=== PATIENT | male | born 1960 | race Two or more races ===

== ENCOUNTER 2024-12-25 22:12 | Emergency (ER) | payer SELFPAY ==
[2024-12-25 22:14] VITALS: BMI 22.0
[2024-12-25 22:19] VITALS: BP 159/103; PULSE 93; RESP 21; TEMP 36.6; O2SAT 100
--- NOTE | 2024-12-25 22:38 | PD.EDABDPN ---
ED Abdominal Pain RME/HPI General Chief Complaint: Abdominal Pain Stated complaint: Abdominal pain with NV x years off/on Time seen by provider: 12/25/24 22:29 Arrival date/time: 12/25/24 22:12 RME / HPI RME / HPI narrative: This section includes all my notes and documentations, including HPI, PE, and ED course. Jian Cristobal MD HPI: 64-year-old male here to be evaluated with several days of upper abdominal pain, severely worsening. With nausea and vomiting. Minimal oral intake. No hematemesis or coffee-ground emesis. No rectal bleeding or tarry stools. He reports no history of abdominal surgery. No other complaints. ROS: All negative except as documented in HPI. Physical Exam: General: Alert and oriented. In severe pain. Eyes: Conjunctivae and lids clear. ENT: No nasal congestion. Neck: Supple. Heart: RRR. Lungs: No respiratory distress. Good air movement. No rhonchi, wheezing, rales. Abdomen: Soft with severe epigastric and RUQ tenderness. Decreased bowel sounds. No distension. No rebound or guarding. Back: No CVA tenderness. Skin: Warm and dry. Neuro: Alert and oriented X 3. I reviewed all diagnostic test results. My review of the gallbladder US is cholelithiasis. Blood tests remarkable for Hgb 8.2, PLT 696, CR 1.7, and amylase 151. UA remarkable for WBC and UTI. Abdominal CT is pending. Treatment here included IV fluid, Zofran, Dilaudid, Rocephin, famotidine, and Protonix. At 6 AM on 12/26/2024, the care of the patient was transferred to Dr. Naidu. Jian Cristobal MD Related Data Home Medications ?Medication ?Instructions ?Recorded ?Confirmed No Known Home Medications 12/26/24 12/26/24 Allergies Allergy/AdvReac Type Severity Reaction Status Date / Time No Known Allergies Allergy Verified 12/25/24 22:14 Course Quality Measures none Orders Category Date Time Status CT Screening NOW Care 12/25/24 23:00 Active Saline [Insert IV] NOW Care 12/25/24 22:59 Active Straight [In and Out Catheter] X1 Care 12/25/24 22:[address] abdomen pelvis w con Stat Exams 12/25/24 23:00 Taken US gall bladder Stat Exams 12/25/24 23:00 Completed Alcohol, Blood Medical Stat Lab 12/25/24 23:10 Completed Amylase Stat Lab 12/25/24 23:10 Completed Bilirubin,Direct Stat Lab 12/25/24 23:10 Completed CBC Stat Lab 12/25/24 23:10 Completed CMP [Comprehensive Metabolic Panel] Stat Lab 12/25/24 23:10 Completed Drug Screen,Urine Stat Lab 12/26/24 04:24 Received Lipase Stat Lab 12/25/24 23:10 Completed Magnesium Stat Lab 12/25/24 23:10 Completed UA, C/S IF [Urinalysis, C/S if Indicated] Stat Lab 12/26/24 04:24 Received Urine Culture Stat Lab 12/26/24 04:24 Received Famotidine Inj [Pepcid Inj] Med 12/26/24 01:31 Discontinued 20 mg IVP X1 ONE HYDROmorphone INJ [Dilaudid Inj] Med 12/25/24 22:59 Discontinued 1 mg IVP X1 ONE Ondansetron Inj [Zofran Inj] Med 12/25/24 22:59 Discontinued 4 mg IV X1 ONE Pantoprazole Inj [Protonix Inj] Med 12/26/24 01:31 Discontinued 40 mg IVP X1 ONE Sodium Chloride 0.9% 1000 ml [Ns] 1,000 ml Med 12/25/24 22:59 Discontinued IV 999 mls/hr Sodium Chloride 0.9% 1000 ml [Ns] 1,000 ml Med 12/26/24 01:35 Discontinued IV 999 mls/hr cefTRIAXone [Rocephin] 1,000 mg Med 12/26/24 05:07 Ordered SODIUM CHLORIDE 0.9% (Popper) [Ns 0.9% (P)] 50 ml IV X1 Vital Signs Vital signs: Vital Signs Temperature 97.8 F 12/25/24 22:19 Pulse Rate 93 12/25/24 22:19 Respiratory Rate 21 H 12/25/24 22:19 Blood Pressure 159/103 H 12/25/24 22:19 Pulse Oximetry (%) 100 12/25/24 22:19 Abdominal Pain MDM Patient data External records reviewed:: None Clinical information provided by:: patient Social determinants that could affect healthcare access:: none (Uncertain) Patient has the following chronic illnesses:: Patient denies chronic illnesses. How is presenting disease/condition affected by chronic disease/condition?: no chronic disease Evaluation data The following diagnostics were reviewed and interpreted by me:: lab results and radiology exam(s) Lab and/or radiology exams considered but not ordered:: None Interpretation Summary: Complete diagnostic results pending. Medications / Prescriptions Medications or Prescriptions considered but not ordered:: None Medication administrations:: Medication Administration History Ceftriaxone Sodium 1,000 mg/ (Sodium Chloride) 50 mls @ 100 mls/hr IV X1 ONE Stop: 12/26/24 05:36 Discontinued Medications Famotidine (Famotidine Inj 10 Mg/Ml Vial 2 Ml) 20 mg IVP X1 ONE Stop: 12/26/24 01:32 Last Admin: 12/26/24 01:59 Dose: 20 mg Documented By: AM Hydromorphone HCl (Hydromorphone Inj 2 Mg/Ml Vial) 1 mg IVP X1 ONE Stop: 12/25/24 23:00 Last Admin: 12/25/24 23:18 Dose: 1 mg Documented By: CVL Sodium Chloride (Ns) 1,000 mls @ 999 mls/hr IV .Q1H1M ONE Stop: 12/25/24 23:59 Last Infusion: 12/26/24 00:59 Dose: Infused Documented By: Admin: 12/25/24 23:15 Dose: 999 mls/hr Documented By: CVL Sodium Chloride (Ns) 1,000 mls @ 999 mls/hr IV .Q1H1M ONE Stop: 12/26/24 02:35 Last Infusion: 12/26/24 03:01 Dose: Infused Documented By: Admin: 12/26/24 01:59 Dose: 999 mls/hr Documented By: AM Ondansetron HCl (Ondansetron Inj 2 Mg/Ml Inj 2 Ml) 4 mg IV X1 ONE; Protocol Stop: 12/25/24 23:00 Last Admin: 12/25/24 23:17 Dose: 4 mg Documented By: CVL Pantoprazole Sodium (Pantoprazole Inj 40 Mg Vial) 40 mg IVP X1 ONE Stop: 12/26/24 01:32 Last Admin: 12/26/24 01:58 Dose: 40 mg Documented By: AM IV fluid and Zofran and Dilaudid and famotidine and Protonix. Consultations Consultation(s) initiated? (list below): No Diagnosis Differential diagnosis abdominal pain: acute appendicitis, calculus of kidney, constipation, diverticulitis, gastroenteritis, pancreatitis, small bowel obstruction and other (Biliary colic, PUD, gastritis, GERD, punctured organ) Most likely diagnosis given after review of the tests above:: Complete diagnostic results are pending. Admission Indicated Admission indicated?: not indicated Explain why admission is indicated or not indicated:: Complete diagnostic test results are pending. Admission Request Was there a request for admission?: No Disposition Plan Disposition Plan: other (specify) (Care of the patient was transferred to Dr. Naidu.) Discharge Plan Prescriptions/Referrals Prescriptions/Med Rec: No Action No Known Home Medications Referrals: No Primary/Family,Physician [Primary Care Provider] - In 1 week Problem List Clinical Impression: Abdominal pain, UTI (urinary tract infection) Patient/Caregiver Discharge Instructions Print Language: [place]
--- NOTE | 2024-12-25 23:00 | XR_ITS ---
Examination: CT abdomen with intravenous contrast CT pelvis with intravenous contrast 2-D coronal reconstructions 2-D sagittal reconstructions Date and time of exam:December 26, 2024 at 0320 hours INDICATIONS: Upper abdominal pain with nausea today. CTDI: vol (mGy) 4.25 DLP: (mGycm) 239 Technique: Multiple axial sections of the abdomen and pelvis have been obtained. 64 slice high-resolution scanner used. 3 mm axial sections have been obtained, post intravenous injection of 50 cc Isovue 300 and 2-D sagittal, coronal reconstructions obtained. Low dose protocols were performed. One or more of the following dose reduction techniques were used; automated exposure control, adjustment of the mA and/or KV according to patient size, use of iterative reconstruction technique. Findings: Pronounced thickening of the distal wall of the esophagus No focal liver or splenic lesion Gallbladder is not diagnostically visualized No hydronephrosis Aorta normal size No bowel obstruction Intact urinary bladder No significant prostatomegaly Diffuse advanced lumbar degenerative disc disease IMPRESSION: Abnormal wall thickening involving the distal esophagus and fundus of the stomach, recommend esophagram upper GI series follow-up, esophageal gastric tumor included in the differential
--- NOTE | 2024-12-25 23:00 | XR_ITS ---
Examination: Abdomen sonogram, Limited Date and time of exam: December 25, 2024 11:23 PM INDICATIONS: Right upper abdomen tenderness years Technique: Real-time alberts scale transabdominal sonographic images of the upper abdomen obtained. Findings: Cholelithiasis, negative for cholecystitis Common bile duct 0.6 cm no stones Pancreatic head 1.6 cm Liver 11.6 cm fatty infiltration Normal hepatopedal portal venous flow Patent IVC IMPRESSION: Cholelithiasis, negative for cholecystitis
[2024-12-25] MEDS: SODIUM CHLORIDE 0.9% 1000 ML 1,000 ML 999 ML IV (23:15)
[2024-12-25] MEDS: ONDANSETRON INJ 2 MG/ML INJ 2 ML 4 MG IV (23:17)
[2024-12-25 23:18] LABS: Basophils % (Auto) 1 % (0-2.5); Eosinophils % (Auto) 0 % (0-10); Hematocrit 28.8 % (41.0-53.0); Immature Granulocytes % (Auto) 0 % (0-0); Immature Granulocytes Auto 0.02 Thou/mm3 (0.00-0.00); Lymphocytes # (Auto) 0.7 Thou/mm3 (1.0-4.8); Lymphocytes % (Auto) 10 % (10-50); Mean Corpuscular HGB Conc 28.5 g/dl (31.0-37.0); Mean Corpuscular Hemoglobin 17.1 pg (25.0-35.0); Mean Corpuscular Volume 60 fL (80-100); Monocytes # (Auto) 0.5 Thou/mm3 (0.0-0.8); Monocytes % (Auto) 6 % (0-12); Neutrophils # (Auto) 6.3 Thou/mm3 (1.8-7.7); Neutrophils % (Auto) 83 % (37-80); Nucleated Red Blood Cell % 0 /100 WBC (0); Platelet Count 696 Thou/mm3 (140-440); RDW Standard Deviation 41.3 fL (35.1-43.9); White Blood Count 7.6 Thou/mm3 (3.8-10.6)
[2024-12-25] MEDS: HYDROmorphone INJ 2 MG/ML VIAL 1 MG IVP (23:18)
[2024-12-25 23:54] LABS: Hemoglobin 8.2 g/dL (13.5-16.0)
[2024-12-26 00:06] LABS: Alanine Aminotransferase 8 U/L (10-49); Albumin, Serum 4.5 gm/dL (3.4-4.8); Albumin/Globulin Ratio 1.7 (1.2-2.2); Alcohol, Blood Medical < 3.0 mg/dL (0-10.0); Alkaline Phosphatase 94 U/L (46-116); Amylase 151 U/L (30-118); Anion Gap 9 (7-16); Aspartate Amino Transferase 14 U/L (0-34); BUN/Creatinine Ratio 21 Ratio (12-20); Bilirubin,Direct 0.1 mg/dL (0.0-0.3); Bilirubin,Total 0.4 mg/dL (0.3-1.2); Blood Urea Nitrogen 35 mg/dL (9-23); Calcium 10.1 mg/dL (8.3-10.6); Calcium (Corrected) 10.1 mg/dL (8.5-10.1); Carbon Dioxide 38.4 mMol/L (20.0-31.0); Chloride 82 mMol/L (98-107); Creatinine (Component) 1.7 mg/dL (0.6-1.3); Estimated Creatinine Clearance 41.4 mL/min (>60); Globulin 2.7 gm/dL (2.3-3.5); Glucose 138 mg/dL (74-106); Lipase 24 U/L (12-53); Magnesium 2.6 mg/dL (1.6-2.6); Osmolality,Calculated 268 (275-295); Potassium 3.4 mMol/L (3.4-5.1); Sodium 129 mMol/L (136-145); Total Protein 7.2 gm/dL (5.7-8.2); eGFR 45 See Note
[2024-12-26 01:25] VITALS: BP 145/87; PULSE 82; RESP 19; TEMP 36.9; O2SAT 98
[2024-12-26] MEDS: PANTOPRAZOLE INJ 40 MG VIAL IVP (01:58)
[2024-12-26] MEDS: SODIUM CHLORIDE 0.9% 1000 ML 1,000 ML 999 ML IV (01:59)
[2024-12-26] MEDS: FAMOTIDINE INJ 10 MG/ML VIAL 2 ML 20 MG IVP (01:59)
[2024-12-26 04:44] LABS: Collection Type, Urine Clean Catch; RBC,Urine 0 /hpf (0-3)
[2024-12-26 05:00] VITALS: BP 131/85; PULSE 74; RESP 16; TEMP 36.8; O2SAT 98
[2024-12-26 05:05] LABS: Bacteria,Urine 1+; Bilirubin,Urine Negative (Negative); Blood,Urine Negative (Negative); Clarity,Urine Turbid (Clear/Hazy); Color,Urine Yellow (Lt Yel-Yel); Glucose, Urine Negative (Negative); Hyaline Casts,Urine < 1 /hpf (0-1); Ketones,Urine Negative (Negative); Leukocyte Esterase,Urine Positive (Negative); Nitrite,Urine Negative (Negative); Protein,Urine 1+ (Neg - Trace); Specific Gravity,Urine 1.026 (1.001-1.035); Squamous Epithelial Cell,Urine < 1 /hpf (0-5); Urobilinogen,Urine Negative mg/dL (0.0-1.0); WBC,Urine 37 /hpf (0-5)
[2024-12-26 05:06] LABS: Culture Indicated,Urine Yes
[2024-12-26 05:11] LABS: Path Review Blood Smear Sent to Pathologist
[2024-12-26 05:14] LABS: Amphetamine/Methamp Scrn,U Positive (Negative); Barbiturate Screen,Urine Negative (Negative); Benzodiazepines Screen,Urine Negative (Negative); Benzoylecgonine Screen, Ur Negative (Negative); Fentanyl Screen,Urine Negative (Negative); Opiate Screen,Urine Negative (Negative); THC Screen,Urine Negative (Negative)
--- NOTE | 2024-12-26 05:14 | PRELIM_ITS ---
CT scan of the abdomen and pelvis with intravenous contrast (axial sections with sagittal and coronal reformats) December 26, 2024 at 0320 hours Clinical History: Upper abdominal pain. Comparison: None. Findings: The lung bases are clear. The liver, gallbladder, pancreas, spleen, kidneys and adrenals are unremarkable. No evidence of bowel obstruction. No evidence of appendicitis. There is no mesenteric or retroperitoneal adenopathy. The urinary bladder is unremarkable. There is no free fluid or free air. Degenerative changes of the imaged portions of the spine. Chronic multilevel disc disease. No acute fractures. Vascular calcifications. Small hiatus hernia. Thickening of the distal esophagus and gastroesophageal junction. Impression: Small hiatus hernia. Thickening of the distal esophagus and gastroesophageal junction, inflammatory versus neoplastic, further evaluation is recommended. Report Electronically Signed By: Maykel Chan 12/26/2024 5:13:50 AM [EST]
[2024-12-26] MEDS: cefTRIAXone 1,000 MG in SODIUM CHLORIDE 0.9% (Popper) 50 ML 100 MG IV (05:22)
[2024-12-26 06:18] VITALS: BP 111/50; PULSE 78; RESP 17; TEMP 36.6; O2SAT 99
--- NOTE | 2024-12-26 06:53 | EDNOTE_ITS ---
Emergency Room Addendum Addendum Narrative: 0600: Care assumed from Dr. Cristobal, the previous shift emergency physician. Past medical, surgical, social and family history reviewed. Vitals and home medications reviewed. I will assume the care of the patient at this time, pending CT report and final disposition. Please refer to the emergency department record for history and examination from initial visit.?The following addendum documentation note is intended to reflect any pending information, findings, or radiology results not included in the patient?s initial chart. 0738: On reassessment patient reports he feels improved although still has mild epigastric pain and nausea. Will order pain medications and reassess. 0850: Patient reports feeling better. Patient remains clinically stable throughout the emergency department visit. We reviewed all the results, analysis, and treatment plans. Patient is amenable to discharge. Strict return precautions were outlined. Patient was discharged in stable condition. RADIOLOGY ____ Ordering Physician: Date of Service: Procedure(s): Accession Number(s): cc: ~ CT scan of the abdomen and pelvis with intravenous contrast (axial sections with sagittal and coronal reformats) December 26, 2024 at 0320 hours Clinical History: Upper abdominal pain. Comparison: None. Findings: The lung bases are clear. The liver, gallbladder, pancreas, spleen, kidneys and adrenals are unremarkable. No evidence of bowel obstruction. No evidence of appendicitis. There is no mesenteric or retroperitoneal adenopathy. The urinary bladder is unremarkable. There is no free fluid or free air. Degenerative changes of the imaged portions of the spine. Chronic multilevel disc disease. No acute fractures. Vascular calcifications. Small hiatus hernia. Thickening of the distal esophagus and gastroesophageal junction. Impression: Small hiatus hernia. Thickening of the distal esophagus and gastroesophageal junction, inflammatory versus neoplastic, further evaluation is recommended. Report Electronically Signed By: Maykel Chan 12/26/2024 5:13:50 AM [EST]
[2024-12-26 07:48] VITALS: BP 125/74; PULSE 81; RESP 18; TEMP 36.6; O2SAT 99
[2024-12-26] MEDS: ACETAMINOPHEN 325 MG TABLET 650 MG PO (08:39)
[2024-12-26 10:28] VITALS: BP 124/66; PULSE 73; RESP 12; TEMP 36.7; O2SAT 98
--- NOTE | 2024-12-26 10:40 | PC.CC ---
Marleen BENJAMIN was consulted by JUAN Osborne for transportation for the patient back home. ASW made contact with [facility] who reports they will be here to p/u patient in 30 minutes. ASW provided taxi voucher to RN and informed her of taxi p/u time.
== END 2024-12-26 10:28 | disposition home or self-care (01) ==
PROVIDERS: Emergency Medicine; Emergency Provider Family Medicine
DX: K80.20 Calculus of gallbladder without cholecystitis without obstruction (principal); N39.0 Urinary tract infection, site not specified
CPT/HCPCS: 36415; 74177; 76705; 80053; 80307; 80320; 81001; 82150; 82248; 83690; 83735; 85025; 87077; 87086; 87186; 96361; 96365; 96375; 99285; A4649; J0696; J2405; J2470; J3490; J7030; J7050; Q9967; A9270; G0480

== ENCOUNTER 2024-12-27 18:03 | Inpatient (IN) | payer MEDICAID, SELFPAY ==
[2024-12-27 18:05] VITALS: BMI 26.6
--- NOTE | 2024-12-27 18:47 | PC.NURSE ---
CALLED PT BACK, NO ANSWER
[2024-12-27 19:54] VITALS: BP 146/83; PULSE 88; RESP 18; TEMP 36.9; O2SAT 99
--- NOTE | 2024-12-27 20:01 | PD.EDRME ---
Rapid Medical Screening Exam RME Arrival date/time: 12/27/24 18:03 Chief Complaint: Abdominal Pain Time Seen by Provider: 12/27/24 18:15 Vital signs: Vital Signs Temperature 98.4 F 12/27/24 19:54 Pulse Rate 88 12/27/24 19:54 Respiratory Rate 18 12/27/24 19:54 Blood Pressure 146/83 H 12/27/24 19:54 Pulse Oximetry (%) 99 12/27/24 19:54 Oxygen Delivery Method Room Air 12/27/24 19:54 Vital signs reviewed by provider: Yes RME Narrative: 64-year-old male presents for evaluation of diffuse abdominal pain and persistent vomiting. Patient was recently seen in the ED and diagnosed with UTI. Patient has been noncompliant with medications. Patient is poor historian.
[2024-12-27 20:24] LABS: Basophils % (Auto) 0 % (0-2.5); Eosinophils # (Auto) 0.1 Thou/mm3 (0.0-0.5); Eosinophils % (Auto) 2 % (0-10); Hematocrit 24.8 % (41.0-53.0); Immature Granulocytes % (Auto) 0 % (0-0); Immature Granulocytes Auto 0.01 Thou/mm3 (0.00-0.00); Lymphocytes # (Auto) 0.5 Thou/mm3 (1.0-4.8); Lymphocytes % (Auto) 8 % (10-50); Mean Corpuscular HGB Conc 27.8 g/dl (31.0-37.0); Mean Corpuscular Volume 61 fL (80-100); Monocytes # (Auto) 0.3 Thou/mm3 (0.0-0.8); Monocytes % (Auto) 5 % (0-12); Neutrophils # (Auto) 5.7 Thou/mm3 (1.8-7.7); Neutrophils % (Auto) 85 % (37-80); Nucleated Red Blood Cell % 0 /100 WBC (0); Platelet Count 605 Thou/mm3 (140-440); RDW Standard Deviation 43.1 fL (35.1-43.9); Red Blood Count 4.05 Miln/mm3 (4.50-5.90); White Blood Count 6.7 Thou/mm3 (3.8-10.6)
[2024-12-27 20:47] LABS: Albumin, Serum 3.9 gm/dL (3.4-4.8); Albumin/Globulin Ratio 1.6 (1.2-2.2); Alcohol, Blood Medical < 3.0 mg/dL (0-10.0); Alkaline Phosphatase 84 U/L (46-116); Anion Gap 7 (7-16); Aspartate Amino Transferase 12 U/L (0-34); BUN/Creatinine Ratio 16 Ratio (12-20); Bilirubin,Total 0.2 mg/dL (0.3-1.2); Blood Urea Nitrogen 19 mg/dL (9-23); Calcium 9.3 mg/dL (8.3-10.6); Calcium (Corrected) 9.4 mg/dL (8.5-10.1); Carbon Dioxide 34.9 mMol/L (20.0-31.0); Chloride 91 mMol/L (98-107); Creatinine (Component) 1.2 mg/dL (0.6-1.3); Estimated Creatinine Clearance 52.8 mL/min (>60); Globulin 2.4 gm/dL (2.3-3.5); Glucose 163 mg/dL (74-106); Lipase 27 U/L (12-53); Osmolality,Calculated 272 (275-295); Potassium 3.2 mMol/L (3.4-5.1); Sodium 133 mMol/L (136-145); Total Protein 6.3 gm/dL (5.7-8.2); eGFR > 60 See Note
[2024-12-27 20:55] LABS: Alanine Aminotransferase 8 U/L (10-49)
[2024-12-27 21:43] LABS: Partial Thromboplastin Time 24.5 Seconds (22.0-36.0)
--- NOTE | 2024-12-27 22:20 | PD.EDABDPN ---
ED Abdominal Pain RME/HPI General Chief Complaint: Abdominal Pain Stated complaint: ABDOMINAL PAIN SEEN 12/25/24 Time seen by provider: 12/27/24 18:15 Arrival date/time: 12/27/24 18:03 RME / HPI RME / HPI narrative: 64-year-old male presents for evaluation of diffuse abdominal pain and persistent vomiting. Patient was recently seen in the ED and diagnosed with UTI. Patient has been noncompliant with medications. Patient is poor historian. This section includes all my notes and documentations, including HPI, PE, and ED course. Jian Cristobal MD HPI: 64-year-old male here to be evaluated with continued upper abdominal pain and vomiting. I saw him here today before yesterday. I transferred the care to next physician who discharged him home. ROS: All negative except as documented in HPI. Physical Exam: General: Alert and oriented. In severe pain. Eyes: Conjunctivae and lids clear. ENT: No nasal congestion. Neck: Supple. Heart: RRR. Lungs: No respiratory distress. Good air movement. No rhonchi, wheezing, rales. Abdomen: Soft with severe upper abdominal tenderness. Legs: No clubbing, cyanosis, edema. Skin: Warm and dry. Neuro: Alert and oriented X 3. I reviewed all diagnostic test results. My review of the 12/26/[address] report is abnormal thickening of the distal esophagus and fundus of the stomach. Blood tests from this visit remarkable for hemoglobin 7.0. At this point, diagnoses include GI bleed and severe anemia. Treatment here included Dilaudid, NS, Zofran, Pantoprazole, Famotidine, and Potassium Chloride. Blood transfusion ordered. I discussed the case with our telephoto engineer, Dr. Tyler, and our hospitalist. About the presentation and exam and diagnostics and treatments here. And need of further care in the hospital. Will accept the patient. Jian Cristobal MD Related Data Previous Rx's ?Medication ?Instructions ?Recorded sulfamethoxazole 800 1 tab PO BID #20 tabs 12/26/24 mg-trimethoprim 160 mg tablet (Bactrim DS) Allergies Allergy/AdvReac Type Severity Reaction Status Date / Time No Known Allergies Allergy Verified 12/25/24 22:14 Review of Systems Review of Systems Systems Reviewed: All systems reviewed, normal except as documented Past Medical History Past Medical History NEUROLOGIC: Negative Neurological Disorders CARDIAC: Negative Cardiac Disorders or Congestive Heart Failure RESPIRATORY: Negative Chronic Obstructive Pulmonary Disease (COPD) or Asthma GASTROINTESTINAL: Negative Gastrointestinal Disorders GENITOURINARY: Negative Genitourinary Disorders or Renal Disease MUSCULOSKELETAL: Negative Musculoskeletal Disorders ENDOCRINE: Negative Endocrine Disorders, Diabetes Mellitus Type 1 or Diabetes Mellitus Type 2 HEMATOLOGIC: Negative Sickle Cell Disease Family History FAMILY HISTORY: Negative Family Cardiac Disorders Social History SMOKING STATUS: Current every day smoker ED Exam Narrative Physical exam: As noted in HPI. Course Quality Measures none Orders Category Date Time Status COVID-19 Screening Questionnaire NOW Care 12/28/24 00:28 Active Decision to Admit X1 Care 12/28/24 00:28 Active Insert IV NOW Care 12/27/24 19:56 Active Transfuse,blood/blood products NOW Care 12/27/24 23:10 Active Consult to Gastroenterology Stat Cons 12/28/24 00:28 Ordered Alcohol, Blood Medical Stat Lab 12/27/24 20:15 Completed CBC Stat Lab 12/27/24 20:15 Completed CMP [Comprehensive Metabolic Panel] Stat Lab 12/27/24 20:15 Completed Drug Screen,Urine Stat Lab 12/27/24 19:58 Ordered Lipase Stat Lab 12/27/24 20:15 Completed PT [Prothrombin Time with INR] Stat Lab 12/27/24 20:15 Completed PTT [Partial Thromboplastin Time] Stat Lab 12/27/24 20:15 Completed Packed Cells [Red Blood Cells] Stat Lab 12/27/24 22:06 Results Type and Screen Stat Lab 12/27/24 22:06 Results UA, C/S IF [Urinalysis, C/S if Indicated] Stat Lab 12/27/24 19:57 Ordered Famotidine Inj [Pepcid Inj] Med 12/27/24 23:08 Discontinued 20 mg IVP X1 ONE HYDROmorphone INJ [Dilaudid Inj] Med 12/27/24 20:00 Discontinued 1 mg IVP X1 ONE HYDROmorphone INJ [Dilaudid Inj] Med 12/27/24 19:59 Discontinued 2 mg IVP X1 ONE KCL 10% Liq UDC 15 ML Med 12/27/24 23:07 Discontinued 40 meq PO X1 ONE Ondansetron Inj [Zofran Inj] Med 12/27/24 19:59 Discontinued 4 mg IV X1 ONE Pantoprazole Inj [Protonix Inj] Med 12/27/24 19:56 Discontinued 40 mg IV X1 ONE Pantoprazole Inj [Protonix Inj] Med 12/27/24 23:08 Discontinued 80 mg IVP X1 ONE Sodium Chloride 0.9% 1000 ml [Ns] 1,000 ml Med 12/27/24 19:58 Discontinued IV 999 mls/hr Vital Signs Vital signs: Vital Signs Temperature 98.4 F 12/27/24 19:54 Pulse Rate 88 12/27/24 19:54 Respiratory Rate 18 12/27/24 19:54 Blood Pressure 146/83 H 12/27/24 19:54 Pulse Oximetry (%) 99 12/27/24 19:54 Oxygen Delivery Method Room Air 12/27/24 19:54 Abdominal Pain MDM Patient data External records reviewed:: [facility] previous records (Per chart review, patient was seen here on 12/26/24 for abdominal pain.) Clinical information provided by:: patient Social determinants that could affect healthcare access:: none Patient has the following chronic illnesses:: none How is presenting disease/condition affected by chronic disease/condition?: no chronic disease Evaluation data The following diagnostics were reviewed and interpreted by me:: lab results and radiology exam(s) Lab and/or radiology exams considered but not ordered:: none Interpretation Summary: Upper GI bleed and severe anemia Medications / Prescriptions Medications or Prescriptions considered but not ordered:: none Medication administrations:: Medication Administration History Discontinued Medications Famotidine (Famotidine Inj 10 Mg/Ml Vial 2 Ml) 20 mg IVP X1 ONE Stop: 12/27/24 23:09 Last Admin: 12/27/24 23:13 Dose: 20 mg Documented By: RUSSEL Hydromorphone HCl (Hydromorphone Inj 2 Mg/Ml Vial) 2 mg IVP X1 ONE Stop: 12/27/24 20:00 Last Admin: 12/27/24 22:59 Dose: Not Given Documented By: DEBORAH Non-Admin Reason: Cancelled by Provider Hydromorphone HCl (Hydromorphone Inj 2 Mg/Ml Vial) 1 mg IVP X1 ONE Stop: 12/27/24 20:01 Last Admin: 12/27/24 23:09 Dose: 1 mg Documented By: RUSSEL Sodium Chloride (Ns) 1,000 mls @ 999 mls/hr IV .Q1H1M ONE Stop: 12/27/24 20:58 Last Infusion: 12/28/24 00:44 Dose: Infused Documented By: Admin: 12/27/24 23:06 Dose: 999 mls/hr Documented By: RUSSEL Ondansetron HCl (Ondansetron Inj 2 Mg/Ml Inj 2 Ml) 4 mg IV X1 ONE; Protocol Stop: 12/27/24 20:00 Last Admin: 12/27/24 23:08 Dose: 4 mg Documented By: EE Pantoprazole Sodium (Pantoprazole Inj 40 Mg Vial) 40 mg IV X1 ONE Stop: 12/27/24 19:57 Last Admin: 12/27/24 23:06 Dose: 40 mg Documented By: EE Pantoprazole Sodium (Pantoprazole Inj 40 Mg Vial) 80 mg IVP X1 ONE Stop: 12/27/24 23:09 Last Admin: 12/27/24 23:13 Dose: 80 mg Documented By: EE Potassium Chloride (Potassium Chloride 10% 20 Meq/15 Ml Udc) 40 meq PO X1 ONE Stop: 12/27/24 23:08 Last Admin: 12/27/24 23:12 Dose: 40 meq Documented By: RUSSEL Dilaudid, NS, Zofran, Pantoprazole, Famotidine, Potassium Chloride. Blood transfusion ordered. Consultations Consultation(s) initiated? (list below): Yes Consultation #1 (Physician, Specialty, Details): Discussed case with Dr. Tyler from GI regarding consultation. Discussed patients ED course, exam findings, labs, and radiology results. States to admit the patient and he will consult. Time: 00:21 Diagnosis Differential diagnosis abdominal pain: constipation, diverticulitis, pancreatitis, small bowel obstruction and other (GI bleed) Most likely diagnosis given after review of the tests above:: GI bleed and severe anemia Admission Indicated Admission indicated?: indicated Explain why admission is indicated or not indicated:: GI bleed and severe anemia Admission Request Was there a request for admission?: Yes Admission Attestation Admission request attestation: Discussed case with Hospitalist service regarding admission. Discussed patients ED course, exam findings, labs, and radiology results. The Hospitalist [agrees] to accept the patient for admission. Disposition Plan Disposition Plan: Admit Discharge Plan Plan Patient Disposition: Admit Acute Care w/in Hospital Prescriptions/Referrals Prescriptions/Med Rec: No Action sulfamethoxazole-trimethoprim [Bactrim DS] 800-160 mg tablet 1 tab PO BID Qty: 20 0RF Referrals: No Primary/Family,Physician [Primary Care Provider] - In 1 week Problem List Clinical Impression: GI bleed, Severe anemia Patient/Caregiver Discharge Instructions Print Language: Colombian Stand Alone Forms: [employer] Award Info., Patient Portal Info Letter
[2024-12-27 22:57] VITALS: BP 148/91; PULSE 82; RESP 17; TEMP 37; O2SAT 98
[2024-12-27] MEDS: SODIUM CHLORIDE 0.9% 1000 ML 1,000 ML 999 ML IV (23:06)
[2024-12-27] MEDS: PANTOPRAZOLE INJ 40 MG VIAL IV (23:06)
[2024-12-27] MEDS: ONDANSETRON INJ 2 MG/ML INJ 2 ML 4 MG IV (23:08)
[2024-12-27] MEDS: HYDROmorphone INJ 2 MG/ML VIAL 1 MG IVP (23:09)
[2024-12-27] MEDS: POTASSIUM CHLORIDE 10% 20 MEQ/15 ML UDC 40 MEQ PO (23:12)
[2024-12-27] MEDS: PANTOPRAZOLE INJ 40 MG VIAL 80 MG IVP (23:13)
[2024-12-27] MEDS: FAMOTIDINE INJ 10 MG/ML VIAL 2 ML 20 MG IVP (23:13)
--- NOTE | 2024-12-27 23:31 | PC.CC ---
Marleen BENJAMIN arranged transportation for CT with [id number].
[2024-12-28] VITALS (25 sets, daily range): BP systolic 105–153; BP diastolic 57–89; PULSE 55–108; RESP 9–19; TEMP 36.1–37.2; O2SAT 95–100
--- NOTE | 2024-12-28 01:31 | XR_ITS ---
Examination: AP chest single view Technique one AP portable upright chest single view Exam date and time: December 28, 2024 0144 hrs. Indications: Shortness of breath today. Findings: Mild enlargement cardiac contour Mild vascular congestion. No lobar pneumonia or pulmonary edema Impression: Mild vascular congestion
--- NOTE | 2024-12-28 01:31 | EKG_ITS ---
[facility] Test Date: 2024-12-28 Pat Name: ANTHONY VELÁZQUEZ Department: Room: - Gender: Male [employer]: : 1960 Requested By: Freddy Fleming Order Number: [id number] Reading MD: Freddy Fleming Measurements Intervals [place] Rate: 72 P: 75 CO: 140 QRS: -65 QRSD: 100 T: -53 QT: 393 QTc: 433 Interpretive Statements SINUS RHYTHM LEFT ANTERIOR FASCICULAR BLOCK [QRS AXIS <= -45, QR IN I, RS IN II] NONSPECIFIC ST & T-WAVE ABNORMALITY No previous ECG available for comparison /store/[email or web address]/[id number]
--- NOTE | 2024-12-28 01:41 | ESHP_ITS ---
Documentation for date of: 12/28/24 [facility] History of Present Illness History of present illness: The patient is a 64-year-old male with no significant past medical history presented to ED on 12/27/2024 with chief complaint of nausea and vomiting for past 1 to 2 days. The patient is a poor historian. He reported that he has never seen any PCP, and has not been taking any medicines. He also reported that initially he had 10/10 epigastric pain, and was only relieved when he was given IV medicines in the ED. He reported that it has been probably a month when he had his last bowel movement, and he does not remember whether it was dark or contained any blood. He denied any blood in his vomitus. He reported that he has been losing weight, and has been appearing thinner, but does not remember since when. He admitted mild chest pain after having few episodes of vomiting which he attributed to vomiting. He denied any headache, sore throat, lightheadedness, SOB, any changes in urine or leg swelling. He also denied any fever, but reported that he has been feeling cold. In the ED his vitals were significant for blood pressure 146/83, saturating 99% on room air. CBC revealed hemoglobin 7.0, hematocrit 24.8, MCV 61, RDW 43.1, platelet 605, sodium 133, potassium 3.2, chloride 91, bicarb 34.9, osmolality 272, lipase 27. Chest x-ray and EKG were ordered for baseline reference, but is still pending. Abdomen/pelvis CT revealed thickening involving the distal esophagus and fundus of the stomach. Gallbladder ultrasound revealed cholelithiasis negative for cholecystitis. PMH: No known past medical history SHX: None Family history: Unremarkable Surgical history: None Allergies: No known drug allergies Social history: Denies smoking, alcohol or drug abuse The patient received famotidine 20 Mg IV x 1 pantoprazole 40 Mg IV x 1, and pantoprazole 80 Mg IV x 1, also received hydromorphone 1 mg IV x 1 and Zofran 4 Mg IV x 1; and received 1 L of IV normal saline in the ED. he was admitted to telemetry unit for further management of anemia. Review of Systems Review of Systems Systems Reviewed: All systems reviewed, normal except as documented Exam Vital Signs Temp Pulse Resp BP Pulse Ox O2 Del Method 98.0 F 83 12 135/74 H 95 Room Air 12/28/24 00:56 12/28/24 00:56 12/28/24 00:56 12/28/24 00:56 12/28/24 00:56 12/28/24 00:32 Narrative Exam General: No acute distress, Alert and Oriented x 3 HEENT: Mildly dry mucous membranes, oropharynx clear Neck: Supple, No masses, No JVD CVS: S1S2 Regular rate and rhythm, No murmurs, rubs or gallops Lungs: Clear to auscultation with no accessory use, no wheeze no rhonchi Abd: Soft, NT/ND, +BS, no organomegaly Ext: No edema, warm and well perfused Skin: No rash Psych: Appropriate mood and affect Results: Labs 12/28/24 04:52 12/27/24 20:15 Labs: Short CBC 12/27/24 Range/Units 20:15 WBC 6.7 (3.8-10.6) Thou/mm3 Hgb 7.0 L (13.5-16.0) g/dL Hct 24.8 L (41.0-53.0) % Plt Count 605 H D (140-440) Thou/mm3 BMP 12/27/24 20:15 Sodium 133 L Potassium 3.2 L Chloride 91 L Carbon Dioxide 34.9 H BUN 19 Creatinine 1.2 D Glucose 163 H Calcium 9.3 Liver Function 12/27/24 Range/Units 20:15 Total Bilirubin 0.2 L (0.3-1.2) mg/dL AST 12 (0-34) U/L ALT 8 L (10-49) U/L Alkaline Phosphatase 84 (46-116) U/L Albumin 3.9 D (3.4-4.8) gm/dL Quality Measures Quality Measures none Medications Home Medications and Allergies Allergies Allergy/AdvReac Type Severity Reaction Status Date / Time No Known Allergies Allergy Verified 12/25/24 22:14 Visit Medications Hydrocodone Bitart/Acetaminophen (Hydrocodone/Apap 5/325 Tablet) 1 tab PO Q4HR PRN PRN Reason: PAIN SCALE 4-6 (Moderate Stop: 01/02/25 01:25 Hydromorphone HCl (Hydromorphone Inj 2 Mg/Ml Vial) 0.5 mg IVP Q6H PRN PRN Reason: PAIN SCALE 7-10 (Severe Stop: 01/02/25 01:25 Ondansetron HCl (Ondansetron Inj 2 Mg/Ml Inj 2 Ml) 4 mg IV Q6H PRN; Protocol PRN Reason: NAUSEA OR VOMITING Stop: 01/27/25 01:25 Pantoprazole Sodium (Pantoprazole Inj 40 Mg Vial) 40 mg IVP BID ALAN Stop: 01/27/25 08:59 Discontinued Medications Famotidine (Famotidine Inj 10 Mg/Ml Vial 2 Ml) 20 mg IVP X1 ONE Stop: 12/27/24 23:09 Last Admin: 12/27/24 23:13 Dose: 20 mg Hydromorphone HCl (Hydromorphone Inj 2 Mg/Ml Vial) 2 mg IVP X1 ONE Stop: 12/27/24 20:00 Last Admin: 12/27/24 22:59 Dose: Not Given Hydromorphone HCl (Hydromorphone Inj 2 Mg/Ml Vial) 1 mg IVP X1 ONE Stop: 12/27/24 20:01 Last Admin: 12/27/24 23:09 Dose: 1 mg Sodium Chloride (Ns) 1,000 mls @ 999 mls/hr IV .Q1H1M ONE Stop: 12/27/24 20:58 Last Infusion: 12/28/24 00:44 Dose: Infused Ondansetron HCl (Ondansetron Inj 2 Mg/Ml Inj 2 Ml) 4 mg IV X1 ONE; Protocol Stop: 12/27/24 20:00 Last Admin: 12/27/24 23:08 Dose: 4 mg Pantoprazole Sodium (Pantoprazole Inj 40 Mg Vial) 40 mg IV X1 ONE Stop: 12/27/24 19:57 Last Admin: 12/27/24 23:06 Dose: 40 mg Pantoprazole Sodium (Pantoprazole Inj 40 Mg Vial) 80 mg IVP X1 ONE Stop: 12/27/24 23:09 Last Admin: 12/27/24 23:13 Dose: 80 mg Potassium Chloride (Potassium Chloride 10% 20 Meq/15 Ml Udc) 40 meq PO X1 ONE Stop: 12/27/24 23:08 Last Admin: 12/27/24 23:12 Dose: 40 meq Assessment & Plan Plan The patient is a 64-year-old male with no significant past medical history presented to ED on 12/27/2024 with chief complaint of nausea and vomiting for past 1 to 2 days. The patient is admitted to telemetry unit for further management severe symptomatic microcytic of anemia. #Severe symptomatic microcytic anemia Etiology currently unknown DDx: Most likely upper GI bleed versus lower GI bleed Patient presented with nausea and vomiting associated with severe abdominal pain He has not been following any PCP or has not been taking any medications Hemoglobin 7.0, hematocrit 24.8, MCV 61, RDW 43.1 Abdomen/pelvis CT revealed thickening involving the distal esophagus and fundus of the stomach. Gallbladder ultrasound revealed cholelithiasis negative for cholecystitis. The patient received famotidine 20 Mg IV x 1 pantoprazole 40 Mg IV x 1, and pantoprazole 80 Mg IV x 1, also received hydromorphone 1 mg IV x 1 and Zofran 4 Mg IV x 1; and received 1 L of IV normal saline in the ED -Ordered 2 unit PRBC -Started on pantoprazole 40 Mg IV twice daily -Zofran 4 Mg IV as needed for nausea or vomiting -Pain medications -Ordered reticulocyte count -Ordered iron panel -GI Dr. Tyler consulted, appreciate recommendations -N.p.o. for now, okay for meds with sips of water -Monitor hemoglobin and hematocrit and transfuse if hemoglobin is less than 7 -Daily a.m. labs for CBC, CMP and electrolytes #Thrombocytosis Presented with platelet of 605 -Continue to monitor CBC daily #Mild hypoosmolar hypovolemic hyponatremia #Hypokalemia Presented with sodium of 133, potassium 3.2, calculated osmolality 272. -Patient received 1 L of NS in the ED -Received 40 mEq of KCl p.o. in the ED -Monitor daily a.m. labs for electrolytes Health maintenance: Dispo: Patient admitted to telemetry unit for further management of severe symptomatic microcytic anemia DVT prophylaxis: SCDs Diet: N.p.o. for now, okay for meds with sips of water CODE STATUS: Full code The patient's management plan was discussed with my attending physician MD Freddy Franco MD, PGY2 Attending Provider Attestation/Addendum 64-year-old male patient who was admitted for abdominal pain nausea and vomiting. The patient was found to have severe microcytic anemia. He also has thrombocytosis. Mild BUN and creatinine elevation, hypokalemia and hyponatremia patient will be admitted for further workup.
[2024-12-28 05:22] LABS: Basophils % (Auto) 1 % (0-2.5); Eosinophils # (Auto) 0.2 Thou/mm3 (0.0-0.5); Eosinophils % (Auto) 3 % (0-10); Immature Granulocytes % (Auto) 0 % (0-0); Immature Granulocytes Auto 0.02 Thou/mm3 (0.00-0.00); Immature Reticulocyte Fraction 17.8 % (2.3-13.4); Monocytes # (Auto) 0.3 Thou/mm3 (0.0-0.8); Monocytes % (Auto) 5 % (0-12); Neutrophils % (Auto) 81 % (37-80); Nucleated Red Blood Cell % 0 /100 WBC (0); Reticulocyte % (Auto) 0.6 % (0.5-1.5); Reticulocyte Absolute Auto 26.8 Biln/L (25.0-75.0); Reticulocyte Hgb Content 20.2 pg (28.0-35.0); White Blood Count 6.2 Thou/mm3 (3.8-10.6)
[2024-12-28 05:30] LABS: Hematocrit 29.3 % (41.0-53.0); Lymphocytes # (Auto) 0.6 Thou/mm3 (1.0-4.8); Lymphocytes % (Auto) 10 % (10-50); Mean Corpuscular HGB Conc 29.4 g/dl (31.0-37.0); Mean Corpuscular Hemoglobin 19.5 pg (25.0-35.0); Mean Corpuscular Volume 66 fL (80-100); Platelet Count 609 Thou/mm3 (140-440); RDW Standard Deviation 52.1 fL (35.1-43.9); Red Blood Count 4.41 Miln/mm3 (4.50-5.90)
[2024-12-28 05:31] LABS: Hemoglobin 8.6 g/dL (13.5-16.0)
[2024-12-28 06:04] LABS: Alanine Aminotransferase < 7 U/L (10-49); Albumin, Serum 3.4 gm/dL (3.4-4.8); Albumin/Globulin Ratio 1.6 (1.2-2.2); Alkaline Phosphatase 73 U/L (46-116); Anion Gap 4 (7-16); Aspartate Amino Transferase 11 U/L (0-34); BUN/Creatinine Ratio 18 Ratio (12-20); Bilirubin,Total 0.5 mg/dL (0.3-1.2); Blood Urea Nitrogen 18 mg/dL (9-23); Calcium 8.9 mg/dL (8.3-10.6); Calcium (Corrected) 9.4 mg/dL (8.5-10.1); Carbon Dioxide 32.2 mMol/L (20.0-31.0); Cardiac Risk Estimate 2.1 RATIO (4.0-6.7); Chloride 100 mMol/L (98-107); Cholesterol 109 mg/dL (132-200); Estimated Creatinine Clearance 63.3 mL/min (>60); Globulin 2.1 gm/dL (2.3-3.5); Glucose 92 mg/dL (74-106); HDL Cholesterol 53 mg/dL (40-60); LDL Cholesterol,Calculated 43 mg/dL (0-130); Osmolality,Calculated 273 (275-295); Potassium 3.8 mMol/L (3.4-5.1); Sodium 136 mMol/L (136-145); Thyroid Stimulating Hormone 1.45 uIU/mL (0.55-4.78); Total Protein 5.5 gm/dL (5.7-8.2); Triglycerides 67 mg/dL (30-150); eGFR > 60 See Note
[2024-12-28 06:15] LABS: Collection Type, Urine Clean Catch
[2024-12-28 06:45] LABS: Amphetamine/Methamp Scrn,U Positive (Negative); Barbiturate Screen,Urine Negative (Negative); Benzodiazepines Screen,Urine Negative (Negative); Benzoylecgonine Screen, Ur Negative (Negative); Bilirubin,Urine Negative (Negative); Blood,Urine Negative (Negative); Clarity,Urine Clear (Clear/Hazy); Color,Urine Yellow (Lt Yel-Yel); Culture Indicated,Urine Not Indicated; Fentanyl Screen,Urine Negative (Negative); Glucose, Urine 1+ (Negative); Ketones,Urine Negative (Negative); Leukocyte Esterase,Urine Negative (Negative); Nitrite,Urine Negative (Negative); Opiate Screen,Urine Positive (Negative); PH,Urine 6.5 (5.0-7.0); Protein,Urine Trace (Neg - Trace); RBC,Urine 1 /hpf (0-3); Squamous Epithelial Cell,Urine < 1 /hpf (0-5); THC Screen,Urine Negative (Negative); Urobilinogen,Urine Negative mg/dL (0.0-1.0); WBC,Urine 3 /hpf (0-5)
[2024-12-28 07:07] LABS: Iron 27 mcg/dL (65-175); Percent Iron Saturation 7 % (20-55); Total Iron Binding Capacity 343 mcg/dL (250-425); Unsaturated Iron Binding 316 (225-295)
[2024-12-28] MEDS: PANTOPRAZOLE INJ 40 MG VIAL IVP (08:07)
--- NOTE | 2024-12-28 13:49 | PC.SS ---
Addendum entered by Hermila Casey 12/28/24 15:56: SS was provided with Patient's son's contact information, Delfino [phone] by patient's friend Jered Garsia. SS informed patient. Patient stated friend Jered Garsia is next of kin. Patient requested transportation to his home at the time of discharge. Community Resources document provided to patient at bedside. SS explained clinic, mental health, and transportation resources to patient. Addendum entered by Hermila Caesy 12/28/24 14:20: SS contacted Duarte Garsia to confirm contact information, verbal consent provided by patient to allow SS to contact Duarte. Patient's friend Jered stated patient can use his home address for billing purposes. Original Note: SS met with patient at bedside to complete initial assessment. Patient is [place] speaking. He explained he lives in a hut he built on an empty lot, patient was unable to provide a physical home address. Patient further explained he will need to relocate due to new homes being built in the lot he resides on. Patient stated his primary medical surrogate decision maker is his friend Jered Garsia [phone]. Patient stated he has a son, Delfino, who he is estranged with. 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 Patient stated he struggles to ambulate and has to support his right leg with his hand in order to walk. Patient also states he needs help with ADLs. Patient stated he does not use any pharmacy for medication services. Patient declined having a PCP. He declined referral to [facility] due to not having transportation post discharge. Patient is self-pay and stated he is unable to obtain [facility] due to not being a resident or have a SSN. SS informed patient financial counselor will be consulted. Patient agreed. Discharge plan: home, transportation needed. Next of Kin: Friend Jered Garsia [phone]
--- NOTE | 2024-12-28 14:42 | PD.RESPRO ---
Documentation for date of: 12/28/24 Subjective Subjective Interval history: Patient seen and examined at bedside. Patient is currently n.p.o. for scheduled EGD later in the evening today. Patient has no current complaints, denies any blood in stool or vomit. Patient's labs and vitals reviewed. Hemoglobin 8.6 this morning, patient received 2 units PRBC in ED. Will continue to monitor patient. Exam Vital Signs Temp Pulse Resp BP Pulse Ox O2 Del Method O2 Flow Rate 98.3 F 71 14 108/62 99 Room Air 2 12/28/24 12:00 12/28/24 12:00 12/28/24 12:00 12/28/24 12:00 12/28/24 12:00 12/28/24 12:00 12/28/24 10:43 Narrative Exam Physical Exam General: Awake and in no acute distress. Conversational and non-toxic appearing. HEENT: Normocephalic, atraumatic, mucous membranes moist. Heart: Regular rate and rhythm, no murmurs. Lungs: Clear to auscultation with no wheezing or crackles. Abdomen: Soft, nondistended, nontender, positive bowel sounds. ?No guarding or rebound tenderness. Neurologic: Alert and oriented x3, no gross neurological deficit, and patient able to move all 4 extremities. Extremities: No edema. Skin: No rash or ecchymoses. Objective Labs 12/29/24 04:47 12/29/24 04:47 Labs: Laboratory Results - last 24 hr 12/27/24 12/27/24 12/28/24 20:15 22:06 04:52 WBC 6.7 6.2 RBC 4.05 L 4.41 L Hgb 7.0 L 8.6 L D Hct 24.8 L 29.3 L MCV 61 L 66 L MCH 17.0 L 19.5 L MCHC 27.8 L 29.4 L RDW Std Deviation 43.1 52.1 H Plt Count 605 H D 609 H Neut % (Auto) 85 H 81 H Lymph % (Auto) 8 L 10 [place] % (Auto) 5 5 Eos % (Auto) 2 3 Baso % (Auto) 0 1 Neut # (Auto) 5.7 5.0 Lymph # (Auto) 0.5 L 0.6 L [place] # (Auto) 0.3 0.3 Eos # (Auto) 0.1 0.2 Baso # (Auto) 0.0 0.0 Immature Gran # (Auto) 0.01 H 0.02 H Absolute Nucleated RBC 0.00 0.00 Immature Gran % 0 0 Nucleated RBC % 0 0 Retic Count (auto) 0.6 Absolute Retic 26.8 Immature Retic Fraction 17.8 H Retic Hgb Content CHr 20.2 L PT 11.0 INR 1.0 APTT 24.5 Sodium 133 L 136 Potassium 3.2 L 3.8 D Chloride 91 L 100 Carbon Dioxide 34.9 H 32.2 H Anion Gap 7 4 L BUN 19 18 Creatinine 1.2 D 1.0 Estim Creat Clear Calc 52.8 L 63.3 eGFR > 60 > 60 BUN/Creatinine Ratio 16 18 Glucose 163 H 92 D Calculated Osmolality 272 L 273 L Calcium 9.3 8.9 Corrected Calcium 9.4 9.4 Magnesium 2.0 Iron 27 L TIBC 343 Iron Saturation 7 L Unsat Iron Binding 316 H Total Bilirubin 0.2 L 0.5 AST 12 11 ALT 8 L < 7 L Alkaline Phosphatase 84 73 Total Protein 6.3 5.5 L Albumin 3.9 D 3.4 D Globulin 2.4 2.1 L Albumin/Globulin Ratio 1.6 1.6 Triglycerides 67 Cholesterol 109 L LDL Cholesterol, Calc 43 HDL Cholesterol 53 Cholesterol/HDL Ratio 2.1 L Lipase 27 TSH 1.45 Ur Collection Type Urine Color Urine Clarity Urine pH Ur Specific [place] Urine Protein Urine Glucose (UA) Urine Ketones Urine Blood Urine Nitrite Urine Bilirubin Urine Urobilinogen (Auto) Ur Leukocyte Esterase Urine RBC Urine WBC Ur Squamous Epith Cells Urine Bacteria Ur Culture Indicated? Urine Opiates Screen Urine Fentanyl Screen Ur Barbiturates Screen U Amphetamin/Meth Scrn U Benzodiazepines Scrn U Cocaine Metab Screen U Marijuana (THC) Screen Ethyl Alcohol < 3.0 Blood Type A Positive Antibody Screen NEGATIVE Crossmatch See Detail Blood Bank Wristband ID Yes 12/28/24 05:30 WBC RBC Hgb Hct MCV MCH MCHC RDW Std Deviation Plt Count Neut % (Auto) Lymph % (Auto) [place] % (Auto) Eos % (Auto) Baso % (Auto) Neut # (Auto) Lymph # (Auto) [place] # (Auto) Eos # (Auto) Baso # (Auto) Immature Gran # (Auto) Absolute Nucleated RBC Immature Gran % Nucleated RBC % Retic Count (auto) Absolute Retic Immature Retic Fraction Retic Hgb Content CHr PT INR APTT Sodium Potassium Chloride Carbon Dioxide Anion Gap BUN Creatinine Estim Creat Clear Calc eGFR BUN/Creatinine Ratio Glucose Calculated Osmolality Calcium Corrected Calcium Magnesium Iron TIBC Iron Saturation Unsat Iron Binding Total Bilirubin AST ALT Alkaline Phosphatase Total Protein Albumin Globulin Albumin/Globulin Ratio Triglycerides Cholesterol LDL Cholesterol, Calc HDL Cholesterol Cholesterol/HDL Ratio Lipase TSH Ur Collection Type Clean Catch Urine Color Yellow Urine Clarity Clear Urine pH 6.5 Ur Specific [place] 1.020 Urine Protein Trace Urine Glucose (UA) 1+ A Urine Ketones Negative Urine Blood Negative Urine Nitrite Negative Urine Bilirubin Negative Urine Urobilinogen (Auto) Negative Ur Leukocyte Esterase Negative Urine RBC 1 Urine WBC 3 Ur Squamous Epith Cells < 1 Urine Bacteria None Ur Culture Indicated? Not Indicated Urine Opiates Screen Positive A Urine Fentanyl Screen Negative Ur Barbiturates Screen Negative U Amphetamin/Meth Scrn Positive A U Benzodiazepines Scrn Negative U Cocaine Metab Screen Negative U Marijuana (THC) Screen Negative Ethyl Alcohol Blood Type Antibody Screen Crossmatch Blood Bank Wristband ID Quality Measures Quality Measures none Assessment & Plan Assessment Current Active Medications: Generic Name Dose Route Start Last Admin Trade Name Freq PRN Reason Stop Dose Admin Hydrocodone Bitart/Acetaminophen 1 tab 12/28/24 01:26 Hydrocodone/Apap 5/325 Tablet PO 01/02/25 01:25 Q4HR PRN PAIN SCALE 4-6 (Moderate Hydromorphone HCl 0.5 mg 12/28/24 01:26 Hydromorphone Inj 2 Mg/Ml Vial IVP 01/02/25 01:25 Q6H PRN PAIN SCALE 7-10 (Severe Ondansetron HCl 4 mg 12/28/24 01:26 Ondansetron Inj 2 Mg/Ml Inj 2 Ml IV 01/27/25 01:25 Q6H PRN NAUSEA OR VOMITING Protocol Pantoprazole Sodium 40 mg 12/28/24 09:00 12/28/24 08:07 Pantoprazole Inj 40 Mg Vial IVP 01/27/25 08:59 40 mg BID ALAN Administration Plan Assessment and Plan: Summary: Mr. Quesada is a 64-year-old male with no significant past medical history presented to ED on 12/27/2024 with chief complaint of nausea and vomiting for past 1 to 2 days. The patient is admitted to telemetry unit for further management severe symptomatic microcytic of anemia. #Severe symptomatic microcytic anemia #Thickened distal esophagus and fundus of stomach #GI bleed workup, upper versus lower Etiology currently unknown DDx: Most likely upper GI bleed versus lower GI bleed Patient presented with nausea and vomiting associated with severe abdominal pain He has not been following any PCP or has not been taking any medications Hemoglobin 7.0, hematocrit 24.8, MCV 61, RDW 43.1 reticulocyte count 0.6%, immature reticulocytes elevated Iron panel: Iron 27, TIBC 343, iron saturation 7%, unsaturated iron binding 316 Abdomen/pelvis CT revealed thickening involving the distal esophagus and fundus of the stomach. Gallbladder ultrasound revealed cholelithiasis negative for cholecystitis. The patient received famotidine 20 Mg IV x 1 pantoprazole 40 Mg IV x 1, and pantoprazole 80 Mg IV x 1, also received hydromorphone 1 mg IV x 1 and Zofran 4 Mg IV x 1; and received 1 L of IV normal saline in the ED Patient received 2 unit PRBC in the emergency department. Plan -Continue pantoprazole 40 Mg IV twice daily -Scheduled for EGD today -Zofran 4 Mg IV as needed for nausea or vomiting -Pain medications as needed -GI Dr. Tyler consulted, appreciate recommendations -Patient was given clear liquid diet, n.p.o. at 2 PM -Monitor hemoglobin and hematocrit and transfuse if hemoglobin is less than 7 #Thrombocytosis Presented with platelet of 605 -Continue to monitor CBC daily #Mild hypoosmolar hypovolemic hyponatremia #Hypokalemia Presented with sodium of 133, potassium 3.2, calculated osmolality 272. - Will continue to correct and replace electrolytes as needed DVT prophylaxis: SCDs GI prophylaxis: Protonix twice daily Diet: Clear liquid, n.p.o. at 2 PM Lines: Peripheral IV Code status: Full code Case discussed with Attending Dr. Powers and Dr. Love PGY2. Jared Valenzuela PGY1 Disclaimer: This note was dictated by speech recognition. Minor errors in auto mechanics instructor may be present due to voice recognition software. Attending Provider Attestation/Addendum I reviewed labs, imaging, EKG, home medications and prior available records. Face to face evaluation was performed by me. I have personally examined the patient and discussed assessment and plan with the IM team. I reviewed the resident note and agree with the plan with exceptions as below. Intractable nausea and vomiting Acute anemia Possible upper GI bleed Methamphetamine use Status post 2 PRBC transfusion Monitor H&H posttransfusion: Stable CT showed esophageal and stomach wall thickening: Started PPI twice daily. Consulted GI for EGD Counseled the patient regarding the importance of avoiding methamphetamine Management of nausea/vomiting as needed
--- NOTE | 2024-12-28 19:18 | ESCONSULT_ITS ---
HPI Data of Consult Requesting Physician: Mike Moon MD Primary Care Provider: Physician No Primary/Family Consult Narrative Reason for consult: Abdominal pain, nausea vomiting, abnormal CTAP History of present illness: 64 years old male admitted to the hospital after second 0 to the ER with nausea vomiting epigastric and right upper quadrant abdominal pain Patient was earlier 2 days ago in the emergency room when he had a CT scan of the abdomen pelvis done with contrast showed thickening of the esophageal wall in the distal esophagus as well as fundic gastric wall Gallbladder ultrasound showed cholelithiasis liver size 11.7 cm and fatty liver Patient is a very poor historian Patient had dropped his hemoglobin from a baseline of 8.7 on his previous visit to 7.0 and he was Hemoccult positive Patient denies any history of hematemesis melena or hematochezia cc:: cc: Mike Moon MD Review of Systems Review of Systems Systems Reviewed: All systems reviewed, normal except as documented Past Medical History Surgical History OTHER SURGICAL HX: As in the history of present illness Meds Home Medications and Allergies Allergies Allergy/AdvReac Type Severity Reaction Status Date / Time No Known Allergies Allergy Verified 12/25/24 22:14 Exam Vital Signs Temp Pulse Resp BP Pulse Ox O2 Del Method O2 Flow Rate 97.8 F 61 18 153/84 H 99 Room Air 3 12/28/24 16:00 12/28/24 19:10 12/28/24 19:10 12/28/24 19:10 12/28/24 19:10 12/28/24 16:00 12/28/24 19:10 Constitutional Comments: Uncooperative and poor historian Routine Respiratory Exam Comments: Normal to auscultation Routine Abdominal Exam Comments: Soft tender in the epigastric right upper quadrant area close positive bowel sounds Results Labs 12/28/24 04:52 12/28/24 04:52 Labs: Short CBC 12/27/24 12/28/24 Range/Units 20:15 04:52 WBC 6.7 6.2 (3.8-10.6) Thou/mm3 Hgb 7.0 L 8.6 L D (13.5-16.0) g/dL Hct 24.8 L 29.3 L (41.0-53.0) % Plt Count 605 H D 609 H (140-440) Thou/mm3 BMP 12/27/24 12/28/24 20:15 04:52 Sodium 133 L 136 Potassium 3.2 L 3.8 D Chloride 91 L 100 Carbon Dioxide 34.9 H 32.2 H BUN 19 18 Creatinine 1.2 D 1.0 Glucose 163 H 92 D Calcium 9.3 8.9 Liver Function 12/27/24 12/28/24 Range/Units 20:15 04:52 Total Bilirubin 0.2 L 0.5 (0.3-1.2) mg/dL AST 12 11 (0-34) U/L ALT 8 L < 7 L (10-49) U/L Alkaline Phosphatase 84 73 (46-116) U/L Albumin 3.9 D 3.4 D (3.4-4.8) gm/dL Urine 12/28/24 Range/Units 05:30 Urine Color Yellow (Lt Yel-Yel) Urine Clarity Clear (Clear/Hazy) Urine pH 6.5 (5.0-7.0) Ur Specific [place] 1.020 (1.001-1.035) Urine Protein Trace (Neg - Trace) Urine Glucose (UA) 1+ A (Negative) Assessment and Plan Additional Assessment & Plan Additional Plan: # Nausea vomiting # Pain abdomen epigastric right upper quadrant # Posthemorrhagic anemia # Abnormal CT AP # Fatty liver # Cholelithiasis Plan Consent obtained in American fiberoptic esophagogastroduodenoscopy with possible biopsy possible therapeutic intervention under intravenous moderate sedation HIDA scan without the pharmaceutical May consider colonoscopy prior to discharge if the upper endoscopy is negative Thank you for the opportunity to participate in the care of this patient
--- NOTE | 2024-12-28 19:24 | XR_ITS ---
Examination: RACHELLE, hepatobiliary radioisotope scan Gallbladder ejection fraction study. Date and time of exam: December 29, 2024 1540 hrs. Indications: Epigastric pain chest pain vomiting today Technique: 6.0 mCi of 99M Hepatolite administered. Serial imaging then obtained from immediate through 60 minutes. 1.2 mcg selective catheter Kinevac administered for gallbladder ejection fraction study. Findings: Radioisotope activity within the liver is reasonably homogenous. Gallbladder, common bile duct small bowel activity noted Impression: Gallbladder activity Gallbladder ejection fraction 73%, normal greater than 35%
--- NOTE | 2024-12-28 19:25 | PC.NURSE ---
Dr. Tyler at bedside to explain procedure. marine habitat resource specialist Ashley on [employer] to translate. Pt also preferred in person translation, staff at bedside to translate and confirm with [employer] graduate student instructor. Pt verbalized understanding of procedure and ok to have procedure.
--- NOTE | 2024-12-28 19:35 | PC.NURSE ---
1300 Pt stating wants to leave AMA due to not being able to eat. Dr. Powers at bedside. abrasive band winder Mansi [id number] utilized. Pt not compliable with npo diet waiting for procedure. Notified Dr. Tyler, who verbalized will try and do EGD at 1800 and ok to have liquid diet until 1400. Dr. Valenzuela at bedside to speak with patient about plan of care and ordered clear liquid tray. Pt agreeable to wait until procedure and have clear liquid diet until 1400
--- NOTE | 2024-12-28 20:15 | PC.NURSE ---
PT BACK FROM ENDO, BACK TO BED. AWAKE AND FOLLOWING COMMANDS. REQUESTING TO EAT. PLAN OF CARE GIVEN REGARDING NEW MEDICATIONS AND HIDA SCAN PLANNED FOR TOMORROW, NPO POST MIDNIGHT
[2024-12-28] MEDS: PANTOPRAZOLE INJ 40 MG VIAL 80 MG IV (20:28)
[2024-12-28] MEDS: FLUCONAZOLE/NS 200 MG IVPB 200 MG/100 ML BAG 100 MG IV (20:34)
[2024-12-28] MEDS: NYSTATIN SUSP 5 ML UDC PO (21:01)
[2024-12-29] VITALS (8 sets, daily range): BP systolic 95–144; BP diastolic 63–90; PULSE 59–86; RESP 12–99; TEMP 36.1–36.7; O2SAT 98–99
[2024-12-29] MEDS: NYSTATIN SUSP 5 ML UDC PO ×3 (05:12→21:24)
[2024-12-29 05:17] LABS: Basophils # (Auto) 0.1 Thou/mm3 (0.0-0.2); Basophils % (Auto) 1 % (0-2.5); Eosinophils # (Auto) 0.3 Thou/mm3 (0.0-0.5); Eosinophils % (Auto) 5 % (0-10); Hematocrit 27.5 % (41.0-53.0); Immature Granulocytes % (Auto) 1 % (0-0); Immature Granulocytes Auto 0.03 Thou/mm3 (0.00-0.00); Lymphocytes # (Auto) 0.8 Thou/mm3 (1.0-4.8); Lymphocytes % (Auto) 14 % (10-50); Mean Corpuscular HGB Conc 29.1 g/dl (31.0-37.0); Mean Corpuscular Hemoglobin 19.7 pg (25.0-35.0); Mean Corpuscular Volume 68 fL (80-100); Monocytes # (Auto) 0.3 Thou/mm3 (0.0-0.8); Monocytes % (Auto) 5 % (0-12); Neutrophils # (Auto) 4.4 Thou/mm3 (1.8-7.7); Neutrophils % (Auto) 75 % (37-80); Nucleated Red Blood Cell % 0 /100 WBC (0); Platelet Count 484 Thou/mm3 (140-440); RDW Standard Deviation 53.7 fL (35.1-43.9); Red Blood Count 4.07 Miln/mm3 (4.50-5.90); White Blood Count 5.9 Thou/mm3 (3.8-10.6)
[2024-12-29 05:26] LABS: Prothrombin Time 11.3 Seconds (9.0-12.2)
[2024-12-29 05:49] LABS: Alanine Aminotransferase < 7 U/L (10-49); Albumin, Serum 3.2 gm/dL (3.4-4.8); Albumin/Globulin Ratio 1.7 (1.2-2.2); Alkaline Phosphatase 67 U/L (46-116); Anion Gap 7 (7-16); Aspartate Amino Transferase 12 U/L (0-34); BUN/Creatinine Ratio 16 Ratio (12-20); Bilirubin,Total 0.2 mg/dL (0.3-1.2); Blood Urea Nitrogen 16 mg/dL (9-23); Calcium 8.6 mg/dL (8.3-10.6); Calcium (Corrected) 9.2 mg/dL (8.5-10.1); Carbon Dioxide 29.3 mMol/L (20.0-31.0); Chloride 105 mMol/L (98-107); Estimated Creatinine Clearance 63.3 mL/min (>60); Globulin 1.9 gm/dL (2.3-3.5); Glucose 141 mg/dL (74-106); Magnesium 1.9 mg/dL (1.6-2.6); Osmolality,Calculated 284 (275-295); Phosphorous 1.8 mg/dL (2.4-5.1); Potassium 3.7 mMol/L (3.4-5.1); Sodium 141 mMol/L (136-145); Total Protein 5.1 gm/dL (5.7-8.2); eGFR > 60 See Note
[2024-12-29] MEDS: PANTOPRAZOLE INJ 40 MG VIAL 80 MG IV ×2 (08:16→21:24)
[2024-12-29] MEDS: FLUCONAZOLE/NS 200 MG IVPB 200 MG/100 ML BAG 100 MG IV (08:17)
--- NOTE | 2024-12-29 10:06 | PC.SS ---
Follow up note: Pt is NPO. Pending Hida Scan. SS spoke to Nery, financial quantitative analyst who explained they have attempted to meet with pt to fill out the paper work for temporary Medical but pt is not being cooperative. Per Nery, several attempts have been made.
[2024-12-29 11:11] LABS: Hepatitis A Antibody IgM Non Reactive (Non React); Hepatitis B Core Antibody IgM Non Reactive (Non React); Hepatitis B Surface Antigen Non Reactive (Non React); Hepatitis C Antibody Non Reactive (Non React)
--- NOTE | 2024-12-29 11:45 | PD.RESPRO ---
Documentation for date of: 12/29/24 Subjective Subjective Interval history: Patient seen and examined at bedside, labs and vitals reviewed Patient is status post EGD 12/28/2024, findings significant for esophagitis, esophageal ulcers and high suspicion of candidal esophagitis. Patient started on Diflucan 200 mg IV push daily and nystatin swish and swallow 5 cc p.o. 3 times daily by gastroenterology Uptitrated patient's Protonix to 80 mg daily, will continue Will test for HIV and hepatitis panel. Patient is scheduled for HIDA scan without CCK later today Currently n.p.o. Will continue to monitor patient. Exam Vital Signs Temp Pulse Resp BP Pulse Ox O2 Del Method O2 Flow Rate 97.4 F 65 16 131/73 H 99 Room Air 3 12/29/24 08:00 12/29/24 08:00 12/29/24 08:00 12/29/24 08:00 12/29/24 08:00 12/29/24 08:00 12/28/24 19:35 Narrative Exam Physical Exam General: Awake and in no acute distress. Conversational and non-toxic appearing. HEENT: Normocephalic, atraumatic, mucous membranes moist. Heart: Regular rate and rhythm, no murmurs. Lungs: Clear to auscultation with no wheezing or crackles. Abdomen: Soft, nondistended, nontender, positive bowel sounds. ?No guarding or rebound tenderness. Neurologic: Alert and oriented x3, no gross neurological deficit, and patient able to move all 4 extremities. Extremities: No edema. Skin: No rash or ecchymoses. Objective Labs 12/30/24 04:44 12/30/24 04:44 Labs: Laboratory Results - last 24 hr 12/29/24 04:47 WBC 5.9 RBC 4.07 L Hgb 8.0 L Hct 27.5 L MCV 68 L MCH 19.7 L MCHC 29.1 L RDW Std Deviation 53.7 H Plt Count 484 H D Neut % (Auto) 75 Lymph % (Auto) 14 [place] % (Auto) 5 Eos % (Auto) 5 Baso % (Auto) 1 Neut # (Auto) 4.4 Lymph # (Auto) 0.8 L [place] # (Auto) 0.3 Eos # (Auto) 0.3 Baso # (Auto) 0.1 Immature Gran # (Auto) 0.03 H Absolute Nucleated RBC 0.00 Immature Gran % 1 H Nucleated RBC % 0 PT 11.3 INR 1.0 Sodium 141 Potassium 3.7 Chloride 105 Carbon Dioxide 29.3 Anion Gap 7 BUN 16 Creatinine 1.0 Estim Creat Clear Calc 63.3 eGFR > 60 BUN/Creatinine Ratio 16 Glucose 141 H D Calculated Osmolality 284 Calcium 8.6 Corrected Calcium 9.2 Phosphorus 1.8 L Magnesium 1.9 Total Bilirubin 0.2 L AST 12 ALT < 7 L Alkaline Phosphatase 67 Total Protein 5.1 L Albumin 3.2 L Globulin 1.9 L Albumin/Globulin Ratio 1.7 Hepatitis A IgM Ab Non Reactive Hep Bs Antigen Non Reactive Hep B Core IgM Ab Non Reactive Hepatitis C Antibody Non Reactive Quality Measures Quality Measures none Assessment & Plan Assessment Current Active Medications: Generic Name Dose Route Start Last Admin Trade Name Freq PRN Reason Stop Dose Admin Hydrocodone Bitart/Acetaminophen 1 tab 12/28/24 01:26 Hydrocodone/Apap 5/325 Tablet PO 01/02/25 01:25 Q4HR PRN PAIN SCALE 4-6 (Moderate Hydromorphone HCl 0.5 mg 12/28/24 01:26 Hydromorphone Inj 2 Mg/Ml Vial IVP 01/02/25 01:25 Q6H PRN PAIN SCALE 7-10 (Severe Fluconazole 200 mg in 100 mls @ 100 mls/hr 12/28/24 19:40 12/29/24 08:17 Diflucan/Ns Ivpb IV 01/04/25 19:39 100 mls/hr QDAY ALAN Administration Nystatin 5 ml 12/28/24 22:00 12/29/24 05:12 Nystatin Susp 5 Ml Udc PO 01/04/25 21:59 5 ml TID ALAN Administration Ondansetron HCl 4 mg 12/28/24 01:26 Ondansetron Inj 2 Mg/Ml Inj 2 Ml IV 01/27/25 01:25 Q6H PRN NAUSEA OR VOMITING Protocol Pantoprazole Sodium 80 mg 12/28/24 21:00 12/29/24 08:16 Pantoprazole Inj 40 Mg Vial IV 01/27/25 20:59 80 mg BID ALAN Administration Plan Assessment and Plan: Summary: Mr. Quesada is a 64-year-old male with no significant past medical history presented to ED on 12/27/2024 with chief complaint of nausea and vomiting for past 1 to 2 days. The patient is admitted to telemetry unit for further management severe symptomatic microcytic of anemia. #Esophagitis #Esophageal candidiasis #Esophageal ulcers #Severe symptomatic microcytic anemia, iron deficiency Patient presented with nausea and vomiting associated with severe abdominal pain He has not been following any PCP or has not been taking any medications Hemoglobin 7.0, hematocrit 24.8, MCV 61, RDW 43.1 reticulocyte count 0.6%, immature reticulocytes elevated Iron panel: Iron 27, TIBC 343, iron saturation 7%, unsaturated iron binding 316 Abdomen/pelvis CT revealed thickening involving the distal esophagus and fundus of the stomach. Gallbladder ultrasound revealed cholelithiasis negative for cholecystitis. The patient received famotidine 20 Mg IV x 1 pantoprazole 40 Mg IV x 1, and pantoprazole 80 Mg IV x 1, also received hydromorphone 1 mg IV x 1 and Zofran 4 Mg IV x 1; and received 1 L of IV normal saline in the ED Patient received 2 unit PRBC in the emergency department. Patient is status post EGD 12/28/2024, findings significant for esophagitis, esophageal ulcers and high suspicion of candidal esophagitis. Plan -Will continue Diflucan 200 mg IV daily -Continue nystatin swish and swallow 5 cc p.o. 3 times daily -Follow-up biopsy results -Will test for HIV and hepatitis -Continue pantoprazole 80 Mg IV twice daily -Zofran 4 Mg IV as needed for nausea or vomiting -Pain medications as needed -GI Dr. Tyler consulted, appreciate recommendations -Patient is currently n.p.o., scheduled for HIDA scan -Monitor hemoglobin and hematocrit and transfuse if hemoglobin is less than 7 #Cholelithiasis Gallbladder ultrasound revealed cholelithiasis negative for cholecystitis. Patient has no right upper quadrant tenderness, did have nausea and vomiting associated with abdominal pain. Plan -GI recommended nuclear medicine HIDA scan without CCK later today -Will keep patient n.p.o. -Will continue to monitor patient. #Thrombocytosis Presented with platelet of 605 -Continue to monitor CBC daily #Mild hypoosmolar hypovolemic hyponatremia #Hypokalemia Presented with sodium of 133, potassium 3.2, calculated osmolality 272. - Will continue to correct and replace electrolytes as needed DVT prophylaxis: SCDs GI prophylaxis: Protonix twice daily Diet: N.p.o. Lines: Peripheral IV Code status: Full code Case discussed with Attending Dr. Powers. Jared Valenzuela PGY1 Disclaimer: This note was dictated by speech recognition. Minor errors in director of social work may be present due to voice recognition software. Attending Provider Attestation/Addendum I reviewed labs, imaging, EKG, home medications and prior available records. Face to face evaluation was performed by me. I have personally examined the patient and discussed assessment and plan with the IM team. I reviewed the resident note and agree with the plan with exceptions as below. Intractable nausea and vomiting Acute anemia Possible upper GI bleed Methamphetamine use Monitor H&H posttransfusion: Stable CT showed esophageal and stomach wall thickening: Started PPI twice daily. Consulted GI for EGD: Showed differential ulcer s/p biopsy. Also showed likely esophageal candidiasis for which she was started on Diflucan and nystatin Discussed with GI: Ordered HIDA scan Counseled the patient regarding the importance of avoiding methamphetamine Management of nausea/vomiting as needed
[2024-12-29 13:27] LABS: HIV (1&2) Antibody Rapid Non-Reactive
--- NOTE | 2024-12-29 22:21 | PD.IMPROG ---
Documentation for date of: 12/29/24 Subjective Subjective Interval history: Hemoglobin hematocrit 8.0 and 27.5 Exam Vital Signs Temp Pulse Resp BP Pulse Ox O2 Del Method O2 Flow Rate 97.5 F 66 19 127/63 99 Room Air 3 12/29/24 20:00 12/29/24 20:00 12/29/24 20:00 12/29/24 20:00 12/29/24 20:00 12/29/24 20:00 12/29/24 20:00 Objective Labs 12/29/24 04:47 12/29/24 04:47 Labs: Laboratory Results - last 24 hr 12/29/24 04:47 WBC 5.9 RBC 4.07 L Hgb 8.0 L Hct 27.5 L MCV 68 L MCH 19.7 L MCHC 29.1 L RDW Std Deviation 53.7 H Plt Count 484 H D Neut % (Auto) 75 Lymph % (Auto) 14 [place] % (Auto) 5 Eos % (Auto) 5 Baso % (Auto) 1 Neut # (Auto) 4.4 Lymph # (Auto) 0.8 L [place] # (Auto) 0.3 Eos # (Auto) 0.3 Baso # (Auto) 0.1 Immature Gran # (Auto) 0.03 H Absolute Nucleated RBC 0.00 Immature Gran % 1 H Nucleated RBC % 0 PT 11.3 INR 1.0 Sodium 141 Potassium 3.7 Chloride 105 Carbon Dioxide 29.3 Anion Gap 7 BUN 16 Creatinine 1.0 Estim Creat Clear Calc 63.3 eGFR > 60 BUN/Creatinine Ratio 16 Glucose 141 H D Calculated Osmolality 284 Calcium 8.6 Corrected Calcium 9.2 Phosphorus 1.8 L Magnesium 1.9 Total Bilirubin 0.2 L AST 12 ALT < 7 L Alkaline Phosphatase 67 Total Protein 5.1 L Albumin 3.2 L Globulin 1.9 L Albumin/Globulin Ratio 1.7 Hepatitis A IgM Ab Non Reactive Hep Bs Antigen Non Reactive Hep B Core IgM Ab Non Reactive Hepatitis C Antibody Non Reactive HIV 1&2 Antibody Rapid Non-Reactive Impressions Impression: Esophageal ulceration as the cause of bleeding Posthemorrhagic anemia Continue current management Assessment & Plan A&P Narrative # Nausea vomiting # Pain abdomen epigastric right upper quadrant # Posthemorrhagic anemia # Abnormal CT AP # Fatty liver # Cholelithiasis Plan Consent obtained in Citizen Of [place] fiberoptic esophagogastroduodenoscopy with possible biopsy possible therapeutic intervention under intravenous moderate sedation HIDA scan without the pharmaceutical May consider colonoscopy prior to discharge if the upper endoscopy is negative Thank you for the opportunity to participate in the care of this patient Time Spent With Patient Time: Total time spent is greater than 50% in coordination of care (as documented) at patient's floor/unit and/or counseling patient:
[2024-12-30] VITALS: BP 128/86; PULSE 82; PULSE 83; RESP 18; TEMP 36.4; O2SAT 99
[2024-12-30 04:00] VITALS: BP 116/61; PULSE 75; PULSE 80; RESP 18; TEMP 36.6; O2SAT 98
[2024-12-30 05:22] LABS: Basophils # (Auto) 0.1 Thou/mm3 (0.0-0.2); Basophils % (Auto) 1 % (0-2.5); Eosinophils # (Auto) 0.3 Thou/mm3 (0.0-0.5); Eosinophils % (Auto) 5 % (0-10); Hematocrit 29.1 % (41.0-53.0); Immature Granulocytes % (Auto) 0 % (0-0); Immature Granulocytes Auto 0.02 Thou/mm3 (0.00-0.00); Lymphocytes % (Auto) 14 % (10-50); Mean Corpuscular HGB Conc 29.2 g/dl (31.0-37.0); Mean Corpuscular Hemoglobin 19.3 pg (25.0-35.0); Mean Corpuscular Volume 66 fL (80-100); Monocytes # (Auto) 0.3 Thou/mm3 (0.0-0.8); Monocytes % (Auto) 5 % (0-12); Neutrophils % (Auto) 75 % (37-80); Nucleated Red Blood Cell % 0 /100 WBC (0); Platelet Count 511 Thou/mm3 (140-440); RDW Standard Deviation 53.2 fL (35.1-43.9); Red Blood Count 4.41 Miln/mm3 (4.50-5.90); White Blood Count 6.7 Thou/mm3 (3.8-10.6)
[2024-12-30] MEDS: NYSTATIN SUSP 5 ML UDC PO ×2 (05:24→14:47)
[2024-12-30 05:30] LABS: Hemoglobin 8.5 g/dL (13.5-16.0)
[2024-12-30 05:51] VITALS: BMI 23.6
[2024-12-30 06:00] LABS: Alanine Aminotransferase < 7 U/L (10-49); Albumin, Serum 3.2 gm/dL (3.4-4.8); Albumin/Globulin Ratio 1.5 (1.2-2.2); Alkaline Phosphatase 68 U/L (46-116); Anion Gap 7 (7-16); Aspartate Amino Transferase 10 U/L (0-34); BUN/Creatinine Ratio 15 Ratio (12-20); Bilirubin,Total 0.3 mg/dL (0.3-1.2); Blood Urea Nitrogen 15 mg/dL (9-23); Calcium 8.9 mg/dL (8.3-10.6); Calcium (Corrected) 9.5 mg/dL (8.5-10.1); Carbon Dioxide 26.9 mMol/L (20.0-31.0); Chloride 106 mMol/L (98-107); Estimated Creatinine Clearance 63.3 mL/min (>60); Globulin 2.1 gm/dL (2.3-3.5); Glucose 116 mg/dL (74-106); Magnesium 1.8 mg/dL (1.6-2.6); Osmolality,Calculated 281 (275-295); Phosphorous 2.4 mg/dL (2.4-5.1); Potassium 3.8 mMol/L (3.4-5.1); Sodium 140 mMol/L (136-145); Total Protein 5.3 gm/dL (5.7-8.2); eGFR > 60 See Note
[2024-12-30 08:00] VITALS: BP 143/87; PULSE 74; PULSE 80; RESP 18; TEMP 36.4; O2SAT 99
[2024-12-30] MEDS: FLUCONAZOLE/NS 200 MG IVPB 200 MG/100 ML BAG 100 MG IV (08:05)
[2024-12-30] MEDS: PANTOPRAZOLE INJ 40 MG VIAL 80 MG IV (08:05)
--- NOTE | 2024-12-30 10:19 | PC.SS ---
Addendum entered by Barbara Smith 12/30/24 15:27: SS called and spoke to Timi from [employer] at 3:10pm who explained transportation is in route. Bedside nurseRosana is aware taxi was going to call nurses station upon arrival. Addendum entered by Barbara Smith 12/30/24 12:41: Bedside nurseSheyla has patient's meds. Caroline THOMPSON has ordered pt a sack lunch to take with him. SS has setup taxi [facility] [employer] [facility] SS has provided Caroline THOMPSON with taxi voucher. Bedside nurseSheyla is aware. Pt is aware. Addendum entered by Barbara Smith 12/30/24 11:10: Pt is aware of the importance to follow up with Dr. Perry at [facility] Addendum entered by Barbara Smith 12/30/24 11:00: SS provided pt with clean shorts and shirt. SS also provided pt with [facility]. SS was informed by [employer] financial institution vice president pt has been approved for HPE. Bedsie nurseSheyla is aware to order pt a sack lunch at d/c. Original Note: SS met with pt to discuss the importance of applying for health insurance. Pt kept refusing stating he does not have money and they will still charge him with health insurance. SS explained he is requiring medications at d/c but does not have health insurance to assist with cost. Pt is now agreeable to apply for health insurance. SS has informed [employer] financial institution vice president who states she will meet with pt to help with HPE Health Insurance. Pt is agreeable to utilizes [facility] due to being close to hospital. SS also patient's friend, Jah, phone# [phone] who provided his address: [address] [place] [address] [place]. [address]. has called Julia from patient registration to update patient's address on his facesheet. Pt is requiring transportation. provided pt with [employer] with [facility] name, appointment with Dr. Perry at [facility], FridayJanuary 07 at 1pm (pt verbally understood appointment), and his home address. Pt has shoes, socks, pants, and shirt (which are very dirty). Pt is aware to follow up with Dr. Perry at [facility] for his medication.
--- NOTE | 2024-12-30 10:34 | PD.RESDS ---
Planned Discharge Date 12/30/24 DS: Providers Provider Date of admission: 12/28/24 01:27 Primary care physician: Physician No Primary/Family Admitting Provider: Mike Moon MD Attending Provider on Admission: Lupillo Powers MD Consults: 12/28/24 00:28 Consult to Gastroenterology Stat Comment: GI bleed Consulting Provider: Gregorio Tyler 12/28/24 03:40 Health Equity Referral - Knowledge Deficit Routine Comment: Positive screening for knowledge deficit needs. Health Equity Referral - Nutrition Routine Comment: Positive screening for nutrition needs. Health Equity Referral - Safety Routine Comment: Positive screening for safety needs. Health Equity Referral - Transportation Routine Comment: Positive screening for transportation needs. Health Equity Referral - Utilities Routine Comment: Positive screening for utility assistance needs. Attending Provider on DC: Lupillo Powers MD Discharging Provider: Lupillo Powers MD Anticipated date of discharge: 12/30/24 DS: Diagnosis Problem List Completed Was Problem List Reviewed/Reconciled?: Yes Hospital Course Hospital Course Hospital course: Hospital course: Mr. Quesada is a 64-year-old male with no significant past medical history who presented to [facility] emergency department on 12/27/2024 with a chief complaint of nausea and vomiting for the past 1 to 2 days. Patient was started on Protonix 40 twice daily and gastroenterology was consulted, patient is status post EGD, EGD 12-28-2024 showed findings consistent with esophagitis, esophageal ulcers and high suspicion of esophageal candidiasis, HIV and hepatitis panel was negative. Patient in house was given IV antifungals, was given nystatin swish and swallow, patient also had a HIDA scan done which showed normal ejection fraction of gallbladder, gastroenterology cleared patient for discharge. Patient condition did improve with progression of hospital course, reported resolution of nausea and vomiting. Further plan is to discharge patient home on fluconazole 200 mg for 21 days, Protonix 40 mg twice daily and iron tablet for severe microcytic hypochromic anemia with underlying iron deficiency. Patient to follow-up with 1 to 2 weeks in the cardiac health clinic to establish care as patient does not have a primary care physician and follow-up on biopsies. Patient verbalized understanding, patient is stable for discharge and patient responded well to hospital treatment. Discharge diagnosis: #Esophagitis #Esophageal candidiasis #Esophageal ulcers #Severe symptomatic microcytic anemia, iron deficiency #Cholelithiasis #Thrombocytosis #Mild hypoosmolar hypovolemic hyponatremia #Hypokalemia Case discussed with Attending Dr. Powers. Jared Valenzuela PGY1 Disclaimer: This note was dictated by speech recognition. Minor errors in hot dimpling machine operator may be present due to voice recognition software. Status at Discharge Functional status at discharge: independent ambulation Overall status at discharge: patient is progressing back to baseline Time Spent with Patient Time attestation: Total time spent providing and/or coordinating discharge services: Greater than 35 minutes Time spent: Greater than 30 minutes Exam Vital Signs Temp Pulse Resp BP Pulse Ox O2 Del Method O2 Flow Rate 97.5 F 74 18 143/87 H 99 Room Air 3 12/30/24 08:00 12/30/24 08:00 12/30/24 08:00 12/30/24 08:00 12/30/24 08:00 12/30/24 08:00 12/30/24 04:00 Narrative Exam Physical Exam General: Awake and in no acute distress. Conversational and non-toxic appearing. HEENT: Normocephalic, atraumatic, mucous membranes moist. Heart: Regular rate and rhythm, no murmurs. Lungs: Clear to auscultation with no wheezing or crackles. Abdomen: Soft, nondistended, nontender, positive bowel sounds. ?No guarding or rebound tenderness. Neurologic: Alert and oriented x3, no gross neurological deficit, and patient able to move all 4 extremities. Extremities: No edema. Skin: No rash or ecchymoses. Discharge Plan Plan Patient Disposition: HOME (Self Care) Patient condition on transfer: Stable Prescriptions/Referrals Prescriptions/Med Rec: New ferrous sulfate 325 mg (65 mg iron) tablet,delayed release (DR/EC) 325 mg PO Q OTHER DAY 30 Days Qty: 15 3RF pantoprazole [Protonix] 40 mg tablet,delayed release (DR/EC) 40 mg PO BID 30 Days Qty: 60 0RF fluconazole 200 mg tablet 200 mg PO QDAY 21 Days Qty: 21 0RF Discontinued sulfamethoxazole-trimethoprim [Bactrim DS] 800-160 mg tablet 1 tab PO BID Qty: 20 0RF Referrals: No Primary/Family,Physician [Primary Care Provider] - Jared Valenzuela MD [Resident] - Patient/Caregiver Discharge Instructions Discharge Activity: activity as tolerated Other Discharge Activity Instructions:: Continue to take fluconazole every day 200 mg every day for 21 days. Continue pantoprazole 40 mg twice daily for 1 month Take iron tablets every other day for 3 months. Follow-up with primary care physician in 1 week You can also follow-up in [facility] in 1 to 2 weeks. Call [phone] to make an appointment Address: [facility], [address], [address], [place], [address] Return to ED if symptoms return or worsen. Other Discharge Diet Instructions: Peptic ulcer diet Education Materials: Esophagitis, Discharge Instructions- Eating ..., ED Esophagitis, Kelley Print Language: Greenlandic Stand Alone Forms: Cherelle Award Info., Patient Portal Info Letter Discharge Order Discharge Orders: Discharge (Routine); Ordered 12/30/24 Ordered By: Jared Valenzuela Quality Discharge Quality Measures VTE prophylaxis MD Attestestation MD Attestation I reviewed labs, imaging, EKG, home medications and prior available records. Face to face evaluation was performed by me. I have personally examined the patient and discussed assessment and plan with the IM team. I reviewed the resident note and agree with the plan with exceptions as below. Intractable nausea and vomiting Acute anemia Iron deficiency anemia Upper GI bleed Methamphetamine use Monitor H&H posttransfusion: Stable CT showed esophageal and stomach wall thickening: Started PPI twice daily. Consulted GI for EGD: Showed differential ulcer s/p biopsy. Also showed likely esophageal candidiasis Was discharged on p.o. fluconazole for 21 days and p.o. Protonix 40 mg twice daily Discussed with GI: Ordered HIDA scan that showed normal gallbladder EF. No need for cholecystectomy Counseled the patient regarding the importance of avoiding methamphetamine Start ferrous sulfate Time spent is 40 minutes. More than 50% of the time was spent on patient education and coordination of care.
[2024-12-30 12:00] VITALS: BP 125/73; PULSE 69; PULSE 83; RESP 17; TEMP 36.4; O2SAT 99
[2024-12-30 15:00] VITALS: BP 135/79; PULSE 91; RESP 20; TEMP 36.5; O2SAT 99
--- NOTE | 2024-12-30 20:09 | PD.IMPROG ---
Documentation for date of: 12/30/24 Subjective Subjective Interval history: Late entry for the note Case discussed with internal medicine team patient will be discharged on PPIs to be followed by the PCP Exam Vital Signs Temp Pulse Resp BP Pulse Ox O2 Del Method O2 Flow Rate 97.7 F 91 20 135/79 H 99 Room Air 3 12/30/24 15:00 12/30/24 15:00 12/30/24 15:00 12/30/24 15:00 12/30/24 15:00 12/30/24 15:00 12/30/24 04:00 Objective Labs 12/30/24 04:44 12/30/24 04:44 Labs: Laboratory Results - last 24 hr 12/30/24 04:44 WBC 6.7 RBC 4.41 L Hgb 8.5 L Hct 29.1 L MCV 66 L MCH 19.3 L MCHC 29.2 L RDW Std Deviation 53.2 H Plt Count 511 H Neut % (Auto) 75 Lymph % (Auto) 14 [place] % (Auto) 5 Eos % (Auto) 5 Baso % (Auto) 1 Neut # (Auto) 5.0 Lymph # (Auto) 1.0 [place] # (Auto) 0.3 Eos # (Auto) 0.3 Baso # (Auto) 0.1 Immature Gran # (Auto) 0.02 H Absolute Nucleated RBC 0.00 Immature Gran % 0 Nucleated RBC % 0 Sodium 140 Potassium 3.8 Chloride 106 Carbon Dioxide 26.9 Anion Gap 7 BUN 15 Creatinine 1.0 Estim Creat Clear Calc 63.3 eGFR > 60 BUN/Creatinine Ratio 15 Glucose 116 H Calculated Osmolality 281 Calcium 8.9 Corrected Calcium 9.5 Phosphorus 2.4 Magnesium 1.8 Total Bilirubin 0.3 AST 10 ALT < 7 L Alkaline Phosphatase 68 Total Protein 5.3 L Albumin 3.2 L Globulin 2.1 L Albumin/Globulin Ratio 1.5 Impressions Impression: Esophageal ulcerations Plan Okay to discharge patient home on PPI Assessment & Plan A&P Narrative # Nausea vomiting # Pain abdomen epigastric right upper quadrant # Posthemorrhagic anemia # Abnormal CT AP # Fatty liver # Cholelithiasis Plan Consent obtained in [place] fiberoptic esophagogastroduodenoscopy with possible biopsy possible therapeutic intervention under intravenous moderate sedation HIDA scan without the pharmaceutical May consider colonoscopy prior to discharge if the upper endoscopy is negative Thank you for the opportunity to participate in the care of this patient Time Spent With Patient Time: Total time spent is greater than 50% in coordination of care (as documented) at patient's floor/unit and/or counseling patient:
== END 2024-12-30 15:00 | disposition home or self-care (01) | DRG 242 ==
LOC: SERX 12-28 00:29 → SERHOLD 12-28 02:19 → S2NX 12-28 03:20
PROVIDERS: Physician Assistant; Specialist; Student in an Organized Health Care Education/Training Program; Admitting Provider Internal Medicine; Emergency Provider Emergency Medicine; Visit Provider Student in an Organized Health Care Education/Training Program
PROC: 0DB38ZX Excision of Lower Esophagus, Via Natural or Artificial Opening Endoscopic, Diagnostic (ICD-10-PCS; CPT 43239; principal; 2024-12-28 18:45)
DX: K22.11 Ulcer of esophagus with bleeding (principal); E87.1 Hypo-osmolality and hyponatremia; D50.9 Iron deficiency anemia, unspecified; D75.839 Thrombocytosis, unspecified; E87.6 Hypokalemia; D50.0 Iron deficiency anemia secondary to blood loss (chronic); E86.1 Hypovolemia; F17.200 Nicotine dependence, unspecified, uncomplicated; K76.0 Fatty (change of) liver, not elsewhere classified; N39.0 Urinary tract infection, site not specified; B37.81 Candidal esophagitis; K80.20 Calculus of gallbladder without cholecystitis without obstruction; Z91.148 Patient's other noncompliance with medication regimen for other reason
CPT/HCPCS: 36415; 36430; 71045; 78226; 80053; 80061; 80074; 80307; 80320; 81001; 83540; 83550; 83690; 83735; 84100; 84443; 85025; 85046; 85610; 85730; 86703; 86850; 86900; 86901; 86923; 87811; 93005; 96361; 96374; 96375; 96376; 99285; A4649; A9537; J1200; J1450; J2250; J2405; J2470; J2805; J3010; J3490; J7030; P9016; A9270; G0480

== ENCOUNTER 2025-02-09 19:19 | Inpatient (IN) | payer MEDICAID, SELFPAY ==
[2025-02-09 20:21] VITALS: BP 177/96; PULSE 87; RESP 20; TEMP 36.9; O2SAT 99
--- NOTE | 2025-02-09 20:52 | EKG_ITS ---
[facility] Test Date: 2025-02-09 Pat Name: ANTHONY VELÁZQUEZ Department: Room: - Gender: Male Ship Pilot: : 1960 Requested By: Yang Roman Order Number: [id number] Reading MD: Yang Roman Measurements Intervals [place] Rate: 91 P: 76 MO: 138 QRS: -66 QRSD: 114 T: -32 QT: 347 QTc: 429 Interpretive Statements SINUS RHYTHM POSSIBLE LEFT ATRIAL ENLARGEMENT [-0.1mV P-WAVE IN V1/V2] INCOMPLETE RIGHT BUNDLE BRANCH BLOCK [90+ ms QRS DURATION, TERMINAL R IN V1/V2, 40+ ms S IN I/aVL/V4/V5/V6] LEFT ANTERIOR FASCICULAR BLOCK [QRS AXIS <= -45, QR IN I, RS IN II] POSSIBLE LEFT VENTRICULAR HYPERTROPHY [VOLTAGE CRITERIA PLUS LAE OR QRS WIDENING] POSSIBLE SEPTAL MYOCARDIAL INFARCTION , PROBABLY OLD [30 ms Q WAVE IN V1/V2] Compared to ECG 12/28/2024 02:14:56 Incomplete right bundle-branch block now present Myocardial infarct finding now present T-wave abnormality no longer present /store/S0/[id number].pdf
--- NOTE | 2025-02-09 20:53 | EDRME_ITS ---
Rapid Medical Screening Exam [facility] Arrival date/time: 02/09/25 19:19 64M with history of drug use and recent admission for UGIB presents to ED with epiagstric pain and N/V. Chief Complaint: Abdominal Pain Vital signs: Vital Signs Temperature 98.4 F 02/09/25 20:21 Pulse Rate 87 02/09/25 20:21 Respiratory Rate 20 02/09/25 20:21 Blood Pressure 177/96 H 02/09/25 20:21 Pulse Oximetry (%) 99 02/09/25 20:21 Oxygen Delivery Method Room Air 02/09/25 20:21
[2025-02-09 22:00] VITALS: BP 186/109; PULSE 84; RESP 20; TEMP 37.1; O2SAT 99
[2025-02-09 22:02] VITALS: BP 186/109; PULSE 87; RESP 22; O2SAT 99
[2025-02-09] MEDS: PANTOPRAZOLE INJ 40 MG VIAL IV (22:21)
[2025-02-09] MEDS: MORPHINE SULF INJ 10 MG/ML VIAL 5 MG IVP (22:21)
[2025-02-09] MEDS: ONDANSETRON INJ 2 MG/ML INJ 2 ML 4 MG IV (22:22)
[2025-02-09 22:29] VITALS: BMI 20.2
[2025-02-09 22:31] LABS: Lactate (Lactic Acid) 1.5 mMol/L (0.4-2.0)
[2025-02-09 22:33] LABS: Basophils # (Auto) 0.1 Thou/mm3 (0.0-0.2); Basophils % (Auto) 1 % (0-2.5); Eosinophils # (Auto) 0.5 Thou/mm3 (0.0-0.5); Eosinophils % (Auto) 5 % (0-10); Hematocrit 30.9 % (41.0-53.0); Hemoglobin 9.2 g/dL (13.5-16.0); Immature Granulocytes % (Auto) 0 % (0-0); Immature Granulocytes Auto 0.03 Thou/mm3 (0.00-0.00); Lymphocytes % (Auto) 11 % (10-50); Mean Corpuscular HGB Conc 29.8 g/dl (31.0-37.0); Mean Corpuscular Volume 67 fL (80-100); Monocytes # (Auto) 0.4 Thou/mm3 (0.0-0.8); Monocytes % (Auto) 5 % (0-12); Neutrophils # (Auto) 6.6 Thou/mm3 (1.8-7.7); Neutrophils % (Auto) 77 % (37-80); Nucleated Red Blood Cell % 0 /100 WBC (0); Platelet Count 532 Thou/mm3 (140-440); RDW Standard Deviation 56.1 fL (35.1-43.9); White Blood Count 8.6 Thou/mm3 (3.8-10.6)
--- NOTE | 2025-02-09 22:42 | EDNOTE_ITS ---
ED Abdominal Pain RME/HPI General Chief Complaint: Abdominal Pain Stated complaint: ABD PAIN, HICCUPS THAT WON'T LET ME BREATH Time seen by provider: 02/09/25 23:20 Arrival date/time: 02/09/25 19:19 Source: patient Mode of arrival: EMS Limitations: other RME / HPI RME / HPI narrative: 02/09/25 19:19 64M with history of drug use and recent admission for UGIB presents to ED with epiagstric pain and N/V. DR. SONG?S MAIN ED EVALUATION: 64-year-old male with Hx of GI bleed presenting to the emergency department via private auto who is presenting for chief complaint of abdominal pain and vomiting blood after eating x 4 days. Patient had an endoscopy performed in 12/2024 and was diagnosed with esophagitis, esophageal ulcer and candidiasis. Admits discontinuing Fluconazole and Protonix. Patient is HIV negative. Denies any other associated symptoms or medical complaints. - PMH: esophagitis, esophageal ulcer and candidiasis - PSH: Denies - Social history: Recreational drug use - Current medications: Reviewed PCP is Unknown MD complaint: abdominal pain Onset (ago): day(s) (4) Consistency: constant Location: epigastric Exacerbating factors: eating Context: history of similar episodes Associated symptoms: hematemesis Related Data Previous Rx's ?Medication ?Instructions ?Recorded ferrous sulfate 325 mg (65 mg 325 mg PO Q OTHER DAY Ir on 12/30/24 iron) tablet,delayed release Deficiency 30 days #15 ta bs Allergies Allergy/AdvReac Type Severity Reaction Status Date / Time No Known Allergies Allergy Verified 02/09/25 19:20 Review of Systems Review of Systems Systems Reviewed: All systems reviewed, normal except as documented Gastrointestinal Gastrointestinal: Reports abdominal pain and Reports hematemesis Past Medical History Past Medical History PSYCHO/SOCIAL: Positive Recreational Drug Use Social History SMOKING STATUS: Current every day smoker ED Exam General Limitations: Present other General appearance: Present alert and other (Vomiting blood) Head Head exam: Present atraumatic Eye Eye exam: Present normal appearance and PERRL; Absent scleral icterus, conjunctival injection or nystagmus ENT ENT exam: Present normal exam, normal oropharynx and mucous membranes dry Neck Neck exam: Present normal inspection and full ROM Chest Chest inspection: Present normal inspection and symmetric chest wall rise Respiratory Respiratory exam: Present normal lung sounds bilaterally; Absent respiratory distress or wheezes Cardiovascular Cardiovascular exam: Present regular rate, normal rhythm and normal heart sounds Abdominal Exam Abdominal exam: Present soft, guarding and normal bowel sounds; Absent distention, tenderness, rebound or rigidity Extremities Exam Extremities exam: Present normal inspection and full ROM Back Exam Back exam: Present normal inspection and full ROM Neurological Exam Neurological exam: Present alert and oriented X3; Absent motor sensory deficit Psychiatric Psychiatric exam: Present normal affect; Absent depressed, agitated or anxious Skin Skin exam: Present warm, dry and intact; Absent rash Course Course Course Narrative: Second IV Protonix drip Type and cross Chest x-ray for aspiration N.p.o. Quality Measures none Orders Category Date Time Status EKG (ED ONLY) *Do not use* NOW Care 02/09/25 20:52 Completed Insert IV NOW Care 02/09/25 20:52 Active Transfuse,blood/blood products ONCE Care 02/09/25 23:02 Active CXRP [XR chest 1V portable] Stat Exams 02/09/25 23:03 Completed EKG (ED Only) Stat Exams 02/09/25 20:52 Draft CBC Stat Lab 02/09/25 22:12 Completed CMP [Comprehensive Metabolic Panel] Stat Lab 02/09/25 22:12 Completed Lactate (Lactic Acid) Stat Lab 02/09/25 22:12 Completed Lipase Stat Lab 02/09/25 22:12 Completed Occult Blood, Gastric (LAB) Stat Lab 02/09/25 22:37 Completed Procalcitonin Stat Lab 02/09/25 22:12 Completed Red Blood Cells Stat Lab 02/09/25 23:18 Results Troponin I Stat Lab 02/09/25 22:12 Completed Type and Screen Stat Lab 02/09/25 23:18 Results Fluconazole/Ns 200 mg Ivpb [Diflucan/Ns Ivpb] Med 02/09/25 23:04 Discontinued 200 mg in 100 ml IV X1 Metoclopramide Inj [Reglan Inj] Med 02/09/25 23:02 Discontinued 10 mg IVP X1 ONE Morphine Inj Med 02/09/25 20:52 Discontinued 5 mg IVP X1 ONE Ondansetron Inj [Zofran Inj] Med 02/09/25 20:52 Discontinued 4 mg IV X1 ONE Pantoprazole Inj [Protonix Inj] Med 02/09/25 20:52 Discontinued 40 mg IV X1 ONE Pantoprazole/Ns 80Mg IV Premix [Protonix/NS 80mg IV Med 02/09/25 23:03 Discontinued Premix] 80 mg in 100 ml IV X1 Reevaluation(s) Reevaluation #1: Stable heart rate Time: 03:30 Vital Signs Vital signs: Vital Signs Temperature 98.4 F 02/09/25 20:21 Pulse Rate 87 02/09/25 20:21 Respiratory Rate 20 02/09/25 20:21 Blood Pressure 177/96 H 02/09/25 20:21 Pulse Oximetry (%) 99 02/09/25 20:21 Oxygen Delivery Method Room Air 02/09/25 20:21 Abdominal Pain MDM MDM Narrative MDM Narrative:: Scribe Attestation: 02/09/2025 - Sharonda Kaur am scribing for and in the presence of Dr. Song. Provider Notation: Although this document has been carefully reviewed, there may still be some phonetic and other typographical errors.? These errors are purely grammatical due to imperfections in the software program and should not be construed in any way to compromise the substance of the patient's medical care during this visit. 64-year-old male with Hx of GI bleed presenting to the emergency department via private auto who is presenting for chief complaint of abdominal pain and vomiting blood after eating x 4 days. ROS: Vomiting blood, abdominal pain. Differential diagnoses include upper GI bleed, lower GI bleed, esophageal varices, iron deficiency anemia, symptomatic anemia, esophageal candidiasis, patient stopping his medications, patient does not drink alcohol doubt esophageal varices Patient data External records reviewed:: [facility] previous records (Reviewed prior ED records from 12/27/24. Patient was seen for GI bleed.) Clinical information provided by:: patient Social determinants that could affect healthcare access:: none Patient has the following chronic illnesses:: GI bleed, esophagitis, esophageal ulcer, esophageal candidiasis. How is presenting disease/condition affected by chronic disease/condition?: exacerbated by Evaluation data The following diagnostics were reviewed and interpreted by me:: lab results, radiology exam(s) and EKG tracing(s) (EKG manual reading, February 09, [id number] hours, my interpretation: sinus rhythm 91 BPM, Right bundle branch block, T-wave inversion in v1 and v6, QTc is 429.) Lab and/or radiology exams considered but not ordered:: None Interpretation Summary: RADIOLOGY Chest X-Ray: FINDINGS: Normal heart size No aspiration pneumonia No pulmonary edema Mild osteopenia IMPRESSION: Negative for aspiration pneumonia Labs: Gastric Occult Blood positive. Hgb 9.2, Hct 30.9%, MCV 67, MCH 20.0, MCHC 29.8, RDW Std Dev 56.1, Plt Count 532, Immature granulocyte # 0.03. Glucose 119, ALT 8. Medications / Prescriptions Medications or Prescriptions considered but not ordered:: None Medication administrations:: Medication Administration History Acetaminophen (Acetaminophen 325 Mg Tablet) 650 mg PO Q6H PRN PRN Reason: Fever >100.3 or pain Stop: 03/12/25 00:42 Bismuth Subsalicylate (Bismuth Subsalicyl 1 Ml) 300 ml PO QID [facility] Stop: 03/12/25 05:59 Lactated Ringer's (Lactated Ringers) 1,000 mls @ 100 mls/hr IV .Q10H [facility] Stop: 02/10/25 10:44 Last Admin: 02/10/25 00:57 Dose: 100 mls/hr Documented By: CVL Fluconazole (Diflucan/Ns Ivpb) 200 mg in 100 mls @ 100 mls/hr IV QDAY [facility] Stop: 02/17/25 08:59 Metronidazole (Flagyl 500 Mg Iv) 500 mg in 100 mls @ 200 mls/hr IV TID [facility] Stop: 02/17/25 05:59 Ondansetron HCl (Ondansetron Inj 2 Mg/Ml Inj 2 Ml) 4 mg IV Q6H PRN; Protocol PRN Reason: NAUSEA OR VOMITING Stop: 03/12/25 00:42 Pantoprazole Sodium (Pantoprazole 40 Mg Tablet) 40 mg PO Q12HR ALAN Stop: 03/12/25 08:59 Sennosides (Senna Tablet) 1 tab PO QDAY PRN; Protocol PRN Reason: constipation Stop: 03/12/25 00:42 Tetracycline HCl (Tetracycline 250 Mg Capsule) 500 mg PO TID ALAN Stop: 02/17/25 05:59 Discontinued Medications Pantoprazole Sodium (Protonix/Ns 80mg Iv Premix) 80 mg in 100 mls @ 400 mls/hr IV X1 ONE Stop: 02/09/25 23:17 Last Infusion: 02/10/25 00:10 Dose: Infused Documented By: Admin: 02/09/25 23:38 Dose: 400 mls/hr Documented By: PHUC Fluconazole (Diflucan/Ns Ivpb) 200 mg in 100 mls @ 100 mls/hr IV X1 ONE Stop: 02/10/25 00:03 Last Infusion: 02/10/25 01:47 Dose: Infused Documented By: Admin: 02/10/25 00:03 Dose: 100 mls/hr Documented By: PHUC Metronidazole (Flagyl 500 Mg Iv) 500 mg in 100 mls @ 200 mls/hr IV X1 ONE Stop: 02/10/25 02:44 Metoclopramide HCl (Metoclopramide Inj 5 Mg/Ml Vial 2 Ml) 10 mg IVP X1 ONE; Protocol Stop: 02/09/25 23:03 Last Admin: 02/09/25 23:43 Dose: 10 mg Documented By: PHUC Morphine Sulfate (Morphine Sulf Inj 10 Mg/Ml Vial) 5 mg IVP X1 ONE Stop: 02/09/25 20:53 Last Admin: 02/09/25 22:21 Dose: 5 mg Documented By: PHUC Ondansetron HCl (Ondansetron Inj 2 Mg/Ml Inj 2 Ml) 4 mg IV X1 ONE; Protocol Stop: 02/09/25 20:53 Last Admin: 02/09/25 22:22 Dose: 4 mg Documented By: PHUC Pantoprazole Sodium (Pantoprazole Inj 40 Mg Vial) 40 mg IV X1 ONE Stop: 02/09/25 20:53 Last Admin: 02/09/25 22:21 Dose: 40 mg Documented By: PHCU See above if any Consultations Consultation(s) initiated? (list below): Yes Consultation #1 (Physician, Specialty, Details): Dr. Carr made aware of the patient?s HPI, PMHx, lab and/or radiology results. Treatment plan was discussed. Will admit for further evaluation and management. Accepts patient for admission. Time: 00:14 Diagnosis Differential diagnosis abdominal pain: other (upper GI bleed, lower GI bleed, esophageal varices, iron deficiency anemia, symptomatic anemia, esophageal candidiasis, patient stopping his medications, patient does not drink alcohol doubt esophageal varices) Most likely diagnosis given after review of the tests above:: Upper GI bleed Admission Indicated Admission indicated?: indicated Admission Request Was there a request for admission?: Yes Admission Attestation Admission request attestation: Discussed case with [] from Hospitalist service regarding admission. Discussed patients ED course, exam findings, labs, and radiology results. The Hospitalist [agrees,declines] to accept the patient for admission. Disposition Plan Disposition Plan: Admit Critical Care Time Critical Care Time Critical Care Time: Yes Total Critical Care Time (min.): 45 Attestation: The high probability of sudden, clinically significant deterioration in the patient?s condition required the highest level of my preparedness to intervene urgently. ? The services I provided to this patient were to treat and/or prevent clinically significant deterioration. Services included the following: chart data review, reviewing nursing notes and/or old charts, documentation time, design consultant collaboration regarding findings and treatment options, medication orders and management, direct patient care, vital sign assessments and ordering, interpreting and reviewing diagnostic studies and lab tests. ? Aggregate critical care time includes only time during which I was engaged in work directly related to the patient?s care, as described above, whether at bedside or elsewhere in the Emergency Department. It did not include time spent performing other reported procedures or the services of residents, students, nurses or physician assistants. Discharge Plan Plan Patient Disposition: Admit Acute Care w/in Hospital Patient condition on transfer: Stable Problem List Clinical Impression: GI bleed
[2025-02-09 22:45] LABS: OBG Card Lot # 20632; OBG Developer Lot # 75023G; OBG Performed By orpiw2; OBG QC OK? Yes
[2025-02-09 22:46] LABS: Occult Blood, Gastric Positive (Negative)
[2025-02-09 22:53] VITALS: BP 192/111; PULSE 89; RESP 15; O2SAT 99
[2025-02-09 23:00] VITALS: BP 183/108; PULSE 89; RESP 19; O2SAT 99
[2025-02-09 23:00] LABS: Alanine Aminotransferase 8 U/L (10-49); Albumin, Serum 4.5 gm/dL (3.4-4.8); Albumin/Globulin Ratio 1.7 (1.2-2.2); Alkaline Phosphatase 94 U/L (46-116); Anion Gap 10 (7-16); Aspartate Amino Transferase < 10 U/L (0-34); BUN/Creatinine Ratio 17 Ratio (12-20); Bilirubin,Total 0.3 mg/dL (0.3-1.2); Blood Urea Nitrogen 15 mg/dL (9-23); Calcium 9.9 mg/dL (8.3-10.6); Calcium (Corrected) 9.9 mg/dL (8.5-10.1); Chloride 100 mMol/L (98-107); Creatinine (Component) 0.9 mg/dL (0.6-1.3); Estimated Creatinine Clearance 71.7 mL/min (>60); Globulin 2.7 gm/dL (2.3-3.5); Glucose 119 mg/dL (74-106); Lipase 25 U/L (12-53); Osmolality,Calculated 279 (275-295); Potassium 3.8 mMol/L (3.4-5.1); Procalcitonin 0.06 ng/ml (0.0-0.49); Sodium 139 mMol/L (136-145); Total Protein 7.2 gm/dL (5.7-8.2); Troponin I < 0.020 ng/mL (0.0-0.045); eGFR > 60 See Note
--- NOTE | 2025-02-09 23:03 | XR_ITS ---
Examination: AP chest single view TECHNIQUE: AP portable semiupright chest single view Date and time: February 09, 2025 at 11:13 PM INDICATIONS: Vomiting blood today. FINDINGS: Normal heart size No aspiration pneumonia No pulmonary edema Mild osteopenia IMPRESSION: Negative for aspiration pneumonia
[2025-02-09] MEDS: PANTOPRAZOLE/NS 80MG IV PREMIX 80 MG/100 ML BAG 400 MG IV (23:38)
[2025-02-09] MEDS: METOCLOPRAMIDE INJ 5 MG/ML VIAL 2 ML 10 MG IVP (23:43)
[2025-02-10] VITALS (10 sets, daily range): BP systolic 125–174; BP diastolic 68–106; PULSE 65–89; RESP 11–99; TEMP 36.1–36.9; O2SAT 97–99; BMI 21.3
[2025-02-10] MEDS: FLUCONAZOLE/NS 200 MG IVPB 200 MG/100 ML BAG 100 MG IV ×2 (00:03→20:45)
--- NOTE | 2025-02-10 00:53 | ESHP_ITS ---
<Statement entered by Jayden Carr MD - 02/10/25 13:52> I have discussed and was present for the essential components of the history, physical examination, diagnosis, and treatment plan with the resident. I agree with the patient's care as documented by the resident and amended herein by me. Jayden Carr MD FACP. Documentation for date of: 02/10/25 HPI History of Present Illness Chief complaint: throwing up blood History of present illness: Alexei Quesada is 64 yr male with PMH of methamphetamine use, noncompliance, active smoker, esophagitis with chief complaint of throwing up blood and epigastric pain. Patient has been having hematemesis since the past 4 days and unable to keep down any solid foods or liquids. Appears to be noncompliant/lost to follow-up after discharge from hospital last month. EGD had shown fungal elements/H. pylori. He was discharged with fluconazole for 21 days. Endorses last meth use this morning. Cramping epigastric pain 6/10, nonradiating. He denies any chest pain, diarrhea, no blood in the stool, fever. At bedside, vomitus appears to be coffee-ground/dark red in color. Episodes of vomiting have occurred throughout the days. Endorses hunger now, however was experiencing food aversion since onset of symptoms. In ED, hypertension BP 177/96, other vitals stable. CBC shows microcytic anemia with hemoglobin 9.2, MCV 67, platelets 532. CMP unremarkable with lipase within normal limits. Troponins negative. Stool occult test positive. CXR negative for PNA. He was given IV pantoprazole 40 mg + 80mg, 5 mg IV morphine, Zofran, loperamide, fluconazole [address] Tyler was consulted. Patient to be admitted for management of upper GI bleed. PMH: as as noted above PSH: denies FamHx: Unremarkable Social: Endorses smoking 1 pack/day since age of 17. Denies drinking. Endorses illicit drug use. Uses methamphetamine with most recent use this morning. Meds: Does not appear to be compliant with fluconazole, pantoprazole, ferrous sulfate. Official med rec pending. Allergies: NKDA Review of Systems Review of Systems Systems Reviewed: All systems reviewed, normal except as documented Exam Vital Signs Temp Pulse Resp BP Pulse Ox O2 Del Method 98.4 F 89 17 174/106 H 99 Room Air 02/10/25 00:00 02/10/25 00:00 02/10/25 00:00 02/10/25 00:00 02/10/25 00:00 02/10/25 00:00 Narrative Exam General: Elderly male, distress from vomiting, dried blood on gums. HEENT: NCAT, No JVD noted. Mucosa dry. Pupils are equal and reactive to light bilaterally, poor oral hygiene. Cardiovascular: Normal S1 and S2. Regular rate and rhythm. Respiratory: Lungs are clear to auscultation bilaterally. No wheezing or crackles heard. Abdomen: Soft, mild epigastric tenderness, not distended, normal bowel sounds. Skin: Warm to touch, dry Musculoskeletal: No gross injuries. Able to move all 4 extremities. No pitting edema Neuro: Alert and oriented x3. No focal neuro deficits. Psych: slow to respond Results: Labs 02/09/25 22:12 02/09/25 22:12 Labs: Short CBC 02/09/25 Range/Units 22:12 WBC 8.6 (3.8-10.6) Thou/mm3 Hgb 9.2 L (13.5-16.0) g/dL Hct 30.9 L (41.0-53.0) % Plt Count 532 H (140-440) Thou/mm3 BMP 02/09/25 22:12 Sodium 139 Potassium 3.8 Chloride 100 Carbon Dioxide 29.0 BUN 15 Creatinine 0.9 Glucose 119 H Calcium 9.9 Cardiac Enzymes 02/09/25 Range/Units 22:12 Troponin I < 0.020 (0.0-0.045) ng/mL Liver Function 02/09/25 Range/Units 22:12 Total Bilirubin 0.3 (0.3-1.2) mg/dL AST < 10 (0-34) U/L ALT 8 L (10-49) U/L Alkaline Phosphatase 94 (46-116) U/L Albumin 4.5 (3.4-4.8) gm/dL Quality Measures Quality Measures none Medications Home Medications and Allergies Allergies Allergy/AdvReac Type Severity Reaction Status Date / Time No Known Allergies Allergy Verified 02/09/25 19:20 Visit Medications Acetaminophen (Acetaminophen 325 Mg Tablet) 650 mg PO Q6H PRN PRN Reason: Fever >100.3 or pain Stop: 03/12/25 00:42 Lactated Ringer's (Lactated Ringers) 1,000 mls @ 100 mls/hr IV .Q10H [facility] Stop: 02/10/25 10:44 Ondansetron HCl (Ondansetron Inj 2 Mg/Ml Inj 2 Ml) 4 mg IV Q6H PRN; Protocol PRN Reason: NAUSEA OR VOMITING Stop: 03/12/25 00:42 Pantoprazole Sodium (Pantoprazole 40 Mg Tablet) 40 mg PO Q12HR [facility] Stop: 03/12/25 08:59 Sennosides (Senna Tablet) 1 tab PO QDAY PRN; Protocol PRN Reason: constipation Stop: 03/12/25 00:42 Discontinued Medications Pantoprazole Sodium (Protonix/Ns 80mg Iv Premix) 80 mg in 100 mls @ 400 mls/hr IV X1 ONE Stop: 02/09/25 23:17 Last Admin: 02/09/25 23:38 Dose: 400 mls/hr Fluconazole (Diflucan/Ns Ivpb) 200 mg in 100 mls @ 100 mls/hr IV X1 ONE Stop: 02/10/25 00:03 Last Admin: 02/10/25 00:03 Dose: 100 mls/hr Metoclopramide HCl (Metoclopramide Inj 5 Mg/Ml Vial 2 Ml) 10 mg IVP X1 ONE; Protocol Stop: 02/09/25 23:03 Last Admin: 02/09/25 23:43 Dose: 10 mg Morphine Sulfate (Morphine Sulf Inj 10 Mg/Ml Vial) 5 mg IVP X1 ONE Stop: 02/09/25 20:53 Last Admin: 02/09/25 22:21 Dose: 5 mg Ondansetron HCl (Ondansetron Inj 2 Mg/Ml Inj 2 Ml) 4 mg IV X1 ONE; Protocol Stop: 02/09/25 20:53 Last Admin: 02/09/25 22:22 Dose: 4 mg Pantoprazole Sodium (Pantoprazole Inj 40 Mg Vial) 40 mg IV X1 ONE Stop: 02/09/25 20:53 Last Admin: 02/09/25 22:21 Dose: 40 mg Assessment & Plan Plan Alexei Quesada is 64 yr male with PMH of methamphetamine use, noncompliance, active smoker, esophagitis with chief complaint of throwing up blood and epigastric pain. Patient has been having hematemesis since the past 4 days and unable to keep down any solid foods or liquids. GI Dr. Tyler was consulted. Patient to be admitted for management of upper GI bleed. #Upper GI bleed #Hematemasis #Hx esophagitis #Hx candidal esophagitis #H pylori Coffee-ground emesis since past 4 days. Unable to tolerate food or liquids. Endorses epigastric pain. EGD from 12/28/24 showed esophagitis with esophageal ulcers. Pathology results positive for H. pylori-like organisms, fungal elements. Patient was discharged with fluconazole 200 mg daily. However he was lost to follow-up after discharge. Globin on admission 9.2, MCV 67. -GI Dr. Tyler consulted, appreciate recs - IV pantoprazole 40 mg twice daily -Zofran -NPO -KUB pending -will resume fluconazole 200mg daily -start H pylori tx with: -bismuth subsalicylate 300mg QID -PO tetracycline 500mg TID -IV metronidazole 500mg TID # Methamphetamine use disorder # Tobacco dependence Patient admits to smoking methamphetamine daily with last use this morning. Smokes 1 pack/day since [age]yr old. 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 Carr. Roberta Romero, PGY-1
[2025-02-10] MEDS: RINGERS LACTATED 1000 ML 1,000 ML 100 ML IV (00:57)
--- NOTE | 2025-02-10 01:25 | XR_ITS ---
Examination: Abdomen AP single view Technique: AP portable supine abdomen, single view Exam date and time: February 10, 2025 0142 hours INDICATIONS: Abdominal pain and vomiting blood 4 days FINDINGS: Large amount of stool throughout the colon No obstruction. No free air. Prominent lumbar spondylosis IMPRESSION: Large amounts of stool throughout the colon
[2025-02-10] MEDS: metroNIDAZOLE/NS 500 MG IVPB 500 MG/100 ML BAG 200 MG IV ×3 (06:16→22:41)
[2025-02-10 06:20] LABS: Path Review Blood Smear Sent to Pathologist
[2025-02-10 06:54] LABS: Basophils # (Auto) 0.1 Thou/mm3 (0.0-0.2); Basophils % (Auto) 1 % (0-2.5); Eosinophils # (Auto) 0.5 Thou/mm3 (0.0-0.5); Eosinophils % (Auto) 7 % (0-10); Hematocrit 26.6 % (41.0-53.0); Hemoglobin 7.7 g/dL (13.5-16.0); Immature Granulocytes % (Auto) 0 % (0-0); Immature Granulocytes Auto 0.02 Thou/mm3 (0.00-0.00); Lymphocytes # (Auto) 0.9 Thou/mm3 (1.0-4.8); Lymphocytes % (Auto) 13 % (10-50); Mean Corpuscular HGB Conc 28.9 g/dl (31.0-37.0); Mean Corpuscular Hemoglobin 20.3 pg (25.0-35.0); Mean Corpuscular Volume 70 fL (80-100); Monocytes # (Auto) 0.5 Thou/mm3 (0.0-0.8); Monocytes % (Auto) 7 % (0-12); Neutrophils # (Auto) 5.1 Thou/mm3 (1.8-7.7); Neutrophils % (Auto) 72 % (37-80); Nucleated Red Blood Cell % 0 /100 WBC (0); Platelet Count 435 Thou/mm3 (140-440); White Blood Count 7.1 Thou/mm3 (3.8-10.6)
[2025-02-10 07:04] LABS: Alanine Aminotransferase < 7 U/L (10-49); Albumin, Serum 3.4 gm/dL (3.4-4.8); Albumin/Globulin Ratio 1.6 (1.2-2.2); Alkaline Phosphatase 76 U/L (46-116); Anion Gap 8 (7-16); Aspartate Amino Transferase 12 U/L (0-34); BUN/Creatinine Ratio 18 Ratio (12-20); Bilirubin,Total 0.3 mg/dL (0.3-1.2); Blood Urea Nitrogen 14 mg/dL (9-23); Calcium 8.9 mg/dL (8.3-10.6); Calcium (Corrected) 9.4 mg/dL (8.5-10.1); Carbon Dioxide 29.2 mMol/L (20.0-31.0); Chloride 103 mMol/L (98-107); Creatinine (Component) 0.8 mg/dL (0.6-1.3); Globulin 2.1 gm/dL (2.3-3.5); Glucose 87 mg/dL (74-106); Magnesium 2.2 mg/dL (1.6-2.6); Osmolality,Calculated 278 (275-295); Phosphorous 2.7 mg/dL (2.4-5.1); Potassium 3.8 mMol/L (3.4-5.1); Sodium 140 mMol/L (136-145); Total Protein 5.5 gm/dL (5.7-8.2); eGFR > 60 See Note
[2025-02-10] MEDS: PANTOPRAZOLE 40 MG TABLET PO ×2 (09:37→20:44)
[2025-02-10] MEDS: TETRACYCLINE 250 MG CAPSULE 500 MG PO ×3 (09:37→22:43)
--- NOTE | 2025-02-10 10:51 | PC.SS ---
SS met with patient who is alert/oriented. He is Togolese speaking only. Adult Education Teacher line used. Patient was able to verify demographics. Patient states he lives on the same property as his friend, Jered Garsia. He states he lives behind his house. Patient states he has a son, Delfino @ [phone] but hasn't spoken to him in years. Patient verbalized he's independent with ADL's. Patient was admitted for upper GI bleed. Patient was positive tox for meth and opiates. Patient states he has not been to any type of drug rehab. He's been using for years now since 1998. Patient was recently admitted last month and discharged home with friend. No income. No FS. No transportation. No PCP. SS discussed the [facility] to follow up for care. Patient agreeable but has no transportation. His insurance does not cover medi van transport. Patient needs to choose a mananged plan. Discharge plan is to return home. Patient will need additional community resources as well as info re: drug rehab programs. Patient verbalized his friend, Jered Ady, is his alt medical decision maker.
--- NOTE | 2025-02-10 11:00 | PC.SS ---
SS met with patient who is alert/oriented. He is Maltese speaking only. Community Engagement Coordinator line used. Patient was able to verify demographics. Patient states he lives on the same property as his friend, Jered Garsia. He states he lives behind his house. Patient states he has a son, Delfino @ [phone] but hasn't spoken to him in years. Patient verbalized he's independent with ADL's. Patient was admitted for upper GI bleed. Patient was positive tox for meth and opiates. Patient states he has not been to any type of drug rehab. He's been using for years now since 1998. Patient was recently admitted last month and discharged home with friend. No income. No FS. No transportation. No PCP. SS discussed the [facility] to follow up for care. Patient agreeable but has no transportation. His insurance does not cover medi van transport. Patient needs to choose a mananged plan. Discharge plan is to return home. Patient will need additional community resources as well as info re: drug rehab programs. Patient verbalized his friend, Jered Ady, is his alt medical decision maker.
--- NOTE | 2025-02-10 13:49 | PD.RESPRO ---
Documentation for date of: 02/10/25 Subjective Subjective Interval history: Patient seen today at the bedside found awake, alert, orientedx3. No active complaints at this time. Vitals and labs reviewed. Patient is pending GI workup with GI specialist. Will continue quadruple therapy for H. pylori added nystatin swish and swallow for candidal esophagitis as well as fluconazole. Exam Vital Signs Temp Pulse Resp BP Pulse Ox O2 Del Method 97.5 F 77 15 134/74 H 98 Room Air 02/10/25 12:00 02/10/25 12:00 02/10/25 12:00 02/10/25 12:00 02/10/25 12:00 02/10/25 12:00 Narrative Exam Physical Exam GENERAL: NAD, AAOx3 HEENT: Moist mucosa. Eyes open, symmetrical, & clear CARDIO: Heart RRR, no obvious murmurs PULM: No noted coughing/dyspnea CTA B/L, no R/W/R GI: Abdomen soft, nondistended, no pain on palpation. BSx4 SKIN/MSK/EXT: No wounds/rashes/edema/amputations, no pain on palpation. Pedal pulses present B/L NEURO: AAOx3, no focal neuro deficits, able to move all 4 extremities Objective Labs 02/10/25 06:10 02/10/25 06:10 Labs: Laboratory Results - last 24 hr 02/09/25 02/09/25 02/09/25 22:12 22:37 23:18 WBC 8.6 RBC 4.60 Hgb 9.2 L Hct 30.9 L MCV 67 L MCH 20.0 L MCHC 29.8 L RDW Std Deviation 56.1 H Plt Count 532 H Neut % (Auto) 77 Lymph % (Auto) 11 [place] % (Auto) 5 Eos % (Auto) 5 Baso % (Auto) 1 Neut # (Auto) 6.6 Lymph # (Auto) 1.0 [place] # (Auto) 0.4 Eos # (Auto) 0.5 Baso # (Auto) 0.1 Immature Gran # (Auto) 0.03 H Absolute Nucleated RBC 0.00 Immature Gran % 0 Nucleated RBC % 0 Smear Path Review Sent to Pathologist Sodium 139 Potassium 3.8 Chloride 100 Carbon Dioxide 29.0 Anion Gap 10 BUN 15 Creatinine 0.9 Estim Creat Clear Calc 71.7 eGFR > 60 BUN/Creatinine Ratio 17 Glucose 119 H Calculated Osmolality 279 Lactic Acid 1.5 Calcium 9.9 Corrected Calcium 9.9 Phosphorus Magnesium Total Bilirubin 0.3 AST < 10 ALT 8 L Alkaline Phosphatase 94 Troponin I < 0.020 Total Protein 7.2 Albumin 4.5 Globulin 2.7 Albumin/Globulin Ratio 1.7 Lipase 25 Procalcitonin 0.06 Gastric Occult Blood Positive A Blood Type A Positive Antibody Screen NEGATIVE Crossmatch See Detail Blood Bank Wristband ID Yes 02/10/25 06:10 WBC 7.1 RBC 3.80 L Hgb 7.7 L Hct 26.6 L MCV 70 L MCH 20.3 L MCHC 28.9 L RDW Std Deviation 58.0 H Plt Count 435 D Neut % (Auto) 72 Lymph % (Auto) 13 [place] % (Auto) 7 Eos % (Auto) 7 Baso % (Auto) 1 Neut # (Auto) 5.1 Lymph # (Auto) 0.9 L [place] # (Auto) 0.5 Eos # (Auto) 0.5 Baso # (Auto) 0.1 Immature Gran # (Auto) 0.02 H Absolute Nucleated RBC 0.00 Immature Gran % 0 Nucleated RBC % 0 Smear Path Review Sodium 140 Potassium 3.8 Chloride 103 Carbon Dioxide 29.2 Anion Gap 8 BUN 14 Creatinine 0.8 Estim Creat Clear Calc 85.0 eGFR > 60 BUN/Creatinine Ratio 18 Glucose 87 Calculated Osmolality 278 Lactic Acid Calcium 8.9 Corrected Calcium 9.4 Phosphorus 2.7 Magnesium 2.2 Total Bilirubin 0.3 AST 12 ALT < 7 L Alkaline Phosphatase 76 Troponin I Total Protein 5.5 L Albumin 3.4 D Globulin 2.1 L Albumin/Globulin Ratio 1.6 Lipase Procalcitonin Gastric Occult Blood Blood Type Antibody Screen Crossmatch Blood Bank Wristband ID Quality Measures Quality Measures none Assessment & Plan Assessment Current Active Medications: Generic Name Dose Route Start Last Admin Trade Name Freq PRN Reason Stop Dose Admin Acetaminophen 650 mg 02/10/25 00:43 Acetaminophen 325 Mg Tablet PO 03/12/25 00:42 Q6H PRN Fever >100.3 or pain Bismuth Subsalicylate 17 ml 02/10/25 06:00 Bismuth Subsalicyl 1 Ml PO 03/12/25 05:59 QID ALAN Fluconazole 200 mg in 100 mls @ 100 mls/hr 02/10/25 21:00 Diflucan/Ns Ivpb IV 02/17/25 20:59 HS ALAN Metronidazole 500 mg in 100 mls @ 200 mls/hr 02/10/25 06:00 02/10/25 06:16 Flagyl 500 Mg Iv IV 02/17/25 05:59 200 mls/hr TID ALAN Administration Ondansetron HCl 4 mg 02/10/25 00:43 Ondansetron Inj 2 Mg/Ml Inj 2 Ml IV 03/12/25 00:42 Q6H PRN NAUSEA OR VOMITING Protocol Pantoprazole Sodium 40 mg 02/10/25 09:00 02/10/25 09:37 Pantoprazole 40 Mg Tablet PO 03/12/25 08:59 40 mg Q12HR ALAN Administration Sennosides 1 tab 02/10/25 00:43 Senna Tablet PO 03/12/25 00:42 QDAY PRN constipation Protocol Tetracycline HCl 500 mg 02/10/25 06:00 02/10/25 09:37 Tetracycline 250 Mg Capsule PO 02/17/25 05:59 500 mg TID ALAN Administration Plan 64 yr male with PMH of methamphetamine use, noncompliance, active smoker, esophagitis with chief complaint of throwing up blood and epigastric pain. Patient has been having hematemesis since the past 4 days and unable to keep down any solid foods or liquids. GI Dr. Tyler was consulted. Patient to be admitted for management of upper GI bleed. #Upper GI bleed #Hematemasis #Hx esophagitis #Hx candidal esophagitis #H pylori Coffee-ground emesis since past 4 days. Unable to tolerate food or liquids. Endorses epigastric pain. EGD from 12/28/24 showed esophagitis with esophageal ulcers. Pathology results positive for H. pylori-like organisms, fungal elements. Patient was discharged with fluconazole 200 mg daily. However he was lost to follow-up after discharge. Globin on admission 9.2, MCV 67. KUB shows large amount of stool in the colon -GI Dr. Tyler consulted, appreciate recs - IV pantoprazole 40 mg twice daily - NPO, for possible GI intervention -will resume fluconazole 200mg daily, nystatin swish and swallow -Quadruple therapy for H. Pylori, bismuth, tetracycline, metronidazole, PPI # Methamphetamine use disorder # Tobacco dependence Patient admits to smoking methamphetamine daily with last use this morning. Smokes 1 pack/day since [age]yr old. 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 Yris Quispe MD PGY-1 Attending Provider Attestation/Addendum 64-year-old male with methamphetamine use and tobacco use disorder who presented to the ER with hematemesis admitted for upper GI bleed possibly related to peptic ulcer disease. Of note, patient underwent EGD on 12/28/2024 which showed esophagitis, esophageal ulcers and H. pylori. As a result, discharged on quadruple therapy including tetracycline 500 mg 3 times daily, metronidazole 500 mg 3 times daily, Protonix 40 mg daily and bismuth. In addition, also discharged on fluconazole as well. As of now, plan to continue Protonix, quadruple therapy and pending EGD. Will also repeat HIV studies, last HIV studies from December 2024 were negative. Anticipate discharge in the next 48-72 hours depending what the EGD shows. I reviewed above note and agree with findings and plans. I have also personally examined the patient with medicine team and went over assessment and plan with medical team including director internal communications and resident physician.
[2025-02-10] MEDS: BISMUTH SUBSALICYL 1 ML 17 ML PO ×3 (14:35→20:44)
[2025-02-10] MEDS: NYSTATIN SUSP 5 ML UDC PO (14:36)
[2025-02-10 16:14] LABS: HIV (1&2) Antibody Rapid Non-Reactive
--- NOTE | 2025-02-10 22:16 | PD.IMCONS ---
HPI Data of Consult Requesting Physician: Sourav Arndt MD Primary Care Provider: Physician No Primary/Family Consult Narrative Reason for consult: hematemesis History of present illness: 64 years old male I been asked to evaluate by the internal medicine team and the ER physician for hematemesis Which he had for 4 days at home I did evaluate him on his previous admission and on 12/28/2024 he underwent upper endoscopy which showed linear ulceration of the distal esophagus along with esophagitis and gastritis Gallbladder stone at that time as shown cholelithiasis HIDA scan showed ejection fraction of 73% and a functioning gallbladder that was previous admission cc:: cc: Sourav Arndt MD Review of Systems Review of Systems Systems Reviewed: All systems reviewed, normal except as documented Past Medical History Surgical History OTHER SURGICAL HX: As in the history of present illness Meds Home Medications and Allergies Allergies Allergy/AdvReac Type Severity Reaction Status Date / Time No Known Allergies Allergy Verified 02/09/25 19:20 Exam Vital Signs Temp Pulse Resp BP Pulse Ox O2 Del Method 97.5 F 65 15 126/73 98 Room Air 02/10/25 20:00 02/10/25 20:00 02/10/25 20:00 02/10/25 20:00 02/10/25 20:00 02/10/25 20:00 Routine Respiratory Exam Comments: Normal to auscultation Routine Abdominal Exam Comments: Soft nontender Results Labs 02/12/25 05:31 02/12/25 05:31 Labs: Short CBC 02/09/25 02/10/25 Range/Units 22:12 06:10 WBC 8.6 7.1 (3.8-10.6) Thou/mm3 Hgb 9.2 L 7.7 L (13.5-16.0) g/dL Hct 30.9 L 26.6 L (41.0-53.0) % Plt Count 532 H 435 D (140-440) Thou/mm3 BMP 02/09/25 02/10/25 22:12 06:10 Sodium 139 140 Potassium 3.8 3.8 Chloride 100 103 Carbon Dioxide 29.0 29.2 BUN 15 14 Creatinine 0.9 0.8 Glucose 119 H 87 Calcium 9.9 8.9 Cardiac Enzymes 02/09/25 Range/Units 22:12 Troponin I < 0.020 (0.0-0.045) ng/mL Liver Function 02/09/25 02/10/25 Range/Units 22:12 06:10 Total Bilirubin 0.3 0.3 (0.3-1.2) mg/dL AST < 10 12 (0-34) U/L ALT 8 L < 7 L (10-49) U/L Alkaline Phosphatase 94 76 (46-116) U/L Albumin 4.5 3.4 D (3.4-4.8) gm/dL Assessment and Plan Additional Assessment & Plan Additional Plan: Hematemesis Plan N.p.o. midnight tonight except p.o. meds Clear liquid diet until that Consent obtained for fiberoptic esophagogastroduodenoscopy with possible biopsies under intravenous moderate sedation IV Protonix serial CBC # Cholelithiasis asymptomatic # Fatty liver Thank you very much for the opportunity to participate in the care of this patient
[2025-02-11] VITALS (16 sets, daily range): BP systolic 99–146; BP diastolic 54–89; PULSE 59–76; RESP 10–98; TEMP 36.2–37.3; O2SAT 96–100; BMI 21.3
[2025-02-11] MEDS: BISMUTH SUBSALICYL 1 ML 17 ML PO ×3 (05:39→21:34)
[2025-02-11] MEDS: TETRACYCLINE 250 MG CAPSULE 500 MG PO ×2 (05:40→21:36)
[2025-02-11] MEDS: metroNIDAZOLE/NS 500 MG IVPB 500 MG/100 ML BAG 200 MG IV ×3 (05:42→21:32)
[2025-02-11 06:00] LABS: Basophils # (Auto) 0.1 Thou/mm3 (0.0-0.2); Basophils % (Auto) 1 % (0-2.5); Eosinophils # (Auto) 0.6 Thou/mm3 (0.0-0.5); Eosinophils % (Auto) 9 % (0-10); Hematocrit 25.8 % (41.0-53.0); Immature Granulocytes % (Auto) 0 % (0-0); Immature Granulocytes Auto 0.01 Thou/mm3 (0.00-0.00); Lymphocytes # (Auto) 0.7 Thou/mm3 (1.0-4.8); Lymphocytes % (Auto) 11 % (10-50); Mean Corpuscular HGB Conc 29.8 g/dl (31.0-37.0); Mean Corpuscular Hemoglobin 20.3 pg (25.0-35.0); Mean Corpuscular Volume 68 fL (80-100); Monocytes # (Auto) 0.4 Thou/mm3 (0.0-0.8); Monocytes % (Auto) 6 % (0-12); Neutrophils # (Auto) 5.1 Thou/mm3 (1.8-7.7); Neutrophils % (Auto) 74 % (37-80); Nucleated Red Blood Cell % 0 /100 WBC (0); Platelet Count 366 Thou/mm3 (140-440); RDW Standard Deviation 55.6 fL (35.1-43.9)
[2025-02-11 06:02] LABS: Hemoglobin 7.7 g/dL (13.5-16.0)
[2025-02-11 06:47] LABS: Alanine Aminotransferase < 7 U/L (10-49); Albumin, Serum 3.4 gm/dL (3.4-4.8); Albumin/Globulin Ratio 1.7 (1.2-2.2); Alkaline Phosphatase 82 U/L (46-116); Anion Gap 8 (7-16); Aspartate Amino Transferase 10 U/L (0-34); BUN/Creatinine Ratio 16 Ratio (12-20); Bilirubin,Total 0.3 mg/dL (0.3-1.2); Blood Urea Nitrogen 13 mg/dL (9-23); Calcium 8.8 mg/dL (8.3-10.6); Calcium (Corrected) 9.3 mg/dL (8.5-10.1); Carbon Dioxide 27.8 mMol/L (20.0-31.0); Chloride 105 mMol/L (98-107); Creatinine (Component) 0.8 mg/dL (0.6-1.3); Estimated Creatinine Clearance 85.2 mL/min (>60); Glucose 88 mg/dL (74-106); Osmolality,Calculated 280 (275-295); Potassium 4.2 mMol/L (3.4-5.1); Sodium 141 mMol/L (136-145); Total Protein 5.4 gm/dL (5.7-8.2); eGFR > 60 See Note
--- NOTE | 2025-02-11 13:26 | PC.SS ---
Rounding: Pending EGD with Dr. Tyler will DC home when stable
--- NOTE | 2025-02-11 13:52 | PD.RESPRO ---
Documentation for date of: 02/11/25 Subjective Subjective Interval history: Patient seen today at the bedside found awake, alert, orientedx3. No overnight events reported. Vital signs stable at this time. Hg stable at 7.7 today, no episodes of coffee ground emesis reported today. Patient is pending EGD by GI specialist today. Will continue quadruple therapy for H. Pylori as well as fluconazole and nystatin swish and swallow for candideal esophagitis. Exam Vital Signs Temp Pulse Resp BP Pulse Ox O2 Del Method 97.4 F 71 20 112/68 98 Room Air 02/11/25 11:55 02/11/25 12:00 02/11/25 11:55 02/11/25 11:55 02/11/25 11:55 02/11/25 11:55 Narrative Exam Physical Exam GENERAL: NAD, AAOx3 HEENT: Moist mucosa. Eyes open, symmetrical, & clear CARDIO: Heart RRR, no obvious murmurs PULM: No noted coughing/dyspnea CTA B/L, no R/W/R GI: Abdomen soft, nondistended, no pain on palpation. BSx4 SKIN/MSK/EXT: No wounds/rashes/edema/amputations, no pain on palpation. Pedal pulses present B/L NEURO: AAOx3, no focal neuro deficits, able to move all 4 extremities Objective Labs 02/12/25 05:31 02/12/25 05:31 Labs: Laboratory Results - last 24 hr 02/10/25 02/11/25 15:07 05:43 WBC 7.0 RBC 3.80 L Hgb 7.7 L Hct 25.8 L MCV 68 L MCH 20.3 L MCHC 29.8 L RDW Std Deviation 55.6 H Plt Count 366 D Neut % (Auto) 74 Lymph % (Auto) 11 [place] % (Auto) 6 Eos % (Auto) 9 Baso % (Auto) 1 Neut # (Auto) 5.1 Lymph # (Auto) 0.7 L [place] # (Auto) 0.4 Eos # (Auto) 0.6 H Baso # (Auto) 0.1 Immature Gran # (Auto) 0.01 H Absolute Nucleated RBC 0.00 Immature Gran % 0 Nucleated RBC % 0 Sodium 141 Potassium 4.2 Chloride 105 Carbon Dioxide 27.8 Anion Gap 8 BUN 13 Creatinine 0.8 Estim Creat Clear Calc 85.2 eGFR > 60 BUN/Creatinine Ratio 16 Glucose 88 Calculated Osmolality 280 Calcium 8.8 Corrected Calcium 9.3 Total Bilirubin 0.3 AST 10 ALT < 7 L Alkaline Phosphatase 82 Total Protein 5.4 L Albumin 3.4 Globulin 2.0 L Albumin/Globulin Ratio 1.7 HIV 1&2 Antibody Rapid Non-Reactive Quality Measures Quality Measures none Assessment & Plan Assessment Current Active Medications: Generic Name Dose Route Start Last Admin Trade Name Freq PRN Reason Stop Dose Admin Acetaminophen 650 mg 02/10/25 00:43 Acetaminophen 325 Mg Tablet PO 03/12/25 00:42 Q6H PRN Fever >100.3 or pain Bismuth Subsalicylate 17 ml 02/10/25 06:00 02/11/25 12:06 Bismuth Subsalicyl 1 Ml PO 03/12/25 05:59 Not Given QID ALAN Fluconazole 200 mg in 100 mls @ 100 mls/hr 02/10/25 21:00 02/10/25 21:45 Diflucan/Ns Ivpb IV 02/17/25 20:59 Infused HS ALAN Infusion Metronidazole 500 mg in 100 mls @ 200 mls/hr 02/10/25 06:00 02/11/25 05:42 Flagyl 500 Mg Iv IV 02/17/25 05:59 200 mls/hr TID ALAN Administration Nystatin 5 ml 02/11/25 12:00 02/11/25 12:06 Nystatin Susp 5 Ml Udc PO 02/18/25 11:59 Not Given QID ALAN Ondansetron HCl 4 mg 02/10/25 00:43 Ondansetron Inj 2 Mg/Ml Inj 2 Ml IV 03/12/25 00:42 Q6H PRN NAUSEA OR VOMITING Protocol Pantoprazole Sodium 40 mg 02/10/25 09:00 02/11/25 08:36 Pantoprazole 40 Mg Tablet PO 03/12/25 08:59 Not Given Q12HR ALAN Sennosides 1 tab 02/10/25 00:43 Senna Tablet PO 03/12/25 00:42 QDAY PRN constipation Protocol Tetracycline HCl 500 mg 02/10/25 06:00 02/11/25 05:40 Tetracycline 250 Mg Capsule PO 02/17/25 05:59 500 mg TID ALAN Administration Plan 64 yr male with PMH of methamphetamine use, noncompliance, active smoker, esophagitis with chief complaint of throwing up blood and epigastric pain. Patient has been having hematemesis since the past 4 days and unable to keep down any solid foods or liquids. GI Dr. Tyler was consulted. Patient to be admitted for management of upper GI bleed. #Upper GI bleed #Hematemasis #Hx esophagitis #Hx candidal esophagitis #H pylori Coffee-ground emesis since past 4 days. Unable to tolerate food or liquids. Endorses epigastric pain. EGD from 12/28/24 showed esophagitis with esophageal ulcers. Pathology results positive for H. pylori-like organisms, fungal elements. Patient was discharged with fluconazole 200 mg daily. However he was lost to follow-up after discharge. Globin on admission 9.2, MCV 67. KUB shows large amount of stool in the colon -GI Dr. Tyler consulted, appreciate recs - IV pantoprazole 40 mg twice daily - NPO, pending EGD -will resume fluconazole 200mg daily, nystatin swish and swallow -Quadruple therapy for H. Pylori, bismuth, tetracycline, metronidazole, PPI # Methamphetamine use disorder # Tobacco dependence Patient admits to smoking methamphetamine daily with last use this morning. Smokes 1 pack/day since [age]yr old. 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 Mirna Quispe MD PGY-1 Attending Provider Attestation/Addendum Shellie Kaur, , attest that I was physically present for the vargas portions of the service and evaluated the patient with the resident and I reviewed and discussed the case with the resident and agree with the resident's findings and plans of care as documented above Patient seen eval this a.m. He states that he had some epigastric discomfort associated with his hematemesis. He is scheduled for endoscopy this evening. Explained to patient that he is positive for H. pylori from previous endoscopy biopsies done. Patient currently on triple therapy. Will follow-up with endoscopy results. Hemoglobin otherwise stable. Patient reports some lower back pain. But no focal neurological deficits noted. Noted to have some lumbar spine degenerative disease on previous CT scan. Patient states that he feels that his left kidney is bigger than the right. He otherwise denies any dysuria. Will obtain a plain CT to rule out any urological issues. He does have some left flank pain on palpation.
--- NOTE | 2025-02-11 16:45 | SUR.PHASEI ---
pt asleep but responds to voice, breathing unlabored on room air. v/s stable. report called to Talita MARTINEZ. pt will be transferred to room at this time.
[2025-02-11] MEDS: NYSTATIN SUSP 5 ML UDC PO ×2 (17:05→21:37)
[2025-02-11] MEDS: MG HYD/AL HYD/SIME (Maalox Reg) SUSP 30 ML UDC 15 ML PO ×2 (17:05→21:37)
[2025-02-11] MEDS: SUCRALFATE SUSP 1 GM/10 ML UDC PO ×2 (17:05→21:37)
--- NOTE | 2025-02-11 18:08 | XR_ITS ---
Examination: CT abdomen and pelvis without contrast. Coronal 3-D reconstructions. Sagittal 2-D reconstructions. Date and time of exam:February 11, 2025 1824 hours INDICATIONS: Upper gastrointestinal bleeding today COMPARISON: December 26, 2024 CTDI: vol (mGy): 5.13 DLP: (mGycm): 287 Technique: Axial images of the abdomen have been obtained, 3 mm slice thickness Intravenous contrast material has not been administered. Low dose protocols were performed. One or more of the following dose reduction techniques were used; automated exposure control, adjustment of the mA and/or KV according to patient size, use of iterative reconstruction technique. Findings: Retrocardiac gastric hernia with thickening of the lower wall of the esophagus No focal liver or splenic lesion No gallstones No pancreatic mass No renal or ureteral calculi This is a noncontrast study which significantly limits assessment for pyelonephritis No hydronephrosis Abdominal aortic calcification no aneurysmal dilatation Normal appendix No bowel obstruction No diverticulitis Minimal thickening of the urinary bladder wall Prostate calcifications AP prostate dimension 3.5 cm Moderate lumbar spondylosis IMPRESSION: Retrocardiac gastric hernia with thickening of the lower wall of the esophagus, consider reflux esophagitis No louise perinephric stranding on this noncontrast study No renal or ureteral calculi, no hydronephrosis Normal appendix No bowel obstruction Mild cystitis pattern
[2025-02-11] MEDS: FLUCONAZOLE/NS 200 MG IVPB 200 MG/100 ML BAG 100 MG IV (21:33)
[2025-02-11] MEDS: PANTOPRAZOLE 40 MG TABLET 80 MG PO (21:36)
[2025-02-12] VITALS (11 sets, daily range): BP systolic 112–143; BP diastolic 60–84; PULSE 61–95; RESP 15–100; TEMP 36.2–37.4; O2SAT 97–100; BMI 21.2
[2025-02-12] MEDS: MG HYD/AL HYD/SIME (Maalox Reg) SUSP 30 ML UDC 15 ML PO ×5 (01:48→22:10)
[2025-02-12] MEDS: metroNIDAZOLE/NS 500 MG IVPB 500 MG/100 ML BAG 200 MG IV ×3 (05:50→23:35)
[2025-02-12] MEDS: TETRACYCLINE 250 MG CAPSULE 500 MG PO ×3 (05:54→22:10)
[2025-02-12] MEDS: NYSTATIN SUSP 5 ML UDC PO ×4 (05:55→22:10)
[2025-02-12] MEDS: SUCRALFATE SUSP 1 GM/10 ML UDC PO ×4 (05:55→22:10)
[2025-02-12 06:14] LABS: Basophils % (Auto) 1 % (0-2.5); Eosinophils # (Auto) 0.5 Thou/mm3 (0.0-0.5); Eosinophils % (Auto) 9 % (0-10); Hematocrit 26.3 % (41.0-53.0); Immature Granulocytes % (Auto) 0 % (0-0); Immature Granulocytes Auto 0.01 Thou/mm3 (0.00-0.00); Lymphocytes # (Auto) 0.7 Thou/mm3 (1.0-4.8); Lymphocytes % (Auto) 12 % (10-50); Mean Corpuscular HGB Conc 29.3 g/dl (31.0-37.0); Mean Corpuscular Hemoglobin 20.3 pg (25.0-35.0); Mean Corpuscular Volume 69 fL (80-100); Monocytes # (Auto) 0.3 Thou/mm3 (0.0-0.8); Monocytes % (Auto) 6 % (0-12); Neutrophils # (Auto) 4.1 Thou/mm3 (1.8-7.7); Neutrophils % (Auto) 73 % (37-80); Nucleated Red Blood Cell % 0 /100 WBC (0); Platelet Count 373 Thou/mm3 (140-440); RDW Standard Deviation 56.2 fL (35.1-43.9); White Blood Count 5.6 Thou/mm3 (3.8-10.6)
[2025-02-12 06:20] LABS: Hemoglobin 7.7 g/dL (13.5-16.0)
[2025-02-12 06:37] LABS: Alanine Aminotransferase < 7 U/L (10-49); Albumin, Serum 3.3 gm/dL (3.4-4.8); Albumin/Globulin Ratio 1.7 (1.2-2.2); Alkaline Phosphatase 77 U/L (46-116); Anion Gap 6 (7-16); Aspartate Amino Transferase 10 U/L (0-34); BUN/Creatinine Ratio 19 Ratio (12-20); Bilirubin,Total 0.2 mg/dL (0.3-1.2); Blood Urea Nitrogen 19 mg/dL (9-23); Calcium 8.9 mg/dL (8.3-10.6); Calcium (Corrected) 9.5 mg/dL (8.5-10.1); Carbon Dioxide 28.1 mMol/L (20.0-31.0); Chloride 107 mMol/L (98-107); Estimated Creatinine Clearance 67.9 mL/min (>60); Glucose 151 mg/dL (74-106); Osmolality,Calculated 286 (275-295); Potassium 4.1 mMol/L (3.4-5.1); Sodium 141 mMol/L (136-145); Total Protein 5.3 gm/dL (5.7-8.2); eGFR > 60 See Note
[2025-02-12] MEDS: PANTOPRAZOLE 40 MG TABLET 80 MG PO ×2 (08:09→22:10)
--- NOTE | 2025-02-12 08:39 | PD.RESPRO ---
Documentation for date of: 02/12/25 Subjective Subjective Interval history: Patient seen today at the bedside found awake, alert, orientedx3. No overnight events reported. Vitals and labs reviewed. EGD showed esophageal ulcer with 4 x 3 blood vessel. Patient currently on Protonix 80 mg twice daily, Carafate, Maalox. Patient currently planing of some lower back pain added lidocaine patch with diclofenac gel and pain has seemed to improve patient has no neurosymptoms related to this pain. Will continue with quadruple therapy for H. pylori, possible discharge in next 24-48 hours. Exam Vital Signs Temp Pulse Resp BP Pulse Ox O2 Del Method O2 Flow Rate 97.2 F 69 16 121/60 100 Room Air 3 02/12/25 08:00 02/12/25 08:00 02/12/25 08:00 02/12/25 08:00 02/12/25 08:00 02/12/25 08:00 02/11/25 20:00 Narrative Exam Physical Exam GENERAL: NAD, AAOx3 HEENT: Moist mucosa. Eyes open, symmetrical, & clear CARDIO: Heart RRR, no obvious murmurs PULM: No noted coughing/dyspnea CTA B/L, no R/W/R GI: Abdomen soft, nondistended, no pain on palpation. BSx4 SKIN/MSK/EXT: No wounds/rashes/edema/amputations, no pain on palpation. Pedal pulses present B/L NEURO: AAOx3, no focal neuro deficits, able to move all 4 extremities Objective Labs 02/13/25 04:57 02/13/25 04:57 Labs: Laboratory Results - last 24 hr 02/12/25 05:31 WBC 5.6 RBC 3.80 L Hgb 7.7 L Hct 26.3 L MCV 69 L MCH 20.3 L MCHC 29.3 L RDW Std Deviation 56.2 H Plt Count 373 Neut % (Auto) 73 Lymph % (Auto) 12 [place] % (Auto) 6 Eos % (Auto) 9 Baso % (Auto) 1 Neut # (Auto) 4.1 Lymph # (Auto) 0.7 L [place] # (Auto) 0.3 Eos # (Auto) 0.5 Baso # (Auto) 0.0 Immature Gran # (Auto) 0.01 H Absolute Nucleated RBC 0.00 Immature Gran % 0 Nucleated RBC % 0 Sodium 141 Potassium 4.1 Chloride 107 Carbon Dioxide 28.1 Anion Gap 6 L BUN 19 Creatinine 1.0 Estim Creat Clear Calc 67.9 eGFR > 60 BUN/Creatinine Ratio 19 Glucose 151 H D Calculated Osmolality 286 Calcium 8.9 Corrected Calcium 9.5 Total Bilirubin 0.2 L AST 10 ALT < 7 L Alkaline Phosphatase 77 Total Protein 5.3 L Albumin 3.3 L Globulin 2.0 L Albumin/Globulin Ratio 1.7 Quality Measures Quality Measures none Assessment & Plan Assessment Current Active Medications: Generic Name Dose Route Start Last Admin Trade Name Freq PRN Reason Stop Dose Admin Acetaminophen 650 mg 02/10/25 00:43 Acetaminophen 325 Mg Tablet PO 03/12/25 00:42 Q6H PRN Fever >100.3 or pain Al Hydrox/Mg Hydrox/Simethicone 15 ml 02/11/25 18:00 02/12/25 05:55 Mg Hyd/Al Hyd/John (Maalox Reg) Susp 30 Ml Udc PO 03/13/25 17:59 15 ml Q4HR ALAN Administration Bismuth Subsalicylate 17 ml 02/10/25 06:00 02/12/25 05:55 Bismuth Subsalicyl 1 Ml PO 03/12/25 05:59 Not Given QID ALAN Fluconazole 200 mg in 100 mls @ 100 mls/hr 02/10/25 21:00 02/11/25 22:33 Diflucan/Ns Ivpb IV 02/17/25 20:59 Infused HS ALAN Infusion Metronidazole 500 mg in 100 mls @ 200 mls/hr 02/10/25 06:00 02/12/25 06:20 Flagyl 500 Mg Iv IV 02/17/25 05:59 Infused TID ALAN Infusion Lidocaine 1 patch 02/12/25 17:53 Lidocaine 5% 1 Patch TOP 03/14/25 17:52 UD PRN PAIN Protocol Nystatin 5 ml 02/11/25 12:00 02/12/25 05:55 Nystatin Susp 5 Ml Udc PO 02/18/25 11:59 5 ml QID ALAN Administration Ondansetron HCl 4 mg 02/10/25 00:43 Ondansetron Inj 2 Mg/Ml Inj 2 Ml IV 03/12/25 00:42 Q6H PRN NAUSEA OR VOMITING Protocol Pantoprazole Sodium 80 mg 02/11/25 21:00 02/12/25 08:09 Pantoprazole 40 Mg Tablet PO 03/13/25 20:59 80 mg Q12HR ALAN Administration Sennosides 1 tab 02/10/25 00:43 Senna Tablet PO 03/12/25 00:42 QDAY PRN constipation Protocol Sucralfate 1 gm 02/11/25 17:00 02/12/25 05:55 Sucralfate Susp 1 Gm/10 Ml Udc PO 03/13/25 16:59 1 gm QID ALAN Administration Tetracycline HCl 500 mg 02/10/25 06:00 02/12/25 05:54 Tetracycline 250 Mg Capsule PO 02/17/25 05:59 500 mg TID ALAN Administration Plan 64 yr male with PMH of methamphetamine use, noncompliance, active smoker, esophagitis with chief complaint of throwing up blood and epigastric pain. Patient has been having hematemesis since the past 4 days and unable to keep down any solid foods or liquids. GI Dr. Tyler was consulted. Patient to be admitted for management of upper GI bleed. #Upper GI bleed #Hematemasis -resolved #Hx esophagitis #Hx candidal esophagitis #H pylori Coffee-ground emesis since past 4 days. Unable to tolerate food or liquids. Endorses epigastric pain. EGD from 12/28/24 showed esophagitis with esophageal ulcers. Pathology results positive for H. pylori-like organisms, fungal elements. Patient was discharged with fluconazole 200 mg daily. However he was lost to follow-up after discharge. Globin on admission 9.2, MCV 67. KUB shows large amount of stool in the colon EGD showed esophageal ulcers with 4x3 blood vessel -GI Dr. Tyler consulted, appreciate recs - IV pantoprazole 80 mg twice daily - peptic ulcer diet - carafate + maalox -will resume fluconazole 200mg daily, nystatin swish and swallow -Quadruple therapy for H. Pylori, bismuth, tetracycline, metronidazole, PPI # Methamphetamine use disorder # Tobacco dependence Patient admits to smoking methamphetamine daily with last use this morning. Smokes 1 pack/day since [age]yr old. 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 Mirna Quispe MD PGY-1 Attending Provider Attestation/Addendum I, Shellie Bradley DO, attest that I was physically present for the vargas portions of the service and evaluated the patient with the resident and I reviewed and discussed the case with the resident and agree with the resident's findings and plans of care as documented above Patient seen and eval this a.m. Patient underwent an endoscopy yesterday during which she was found to have a cratered esophageal ulcer in the lower third of the esophagus with some erythema in the gastric mucosa noted. Patient is to continue with Protonix, Carafate and Maalox. PUD diet was advanced. Patient states that he continues to have some back pain which gives him trouble with walking. He otherwise has no saddle anesthesia, trouble with control of bladder or bowel movements, numbness or tingling in his bilateral lower extremities. Patient is able to stand. Patient has moderate lumbar spondylosis noted on the CAT scan of his CT abdomen pelvis done yesterday. Reassured patient that there is no pyelonephritis, renal calculi or hydronephrosis noted on the scan. Will have physical therapy work with patient and place topical pain relief. Hemoglobin is otherwise stable.
[2025-02-12] MEDS: IRON SUCROSE CPLX INJ 20 MG/ML VIAL 5 ML 200 MG IVP (10:35)
[2025-02-12] MEDS: BISMUTH SUBSALICYL 1 ML 17 ML PO ×3 (11:22→22:10)
[2025-02-12] MEDS: DICLOFENAC 1% TOP GEL 100 GM TUBE TOP ×2 (14:04→16:05)
--- NOTE | 2025-02-12 19:16 | PD.IMPROG ---
Documentation for date of: 02/12/25 Subjective Subjective Interval history: Patient evaluated hemoglobin hematocrit 7.7 and 26.3 Exam Vital Signs Temp Pulse Resp BP Pulse Ox O2 Del Method O2 Flow Rate 97.2 F 70 18 125/84 97 Room Air 3 02/12/25 16:00 02/12/25 16:00 02/12/25 16:00 02/12/25 16:00 02/12/25 16:00 02/12/25 16:00 02/11/25 20:00 Objective Labs 02/12/25 05:31 02/12/25 05:31 Labs: Laboratory Results - last 24 hr 02/12/25 05:31 WBC 5.6 RBC 3.80 L Hgb 7.7 L Hct 26.3 L MCV 69 L MCH 20.3 L MCHC 29.3 L RDW Std Deviation 56.2 H Plt Count 373 Neut % (Auto) 73 Lymph % (Auto) 12 [place] % (Auto) 6 Eos % (Auto) 9 Baso % (Auto) 1 Neut # (Auto) 4.1 Lymph # (Auto) 0.7 L [place] # (Auto) 0.3 Eos # (Auto) 0.5 Baso # (Auto) 0.0 Immature Gran # (Auto) 0.01 H Absolute Nucleated RBC 0.00 Immature Gran % 0 Nucleated RBC % 0 Sodium 141 Potassium 4.1 Chloride 107 Carbon Dioxide 28.1 Anion Gap 6 L BUN 19 Creatinine 1.0 Estim Creat Clear Calc 67.9 eGFR > 60 BUN/Creatinine Ratio 19 Glucose 151 H D Calculated Osmolality 286 Calcium 8.9 Corrected Calcium 9.5 Total Bilirubin 0.2 L AST 10 ALT < 7 L Alkaline Phosphatase 77 Total Protein 5.3 L Albumin 3.3 L Globulin 2.0 L Albumin/Globulin Ratio 1.7 Impressions Impression: Distal esophageal ulcers Continue current management Assessment & Plan A&P Narrative Hematemesis Plan N.p.o. midnight tonight except p.o. meds Clear liquid diet until that Consent obtained for fiberoptic esophagogastroduodenoscopy with possible biopsies under intravenous moderate sedation IV Protonix serial CBC # Cholelithiasis asymptomatic # Fatty liver Thank you very much for the opportunity to participate in the care of this patient Time Spent With Patient Time: Total time spent is greater than 50% in coordination of care (as documented) at patient's floor/unit and/or counseling patient:
[2025-02-12] MEDS: FLUCONAZOLE/NS 200 MG IVPB 200 MG/100 ML BAG 100 MG IV (22:03)
[2025-02-13] VITALS: BP 117/73; PULSE 76; PULSE 93; RESP 13; TEMP 36.7; O2SAT 99
[2025-02-13] MEDS: MG HYD/AL HYD/SIME (Maalox Reg) SUSP 30 ML UDC 15 ML PO ×4 (01:07→14:04)
[2025-02-13 04:00] VITALS: BP 136/72; PULSE 64; PULSE 67; RESP 16; TEMP 36.1; O2SAT 100
[2025-02-13] MEDS: metroNIDAZOLE/NS 500 MG IVPB 500 MG/100 ML BAG 200 MG IV ×2 (05:25→14:04)
[2025-02-13] MEDS: SUCRALFATE SUSP 1 GM/10 ML UDC PO ×2 (05:28→11:25)
[2025-02-13] MEDS: NYSTATIN SUSP 5 ML UDC PO ×2 (05:28→11:25)
[2025-02-13] MEDS: TETRACYCLINE 250 MG CAPSULE 500 MG PO (05:29)
[2025-02-13] MEDS: BISMUTH SUBSALICYL 1 ML 17 ML PO ×2 (05:29→11:26)
[2025-02-13 05:34] LABS: Basophils % (Auto) 1 % (0-2.5); Eosinophils # (Auto) 0.4 Thou/mm3 (0.0-0.5); Eosinophils % (Auto) 11 % (0-10); Hematocrit 24.5 % (41.0-53.0); Immature Granulocytes % (Auto) 0 % (0-0); Immature Granulocytes Auto 0.01 Thou/mm3 (0.00-0.00); Lymphocytes # (Auto) 0.4 Thou/mm3 (1.0-4.8); Lymphocytes % (Auto) 12 % (10-50); Mean Corpuscular HGB Conc 30.2 g/dl (31.0-37.0); Mean Corpuscular Hemoglobin 20.4 pg (25.0-35.0); Mean Corpuscular Volume 68 fL (80-100); Monocytes # (Auto) 0.2 Thou/mm3 (0.0-0.8); Monocytes % (Auto) 6 % (0-12); Neutrophils # (Auto) 2.5 Thou/mm3 (1.8-7.7); Neutrophils % (Auto) 70 % (37-80); Nucleated Red Blood Cell % 0 /100 WBC (0); Platelet Count 356 Thou/mm3 (140-440); RDW Standard Deviation 55.1 fL (35.1-43.9); Red Blood Count 3.63 Miln/mm3 (4.50-5.90); White Blood Count 3.5 Thou/mm3 (3.8-10.6)
[2025-02-13 05:38] LABS: Hemoglobin 7.4 g/dL (13.5-16.0)
[2025-02-13 05:59] LABS: Alanine Aminotransferase < 7 U/L (10-49); Albumin, Serum 3.4 gm/dL (3.4-4.8); Albumin/Globulin Ratio 1.7 (1.2-2.2); Alkaline Phosphatase 74 U/L (46-116); Anion Gap 7 (7-16); Aspartate Amino Transferase 14 U/L (0-34); BUN/Creatinine Ratio 15 Ratio (12-20); Bilirubin,Total 0.3 mg/dL (0.3-1.2); Blood Urea Nitrogen 12 mg/dL (9-23); Calcium 9.1 mg/dL (8.3-10.6); Calcium (Corrected) 9.6 mg/dL (8.5-10.1); Carbon Dioxide 27.8 mMol/L (20.0-31.0); Chloride 103 mMol/L (98-107); Creatinine (Component) 0.8 mg/dL (0.6-1.3); Estimated Creatinine Clearance 84.9 mL/min (>60); Glucose 92 mg/dL (74-106); Magnesium 2.1 mg/dL (1.6-2.6); Osmolality,Calculated 275 (275-295); Phosphorous 3.3 mg/dL (2.4-5.1); Potassium 3.6 mMol/L (3.4-5.1); Sodium 138 mMol/L (136-145); Total Protein 5.4 gm/dL (5.7-8.2); eGFR > 60 See Note
[2025-02-13 08:00] VITALS: BP 124/61; PULSE 61; PULSE 63; RESP 20; TEMP 36.2; O2SAT 99
[2025-02-13 08:35] VITALS: PULSE 61; RESP 16; RESP 99
[2025-02-13] MEDS: POTASSIUM CHLORIDE 20 mEq TABCR 40 MEQ PO (08:57)
[2025-02-13] MEDS: PANTOPRAZOLE 40 MG TABLET 80 MG PO (08:57)
--- NOTE | 2025-02-13 09:47 | PD.IMPROG ---
Documentation for date of: 02/13/25 Subjective Subjective Interval history: Hemoglobin hematocrit stable Okay to discharge patient home Exam Vital Signs Temp Pulse Resp BP Pulse Ox O2 Del Method O2 Flow Rate 97.1 F 61 16 124/61 99 Room Air 3 02/13/25 08:00 02/13/25 08:35 02/13/25 08:35 02/13/25 08:00 02/13/25 08:00 02/13/25 08:00 02/11/25 20:00 Objective Labs 02/13/25 13:15 02/13/25 04:57 Labs: Laboratory Results - last 24 hr 02/09/25 02/13/25 23:18 04:57 WBC 3.5 L RBC 3.63 L Hgb 7.4 L Hct 24.5 L MCV 68 L MCH 20.4 L MCHC 30.2 L RDW Std Deviation 55.1 H Plt Count 356 Neut % (Auto) 70 Lymph % (Auto) 12 [place] % (Auto) 6 Eos % (Auto) 11 H Baso % (Auto) 1 Neut # (Auto) 2.5 Lymph # (Auto) 0.4 L [place] # (Auto) 0.2 Eos # (Auto) 0.4 Baso # (Auto) 0.0 Immature Gran # (Auto) 0.01 H Absolute Nucleated RBC 0.00 Immature Gran % 0 Nucleated RBC % 0 Sodium 138 Potassium 3.6 D Chloride 103 Carbon Dioxide 27.8 Anion Gap 7 BUN 12 Creatinine 0.8 Estim Creat Clear Calc 84.9 eGFR > 60 BUN/Creatinine Ratio 15 Glucose 92 D Calculated Osmolality 275 Calcium 9.1 Corrected Calcium 9.6 Phosphorus 3.3 Magnesium 2.1 Total Bilirubin 0.3 AST 14 ALT < 7 L Alkaline Phosphatase 74 Total Protein 5.4 L Albumin 3.4 Globulin 2.0 L Albumin/Globulin Ratio 1.7 Crossmatch See Detail Impressions Impression: Distal esophageal ulcers Stable H&H from a GI viewpoint patient can be discharged Assessment & Plan A&P Narrative Hematemesis Plan N.p.o. midnight tonight except p.o. meds Clear liquid diet until that Consent obtained for fiberoptic esophagogastroduodenoscopy with possible biopsies under intravenous moderate sedation IV Protonix serial CBC # Cholelithiasis asymptomatic # Fatty liver Thank you very much for the opportunity to participate in the care of this patient Time Spent With Patient Time: Total time spent is greater than 50% in coordination of care (as documented) at patient's floor/unit and/or counseling patient:
[2025-02-13] MEDS: IRON SUCROSE CPLX INJ 20 MG/ML VIAL 5 ML 200 MG IVP (10:09)
--- NOTE | 2025-02-13 11:44 | ESDS_ITS ---
<Statement entered by Shellie Bradley DO - 02/13/25 16:41> I, Shellie Bradley DO, attest that I was physically present for the vargas portions of the service and evaluated the patient with the resident and I reviewed and discussed the case with the resident and agree with the resident's findings and plans of care as documented above Planned Discharge Date 02/13/25 DS: Providers Provider Date of admission: 02/10/25 00:43 Primary care physician: Physician No Primary/Family Admitting Provider: Jayden Carr MD Attending Provider on Admission: Shellie Bradley DO Consults: 02/10/25 00:51 Consult to Gastroenterology Routine Comment: upper GI bleed Consulting Provider: Gregorio Tyler 02/12/25 11:34 Referral Physical Therapy Stat Comment: Physician Instructions: Attending Provider on DC: Shellie Bradley DO Discharging Provider: Harrison Quispe MD Anticipated date of discharge: 02/13/25 DS: Diagnosis Problem List Completed Was Problem List Reviewed/Reconciled?: Yes Hospital Course Hospital Course Hospital course: 64-year-old male with past medical history of methamphetamine use, noncompliance, active smoker, esophagitis who came to the ER hematemesis and epigastric pain. Patient was sent was admitted for management of upper GI bleed. During hospital stay GI services were consulted. Patient had endoscopy which showed esophageal ulcers with bleeding blood vessel. Patient was placed on IV Protonix, Carafate and Maalox. Patient also has history of H. pylori infection and was put on quadruple therapy. Esophagitis was treated with nystatin swish and swallow. At this time patient is medically stable for discharge. Follow up with primary care physician within 1 week of discharge. Follow up with gastroenterology within 2 weeks of discharge. You have been prescribed famotidine please take this medication as prescribed. You have been prescribed famotidine please take this medication as prescribed. Should your symptoms recur or worsen patient is instructed to return to the ED. Problem List: #Upper GI bleed #Hematemasis -resolved #Hx esophagitis #Hx candidal esophagitis #H pylori # Methamphetamine use disorder # Tobacco dependence #Medication non compliance Case discussed with my attending Dr. Mirna Quispe MD PGY-1 Time Spent with Patient Time attestation: Total time spent providing and/or coordinating discharge services: Time spent: Greater than 30 minutes Exam Vital Signs Temp Pulse Resp BP Pulse Ox O2 Del Method O2 Flow Rate 97.1 F 61 16 124/61 99 Room Air 3 02/13/25 08:00 02/13/25 08:35 02/13/25 08:35 02/13/25 08:00 02/13/25 08:00 02/13/25 08:00 02/11/25 20:00 Discharge Plan Plan Patient Disposition: HOME (Self Care) Patient condition on transfer: Stable Care Plan Goals: Follow up with primary care physician within 1 week of discharge Follow up with gastroenterology within 2 weeks of discharge You have been prescribed famotidine please take this medication as prescribed Should your symptoms recur or worsen patient is instructed to return to the ED. Prescriptions/Referrals Prescriptions/Med Rec: New famotidine 20 mg tablet 20 mg PO BID Qty: 60 0RF sucralfate [Carafate] 1 gram tablet 1 g PO BID 30 Days Qty: 60 0RF Maalox Advanced 1,000-60 mg tablet,chewable 1 tab PO QID PRN (Reason: dyspepsia) 30 Days Qty: 120 0RF tetracycline 500 mg capsule 500 mg PO Q6H 30 Days Qty: 120 0RF bismuth subsalicylate 262 mg tablet,chewable 2 tab PO QID 5 Days Qty: 40 0RF metronidazole 500 mg tablet 500 mg PO QID 30 Days Qty: 120 0RF nystatin 100,000 unit/mL suspension 1 ml buccal QDAY 30 Days Qty: 30 0RF Rx Instructions: administer 1/2 of dose in each side of the mouth Continued ferrous sulfate 325 mg (65 mg iron) tablet,delayed release (DR/EC) 325 mg PO Q OTHER DAY 30 Days Qty: 15 3RF Referrals: No Primary/Family,Physician [Primary Care Provider] - Patient/Caregiver Discharge Instructions Print Language: Turkmen Stand Alone Forms: Cherelle Award Info., Patient Portal Info Letter Discharge Order Discharge Orders: Discharge (Routine); Ordered 02/13/25 Ordered By: Harrison Quispe Quality Discharge Quality Measures VTE prophylaxis
[2025-02-13 12:00] VITALS: BP 157/65; PULSE 65; RESP 20; TEMP 36.3; O2SAT 99
[2025-02-13 13:34] LABS: Hematocrit 25.4 % (41.0-53.0)
[2025-02-13 13:57] LABS: Hemoglobin 7.6 g/dL (13.5-16.0)
--- NOTE | 2025-02-13 15:21 | PC.SS ---
SS met with pt at bedside and had steel loader services by hotel maid line. Pt stated that the property he lives on and has been on the property for 15- years. The friend who owned the property has left and a has a new broomcorn sorter ?Armando. Pt stated that he has water but no electricity. When asked how he plans to keep cool in the summer, pt stated he will stay in shade. SS provided him with list of cooling centers he can go to. Pt stated that he wants to go to the property as he ?built the house? on the property. Pt stated that his friend Jah is helping him. Pt would not provide additional details about Jah when pressed other than to add Jah lives next door and he has helped pt. Pt stated that his friend Jered Garsia lives in [place] and is unable to help him with fdc due to Jered?s family. SS went over options such as residential treatment for drug use, pt was not receptive as he stated he has no desire to discontinue using drugs. When asked about SNF, pt refused to consider placement. SS while speaking with pt he called a person he identified as a friend, Yaneli Rocha, . Pt gave verbal authorization to speak with Yaneli stated she is an [facility] worker and stated that the pt does not have a stable home. She confirmed that it is possible he is getting water. SS and Yaneli spoke about options where Yaneli will take pt to fdc either [facility] or [facility] upon discharge. Yaneli also plans to follow up with pt and take him to [facility] to see what benefits he may be able to utilize for housing and other services such as EBT. ?SS will also submit an APS report for pt to be followed.
[2025-02-13 16:00] VITALS: BP 115/73; PULSE 68; RESP 18; TEMP 36.3; O2SAT 99
--- NOTE | 2025-02-14 13:44 | PC.SS ---
SS spoke to Radha Perales APS [phone] filed report for pt to be followed; report faxed after call completed [phone]
== END 2025-02-13 16:35 | disposition home or self-care (01) | DRG 242 ==
LOC: SERX 02-10 00:53 → SERHOLD 02-10 01:17 → S2NX 02-10 04:47 → S3SX 02-10 19:44
PROVIDERS: Internal Medicine; Physician Assistant; Specialist; Student in an Organized Health Care Education/Training Program; Admitting Provider Internal Medicine; Emergency Provider Emergency Medicine; Visit Provider Internal Medicine
PROC: 0DJ08ZZ Inspection of Upper Intestinal Tract, Via Natural or Artificial Opening Endoscopic (ICD-10-PCS; CPT 43239; principal; 2025-02-11 16:00)
DX: K22.11 Ulcer of esophagus with bleeding (principal); F17.210 Nicotine dependence, cigarettes, uncomplicated; B37.81 Candidal esophagitis; F15.10 Other stimulant abuse, uncomplicated; D50.9 Iron deficiency anemia, unspecified; K76.0 Fatty (change of) liver, not elsewhere classified; Z91.148 Patient's other noncompliance with medication regimen for other reason; K80.20 Calculus of gallbladder without cholecystitis without obstruction; Z86.19 Personal history of other infectious and parasitic diseases; Z87.19 Personal history of other diseases of the digestive system
CPT/HCPCS: 36415; 71045; 74018; 74176; 80053; 82271; 83605; 83690; 83735; 84100; 84145; 84484; 85014; 85018; 85025; 86703; 86850; 86900; 86901; 86923; 93005; 93225; 96365; 96374; 96375; 97161; 99291; J1200; J1450; J1756; J2250; J2270; J2405; J2470; J2765; J3010; J3490; J7120; A9270; J1836

== ENCOUNTER 2025-02-27 10:49 | Emergency (ER) | payer MEDICAID, SELFPAY ==
[2025-02-27 11:07] VITALS: BP 158/88; PULSE 93; RESP 18; TEMP 36.9; O2SAT 98
--- NOTE | 2025-02-27 11:20 | EKG_ITS ---
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
--- NOTE | 2025-02-27 11:20 | XR_ITS ---
Examination: PA lateral chest 2 views Technique: Upright PA lateral chest 2 views Date and time: February 27, 2025 at 1134 hrs. Comparison February 09, 2025 Indications: Shortness of breath chest pain beginning 3 days ago. Findings: Moderate hyperexpansion Mild enlargement left ventricle. No pneumonia or pulmonary edema. Moderate osteopenia. Impression: Moderate hyperexpansion
--- NOTE | 2025-02-27 11:20 | EDNOTE_ITS ---
Nausea/Vomit./Diarrhea-RME/HPI General Chief complaint: Nausea/Vomiting/Diarrhea Stated complaint: VOMITING BLOOD/CONTINUOUS HICCUPS Time Seen by Provider: 02/27/25 11:09 Arrival date/time: 02/27/25 10:49 Limitations: no limitations RME / HPI RME / HPI Narrative: 64-year-old male with Hx of GI bleed presenting to the emergency department via private auto who is presenting for chief complaint of abdominal pain and vomiting blood after eating x 1day, hx of same in past. EGD 01/14 showed esophageal ulcer with 4 x 3 blood vessel. Also was diagnosed with esophagitis, esophageal ulcer and candidiasis. Admits discontinuing Fluconazole and Protonix, states stopped on 02/18/25. Patient is HIV negative. Denies hx of cirrhosis, denies alcohol abuse, admits he uses meth almost daily. No rectal bleeding. No SOB.l Related Data Previous Rx's ?Medication ?Instructions ?Recorded ferrous sulfate 325 mg (65 mg 325 mg PO Q OTHER DAY Ir on 12/30/24 iron) tablet,delayed release Deficiency 30 days #15 ta bs calcium carbonate 1,000 1 tab PO QID PRN dyspepsia 1 month 02/13/25 mg-simethicone 60 mg chewable #120 tabs tablet (Maalox Advanced) famotidine 20 mg tablet 20 mg PO BID #60 tabs metronidazole 500 mg tablet 500 mg PO QID 1 month #120 tabs 02/13/25 nystatin 100,000 unit/mL oral 1 ml buccal QDAY 1 month #30 mL 02/13/25 suspension sucralfate 1 gram tablet (Carafate) 1 g PO BID 1 month #60 tabs 02/13/25 tetracycline 500 mg capsule 500 mg PO Q6H 1 month #120 caps 02/13/25 metoclopramide HCl 5 mg tablet 5 mg PO TID #30 tabs (Reglan) pantoprazole 40 mg tablet,delayed 40 mg PO QDAY #30 ta bs 02/27/25 release (Protonix) promethazine 12.5 mg rectal 12.5 mg UT Q6H PRN nausea and 02/27/25 suppository vomiting #12 ea Allergies Allergy/AdvReac Type Severity Reaction Status Date / Time No Known Allergies Allergy Verified 02/09/25 19:20 Review of Systems Review of Systems Systems Reviewed: All systems reviewed, normal except as documented Constitutional Constitutional: Denies fever(s) Gastrointestinal Gastrointestinal: Reports as per HPI Genitourinary Genitourinary: Denies oliguria ED Exam General Limitations: Present no limitations General appearance: Present alert and other (Thin, mild distress) Head Head exam: Present atraumatic Eye Eye exam: Present normal appearance, PERRL and EOMI ENT ENT exam: Present normal exam, normal oropharynx and mucous membranes moist Neck Neck exam: Present normal inspection, full ROM and trachea midline Chest Chest inspection: Present normal inspection and symmetric chest wall rise Respiratory Respiratory exam: Present normal lung sounds bilaterally Cardiovascular Cardiovascular exam: Present regular rate, normal rhythm and normal heart sounds Abdominal Exam Abdominal exam: Present soft, tenderness (Epigastric TTP) and normal bowel sounds Extremities Exam Extremities exam: Present normal inspection and full ROM Back Exam Back exam: Present normal inspection and full ROM Neurological Exam Neurological exam: Present alert, oriented X3 and CN II-XII intact Psychiatric Psychiatric exam: Present normal affect and normal mood Skin Skin exam: Present warm, dry, intact and normal color Course Quality Measures none Orders Category Date Time Status EKG (ED ONLY) *Do not use* NOW Care 02/27/25 11:20 Completed IV [Insert IV] NOW Care 02/27/25 11:29 Completed Insert IV NOW Care 02/27/25 11:21 Completed EKG (ED Only) Stat Exams 02/27/25 11:20 Draft XR chest 2V Stat Exams 02/27/25 11:20 Completed BNP [B-Type Natriuretic Peptide] Stat Lab 02/27/25 11:44 Completed CBC Stat Lab 02/27/25 11:44 Completed CMP [Comprehensive Metabolic Panel] Stat Lab 02/27/25 11:44 Completed Lipase Stat Lab 02/27/25 11:44 Completed Troponin I Stat Lab 02/27/25 11:44 Completed Type and Screen Stat Lab 02/27/25 11:44 Completed Glucagon Inj Med 02/27/25 11:21 Discontinued 1 mg IVP X1 ONE Morphine Inj Med 02/27/25 12:35 Discontinued 4 mg IVP X1 ONE Pantoprazole Inj [Protonix Inj] Med 02/27/25 13:49 Discontinued 80 mg IVP X1 ONE Pantoprazole [Protonix] Med 02/27/25 13:43 Discontinued 40 mg PO X1 ONE Sodium Chloride 0.9% 1000 ml [Ns] 1,000 ml Med 02/27/25 11:22 Discontinued IV 999 mls/hr Vital Signs Vital signs: Vital Signs Temperature 98.5 F 02/27/25 11:07 Pulse Rate 93 02/27/25 11:07 Respiratory Rate 18 02/27/25 11:07 Blood Pressure 158/88 H 02/27/25 11:07 Pulse Oximetry (%) 98 02/27/25 11:07 Oxygen Delivery Method Room Air 02/27/25 11:07 Procedures -ED EKG Interpretation #1: Date of EK02/27/25 Time of EK:24 Rate: 92 Interpretation: Interpreted by me EKG Impression: No ectopy and Non-specific ST-T Additional EKG comment: essentially unchanged from 02/13/25 Nausea/Vomiting/Diarrhea MDM Narrative MDM Narrative:: Patient with acute on chronic history of GI bleed. In current intractable hiccups. Gave medication which helped subside the hiccups. Patient is not compliant with PPIs and antifungals. Patient was stabilized did not require transfusion or admission. Advised follow-up with GI and PCP and return to ER symptoms were Patient data External records reviewed:: [facility] previous records Clinical information provided by:: patient Social determinants that could affect healthcare access:: other (specify) (Encounter performed in Tajik patient's kluti kaah language) Patient has the following chronic illnesses:: GI bleed methamphetamine abuse How is presenting disease/condition affected by chronic disease/condition?: caused by Evaluation data The following diagnostics were reviewed and interpreted by me:: lab results and radiology exam(s) Lab and/or radiology exams considered but not ordered:: CT of abdomen pelvis was considered however had one less than 2 weeks ago. Unlikely to change course of treatment today Interpretation Summary: Normal chest x-ray normal EKG CBC showed anemia but does not require transfusion Medications / Prescriptions Medications / Prescriptions considered but not ordered:: Considered antipsychotics for intractable hiccups however started back on PPI and also added suppository along with Reglan p.o. Medication administrations:: Medication Administration History Discontinued Medications Glucagon (Glucagon Inj 1 Mg Vial) 1 mg IVP X1 ONE Stop: 02/27/25 11:22 Last Admin: 02/27/25 12:04 Dose: 1 mg Documented By: VL Sodium Chloride (Ns) 1,000 mls @ 999 mls/hr IV .Q1H1M ONE Stop: 02/27/25 12:22 Last Infusion: 02/27/25 13:08 Dose: Infused Documented By: Admin: 02/27/25 12:07 Dose: 999 mls/hr Documented By: VL Morphine Sulfate (Morphine Sulf Inj 10 Mg/Ml Vial) 4 mg IVP X1 ONE Stop: 02/27/25 12:36 Last Admin: 02/27/25 12:42 Dose: 4 mg Documented By: VL Pantoprazole Sodium (Pantoprazole 40 Mg Tablet) 40 mg PO X1 ONE Stop: 02/27/25 13:44 Last Admin: 02/27/25 13:49 Dose: Not Given Documented By: DAVID Non-Admin Reason: Cancelled by Provider Pantoprazole Sodium (Pantoprazole Inj 40 Mg Vial) 80 mg IVP X1 ONE Stop: 02/27/25 13:50 Last Admin: 02/27/25 13:53 Dose: 80 mg Documented By: DAVID Prescription sent for home advised to restart PPIs and antifungals Consultations Consultation(s) initiated? (list below): No Diagnosis Nausea Differential Diagnosis: traveler's diarrhea, food poisoning, gastroenteritis, drug-induced nausea and vomiting and other (GI bleed) Most likely diagnosis given after review of the tests above:: Intractable hiccups Chronic GI bleed Nausea Methamphetamine abuse Admission Indicated Admission indicated?: not indicated Admission Request Was there a request for admission?: No Disposition Plan Disposition Plan: Discharge Discharge Attestation Discharge Attestation: The patient and all family members were given an opportunity to ask questions and understood the discharge instructions. Discharge instructions specifically effects, indications for sooner follow up or return to the emergency department, and the expected course of current diagnosis. Patient condition: Stable Discharge Plan Plan Patient Disposition: HOME (Self Care) Discharge Disposition comment: f./u with pcp in 2-3days Prescriptions/Referrals Prescriptions/Med Rec: New pantoprazole [Protonix] 40 mg tablet,delayed release (DR/EC) 40 mg PO QDAY Qty: 30 0RF metoclopramide HCl [Reglan] 5 mg tablet 5 mg PO TID Qty: 30 0RF promethazine 12.5 mg suppository 12.5 mg UT Q6H PRN (Reason: nausea and vomiting) Qty: 12 0RF No Action ferrous sulfate 325 mg (65 mg iron) tablet,delayed release (DR/EC) 325 mg PO Q OTHER DAY 30 Days Qty: 15 3RF famotidine 20 mg tablet 20 mg PO BID Qty: 60 0RF sucralfate [Carafate] 1 gram tablet 1 g PO BID 30 Days Qty: 60 0RF Maalox Advanced 1,000-60 mg tablet,chewable 1 tab PO QID PRN (Reason: dyspepsia) 30 Days Qty: 120 0RF tetracycline 500 mg capsule 500 mg PO Q6H 30 Days Qty: 120 0RF metronidazole 500 mg tablet 500 mg PO QID 30 Days Qty: 120 0RF nystatin 100,000 unit/mL suspension 1 ml buccal QDAY 30 Days Qty: 30 0RF Rx Instructions: administer 1/2 of dose in each side of the mouth Problem List Clinical Impression: Chronic hiccups, GI bleed, Vomiting Patient/Caregiver Discharge Instructions Education Materials: ED Upper GI Bleeding (Stable), ED Vomiting (Adult), ED Hiccups Print Language: Tajik Stand Alone Forms: Cherelle Award Info., Patient Portal Info Letter PA/CHIEF OPERATOR HYDROFORMER Supervising Physician PA/CHIEF OPERATOR HYDROFORMER Supervising Physician: Dr. Naidu
[2025-02-27 12:04] LABS: Basophils % (Auto) 0 % (0-2.5); Eosinophils # (Auto) 0.1 Thou/mm3 (0.0-0.5); Eosinophils % (Auto) 1 % (0-10); Hematocrit 28.3 % (41.0-53.0); Immature Granulocytes % (Auto) 1 % (0-0); Immature Granulocytes Auto 0.05 Thou/mm3 (0.00-0.00); Lymphocytes # (Auto) 0.7 Thou/mm3 (1.0-4.8); Lymphocytes % (Auto) 7 % (10-50); Mean Corpuscular HGB Conc 30.4 g/dl (31.0-37.0); Mean Corpuscular Hemoglobin 21.7 pg (25.0-35.0); Mean Corpuscular Volume 72 fL (80-100); Monocytes # (Auto) 0.4 Thou/mm3 (0.0-0.8); Monocytes % (Auto) 4 % (0-12); Neutrophils # (Auto) 8.5 Thou/mm3 (1.8-7.7); Neutrophils % (Auto) 87 % (37-80); Nucleated Red Blood Cell % 0 /100 WBC (0); Platelet Count 606 Thou/mm3 (140-440); Red Blood Count 3.96 Miln/mm3 (4.50-5.90); White Blood Count 9.8 Thou/mm3 (3.8-10.6)
[2025-02-27] MEDS: GLUCAGON INJ 1 MG VIAL IVP (12:04)
[2025-02-27] MEDS: SODIUM CHLORIDE 0.9% 1000 ML 1,000 ML 999 ML IV (12:07)
[2025-02-27 12:12] VITALS: BP 148/79; PULSE 83; RESP 19; TEMP 36.9; O2SAT 98
[2025-02-27 12:19] LABS: Hemoglobin 8.6 g/dL (13.5-16.0)
[2025-02-27 12:27] LABS: Alanine Aminotransferase < 7 U/L (10-49); Albumin/Globulin Ratio 1.7 (1.2-2.2); Alkaline Phosphatase 85 U/L (46-116); Anion Gap 8 (7-16); BUN/Creatinine Ratio 27 Ratio (12-20); Bilirubin,Total 0.3 mg/dL (0.3-1.2); Blood Urea Nitrogen 30 mg/dL (9-23); Carbon Dioxide 33.6 mMol/L (20.0-31.0); Chloride 96 mMol/L (98-107); Creatinine (Component) 1.1 mg/dL (0.6-1.3); Globulin 2.3 gm/dL (2.3-3.5); Glucose 134 mg/dL (74-106); Lipase 19 U/L (12-53); Osmolality,Calculated 283 (275-295); Sodium 138 mMol/L (136-145); Total Protein 6.3 gm/dL (5.7-8.2); Troponin I < 0.020 ng/mL (0.0-0.045); eGFR > 60 See Note
--- NOTE | 2025-02-27 12:29 | PC.NURSE ---
Patient in to ED for hiccups/vomiting blood. Patient was discharged from hospital recently. Patient had upper GI bleed. Patient is currently in [facility] with ongoing hiccups.
[2025-02-27 12:37] LABS: B-Type Natriuretic Peptide 69 pg/mL (0-100)
[2025-02-27] MEDS: MORPHINE SULF INJ 10 MG/ML VIAL 4 MG IVP (12:42)
[2025-02-27] MEDS: PANTOPRAZOLE INJ 40 MG VIAL 80 MG IVP (13:53)
--- NOTE | 2025-02-27 15:34 | PC.NURSE ---
Patient being discharged home. Called patient's point of contact who stated she was busy and out of town. Informed charge nurse. [place] [employer] [facility] called. Spoke to Violet who stated van would be here in 3 minutes for patient. Patient taken out by wheelchair. Patient stable. Informed to fruit picker medication and follow up with PCP/ GI doctor.
[2025-02-27 15:41] VITALS: BP 146/70; PULSE 78; RESP 18; TEMP 36.9; O2SAT 99
--- NOTE | 2025-02-27 17:44 | PRELIM_ITS ---
Radiographs of the chest (2 views). February 27, 2025 1132 hours Clinical history: sob Comparison: No prior study is available for comparison. Findings: The heart, mediastinum and pulmonary paul are unremarkable. The lungs are clear. There is no pleural effusion. The bony thorax is unremarkable. Impression: No focal consolidation or pleural effusion. Report Electronically Signed By: Mason Lyles 02/27/2025 5:43:23 PM [EST]
== END 2025-02-27 15:49 | disposition home or self-care (01) ==
LOC: SERX 15:03
PROVIDERS: Physician Assistant; Emergency Provider Family Medicine
DX: K20.91 Esophagitis, unspecified with bleeding (principal); I44.4 Left anterior fascicular block; R06.02 Shortness of breath; R07.9 Chest pain, unspecified
CPT/HCPCS: 36415; 71046; 80053; 80307; 81001; 83690; 83880; 84484; 85025; 86850; 86900; 86901; 93005; 96361; 96374; 99284; J1611; J2270; J2470; J7030

== ENCOUNTER 2025-03-05 20:09 | Emergency (ER) | payer MEDICAID, SELFPAY ==
--- NOTE | 2025-03-05 20:12 | EKG_ITS ---
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
[2025-03-05 20:33] VITALS: BP 166/87; PULSE 81; RESP 20; TEMP 37.2; O2SAT 97
--- NOTE | 2025-03-05 20:35 | PD.EDCHEST ---
ED Chest Pain RME/HPI General Chief Complaint: Chest Pain Stated Complaint: CHEST PAIN AND HICCUPS Time Seen by Provider: 03/05/25 20:35 Arrival date/time: 03/05/25 20:09 RME / HPI RME / HPI narrative: This section includes all my notes and documentations, including HPI, PE, and ED course. Jian Cristobal MD HPI: 64 y/o male with Hx of Methamphetamine use presents with upper abdominal pain radiating into the chest x 3 days. Denies fever and cough. No other complaints. ROS: All negative except as documented in HPI. Physical Exam: General: Alert and oriented. No acute distress when remaining still. Eyes: Conjunctivae and lids clear. ENT: No nasal congestion. Neck: Supple. Heart: RRR. Lungs: No respiratory distress. Good air movement. No rhonchi, wheezing, rales. Chest: No tenderness. Abdomen: Soft with mild epigastric tenderness. Normal bowel sounds. No distension. No rebound or guarding. Back: No CVA tenderness. Skin: Warm and dry. Neuro: Alert and oriented X 3. I reviewed all diagnostic test results: My interpretation of the EKG is: Sinus rhythm (88 bpm) with nonspecific ST-T changes. Blood tests unremarkable. At this point, diagnoses include: Stomach ulcer. Famotidine and Protonix and Zofran given here, he felt much better. Recommended outpatient care. Based on my best medical judgment, made decision no further evaluation or treatment indicated at this time. Patient understands and agrees to the discharge instructions customized and printed, see below. Discharge instructions from Dr. Cristobal: 1. After extensive evaluation, there is no life-threatening condition.? Such as heart attack. 2. Your upper abdominal pain and chest pain is due to mild stomach ulcer. 3. Take omeprazole every morning and famotidine every night for a week then as needed. 4. See a private doctor on 03/07/2025 for recheck and further care. To make sure there is no serious underlying heart condition, ask to help you get more tests for your heart that cannot be done here in the ER.? Such as Holter Monitor (cardiac monitoring at home from a day to even a month), heart stress test (on treadmill or with medication), echocardiogram (imaging of your heart structures), heart catherization (checking for blockages in your heart arteries), and a referral to see a Packaging Designer.? To make sure there is no serious intra-abdominal condition, ask for help with more investigation not available here in the ER. Such as EGD or scoping the stomach, colonoscopy or scoping the colon, and referral to see data entry processor. 5. Seek immediate medical care with worsening or with any concerns. Jian Cristobal MD Related Data Previous Rx's ?Medication ?Instructions ?Recorded ferrous sulfate 325 mg (65 mg 325 mg PO Q OTHER DAY Iron 12/30/24 iron) tablet,delayed release Deficiency 30 days #15 tabs calcium carbonate 1,000 1 tab PO QID PRN dyspepsia 1 month 02/13/25 mg-simethicone 60 mg chewable #120 tabs tablet (Maalox Advanced) famotidine 20 mg tablet 20 mg PO BID #60 tabs 02/13/25 metronidazole 500 mg tablet 500 mg PO QID 1 month #120 tabs 02/13/25 nystatin 100,000 unit/mL oral 1 ml buccal QDAY 1 month #30 mL 02/13/25 suspension sucralfate 1 gram tablet (Carafate) 1 g PO BID 1 month #60 tabs 02/13/25 tetracycline 500 mg capsule 500 mg PO Q6H 1 month #120 caps 02/13/25 metoclopramide HCl 5 mg tablet 5 mg PO TID #30 tabs 02/27/25 (Reglan) pantoprazole 40 mg tablet,delayed 40 mg PO QDAY #30 tabs 02/27/25 release (Protonix) promethazine 12.5 mg rectal 12.5 mg ID Q6H PRN nausea and 02/27/25 suppository vomiting #12 ea famotidine 40 mg tablet 40 mg PO .bedtime #30 tabs 03/05/25 omeprazole 40 mg capsule,delayed 40 mg PO QDAY #30 caps 03/05/25 release ondansetron 4 mg disintegrating 4 mg PO TID PRN nausea and 03/05/25 tablet vomiting 30 days #10 tabs Allergies Allergy/AdvReac Type Severity Reaction Status Date / Time No Known Allergies Allergy Verified 03/05/25 20:10 Review of Systems Review of Systems Systems Reviewed: All systems reviewed, normal except as documented Past Medical History Past Medical History PSYCHO/SOCIAL: Positive Recreational Drug Use Social History SMOKING STATUS: Current some day smoker ED Exam Narrative Physical exam: Refer to HPI Course Course Course Narrative: CXR is ordered for determining the etiology of shortness of breath. Quality Measures none Orders Category Date Time Status EKG (ED ONLY) *Do not use* NOW Care 03/05/25 20:12 Completed EKG (ED Only) Stat Exams 03/05/25 20:12 Draft Amylase Stat Lab 03/05/25 20:42 Completed BNP [B-Type Natriuretic Peptide] Stat Lab 03/05/25 20:42 Completed CBC Stat Lab 03/05/25 20:42 Completed CMP [Comprehensive Metabolic Panel] Stat Lab 03/05/25 20:42 Completed Free T4 (Free Thyroxine) Stat Lab 03/05/25 20:42 Completed Lipase Stat Lab 03/05/25 20:42 Completed Magnesium Stat Lab 03/05/25 20:42 Completed TSH [Thyroid Stimulating Hormone] Stat Lab 03/05/25 20:42 Completed Troponin I Stat Lab 03/05/25 20:42 Completed Famotidine [Pepcid] Med 03/05/25 22:58 Discontinued 40 mg PO X1 ONE Ondansetron Odt [Zofran Odt] Med 03/05/25 22:58 Discontinued 4 mg PO X1 ONE Pantoprazole [Protonix] Med 03/05/25 22:58 Discontinued 40 mg PO X1 ONE Vital Signs Vital signs: Vital Signs Temperature 99 F 03/05/25 20:33 Pulse Rate 81 03/05/25 20:33 Respiratory Rate 20 03/05/25 20:33 Blood Pressure 166/87 H 03/05/25 20:33 Pulse Oximetry (%) 97 03/05/25 20:33 Oxygen Delivery Method Room Air 03/05/25 20:33 Chest Pain MDM Narrative MDM Narrative:: Scribe Attestation: I, Sharonda Estrada, am scribing for and in the presence of Dr. Cristobal. Provider Notation: Although this document has been carefully reviewed, there may still be some phonetic and other typographical errors.? These errors are purely grammatical due to imperfections in the software program and should not be construed in any way to? compromise the substance of the patient's medical care during this visit. 64 y/o male with Hx of Methamphetamine use presents with upper abdominal pain radiating into the chest x 3 days. Denies fever and cough. No other complaints. Patient data External records reviewed:: [facility] previous records (Reviewed prior ED records from 02/27/25. Patient was seen for Chronic hiccups.) Clinical information provided by:: patient Social determinants that could affect healthcare access:: substance use (Methamphetamine) Patient has the following chronic illnesses:: Recreational drug use How is presenting disease/condition affected by chronic disease/condition?: exacerbated by Evaluation data The following diagnostics were reviewed and interpreted by me:: lab results and EKG tracing(s) (My interpretation of the EKG is: Sinus rhythm (88 bpm) with nonspecific ST-T changes. Jian Cristobal MD) Lab and/or radiology exams considered but not ordered:: None Interpretation Summary: I reviewed all diagnostic test results: My interpretation of the EKG is: Sinus rhythm (88 bpm) with nonspecific ST-T changes. Blood tests unremarkable. Medications / Prescriptions Medications or Prescriptions considered but not ordered:: None Medication administrations:: Medication Administration History Discontinued Medications Famotidine (Famotidine 20 Mg Tablet) 40 mg PO X1 ONE Stop: 03/05/25 22:59 Last Admin: 03/05/25 23:05 Dose: 40 mg Documented By: CVL Ondansetron HCl (Ondansetron Odt 4 Mg Tabrap) 4 mg PO X1 ONE; Protocol Stop: 03/05/25 22:59 Last Admin: 03/05/25 23:04 Dose: 4 mg Documented By: CVL Pantoprazole Sodium (Pantoprazole 40 Mg Tablet) 40 mg PO X1 ONE Stop: 03/05/25 22:59 Last Admin: 03/05/25 23:05 Dose: 40 mg Documented By: CVL Famotidine and Protonix and Zofran. Consultations Consultation(s) initiated? (list below): No Diagnosis Chest Pain Differential Diagnosis: stable angina, unstable angina pectoris, atypical chest pain, st elevation myocardial infarction, costochondritis, chest pain, biliary colic and other (Dyspepsia, GERD, Gastritis, Helicobacter pylori, Peptic ulcer) Most likely diagnosis given after review of the tests above:: Stomach ulcer Admission Indicated Admission indicated?: not indicated Explain why admission is indicated or not indicated:: With no severe illness, there was no indication for admission. Admission Request Was there a request for admission?: No Disposition Plan Disposition Plan: Discharge Discharge Attestation Discharge Attestation: The patient and all family members were given an opportunity to ask questions and understood the discharge instructions. Discharge instructions specifically effects, indications for sooner follow up or return to the emergency department, and the expected course of current diagnosis. Patient condition: Stable Discharge Plan Plan Patient Disposition: HOME (Self Care) Prescriptions/Referrals Prescriptions/Med Rec: New famotidine 40 mg tablet 40 mg PO .bedtime Qty: 30 0RF omeprazole 40 mg capsule,delayed release(DR/EC) 40 mg PO QDAY Qty: 30 0RF ondansetron 4 mg tablet,disintegrating 4 mg PO TID PRN (Reason: nausea and vomiting) 30 Days Qty: 10 0RF No Action ferrous sulfate 325 mg (65 mg iron) tablet,delayed release (DR/EC) 325 mg PO Q OTHER DAY 30 Days Qty: 15 3RF famotidine 20 mg tablet 20 mg PO BID Qty: 60 0RF sucralfate [Carafate] 1 gram tablet 1 g PO BID 30 Days Qty: 60 0RF Maalox Advanced 1,000-60 mg tablet,chewable 1 tab PO QID PRN (Reason: dyspepsia) 30 Days Qty: 120 0RF tetracycline 500 mg capsule 500 mg PO Q6H 30 Days Qty: 120 0RF metronidazole 500 mg tablet 500 mg PO QID 30 Days Qty: 120 0RF nystatin 100,000 unit/mL suspension 1 ml buccal QDAY 30 Days Qty: 30 0RF Rx Instructions: administer 1/2 of dose in each side of the mouth pantoprazole [Protonix] 40 mg tablet,delayed release (DR/EC) 40 mg PO QDAY Qty: 30 0RF metoclopramide HCl [Reglan] 5 mg tablet 5 mg PO TID Qty: 30 0RF promethazine 12.5 mg suppository 12.5 mg ID Q6H PRN (Reason: nausea and vomiting) Qty: 12 0RF Referrals: No Primary/Family,Physician [Primary Care Provider] - In 1 week Problem List Clinical Impression: Stomach ulcer Patient/Caregiver Discharge Instructions Discharge Activity: activity as tolerated Education Materials: ED Gastritis (Adult) Additional Instructions: Discharge instructions from Dr. Cristobal: 1. After extensive evaluation, there is no life-threatening condition.? Such as heart attack. 2. Your upper abdominal pain and chest pain is due to mild stomach ulcer. 3. Take omeprazole every morning and famotidine every night for a week then as needed. 4. See a private doctor on 03/07/2025 for recheck and further care. To make sure there is no serious underlying heart condition, ask to help you get more tests for your heart that cannot be done here in the ER.? Such as Holter Monitor (cardiac monitoring at home from a day to even a month), heart stress test (on treadmill or with medication), echocardiogram (imaging of your heart structures), heart catherization (checking for blockages in your heart arteries), and a referral to see a Packaging Designer.? To make sure there is no serious intra-abdominal condition, ask for help with more investigation not available here in the ER. Such as EGD or scoping the stomach, colonoscopy or scoping the colon, and referral to see data entry processor. 5. Seek immediate medical care with worsening or with any concerns.?? Instrucciones de jaja del Dr. Cristobal: 1. Tras reuben evaluaci?n exhaustiva, no se observa ninguna afecci?n que ponga en peligro carias tianna, pavithra un infarto. 2. El dolor abdominal superior y el dolor en el pecho se deben a reuben ?lcera estomacal leve. 3. [place] omeprazol todas las ma?anas y famotidina todas las noches pranay reuben semana y, posteriormente, seg?n sea necesario. 4. Consulte con un m?dico particular el 07/03/2025 para reuben nueva revisi?n y tratamiento adicional. Para asegurarse de que no haya reuben afecci?n card?abdelrahman subyacente grave, solicite ayuda para realizar m?s pruebas card?acas que no se pueden realizar en urgencias. Por ejemplo, un monitor Holter (monitorizaci?n card?abdelrahman en casa desde un d?a hasta un mes), reuben prueba de esfuerzo card?aco (en cinta caminadora o con medicaci?n), un ecocardiograma (im?genes de las estructuras card?acas), un cateterismo card?aco (para detectar obstrucciones en las arterias card?acas) y reuben derivaci?n a un cardi?logo. Para asegurarse de que no haya reuben afecci?n intraabdominal grave, solicite ayuda con m?s pruebas que no est?n disponibles en urgencias. Pavithra EGD o endoscopia g?strica, colonoscopia o endoscopia de colon, y derivaci?n a un gastroenter?logo. 5. Busque atenci?n m?dica inmediata si presenta empeoramiento o cualquier inquietud. Print Language: Divehi Stand Alone Forms: [employer] Award Info., Patient Portal Info Letter
[2025-03-05 20:37] VITALS: BMI 23.6
[2025-03-05 22:00] LABS: Basophils % (Auto) 1 % (0-2.5); Eosinophils # (Auto) 0.4 Thou/mm3 (0.0-0.5); Eosinophils % (Auto) 8 % (0-10); Hematocrit 26.2 % (41.0-53.0); Immature Granulocytes % (Auto) 0 % (0-0); Immature Granulocytes Auto 0.01 Thou/mm3 (0.00-0.00); Lymphocytes # (Auto) 0.8 Thou/mm3 (1.0-4.8); Lymphocytes % (Auto) 13 % (10-50); Mean Corpuscular HGB Conc 29.8 g/dl (31.0-37.0); Mean Corpuscular Hemoglobin 22.1 pg (25.0-35.0); Mean Corpuscular Volume 74 fL (80-100); Monocytes # (Auto) 0.4 Thou/mm3 (0.0-0.8); Monocytes % (Auto) 6 % (0-12); Neutrophils # (Auto) 4.1 Thou/mm3 (1.8-7.7); Neutrophils % (Auto) 72 % (37-80); Nucleated Red Blood Cell % 0 /100 WBC (0); Platelet Count 549 Thou/mm3 (140-440); RDW Standard Deviation 61.1 fL (35.1-43.9); Red Blood Count 3.53 Miln/mm3 (4.50-5.90); White Blood Count 5.7 Thou/mm3 (3.8-10.6)
[2025-03-05 22:07] LABS: B-Type Natriuretic Peptide 101 pg/mL (0-100)
[2025-03-05 22:13] LABS: Hemoglobin 7.8 g/dL (13.5-16.0)
[2025-03-05 22:21] LABS: Alanine Aminotransferase < 7 U/L (10-49); Albumin, Serum 3.7 gm/dL (3.4-4.8); Albumin/Globulin Ratio 1.9 (1.2-2.2); Alkaline Phosphatase 78 U/L (46-116); Amylase 95 U/L (30-118); Anion Gap 6 (7-16); Aspartate Amino Transferase 10 U/L (0-34); BUN/Creatinine Ratio 13 Ratio (12-20); Bilirubin,Total 0.3 mg/dL (0.3-1.2); Blood Urea Nitrogen 13 mg/dL (9-23); Calcium 9.6 mg/dL (8.3-10.6); Calcium (Corrected) 9.8 mg/dL (8.5-10.1); Carbon Dioxide 27.9 mMol/L (20.0-31.0); Chloride 105 mMol/L (98-107); Estimated Creatinine Clearance 65.8 mL/min (>60); Free T4 (Free Thyroxine) 1.13 ng/dL (0.89-1.76); Glucose 114 mg/dL (74-106); Lipase 24 U/L (12-53); Magnesium 1.9 mg/dL (1.6-2.6); Osmolality,Calculated 278 (275-295); Potassium 3.6 mMol/L (3.4-5.1); Sodium 139 mMol/L (136-145); Thyroid Stimulating Hormone 0.97 uIU/mL (0.55-4.78); Total Protein 5.7 gm/dL (5.7-8.2); Troponin I < 0.020 ng/mL (0.0-0.045); eGFR > 60 See Note
[2025-03-05] MEDS: ONDANSETRON ODT 4 MG TABRAP PO (23:04)
[2025-03-05] MEDS: PANTOPRAZOLE 40 MG TABLET PO (23:05)
[2025-03-05] MEDS: FAMOTIDINE 20 MG TABLET 40 MG PO (23:05)
[2025-03-05 23:13] VITALS: BP 137/86; PULSE 90; RESP 18; O2SAT 99
== END 2025-03-05 23:14 | disposition home or self-care (01) ==
PROVIDERS: Emergency Provider Emergency Medicine
DX: K25.9 Gastric ulcer, unspecified as acute or chronic, without hemorrhage or perforation (principal); I44.4 Left anterior fascicular block
CPT/HCPCS: 36415; 80053; 82150; 83690; 83735; 83880; 84439; 84443; 84484; 85025; 93005; 99283; Q0162; A9270

== ENCOUNTER 2025-03-24 16:50 | Emergency (ER) | payer MEDICAID, SELFPAY ==
--- NOTE | 2025-03-24 17:21 | PD.EDRME ---
Rapid Medical Screening Exam RME Arrival date/time: 03/24/25 16:50 65-year-old male with no known medical history presents to the emergency room with a chief complaint of epigastric pain, vomiting, hiccups x 1 week. I have greeted and performed a focused initial assessment of this patient. A comprehensive ED assessment and evaluation of the patient, analysis of all test results, and completion of the medical decision making process will be conducted by additional ED providers. Chief Complaint: General Adult/Misc Complain Time Seen by Provider: 03/24/25 16:56 Vital signs reviewed by provider: Yes
[2025-03-24 17:23] VITALS: BP 162/85; PULSE 81; RESP 19; TEMP 36.8; O2SAT 98
[2025-03-24 17:38] LABS: Basophils # (Auto) 0.0 Thou/mm3 (0.0-0.2); Basophils % (Auto) 0 % (0-2.5); Eosinophils # (Auto) 0.7 Thou/mm3 (0.0-0.5); Eosinophils % (Auto) 14 % (0-10); Hematocrit 27.7 % (41.0-53.0); Immature Granulocytes Auto 0.01 Thou/mm3 (0.00-0.00); Lymphocytes # (Auto) 0.8 Thou/mm3 (1.0-4.8); Lymphocytes % (Auto) 17 % (10-50); Mean Corpuscular HGB Conc 30.0 g/dl (31.0-37.0); Mean Corpuscular Hemoglobin 21.4 pg (25.0-35.0); Mean Corpuscular Volume 71 fL (80-100); Monocytes # (Auto) 0.3 Thou/mm3 (0.0-0.8); Monocytes % (Auto) 7 % (0-12); Neutrophils # (Auto) 3.0 Thou/mm3 (1.8-7.7); Neutrophils % (Auto) 62 % (37-80); Nucleated Red Blood Cell # 0.00 Thou/mm3 (0.00-0.00); Nucleated Red Blood Cell % 0 /100 WBC (0); Platelet Count 450 Thou/mm3 (140-440); RDW Standard Deviation 50.2 fL (35.1-43.9); Red Blood Count 3.88 Miln/mm3 (4.50-5.90); White Blood Count 4.8 Thou/mm3 (3.8-10.6)
[2025-03-24 17:39] LABS: Hemoglobin 8.3 g/dL (13.5-16.0)
[2025-03-24 17:55] LABS: B-Type Natriuretic Peptide 117 pg/mL (0-100)
[2025-03-24 18:07] LABS: Alanine Aminotransferase 10 U/L (10-49); Albumin, Serum 4.0 gm/dL (3.4-4.8); Albumin/Globulin Ratio 1.6 (1.2-2.2); Alkaline Phosphatase 90 U/L (46-116); Anion Gap 7 (7-16); Aspartate Amino Transferase 11 U/L (0-34); BUN/Creatinine Ratio 10 Ratio (12-20); Bilirubin,Total 0.3 mg/dL (0.3-1.2); Blood Urea Nitrogen 9 mg/dL (9-23); Calcium 9.6 mg/dL (8.3-10.6); Calcium (Corrected) 9.6 mg/dL (8.5-10.1); Carbon Dioxide 27.6 mMol/L (20.0-31.0); Chloride 110 mMol/L (98-107); Creatinine (Component) 0.9 mg/dL (0.6-1.3); Globulin 2.5 gm/dL (2.3-3.5); Glucose 116 mg/dL (74-106); Lipase 23 U/L (12-53); Osmolality,Calculated 288 (275-295); Potassium 3.1 mMol/L (3.4-5.1); Sodium 145 mMol/L (136-145); Total Protein 6.5 gm/dL (5.7-8.2); Troponin I < 0.020 ng/mL (0.0-0.045); eGFR > 60 See Note
--- NOTE | 2025-03-24 18:50 | XR_ITS ---
Examination: CT chest, without intravenous contrast. CT abdomen, without intravenous contrast. CT pelvis, without intravenous contrast. 2-D sagittal and coronal reconstructions. 3-D reconstructions. Date and time of exam:March 24, 2025 at 1932 hours Comparison February 11, 2025 INDICATIONS: Chest and abdominal pain today CTDI vol (mgy) 4.9 DLP (MGycm)372 Technique: Multiple CT images, 3.0 mm slice thickness, obtained chest, abdomen, pelvis, with the high-resolution 64 slice scanner.. Sagittal and coronal 2-D reconstructions are obtained. 3-D reconstructions Low dose protocols were performed. One or more of the following dose reduction techniques were used; automated exposure control, adjustment of the mA and/or KV according to patient size, use of iterative reconstruction technique. Findings: No thoracic aortic aneurysm dilatation. Pulmonary artery segments are not enlarged. 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
--- NOTE | 2025-03-24 18:50 | PD.EDABDPN ---
ED Abdominal Pain RME/HPI General Chief Complaint: General Adult/Misc Complain Stated complaint: HICCUPS WITH VOMITING Time seen by provider: 03/24/25 16:56 Arrival date/time: 03/24/25 16:50 RME / HPI RME / HPI narrative: 03/24/25 16:50 65-year-old male with no known medical history presents to the emergency room with a chief complaint of epigastric pain, vomiting, hiccups x 1 week. I have greeted and performed a focused initial assessment of this patient. A comprehensive ED assessment and evaluation of the patient, analysis of all test results, and completion of the medical decision making process will be conducted by additional ED providers. This section includes all my notes and documentations, including HPI, PE, and ED course. Jian Cristobal MD HPI: 65 y/o male with Hx of Ulcer c/o epigastric abdominal pain that radiates to the back and chest with vomiting x 4 days. Denies diarrhea, rectal bleeding, black and tarry stools. Denies hematemesis on coffee ground emesis. Denies history of abdominal surgery. Patient denies recent alcohol use since quitting 15 years ago. No other complaints. ROS: All negative except as documented in HPI. Physical Exam: General: Alert and oriented. No acute distress when remaining still. Eyes: Conjunctivae and lids clear. ENT: No nasal congestion. Neck: Supple. Heart: RRR. Lungs: No respiratory distress. Good air movement. No rhonchi, wheezing, rales. Abdomen: Soft and nontender. Normal bowel sounds. No distension. No rebound or guarding. Back: No CVA tenderness. Skin: Warm and dry. Neuro: Alert and oriented X 3. I reviewed all diagnostic test results: My review of the Chest/Abdomen/Pelvis CT report is: Pneumonia anterior segment right upper lobe. Mild cystitis pattern. My review of the Gall Bladder US report is NAD. Blood tests unremarkable, except K 3.1. Patient declined to give urine specimen. At this point, diagnoses include: Gastritis and pneumonia and possible cystitis. Treatment here included: Reglan 10 mg, Protonix 40 mg, oral KCl, and two Tylenol #3. Significant improvement noted. Recommended outpatient management. Based on my best medical judgment, made decision no further evaluation or treatment indicated at this time. Patient understands and agrees to the discharge instructions customized and printed, see below. Discharge instructions from Dr. Cristobal: ?After evaluation, your symptoms are due to stomach ulcer.? And you also have pneumonia and cystitis. See attached handouts. ?To help heal the ulcer, take Omeprazole 40 mg every morning and Famotidine 40 mg at bedtime for a month. ?Zofran for nausea/vomiting.? Clear liquid diet for 24 hours.? Then slowly advance diet as tolerated. ?Avoid food and beverages that can trigger and worsen ulcers.? See attached handout. --Take Augmentin to kill the germs causing the pneumonia and cystitis. ?See a private doctor on 03/28/2025 for recheck and further care. Ask to review all test results and official radiology reports, to make sure you receive all necessary follow-ups and monitoring. To make sure there is no serious intra-abdominal condition, ask for help with more investigation not available here in the ER.? Such as EGD or scoping the stomach, colonoscopy or scoping the colon, and referral to see santa's helper. ?Seek immediate medical care with worsening or with any concerns. Instrucciones de jaja del Dr. Cristobal: ?Despu?s de la evaluaci?n, jose s?ntomas se deben a reuben ?lcera estomacal. Adem?s, tiene neumon?a y cistitis. Consulte los folletos adjuntos. ?Para ayudar a cicatrizar la ?lcera, tome omeprazol 40 mg todas las ma?anas y famotidina 40 mg antes de acostarse pranay un mes. ?Zofran para las n?useas y los v?mitos. Dieta l?quida pranay 24 horas. Luego, aumente gradualmente la dieta seg?n la tolerancia. ?Evite alimentos y bebidas que puedan desencadenar y empeorar las ?lceras. Consulte los folletos adjuntos. ?[employer] Augmentin para eliminar los g?rmenes que causan la neumon?a y la cistitis. ?Consulte con un m?dico particular el 03/28/2025 para reuben nueva revisi?n y atenci?n adicional. Solicite la revisi?n de todos los resultados de las pruebas y los informes radiol?gicos oficiales para asegurarse de recibir todos los seguimientos y la monitorizaci?n necesarios. Para asegurarse de que no haya reuben afecci?n intraabdominal grave, solicite ayuda con otras pruebas que no est?n disponibles en urgencias. [facility] EGD o endoscopia g?strica, colonoscopia o endoscopia de colon, y derivaci?n a un gastroenter?logo. ?Busque atenci?n m?dica inmediata si presenta empeoramiento o cualquier inquietud. Jian Cristobal MD Related Data Previous Rx's ?Medication ?Instructions ?Recorded ferrous sulfate 325 mg (65 mg 325 mg PO Q OTHER DAY Iron 12/30/24 iron) tablet,delayed release Deficiency 30 days #15 tabs famotidine 20 mg tablet 20 mg PO BID #60 tabs 02/13/25 metoclopramide HCl 5 mg tablet 5 mg PO TID #30 tabs 02/27/25 (Reglan) pantoprazole 40 mg tablet,delayed 40 mg PO QDAY #30 tabs 02/27/25 release (Protonix) promethazine 12.5 mg rectal [address] Q6H PRN nausea and 02/27/25 suppository vomiting #12 ea famotidine 40 mg tablet 40 mg PO .bedtime #30 tabs 03/05/25 omeprazole 40 mg capsule,delayed 40 mg PO QDAY #30 caps 03/05/25 release ondansetron 4 mg disintegrating 4 mg PO TID PRN nausea and 03/05/25 tablet vomiting 30 days #10 tabs amoxicillin 875 mg-potassium 1 tab PO BID 7 days #14 tabs 03/24/25 clavulanate 125 mg tablet famotidine 40 mg tablet 40 mg PO .bedtime #30 tabs 03/24/25 omeprazole 40 mg capsule,delayed 40 mg PO QDAY #30 caps 03/24/25 release ondansetron 4 mg disintegrating 4 mg PO TID PRN nausea and 03/24/25 tablet vomiting 30 days #10 tabs Allergies Allergy/AdvReac Type Severity Reaction Status Date / Time No Known Allergies Allergy Verified 03/24/25 16:52 Review of Systems Review of Systems Systems Reviewed: All systems reviewed, normal except as documented Past Medical History Past Medical History GASTROINTESTINAL: Positive Ulcer PSYCHO/SOCIAL: Positive Recreational Drug Use Social History SMOKING STATUS: Current every day smoker ED Exam Narrative Physical exam: Refer to HPI above. Course Quality Measures none Orders Category Date Time Status CT chest abdomen pelvis wo Stat Exams 03/24/25 18:50 Completed US gall bladder Stat Exams 03/24/25 18:54 Completed BNP [B-Type Natriuretic Peptide] Stat Lab 03/24/25 17:27 Completed CBC Stat Lab 03/24/25 17:27 Completed CMP [Comprehensive Metabolic Panel] Stat Lab 03/24/25 17:27 Completed Lipase Stat Lab 03/24/25 17:27 Completed Troponin I Stat Lab 03/24/25 17:27 Completed ACETAMINOPHEN w/COD 300-30 [Tylenol w/Cod #3] Med 03/24/25 18:49 Discontinued 2 tab PO X1 ONE Famotidine [Pepcid] Med 03/24/25 18:49 Discontinued 40 mg PO X1 ONE KCL 10% Liq UDC 15 ML Med 03/24/25 18:39 Discontinued 40 meq PO X1 ONE Metoclopramide [Reglan] Med 03/24/25 17:20 Discontinued 10 mg PO X1 ONE Pantoprazole [Protonix] Med 03/24/25 18:49 Discontinued 40 mg PO X1 ONE Vital Signs Vital signs: Vital Signs Temperature 98.2 F 03/24/25 17:23 Pulse Rate 81 03/24/25 17:23 Respiratory Rate 19 03/24/25 17:23 Blood Pressure 162/85 H 03/24/25 17:23 Pulse Oximetry (%) 98 03/24/25 17:23 Oxygen Delivery Method Room Air 03/24/25 17:23 Abdominal Pain MDM MDM Narrative MDM Narrative:: Scribe Attestation: Sharonda Kaur, am scribing for and in the presence of Dr. Cristobal. Provider Notation: Although this document has been carefully reviewed, there may still be some phonetic and other typographical errors.? These errors are purely grammatical due to imperfections in the software program and should not be construed in any way to? compromise the substance of the patient's medical care during this visit. Patient data External records reviewed:: [facility] previous records (Reviewed prior ED records from 03/05/25. Patient was seen for Stomach ulcer.) Clinical information provided by:: patient Social determinants that could affect healthcare access:: substance use Patient has the following chronic illnesses:: Ulcer How is presenting disease/condition affected by chronic disease/condition?: exacerbated by Evaluation data The following diagnostics were reviewed and interpreted by me:: lab results and radiology exam(s) Lab and/or radiology exams considered but not ordered:: None Interpretation Summary: I reviewed all diagnostic test results: My review of the Chest/Abdomen/Pelvis CT report is: Pneumonia anterior segment right upper lobe. Mild cystitis pattern. My review of the Gall Bladder US report is NAD. Blood tests unremarkable, except K 3.1. Medications / Prescriptions Medications or Prescriptions considered but not ordered:: None Medication administrations:: Medication Administration History Discontinued Medications Acetaminophen/Codeine Phosphate (Acetaminophen W/Cod 300-30 Tablet) 2 tab PO X1 ONE Stop: 03/24/25 18:50 Last Admin: 03/24/25 19:13 Dose: 2 tab Documented By: Famotidine (Famotidine 20 Mg Tablet) 40 mg PO X1 ONE Stop: 03/24/25 18:50 Last Admin: 03/24/25 19:15 Dose: 40 mg Documented By: Metoclopramide HCl (Metoclopramide 5 Mg Tablet) 10 mg PO X1 ONE Stop: 03/24/25 17:21 Last Admin: 03/24/25 19:12 Dose: 10 mg Documented By: Pantoprazole Sodium (Pantoprazole 40 Mg Tablet) 40 mg PO X1 ONE Stop: 03/24/25 18:50 Last Admin: 03/24/25 19:15 Dose: 40 mg Documented By: Potassium Chloride (Potassium Chloride 10% 20 Meq/15 Ml Udc) 40 meq PO X1 ONE Stop: 03/24/25 18:40 Last Admin: 03/24/25 19:12 Dose: 40 meq Documented By: Reglan 10 mg, Protonix 40 mg, KCl, Tylenol w/ Codeine 300-30 Consultations Consultation(s) initiated? (list below): No Diagnosis Differential diagnosis abdominal pain: abdominal pain, acute appendicitis, calculus of kidney, gastroenteritis, pancreatitis, small bowel obstruction and other (Cholecystitis, Esophageal varices) Most likely diagnosis given after review of the tests above:: Gastritis and pneumonia and cystitis Admission Indicated Admission indicated?: not indicated Explain why admission is indicated or not indicated:: With significant improvement and no condition needing emergent intervention, there was no indication for admission. Admission Request Was there a request for admission?: No Disposition Plan Disposition Plan: Discharge Discharge Attestation Discharge Attestation: The patient and all family members were given an opportunity to ask questions and understood the discharge instructions. Discharge instructions specifically effects, indications for sooner follow up or return to the emergency department, and the expected course of current diagnosis. Patient condition: Stable Discharge Plan Plan Patient Disposition: HOME (Self Care) Prescriptions/Referrals Prescriptions/Med Rec: New famotidine 40 mg tablet 40 mg PO .bedtime Qty: 30 0RF omeprazole 40 mg capsule,delayed release(DR/EC) 40 mg PO QDAY Qty: 30 0RF ondansetron 4 mg tablet,disintegrating 4 mg PO TID PRN (Reason: nausea and vomiting) 30 Days Qty: 10 0RF amoxicillin-pot clavulanate 875-125 mg tablet 1 tab PO BID 7 Days Qty: 14 0RF No Action ferrous sulfate 325 mg (65 mg iron) tablet,delayed release (DR/EC) 325 mg PO Q OTHER DAY 30 Days Qty: 15 3RF famotidine 20 mg tablet 20 mg PO BID Qty: 60 0RF pantoprazole [Protonix] 40 mg tablet,delayed release (DR/EC) 40 mg PO QDAY Qty: 30 0RF metoclopramide HCl [Reglan] 5 mg tablet 5 mg PO TID Qty: 30 0RF promethazine 12.5 mg suppository [address] Q6H PRN (Reason: nausea and vomiting) Qty: 12 0RF famotidine 40 mg tablet 40 mg PO .bedtime Qty: 30 0RF omeprazole 40 mg capsule,delayed release(DR/EC) 40 mg PO QDAY Qty: 30 0RF ondansetron 4 mg tablet,disintegrating 4 mg PO TID PRN (Reason: nausea and vomiting) 30 Days Qty: 10 0RF Referrals: No Primary/Family,Physician [Primary Care Provider] - In 1 week Problem List Clinical Impression: Stomach ulcer, Pneumonia, Cystitis Patient/Caregiver Discharge Instructions Discharge Activity: activity as tolerated Education Materials: ED Pneumonia (Adult), ED PEPTIC ULCER vs GASTRITIS, ED Bladder Infection, Male (Adult) Additional Instructions: Discharge instructions from Dr. Cristobal: ?After evaluation, your symptoms are due to stomach ulcer.? And you also have pneumonia and cystitis. See attached handouts. ?To help heal the ulcer, take Omeprazole 40 mg every morning and Famotidine 40 mg at bedtime for a month. ?Zofran for nausea/vomiting.? Clear liquid diet for 24 hours.? Then slowly advance diet as tolerated. ?Avoid food and beverages that can trigger and worsen ulcers.? See attached handout. --Take Augmentin to kill the germs causing the pneumonia and cystitis. ?See a private doctor on 03/28/2025 for recheck and further care. Ask to review all test results and official radiology reports, to make sure you receive all necessary follow-ups and monitoring. To make sure there is no serious intra-abdominal condition, ask for help with more investigation not available here in the ER.? Such as EGD or scoping the stomach, colonoscopy or scoping the colon, and referral to see santa's helper. ?Seek immediate medical care with worsening or with any concerns. Instrucciones de jaja del Dr. Cristobal: ?Despu?s de la evaluaci?n, jose s?ntomas se deben a reuben ?lcera estomacal. Adem?s, tiene neumon?a y cistitis. Consulte los folletos adjuntos. ?Para ayudar a cicatrizar la ?lcera, tome omeprazol 40 mg todas las ma?anas y famotidina 40 mg antes de acostarse pranay un mes. ?Zofran para las n?useas y los v?mitos. Dieta l?quida pranay 24 horas. Luego, aumente gradualmente la dieta seg?n la tolerancia. ?Evite alimentos y bebidas que puedan desencadenar y empeorar las ?lceras. Consulte los folletos adjuntos. ?[employer] Augmentin para eliminar los g?rmenes que causan la neumon?a y la cistitis. ?Consulte con un m?dico particular el 03/28/2025 para reuben nueva revisi?n y atenci?n adicional. Solicite la revisi?n de todos los resultados de las pruebas y los informes radiol?gicos oficiales para asegurarse de recibir todos los seguimientos y la monitorizaci?n necesarios. Para asegurarse de que no haya reuben afecci?n intraabdominal grave, solicite ayuda con otras pruebas que no est?n disponibles en urgencias. [place] EGD o endoscopia g?strica, colonoscopia o endoscopia de colon, y derivaci?n a un gastroenter?logo. ?Busque atenci?n m?dica inmediata si presenta empeoramiento o cualquier inquietud. Print Language: Macedonian Stand Alone Forms: [facility] Award Info., Patient Portal Info Letter
--- NOTE | 2025-03-24 18:54 | XR_ITS ---
Examination: Abdomen sonogram, Limited Date and time of exam: March 24, 2025 1948 hours INDICATIONS: Right upper abdominal pain beginning one week ago Technique: Real-time alberts scale transabdominal sonographic images of the upper abdomen obtained. Findings: Normal gallbladder Normal common bile duct 0.4 cm Pancreatic head 1.8 cm Liver 11.6 cm lobular contour Normal hepatopedal portal venous and Patent IVC IMPRESSION: Normal gallbladder. Suspect primary hepatocellular disease
[2025-03-24] MEDS: METOCLOPRAMIDE 5 MG TABLET 10 MG PO (19:12)
[2025-03-24] MEDS: POTASSIUM CHLORIDE 10% 20 MEQ/15 ML UDC 40 MEQ PO (19:12)
[2025-03-24] MEDS: ACETAMINOPHEN w/COD 300-30 TABLET 2 TAB PO (19:13)
[2025-03-24] MEDS: PANTOPRAZOLE 40 MG TABLET PO (19:15)
[2025-03-24] MEDS: FAMOTIDINE 20 MG TABLET 40 MG PO (19:15)
[2025-03-24 22:27] VITALS: BP 135/78; PULSE 64; RESP 16; TEMP 36.8; O2SAT 99
== END 2025-03-24 22:29 | disposition home or self-care (01) ==
PROVIDERS: Nurse Practitioner Family; Emergency Provider Emergency Medicine
DX: K25.9 Gastric ulcer, unspecified as acute or chronic, without hemorrhage or perforation (principal); J18.9 Pneumonia, unspecified organism; N30.90 Cystitis, unspecified without hematuria
CPT/HCPCS: 36415; 71250; 74176; 76705; 80053; 81001; 83690; 83880; 84484; 85025; 87086; 99284; A9270

== ENCOUNTER 2025-03-26 17:01 | Emergency (ER) | payer MEDICAID, SELFPAY ==
--- NOTE | 2025-03-26 17:07 | EKG_ITS ---
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
[2025-03-26 17:25] VITALS: BP 172/93; PULSE 86; RESP 18; TEMP 36.9; O2SAT 99
--- NOTE | 2025-03-26 18:06 | XR_ITS ---
Examination: AP chest single view TECHNIQUE: AP portable upright chest single view Date and time: March 26, 2025 1820 hours Comparison February 27, 2025 INDICATIONS: Vomiting blood with chest pain today. FINDINGS: No significant cardiac enlargement. No aspiration pneumonia. No pulmonary edema. Mild osteopenia. IMPRESSION: Negative for aspiration pneumonia
--- NOTE | 2025-03-26 18:18 | PD.EDNV ---
Nausea/Vomit./Diarrhea-RME/HPI General Chief complaint: Nausea/Vomiting/Diarrhea Stated complaint: Vomiting blood X 2 days Time Seen by Provider: 03/26/25 18:05 Arrival date/time: 03/26/25 17:01 Limitations: no limitations RME / HPI RME / HPI Narrative: DR. GALLEGO MAIN ED EVALUATION: 65 y/o male with Hx of chronic hiccups and ulcer presents to ED c/o chest pain that radiates to the back and vomiting everything he eats x 1 week and vomiting blood x 1 day. Patient reports a burning and stinging pain in his throat. Denies diarrhea. No other concerns or complaints expressed at this time. Related Data Previous Rx's ?Medication ?Instructions ?Recorded ferrous sulfate 325 mg (65 mg 325 mg PO Q OTHER DAY Iron 12/30/24 iron) tablet,delayed release Deficiency 30 days #15 tabs famotidine 20 mg tablet 20 mg PO BID #60 tabs 02/13/25 metoclopramide HCl 5 mg tablet 5 mg PO TID #30 tabs 02/27/25 (Reglan) pantoprazole 40 mg tablet,delayed 40 mg PO QDAY #30 tabs 02/27/25 release (Protonix) promethazine 12.5 mg rectal 12.5 mg MI Q6H PRN nausea and 02/27/25 suppository vomiting #12 ea famotidine 40 mg tablet 40 mg PO .bedtime #30 tabs 03/05/25 omeprazole 40 mg capsule,delayed 40 mg PO QDAY #30 caps 03/05/25 release ondansetron 4 mg disintegrating 4 mg PO TID PRN nausea and 03/05/25 tablet vomiting 30 days #10 tabs amoxicillin 875 mg-potassium 1 tab PO BID 7 days #14 tabs 03/24/25 clavulanate 125 mg tablet famotidine 40 mg tablet 40 mg PO .bedtime #30 tabs 03/24/25 omeprazole 40 mg capsule,delayed 40 mg PO QDAY #30 caps 03/24/25 release ondansetron 4 mg disintegrating 4 mg PO TID PRN nausea and 03/24/25 tablet vomiting 30 days #10 tabs ondansetron 4 mg disintegrating 4 mg PO Q8H PRN Nausea And 03/26/25 tablet Vomiting 4 days #12 tabs Allergies Allergy/AdvReac Type Severity Reaction Status Date / Time No Known Allergies Allergy Verified 03/26/25 17:05 Review of Systems Review of Systems Systems Reviewed: All systems reviewed, normal except as documented Narrative Review of Systems: GEN: No fever, no chills, no weight loss EYES: No discharge, no visual changes, no pain HEENT: No ear pain, no congestion, no sore throat PULM: No shortness of breath, no cough, no congestion CV: + chest pain, no dyspnea on exertion, no palpitations GI: No nausea, + vomiting, no diarrhea, no abdominal pain, no constipation : No frequency, no urgency and no dysuria MUSC/SKEL: No joint pain, + back pain SKIN: No rash PSYCH: No hallucinations, no depression HEME/LYMPH: No easy bleeding or bruising tendencies NEURO: No weakness, no headache Past Medical History Past Medical History GASTROINTESTINAL: Positive Ulcer PSYCHO/SOCIAL: Positive Recreational Drug Use Social History SMOKING STATUS: Current every day smoker ED Exam General Limitations: Present no limitations General appearance: Present alert and in no apparent distress Head Head exam: Present atraumatic Eye Eye exam: Present normal appearance, PERRL and EOMI ENT ENT exam: Present normal exam, normal oropharynx and mucous membranes moist Neck Neck exam: Present normal inspection, full ROM and trachea midline Chest Chest inspection: Present normal inspection and symmetric chest wall rise Respiratory Respiratory exam: Present normal lung sounds bilaterally Cardiovascular Cardiovascular exam: Present regular rate, normal rhythm and normal heart sounds Abdominal Exam Abdominal exam: Present soft and normal bowel sounds Extremities Exam Extremities exam: Present normal inspection and full ROM Back Exam Back exam: Present normal inspection and full ROM Neurological Exam Neurological exam: Present alert, oriented X3 and CN II-XII intact Psychiatric Psychiatric exam: Present normal affect and normal mood Skin Skin exam: Present warm, dry, intact and normal color Course Quality Measures none Orders Category Date Time 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 03/26/25 18:06 Active Continuous Pulse Oximetry ONCE Care 03/26/25 18:06 Completed EKG (ED ONLY) *Do not use* NOW Care 03/26/25 17:07 Completed Insert IV STAT Care 03/26/25 18:06 Active EKG (ED Only) Stat Exams 03/26/25 17:07 Draft XR chest 1V portable Stat Exams 03/26/25 18:06 Completed B-Type Natriuretic Peptide Stat Lab 03/26/25 18:35 Completed CBC Stat Lab 03/26/25 18:35 Completed Comprehensive Metabolic Panel Stat Lab 03/26/25 18:35 Completed Lipase Stat Lab 03/26/25 18:35 Completed Magnesium Stat Lab 03/26/25 18:35 Completed Troponin I Stat Lab 03/26/25 18:35 Completed Ondansetron Inj [Zofran Inj] Med 03/26/25 18:31 Discontinued 4 mg IVP X1 ONE Ondansetron Inj [Zofran Inj] Med 03/26/25 18:06 Discontinued 8 mg IVP X1 ONE Sodium Chloride 0.9% 1000 ml [Ns] 1,000 ml Med 03/26/25 18:06 Discontinued IV 999 mls/hr Vital Signs Vital signs: Vital Signs Temperature 98.4 F 03/26/25 17: Pulse Rate 86 03/26/25 17:25 Respiratory Rate 18 03/26/25 17:25 Blood Pressure 172/93 H 03/26/25 17:25 Pulse Oximetry (%) 99 03/26/25 17:25 Oxygen Delivery Method Room Air 03/26/25 17:25 Nausea/Vomiting/Diarrhea MDM Narrative MDM Narrative:: Scribe Attestation: Sharonda Kaur, am scribing for and in the presence of Dr. Gallego. Provider Notation: Although this document has been carefully reviewed, there may still be some phonetic and other typographical errors.? These errors are purely grammatical due to imperfections in the software program and should not be construed in any way to? compromise the substance of the patient's medical care during this visit. Patient data External records reviewed:: [facility] previous records Clinical information provided by:: patient Social determinants that could affect healthcare access:: none Patient has the following chronic illnesses:: Ulcer How is presenting disease/condition affected by chronic disease/condition?: exacerbated by Evaluation data The following diagnostics were reviewed and interpreted by me:: lab results Lab and/or radiology exams considered but not ordered:: None Interpretation Summary: Unremarkable and at his baseline Medications / Prescriptions Medications / Prescriptions considered but not ordered:: None Medication administrations:: Medication Administration History Discontinued Medications Sodium Chloride (Ns) 1,000 mls @ 999 mls/hr IV .Q1H1M ONE Stop: 03/26/25 19:06 Last Infusion: 03/26/25 19:51 Dose: Infused Documented By: Admin: 03/26/25 18:32 Dose: 999 mls/hr Documented By: ELIZABETH Ondansetron HCl (Ondansetron Inj 2 Mg/Ml Inj 2 Ml) 8 mg IVP X1 ONE Stop: 03/26/25 18:07 Last Admin: 03/26/25 18:35 Dose: 8 mg Documented By: ELIZABETH Ondansetron HCl (Ondansetron Inj 2 Mg/Ml Inj 2 Ml) 4 mg IVP X1 ONE; Protocol Stop: 03/26/25 18:32 Last Admin: 03/26/25 18:35 Dose: Not Given Documented By: ELIZABETH Non-Admin Reason: Cancelled by Provider See above if any. Consultations Consultation(s) initiated? (list below): No Diagnosis Nausea Differential Diagnosis: gastroenteritis, drug-induced nausea and vomiting, dehydration and other (Esophageal varices, H. pylori, Peptic ulcer) Most likely diagnosis given after review of the tests above:: Vomiting and chronic hiccups Admission Indicated Admission indicated?: not indicated Admission Request Was there a request for admission?: No Disposition Plan Disposition Plan: Discharge Discharge Attestation Discharge Attestation: The patient and all family members were given an opportunity to ask questions and understood the discharge instructions. Discharge instructions specifically effects, indications for sooner follow up or return to the emergency department, and the expected course of current diagnosis. Patient condition: Stable Discharge Plan Plan Patient Disposition: HOME (Self Care) Patient condition on transfer: Stable Prescriptions/Referrals Prescriptions/Med Rec: New ondansetron 4 mg tablet,disintegrating 4 mg PO Q8H PRN (Reason: Nausea And Vomiting) 4 Days Qty: 12 0RF No Action ferrous sulfate 325 mg (65 mg iron) tablet,delayed release (DR/EC) 325 mg PO Q OTHER DAY 30 Days Qty: 15 3RF famotidine 20 mg tablet 20 mg PO BID Qty: 60 0RF pantoprazole [Protonix] 40 mg tablet,delayed release (DR/EC) 40 mg PO QDAY Qty: 30 0RF metoclopramide HCl [Reglan] 5 mg tablet 5 mg PO TID Qty: 30 0RF promethazine 12.5 mg suppository 12.5 mg MI Q6H PRN (Reason: nausea and vomiting) Qty: 12 0RF famotidine 40 mg tablet 40 mg PO .bedtime Qty: 30 0RF omeprazole 40 mg capsule,delayed release(DR/EC) 40 mg PO QDAY Qty: 30 0RF ondansetron 4 mg tablet,disintegrating 4 mg PO TID PRN (Reason: nausea and vomiting) 30 Days Qty: 10 0RF famotidine 40 mg tablet 40 mg PO .bedtime Qty: 30 0RF omeprazole 40 mg capsule,delayed release(DR/EC) 40 mg PO QDAY Qty: 30 0RF ondansetron 4 mg tablet,disintegrating 4 mg PO TID PRN (Reason: nausea and vomiting) 30 Days Qty: 10 0RF amoxicillin-pot clavulanate 875-125 mg tablet 1 tab PO BID 7 Days Qty: 14 0RF Referrals: No Primary/Family,Physician [Primary Care Provider] - In 1 week Problem List Clinical Impression: Vomiting, Chronic hiccups Patient/Caregiver Discharge Instructions Discharge Activity: activity as tolerated Education Materials: ED Diet for Vomiting or ..., ED Hiccups Print Language: [place] Citizen Stand Alone Forms: [employer] Award Info., Patient Portal Info Letter
[2025-03-26 18:26] VITALS: BMI 22.6
[2025-03-26 18:27] VITALS: PULSE 76
[2025-03-26] MEDS: SODIUM CHLORIDE 0.9% 1000 ML 1,000 ML 999 ML IV (18:32)
[2025-03-26] MEDS: ONDANSETRON INJ 2 MG/ML INJ 2 ML 8 MG IVP (18:35)
[2025-03-26 18:57] LABS: Basophils # (Auto) 0.0 Thou/mm3 (0.0-0.2); Basophils % (Auto) 1 % (0-2.5); Eosinophils # (Auto) 0.3 Thou/mm3 (0.0-0.5); Eosinophils % (Auto) 6 % (0-10); Hematocrit 29.9 % (41.0-53.0); Hemoglobin 8.9 g/dL (13.5-16.0); Immature Granulocytes Auto 0.02 Thou/mm3 (0.00-0.00); Lymphocytes # (Auto) 0.8 Thou/mm3 (1.0-4.8); Lymphocytes % (Auto) 15 % (10-50); Mean Corpuscular HGB Conc 29.8 g/dl (31.0-37.0); Mean Corpuscular Hemoglobin 21.2 pg (25.0-35.0); Mean Corpuscular Volume 71 fL (80-100); Monocytes # (Auto) 0.4 Thou/mm3 (0.0-0.8); Monocytes % (Auto) 7 % (0-12); Neutrophils # (Auto) 3.7 Thou/mm3 (1.8-7.7); Neutrophils % (Auto) 71 % (37-80); Nucleated Red Blood Cell # 0.00 Thou/mm3 (0.00-0.00); Nucleated Red Blood Cell % 0 /100 WBC (0); Platelet Count 503 Thou/mm3 (140-440); RDW Standard Deviation 49.3 fL (35.1-43.9); Red Blood Count 4.19 Miln/mm3 (4.50-5.90); White Blood Count 5.2 Thou/mm3 (3.8-10.6)
[2025-03-26 19:00] VITALS: BP 159/85; PULSE 82; RESP 21; TEMP 36.9; O2SAT 100
[2025-03-26 19:22] LABS: B-Type Natriuretic Peptide 146 pg/mL (0-100)
[2025-03-26 19:27] LABS: Alanine Aminotransferase 11 U/L (10-49); Albumin, Serum 4.1 gm/dL (3.4-4.8); Albumin/Globulin Ratio 1.6 (1.2-2.2); Alkaline Phosphatase 89 U/L (46-116); Anion Gap 11 (7-16); Aspartate Amino Transferase 14 U/L (0-34); BUN/Creatinine Ratio 16 Ratio (12-20); Bilirubin,Total 0.4 mg/dL (0.3-1.2); Blood Urea Nitrogen 14 mg/dL (9-23); Calcium 9.8 mg/dL (8.3-10.6); Calcium (Corrected) 9.8 mg/dL (8.5-10.1); Carbon Dioxide 28.7 mMol/L (20.0-31.0); Chloride 106 mMol/L (98-107); Creatinine (Component) 0.9 mg/dL (0.6-1.3); Estimated Creatinine Clearance 74.5 mL/min (>60); Globulin 2.6 gm/dL (2.3-3.5); Glucose 123 mg/dL (74-106); Lipase 20 U/L (12-53); Magnesium 2.1 mg/dL (1.6-2.6); Osmolality,Calculated 292 (275-295); Potassium 3.1 mMol/L (3.4-5.1); Sodium 146 mMol/L (136-145); Total Protein 6.7 gm/dL (5.7-8.2); Troponin I < 0.020 ng/mL (0.0-0.045); eGFR > 60 See Note
--- NOTE | 2025-03-26 20:04 | PC.NURSE ---
notified that pt didnt want to be d/c as he vomiting dr advised that this is a chronic condition with him and that we can give him medication at home for the vomiting. used interperter rosy GOMEZ [id number]
--- NOTE | 2025-03-26 20:09 | PC.NURSE ---
PT REFUSED TO SIGN D/C PAPERS HE SAID HE WANTS TO GO
[2025-03-26 20:11] VITALS: BP 158/89; PULSE 81; RESP 16; TEMP 36.9; O2SAT 94
== END 2025-03-26 20:14 | disposition home or self-care (01) ==
PROVIDERS: Emergency Provider Emergency Medicine
DX: R06.6 Hiccough (principal); R11.2 Nausea with vomiting, unspecified; R07.9 Chest pain, unspecified; I44.4 Left anterior fascicular block
CPT/HCPCS: 36415; 71045; 80053; 83690; 83735; 83880; 84484; 85025; 93005; 96361; 96374; 99284; J2405; J7030

== ENCOUNTER 2025-07-04 07:30 | Emergency (ER) | payer MEDICAID, SELFPAY ==
--- NOTE | 2025-07-04 07:38 | EKG_ITS ---
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: : 1960 Requested By: Seb Hayes Order Number: [id number] Reading MD: Seb Hayes Measurements Intervals [place] Rate: 96 P: 143 [place]: 133 QRS: -32 QRSD: 103 T: -42 QT: 332 QTc: 421 Interpretive Statements ECTOPIC ATRIAL RHYTHM POSSIBLE LEFT ATRIAL ENLARGEMENT [-0.1mV P-WAVE IN V1/V2] LEFT AXIS DEVIATION [QRS AXIS < -30] INCOMPLETE RIGHT BUNDLE BRANCH BLOCK [90+ ms QRS DURATION, TERMINAL R IN V1/V2, 40+ ms S IN I/aVL/V4/V5/V6] LEFT VENTRICULAR HYPERTROPHY AND ST-T CHANGE [VOLTAGE CRITERIA PLUS ST/T ABNORMALITY] Compared to ECG 03/26/2025 17:21:35 Ectopic atrial rhythm now present Left-axis deviation now present Incomplete right bundle-branch block now present Left ventricular hypertrophy now present Sinus rhythm no longer present Left anterior fascicular block no longer present ST (T wave) deviation still present /store/S0/[id number]/ecg/[id number].pdf
--- NOTE | 2025-07-04 07:46 | XR_ITS ---
EXAMINATION: AP chest single view TECHNIQUE: AP sitting portable chest single view Date and time: July 04, 2025, 0801 hours, comparison March 26, 2025 INDICATIONS: Chest pain difficulty breathing today FINDINGS: Mild prominence left ventricle No pneumonia or pulmonary edema Small granuloma right lower lobe Moderate osteopenia IMPRESSION: No interval pneumonia or pulmonary edema
--- NOTE | 2025-07-04 07:47 | PD.EDRME ---
Rapid Medical Screening Exam E Arrival date/time: 07/04/25 07:30 65-year-old male with no known medical history presents to the emergency room with a chief complaint of 8 out of 10 sternal chest pain x 2 days. Patient states he is methamphetamine 2 days ago. I have greeted and performed a focused initial assessment of this patient. A comprehensive ED assessment and evaluation of the patient, analysis of all test results, and completion of the medical decision making process will be conducted by additional ED providers. Chief Complaint: Chest Pain Time Seen by Provider: 07/04/25 07:36 Vital signs: Vital Signs Temperature 98.5 F 07/04/25 07:52 Pulse Rate 100 07/04/25 07:52 Respiratory Rate 18 07/04/25 07:52 Blood Pressure 191/113 H 07/04/25 07:52 Pulse Oximetry (%) 99 07/04/25 07:52 Oxygen Delivery Method Room Air 07/04/25 07:52 Vital signs reviewed by provider: Yes
[2025-07-04 07:52] VITALS: BP 191/113; PULSE 100; RESP 18; TEMP 36.9; O2SAT 99; BMI 20.2
--- NOTE | 2025-07-04 08:51 | XR_ITS ---
Examination: CTA chest, with intravenous contrast. CTA abdomen, with intravenous contrast. CTA pelvis, with intravenous contrast. 2-D sagittal and coronal reconstructions. 3-D reconstructions. Date and time of exam: July 04, 2025, 1030 hours INDICATIONS: Chest pain abdominal pain today CTDI vol (mgy) 8.56 DLP (MGycm) 389 Technique: Multiple CTA images, 2.0 mm slice thickness, obtained chest, abdomen, pelvis, with the high-resolution 64 slice scanner. 100 cc Isovue-370 is administered intravenously. Sagittal and coronal 2-D reconstructions are obtained. 3-D reconstructions, angiographic images are obtained. 3-D postprocessing, including vascular maximum intensity projections. Low dose protocols were performed. One or more of the following dose reduction techniques were used; automated exposure control, adjustment of the mA and/or KV according to patient size, use of iterative reconstruction technique. Findings: 17 mm right thyroid nodule Fluid distended esophagus No thoracic aortic aneurysmal dilatation Pulmonary artery segments are not enlarged No pulmonary artery emboli No paratracheal tracheobronchial or bronchopulmonary adenopathy 2 mm pulmonary nodule right upper lobe image 163 COPD with areas of airspace destruction, no pneumonia or pulmonary edema Fluid distended stomach Fatty infiltration throughout the liver Spleen is not enlarged No definite gallstones No renal or ureteral calculi Abundant stool throughout the colon Multiple mildly fluid distended small bowel loops IMPRESSION: 17 mm right thyroid nodule No thoracic aortic aneurysmal dilatation or dissection. Negative for pulmonary artery emboli. 2 mm pulmonary nodule right upper lobe. No pneumonia or pulmonary edema. Normal appendix. Multiple mildly fluid distended small bowel loops, consider ileus, enteritis, if early small bowel obstruction is a clinical consideration recommend 3 view abdominal series follow-up No abnormal contrast extravasation in the gastrointestinal tract
--- NOTE | 2025-07-04 08:53 | PD.EDCHEST ---
ED Chest Pain RME/HPI General Chief Complaint: Chest Pain Stated Complaint: HICCUP'S ALL THE TIME. CHEST PAIN SINCE 1999 Time Seen by Provider: 07/04/25 07:36 Arrival date/time: 07/04/25 07:30 RME / HPI RME / HPI narrative: 07/04/25 07:30 65-year-old male with no known medical history presents to the emergency room with a chief complaint of 8 out of 10 sternal chest pain x 2 days. Patient states he is methamphetamine 2 days ago. I have greeted and performed a focused initial assessment of this patient. A comprehensive ED assessment and evaluation of the patient, analysis of all test results, and completion of the medical decision making process will be conducted by additional ED providers. MD evaluation Main ED evaluation 65-year-old male here for evaluation of chest pain that onset last night about 7:00. States that he has history of hiccups ongoing on and off chronically for the last 6 years. Notes that he started having more hiccups with subsequent nausea and vomiting last night. Spitting up brown sputum/emesis. Denies any fever, cough, abdominal pain. Admits to using crystal meth the day before yesterday last. Does use this drug frequently. Denies any known past medical history, does not take any medications. Admits to smoking. Related Data Previous Rx's ?Medication ?Instructions ?Recorded ferrous sulfate 325 mg (65 mg 325 mg PO Q OTHER DAY Iron 12/30/24 iron) tablet,delayed release Deficiency 30 days #15 tabs famotidine 20 mg tablet 20 mg PO BID #60 tabs 02/13/25 metoclopramide HCl 5 mg tablet 5 mg PO TID #30 tabs 02/27/25 (Reglan) pantoprazole 40 mg tablet,delayed 40 mg PO QDAY #30 tabs 02/27/25 release (Protonix) promethazine 12.5 mg rectal 12.5 mg VT Q6H PRN nausea and 02/27/25 suppository vomiting #12 ea famotidine 40 mg tablet 40 mg PO .bedtime #30 tabs 03/05/25 omeprazole 40 mg capsule,delayed 40 mg PO QDAY #30 caps 03/05/25 release famotidine 40 mg tablet 40 mg PO .bedtime #30 tabs 03/24/25 omeprazole 40 mg capsule,delayed 40 mg PO QDAY #30 caps 03/24/25 release omeprazole 40 mg capsule,delayed 40 mg PO BID #30 caps 07/04/25 release Allergies Allergy/AdvReac Type Severity Reaction Status Date / Time No Known Allergies Allergy Verified 07/04/25 07:37 Review of Systems Review of Systems Systems Reviewed: All systems reviewed, normal except as documented Past Medical History Past Medical History GASTROINTESTINAL: Positive Ulcer PSYCHO/SOCIAL: Positive Recreational Drug Use Family History FAMILY HISTORY: Negative Family Cardiac Disorders Social History SMOKING STATUS: Current every day smoker Past Medical History Comments PMH COMMENT: None ED Exam Narrative Physical exam: Constitutional: Awake, alert, in pain, uncomfortable. HEENT: Normocephalic, atraumatic, extraocular movements intact. Neck: Supple CV: Regular rate and rhythm, no murmurs/rubs/gallops Lungs: generally clear to auscultation bilaterally. Does not appear in respiratory distress at this time. Abd: Soft, nondistended, tender to palpation of epigastrium. Patient spitting up brown substance frequently into bag. Neuro: AAOx3, no acute neuro deficit noted. Skin: Warm, dry, intact Course Course Course Narrative: 1410h: Checked on patient, he appears much improved compared to arrival. Vitally stable with no tachycardia or significant hypertension noted. Discussed results of labs and imaging with patient. White count is normal, coags are normal, renal function is normal, and CT with the following findings: IMPRESSION: 17 mm right thyroid nodule No thoracic aortic aneurysmal di discussed latation or dissection. Negative for pulmonary artery emboli. 2 mm pulmonary nodule right upper lobe. No pneumonia or pulmonary edema. Normal appendix. Multiple mildly fluid distended small bowel loops, consider ileus, enteritis, if early small bowel obstruction is a clinical consideration recommend 3 view abdominal series follow-up No abnormal contrast extravasation in the gastrointestinal tract Results were discussed with patient. Have advised against further drug use. 1415h: I spoke with GI Dr. Tyler. Discussed patients PMHx, HPI, ED course, exam findings, labs, and radiology results. He recommends starting the patient on Omeprazole 40mg BID and if he has no improvement, to return to the ED for reevaluation at which point would consider endoscopy for further eval. On reassessment, the patient is vitally stable in no distress, not actively vomiting. Patient states all the brown stuff he'd been vomiting is menudo and coca cola he ate last night. Quality Measures none Orders Category Date Time Status CT Screening NOW Care 07/04/25 08:51 Active EKG (ED ONLY) *Do not use* NOW Care 07/04/25 07:[address] angio chest abdomen pelvis Stat Exams 07/04/25 08:51 Completed EKG (ED Only) Stat Exams 07/04/25 07:38 Draft XR chest 2V Stat Exams 07/04/25 07:46 Completed B-Type Natriuretic Peptide Stat Lab 07/04/25 08:59 Completed CBC Stat Lab 07/04/25 08:59 Completed Comprehensive Metabolic Panel Stat Lab 07/04/25 08:59 Completed Drug Screen,Urine Stat Lab 07/04/25 13:40 Completed Magnesium Stat Lab 07/04/25 08:59 Completed Partial Thromboplastin Time Stat Lab 07/04/25 08:59 Completed Prothrombin Time with INR Stat Lab 07/04/25 08:59 Completed Troponin I Stat Lab 07/04/25 08:59 Completed Urinalysis, C/S if Indicated Stat Lab 07/04/25 13:40 Completed Urine Culture Stat Lab 07/04/25 13:40 Received Labetalol IV [Trandate IV] Med 07/04/25 08:58 Discontinued 20 mg IVP X1 ONE Morphine* Inj Med 07/04/25 08:58 Discontinued 4 mg IVP NOW ONE Ondansetron Inj [Zofran Inj] Med 07/04/25 08:57 Discontinued 4 mg IVP X1 ONE Pantoprazole Inj [Protonix Inj] Med 07/04/25 10:14 Discontinued 40 mg IVP X1 ONE Vital Signs Vital signs: Vital Signs Temperature 98.5 F 07/04/25 07:52 Pulse Rate 100 07/04/25 07:52 Respiratory Rate 18 07/04/25 07:52 Blood Pressure 191/113 H 07/04/25 07:52 Pulse Oximetry (%) 99 07/04/25 07:52 Oxygen Delivery Method Room Air 07/04/25 07:52 Pulse ox is 99% on room air which is adequate. Chest Pain MDM Narrative MDM Narrative:: 65-year-old male here for evaluation of chest pain that onset last night with central, accompanied by spitting up brown-colored sputum/emesis. Differentials include cardiac related chest pain, aortic dissection, GI, neoplastic process, etc. initial labs and imaging ordered and patient given dose of pain medication as well as antiemetic. Patient data External records reviewed:: [facility] previous records Clinical information provided by:: patient Social determinants that could affect healthcare access:: none Patient has the following chronic illnesses:: chronic hiccups How is presenting disease/condition affected by chronic disease/condition?: exacerbated by Evaluation data The following diagnostics were reviewed and interpreted by me:: lab results, radiology exam(s) and EKG tracing(s) ( EKG @ 07:49 AM. Ectopic atrial rhythm, left axis deviation, incomplete RBBB, rate 96. ) Lab and/or radiology exams considered but not ordered:: None Interpretation Summary: Ordering Physician: Seb Coyne Date of Service: 07/04/25 Procedure(s): XR chest 2V Accession Number(s): [id number] cc: Seb Coyne; Dnae Quispe MD; Kevin Villa MD~ EXAMINATION: AP chest single view TECHNIQUE: AP sitting portable chest single view Date and time: July 04, 2025, 0801 hours, comparison March 26, 2025 INDICATIONS: Chest pain difficulty breathing today FINDINGS: Mild prominence left ventricle No pneumonia or pulmonary edema Small granuloma right lower lobe Moderate osteopenia IMPRESSION: No interval pneumonia or pulmonary edema Dictated By: Kevin Villa MD Signed By: <Electronically signed by Kevin Villa MD in OV> 07/04/25 0921 Ordering Physician: Leah Harrison MD Date of Service: 07/04/25 Procedure(s): CT angio chest abdomen pelvis Accession Number(s): [id number] cc: Dane Quispe MD; Kevin Villa MD; Leah Harrison MD~ Examination: CTA chest, with intravenous contrast. CTA abdomen, with intravenous contrast. CTA pelvis, with intravenous contrast. 2-D sagittal and coronal reconstructions. 3-D reconstructions. Date and time of exam: July 04, 2025, 1030 hours INDICATIONS: Chest pain abdominal pain today CTDI vol (mgy) 8.56 DLP (MGycm) 389 Technique: Multiple CTA images, 2.0 mm slice thickness, obtained chest, abdomen, pelvis, with the high-resolution 64 slice scanner. 100 cc Isovue-370 is administered intravenously. Sagittal and coronal 2-D reconstructions are obtained. 3-D reconstructions, angiographic images are obtained. 3-D postprocessing, including vascular maximum intensity projections. Low dose protocols were performed. One or more of the following dose reduction techniques were used; automated exposure control, adjustment of the mA and/or KV according to patient size, use of iterative reconstruction technique. Findings: 17 mm right thyroid nodule Fluid distended esophagus No thoracic aortic aneurysmal dilatation Pulmonary artery segments are not enlarged No pulmonary artery emboli No paratracheal tracheobronchial or bronchopulmonary adenopathy 2 mm pulmonary nodule right upper lobe image 163 COPD with areas of airspace destruction, no pneumonia or pulmonary edema Fluid distended stomach Fatty infiltration throughout the liver Spleen is not enlarged No definite gallstones No renal or ureteral calculi Abundant stool throughout the colon Multiple mildly fluid distended small bowel loops IMPRESSION: 17 mm right thyroid nodule No thoracic aortic aneurysmal dilatation or dissection. Negative for pulmonary artery emboli. 2 mm pulmonary nodule right upper lobe. No pneumonia or pulmonary edema. Normal appendix. Multiple mildly fluid distended small bowel loops, consider ileus, enteritis, if early small bowel obstruction is a clinical consideration recommend 3 view abdominal series follow-up No abnormal contrast extravasation in the gastrointestinal tract Dictated By: Kevin Villa MD Signed By: <Electronically signed by Kvein Villa MD in OV> 07/04/25 1200 Medications / Prescriptions Medications or Prescriptions considered but not ordered:: None Medication administrations:: Medication Administration History Discontinued Medications Labetalol HCl (Labetalol Inj 5 Mg/Ml Vial 20 Ml) 20 mg IVP X1 ONE Stop: 07/04/25 08:59 Last Admin: 07/04/25 09:22 Dose: 20 mg Documented By: LP Morphine Sulfate (Morphine Sulf Inj 4 Mg/Ml Vial) 4 mg IVP NOW ONE Stop: 07/04/25 08:59 Last Admin: 07/04/25 09:21 Dose: 4 mg Documented By: LP Ondansetron HCl (Ondansetron Inj 2 Mg/Ml Inj 2 Ml) 4 mg IVP X1 ONE; Protocol Stop: 07/04/25 08:58 Last Admin: 07/04/25 09:21 Dose: 4 mg Documented By: LP Pantoprazole Sodium (Pantoprazole Inj 40 Mg Vial) 40 mg IVP X1 ONE Stop: 07/04/25 10:15 Last Admin: 07/04/25 10:53 Dose: 40 mg Documented By: EF See above Consultations Consultation(s) initiated? (list below): Yes Consultation #1 (Physician, Specialty, Details): See course Diagnosis Chest Pain Differential Diagnosis: other (cardiac related chest pain, aortic dissection, GI, neoplastic process, etc. ) Most likely diagnosis given after review of the tests above:: chronic hiccups Nausea Chest pain Admission Indicated Admission indicated?: not indicated Admission Request Was there a request for admission?: No Disposition Plan Disposition Plan: Discharge Discharge Attestation Discharge Attestation: The patient and all family members were given an opportunity to ask questions and understood the discharge instructions. Discharge instructions specifically effects, indications for sooner follow up or return to the emergency department, and the expected course of current diagnosis. Patient condition: Stable Discharge Plan Plan Patient Disposition: HOME (Self Care) Patient condition on transfer: Stable Prescriptions/Referrals Prescriptions/Med Rec: New omeprazole 40 mg capsule,delayed release(DR/EC) 40 mg PO BID Qty: 30 0RF No Action ferrous sulfate 325 mg (65 mg iron) tablet,delayed release (DR/EC) 325 mg PO Q OTHER DAY 30 Days Qty: 15 3RF famotidine 20 mg tablet 20 mg PO BID Qty: 60 0RF pantoprazole [Protonix] 40 mg tablet,delayed release (DR/EC) 40 mg PO QDAY Qty: 30 0RF metoclopramide HCl [Reglan] 5 mg tablet 5 mg PO TID Qty: 30 0RF promethazine 12.5 mg suppository 12.5 mg VT Q6H PRN (Reason: nausea and vomiting) Qty: 12 0RF famotidine 40 mg tablet 40 mg PO .bedtime Qty: 30 0RF omeprazole 40 mg capsule,delayed release(DR/EC) 40 mg PO QDAY Qty: 30 0RF famotidine 40 mg tablet 40 mg PO .bedtime Qty: 30 0RF omeprazole 40 mg capsule,delayed release(DR/EC) 40 mg PO QDAY Qty: 30 0RF Referrals: Dane Quispe MD [Primary Care Provider, [facility]] - In 1 week Problem List Clinical Impression: Chronic hiccoughs, Nausea, Chest pain Patient/Caregiver Discharge Instructions Education Materials: ED Chest Pain, Noncardiac, ED Hiccups Additional Instructions: Evite las drogas. [place] omeprazol dos veces al d?a. Si no mejora, regrese a urgencias para reuben revisi?n y para que un gastroenter?logo lo examine y le realize m?s pruebas. Algunos principios generales de luciano que pueden ayudarte son los principios de ADELANTE: Agua: (beber suficiente agua fresca para mantenerse hidratado, priorizando el agua en lugar de refrescos, caf?, t?, jugos, etc.). [place] (descansar adecuadamente por la noche, acostarse unas horas antes de la medianoche y evitar las pantallas, la televisi?n y la m?kalina jaja robin antes de acostarse, as? deejay las comidas pesadas robin antes de acostarse). Ejercicio: (ejercicio/caminatas diarias seg?n la tolerancia). Emelia solar: (exponer la piel al tram pranay 15-20 minutos aproximadamente, temprano por la ma?elis y al atardecer, para obtener los beneficios de la vitamina D). [place] (ejercicios de respiraci?n profunda temprano por la ma?elis al aire alfonzo). Nutricion: (consumir reuben dieta a base de plantas, evitar las suzanne en general y los alimentos altamente procesados). Templanza (evitar el alcohol, las drogas il?citas, las bebidas con cafe?na, fumar, etc.). [place] en [place] (dedicar tiempo diariamente al estudio b?blico y la oraci?n: la contemplaci?n tiene beneficios para la luciano). Recursos adicionales que pueden ser ?tiles: [email or web address], consulte la secci?n de recursos y seminarios. Print Language: [place] Stand Alone Forms: Cherelle Award Info., Patient Portal Info Letter
[2025-07-04 09:18] LABS: Basophils # (Auto) 0.0 Thou/mm3 (0.0-0.2); Basophils % (Auto) 0 % (0-2.5); Eosinophils # (Auto) 0.2 Thou/mm3 (0.0-0.5); Eosinophils % (Auto) 2 % (0-10); Hematocrit 36.1 % (41.0-53.0); Hemoglobin 10.5 g/dL (13.5-16.0); Immature Granulocytes Auto 0.03 Thou/mm3 (0.00-0.00); Lymphocytes # (Auto) 0.7 Thou/mm3 (1.0-4.8); Lymphocytes % (Auto) 8 % (10-50); Mean Corpuscular HGB Conc 29.1 g/dl (31.0-37.0); Mean Corpuscular Hemoglobin 20.2 pg (25.0-35.0); Mean Corpuscular Volume 69 fL (80-100); Monocytes # (Auto) 0.4 Thou/mm3 (0.0-0.8); Monocytes % (Auto) 4 % (0-12); Neutrophils # (Auto) 7.8 Thou/mm3 (1.8-7.7); Neutrophils % (Auto) 86 % (37-80); Nucleated Red Blood Cell # 0.00 Thou/mm3 (0.00-0.00); Nucleated Red Blood Cell % 0 /100 WBC (0); Platelet Count 590 Thou/mm3 (140-440); RDW Standard Deviation 50.2 fL (35.1-43.9); Red Blood Count 5.20 Miln/mm3 (4.50-5.90); White Blood Count 9.1 Thou/mm3 (3.8-10.6)
[2025-07-04] MEDS: MORPHINE SULF INJ 4 MG/ML VIAL IVP (09:21)
[2025-07-04] MEDS: ONDANSETRON INJ 2 MG/ML INJ 2 ML 4 MG IVP (09:21)
[2025-07-04 09:22] VITALS: BP 183/119; PULSE 102
[2025-07-04] MEDS: LABETALOL INJ 5 MG/ML VIAL 20 ML 20 MG IVP (09:22)
[2025-07-04 09:33] LABS: INR 1.0 (0.9-1.3); Partial Thromboplastin Time 27.0 Seconds (22.0-36.0); Prothrombin Time 10.6 Seconds (9.0-12.2)
[2025-07-04 09:37] LABS: Alanine Aminotransferase < 7 U/L (10-49); Albumin, Serum 5.2 gm/dL (3.4-4.8); Albumin/Globulin Ratio 1.8 (1.2-2.2); Alkaline Phosphatase 111 U/L (46-116); Anion Gap 10 (7-16); Aspartate Amino Transferase 18 U/L (0-34); BUN/Creatinine Ratio 11 Ratio (12-20); Bilirubin,Total 0.3 mg/dL (0.3-1.2); Blood Urea Nitrogen 13 mg/dL (9-23); Calcium 10.7 mg/dL (8.3-10.6); Calcium (Corrected) 10.7 mg/dL (8.5-10.1); Carbon Dioxide 28.6 mMol/L (20.0-31.0); Chloride 98 mMol/L (98-107); Creatinine (Component) 1.2 mg/dL (0.6-1.3); Estimated Creatinine Clearance 53.1 mL/min (>60); Globulin 2.9 gm/dL (2.3-3.5); Glucose 147 mg/dL (74-106); Magnesium 2.4 mg/dL (1.6-2.6); Osmolality,Calculated 276 (275-295); Potassium 4.4 mMol/L (3.4-5.1); Sodium 137 mMol/L (136-145); Total Protein 8.1 gm/dL (5.7-8.2); Troponin I < 0.020 ng/mL (0.0-0.045); eGFR > 60 See Note
[2025-07-04 10:19] LABS: B-Type Natriuretic Peptide 184 pg/mL (0-100)
[2025-07-04 13:50] LABS: Collection Type, Urine Clean Catch
[2025-07-04 14:15] LABS: Bacteria,Urine 4+; Bilirubin,Urine Negative (Negative); Blood,Urine Trace (Negative); Color,Urine Yellow (Lt Yel-Yel); Glucose, Urine Negative (Negative); Ketones,Urine Negative (Negative); Leukocyte Esterase,Urine Positive (Negative); Nitrite,Urine Positive (Negative); PH,Urine 6.5 (5.0-7.0); Protein,Urine 1+ (Neg - Trace); RBC,Urine 13 /hpf (0-3); Squamous Epithelial Cell,Urine < 1 /hpf (0-5); Urobilinogen,Urine Negative mg/dL (0.0-1.0); WBC,Urine 16 /hpf (0-5)
[2025-07-04 14:29] LABS: Specific Gravity,Urine 1.010 (1.001-1.035)
[2025-07-04 14:30] LABS: Clarity,Urine Hazy (Clear/Hazy); Culture Indicated,Urine Yes
[2025-07-04 14:39] LABS: Amphetamine/Methamp Scrn,U Positive (Negative); Barbiturate Screen,Urine Negative (Negative); Benzodiazepines Screen,Urine Negative (Negative); Benzoylecgonine Screen, Ur Negative (Negative); Fentanyl Screen,Urine Negative (Negative); Opiate Screen,Urine Positive (Negative); THC Screen,Urine Negative (Negative)
[2025-07-04 14:55] VITALS: BP 130/84; PULSE 72; RESP 16; O2SAT 95
== END 2025-07-04 14:55 | disposition home or self-care (01) ==
PROVIDERS: Nurse Practitioner Family; Emergency Provider Family Medicine; PCP Family Medicine
DX: K56.609 Unspecified intestinal obstruction, unspecified as to partial versus complete obstruction (principal); E04.1 Nontoxic single thyroid nodule; F15.90 Other stimulant use, unspecified, uncomplicated; E61.1 Iron deficiency; F17.200 Nicotine dependence, unspecified, uncomplicated
CPT/HCPCS: 36415; 71046; 71275; 74174; 80053; 80307; 81001; 83735; 83880; 84484; 85025; 85610; 85730; 87077; 87086; 87186; 93005; 96374; 96375; 99283; A4649; J2270; J2405; J2470; J3490; Q9967; J1920

== ENCOUNTER 2025-07-17 22:25 | Inpatient (IN) | payer MEDICAID, SELFPAY ==
--- NOTE | 2025-07-17 22:32 | EDNOTE_ITS ---
ED Chest Pain RME/HPI General Chief Complaint: Chest Pain Stated Complaint: CHEST PAIN Time Seen by Provider: 07/17/25 22:29 Arrival date/time: 07/17/25 22:25 RME / HPI RME / HPI narrative: Dr. Alexander?s Main ED Evaluation: 65yo male transported by EMS with complaints of chronic diffuse anterior chest pain that's been escalating over the last 24 hours. Patient reports singultus, although denies symptoms similar to patient's GERD. Reports associated shortness of breath, but denies palpitations, lightheadedness, or near syncope. Symptoms tend to worsen with exertion and inspiration. 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 No fever, chills, or productive cough. PSH noncontributory. Long- term tobacco smoker. No illicit drug use. Related Data Allergies Allergy/AdvReac Type Severity Reaction Status Date / Time No Known Allergies Allergy Verified 07/17/25 23:15 Review of Systems Review of Systems Systems Reviewed: All systems reviewed, normal except as documented ED Exam Narrative Physical exam: GENERAL APPEARANCE: alert and oriented x 4, complains of active chest pain, appears gaunt, in moderate distress VITALS: All vitals were reviewed and the pulse ox is % on room air, which is normal according to my interpretation. Notably hypertensive and tachycardic. HEENT: Normocephalic, atraumatic; pupils equal, round, reactive to light; EOMI; mucous membranes pink, moist; oropharynx clear NECK: Supple, no JVD LUNGS: Distant and diminished lung sounds bilaterally HEART: Mildly tachycardic, regular rhythm; normal S1, S2; no murmurs ABDOMEN: non distended; soft, mild mid epigastric tenderness, no guarding, no rebound BACK: no CVA tenderness EXTREMITIES: atraumatic; no edema NEUROLOGIC: awake; alert and oriented x4; cranial nerves II-XII grossly intact; no focal sensory or motor deficits PSYCHIATRIC: appropriate mood and affect SKIN: warm, dry, normal color; no rashes Course Course Course Narrative: CXR is ordered for determining the etiology of chest pain. 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 STAT Care 07/17/25 22:43 Active Continuous Pulse Oximetry ONCE Care 07/17/25 22:43 Completed EKG (ED ONLY) *Do not use* NOW Care 07/17/25 22:43 Completed Insert IV STAT Care 07/17/25 22:[address] angio chest Stat Exams 07/18/25 01:58 Taken EKG (ED Only) Stat Exams 07/17/25 22:43 Draft XR chest 1V portable Stat Exams 07/17/25 22:43 Completed B-Type Natriuretic Peptide Stat Lab 07/17/25 22:56 Completed CBC Stat Lab 07/17/25 22:56 Completed Comprehensive Metabolic Panel Stat Lab 07/17/25 22:56 Completed Drug Screen,Urine Stat Lab 07/18/25 03:47 Completed Magnesium Stat Lab 07/17/25 22:56 Completed Partial Thromboplastin Time Stat Lab 07/17/25 22:56 Completed Path Review Blood Smear Stat Lab 07/17/25 22:56 Completed Prothrombin Time with INR Stat Lab 07/17/25 22:56 Completed Troponin I Stat Lab 07/17/25 22:56 Completed Urinalysis Stat Lab 07/18/25 03:47 Completed Aspirin Chew Med 07/17/25 23:17 Discontinued 162 mg PO X1 ONE Aspirin Chew Med 07/17/25 22:43 Discontinued 324 mg PO X1 ONE Labetalol IV [Trandate IV] Med 07/17/25 22:53 Discontinued 5 mg IVP X1 ONE Morphine* Inj Med 07/17/25 22:45 Discontinued 4 mg IVP X1 ONE Ondansetron Inj [Zofran Inj] Med 07/17/25 22:43 Active 4 mg IVP Q1HR PRN Pantoprazole Inj [Protonix Inj] Med 07/17/25 22:56 Discontinued 40 mg IVP X1 ONE Prochlorperazine Inj [Compazine Inj] Med 07/17/25 22:44 Discontinued 5 mg IV X1 ONE Oxygen Delivery NOW RT 07/17/25 22:43 Active Vital Signs Vital signs: Vital Signs Temperature 98.2 F 07/17/25 23:13 Chest Pain MDM Narrative MDM Narrative:: Scribe Attestation: 07/17/25 Omaira Segura am scribing for and in the presence of Dr. Alexander. 65yo male transported by EMS with complaints of chronic diffuse anterior chest pain that's been escalating over the last 24 hours. Patient reports singultus, although denies symptoms similar to patient's GERD. Please see PE findings. Labs including CBC and chemistries are unremarkable. Troponin undetected. UA demonstrates pyruria, although no bacteria or nitrates. Tox screen positive for methamphetamines and opiates. 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 initially hypertensive and gradually improved to acceptable limits. Referred for CTA chest to r/o thoracic dissection versus aneurysm. CTA negative for thoracic aneurysm and dissection, but it does show marked distal esophageal wall thickening measuring up to 1.7 x 6.3cm length with surrounding fat stranding and small lymph nodes in addition to moderate air fluid levels at the upper and mid esophagus. This is highly suggestive of marked esophagitis versus neoplastic process. Will consider GI evaluation. Will discuss with hospitalist for consideration of admission. Dx: severe esophagitis with obstruction Patient data External records reviewed:: [facility] previous records (Per chart review, patient has no previous ED visits or admissions to this facility.) and EMS form Clinical information provided by:: patient Social determinants that could affect healthcare access:: none Patient has the following chronic illnesses:: none How is presenting disease/condition affected by chronic disease/condition?: no chronic disease Evaluation data The following diagnostics were reviewed and interpreted by me:: lab results, radiology exam(s) and EKG tracing(s) Lab and/or radiology exams considered but not ordered:: none Interpretation Summary: EKG done at 2306, sinus rhythm, rate of 89, no acute pathological ST segment changes, no ectopy, normal intervals, left axis deviation, evidence of LVH by voltage criteria, equivocal ST segment depression laterally, according to my interpretation. [place] [facility] Report Signed Patient: ANTHONY VELÁZQUEZ. Record#: [id number] Birthdate: 1960 Age/Sex: 65 / M Location: [facility] Attending Dr: Ordering Physician: Roland Quintanilla DO Date of Service: 07/17/25 Procedure(s): XR chest 1V portable Accession Number(s): [id number] cc: Roland Quintanilla DO; Kevin Villa MD; NO PRIMARY/FAMILY,PHYSICIAN~ EXAMINATION: AP chest single view TECHNIQUE: 1. AP portable upright chest single view Date and time: July 17, 2025, 10:48 p.m. INDICATIONS: Chest pain today. FINDINGS: Mild prominence left ventricle Rounded density which may be a retrocardiac gastric hernia No pneumonia or pulmonary edema Prominent osteopenia Impression: Recommend lateral film follow-up to confirm retrocardiac gastric hernia Mild prominence left ventricle Dictated By: Kevin Villa MD Signed By: <Electronically signed by Kevin Villa MD in OV> 07/17/25 2312 [place] Preliminary Report Draft Patient: ANTHONY VELÁZQUEZ Record#: [id number] Birthdate: 1960 Age/Sex: 65 / M Location: [facility] Attending Dr: Ordering Physician: Date of Service: Procedure(s): Accession Number(s): cc: ~ CT angiogram of the chest aorta with intravenous contrast (axial sections with sagittal and coronal reformats) July 18, 2025 0507 hours Clinical History: r/o Aortic dissection Findings: The thyroid is diffusely enlarged with multiple hypodense, rim-calcified nodules within it. The thoracic aorta demonstrates mild atheromatous calcification without evidence of dissection or aneurysm. Coronary artery calcification is noted.The origins of the right brachiocephalic, left common carotid and left subclavian arteries are patent. There is no filling defect within the pulmonary artery divisions to suggest pulmonary thromboembolism. There is right upper tracheal diverticulum ( axial image 16-25/series 21). There is marked distal esophageal wall thickening measuring up to 1.7cm with 6.3cm length with surrounding fat stranding and small lymph nodes. There areright lower lobe ground-glass opacities, likely reactive. There is moderate air-fluid level inthe upper and mid esophagus There is a 8mm subcarinal lymph node.There is a small pericardial effusion. Emphysematous changes are noted in the lungs. Calcified granuloma is seen in the right lower lobe. There are perifissular nodules along the minor fissure on the right, measuring up to 4mm.No evidence of pleural effusion or pneumothorax. Degenerative changes are identified in the spine. The visualized upper abdominal viscera are unremarkable. Impression: No CT evidence of pulmonary thromboembolism or aortic dissection/aneurysm. Marked distal esophageal wall thickening, suspicious for marked esophagitisor neoplastic process with upstream moderate dilatation of the mid and upper esophagus. Recommend further evaluation. Findings consistent with multinodular goiter. Consider thyroid ultrasound for further evaluation, as clinically indicated. Report Electronically Signed By: Mason Lyles 07/18/2025 6:07:58 AM [EST] Medications / Prescriptions Medications or Prescriptions considered but not ordered:: none Medication administrations:: Medication Administration History Ondansetron HCl (Ondansetron Inj 2 Mg/Ml Inj 2 Ml) 4 mg IVP Q1HR PRN PRN Reason: PERSISTENT NAUSEA OR VOMITING Last Admin: 07/17/25 23:35 Dose: 4 mg Documented By: PATRICIA Discontinued Medications Aspirin (Aspirin 81 Mg Chew) 324 mg PO X1 ONE Stop: 07/17/25 22:44 Last Admin: 07/17/25 23:19 Dose: Not Given Documented By: PATRICIA Non-Admin Reason: Discontinued Aspirin (Aspirin 81 Mg Chew) 162 mg PO X1 ONE Stop: 07/17/25 23:18 Last Admin: 07/17/25 23:24 Dose: 162 mg Documented By: PATRICIA Labetalol HCl (Labetalol Inj 5 Mg/Ml Vial 20 Ml) 5 mg IVP X1 ONE Stop: 07/17/25 22:54 Last Admin: 07/17/25 23:37 Dose: 5 mg Documented By: PATRICIA Morphine Sulfate (Morphine Sulf Inj 4 Mg/Ml Vial) 4 mg IVP X1 ONE Stop: 07/17/25 22:46 Last Admin: 07/17/25 23:29 Dose: 4 mg Documented By: PATRICIA Pantoprazole Sodium (Pantoprazole Inj 40 Mg Vial) 40 mg IVP X1 ONE Stop: 07/17/25 22:57 Last Admin: 07/17/25 23:26 Dose: 40 mg Documented By: PATRICIA Prochlorperazine Edisylate (Prochlorperazine Inj 5 Mg/Ml Vial 2 Ml) 5 mg IV X1 ONE; Protocol Stop: 07/17/25 22:45 Last Admin: 07/17/25 23:31 Dose: 5 mg Documented By: PATRICIA see above Consultations Consultation(s) initiated? (list below): Yes Consultation #1 (Physician, Specialty, Details): Discussed case with the resident physician, attending Dr. Baez from H ospitalist service regarding admission. Discussed patients ED course, exam findings, labs, and radiology results. The Hospitalist agrees to accept the patient for admission. Time: 06:24 Diagnosis Chest Pain Differential Diagnosis: other (dissection, aneurysm, obstruction, esophagitis, NSTEMI, STEMI) Most likely diagnosis given after review of the tests above:: see clinical impression below Admission Indicated Admission indicated?: indicated Admission Request Was there a request for admission?: Yes Admission Attestation Admission request attestation: Discussed case with [] from Hospitalist service regarding admission. Discussed patients ED course, exam findings, labs, and radiology results. The Hospitalist [agrees,declines] to accept the patient for admission. Disposition Plan Disposition Plan: Admit Discharge Plan Prescriptions/Referrals Referrals: No Primary/Family,Physician [Primary Care Provider] - In 1 week Problem List Clinical Impression: Esophagitis, Esophageal obstruction Patient/Caregiver Discharge Instructions Print Language: [place]an
--- NOTE | 2025-07-17 22:43 | EKG_ITS ---
[facility] Test Date: 2025-07-17 Pat Name: ANTHONY VELÁZQUEZ Department: Room: - Gender: Male Disability Examiner: : 1960 Requested By: Roland Rubio Order Number: [id number] Reading MD: Roland Rubio Measurements Intervals [place] Rate: 89 P: 74 MN: 141 QRS: -64 QRSD: 105 T: -51 QT: 339 QTc: 414 Interpretive Statements SINUS RHYTHM INCOMPLETE RIGHT BUNDLE BRANCH BLOCK [90+ ms QRS DURATION, TERMINAL R IN V1/V2, 40+ ms S IN I/aVL/V4/V5/V6] LEFT ANTERIOR FASCICULAR BLOCK [QRS AXIS <= -45, QR IN I, RS IN II] MINIMAL VOLTAGE CRITERIA FOR LVH, CONSIDER NORMAL VARIANT [MEETS CRITERIA IN ONE OF: R(aVL), S(V1), R(V5), R(V5/V6)+S(V1)] MODERATE ST DEPRESSION [0.05+ mV ST DEPRESSION] No previous ECG available for comparison /store/S0/[id number].pdf
--- NOTE | 2025-07-17 22:43 | XR_ITS ---
EXAMINATION: AP chest single view TECHNIQUE: 1. AP portable upright chest single view Date and time: July 17, 2025, 10:48 p.m. INDICATIONS: Chest pain today. FINDINGS: Mild prominence left ventricle Rounded density which may be a retrocardiac gastric hernia No pneumonia or pulmonary edema Prominent osteopenia Impression: Recommend lateral film follow-up to confirm retrocardiac gastric hernia Mild prominence left ventricle
[2025-07-17 22:47] VITALS: PULSE 112; O2SAT 100
[2025-07-17 23:13] VITALS: TEMP 36.8
[2025-07-17 23:13] LABS: Basophils # (Auto) 0.1 Thou/mm3 (0.0-0.2); Basophils % (Auto) 1 % (0-2.5); Eosinophils # (Auto) 0.1 Thou/mm3 (0.0-0.5); Eosinophils % (Auto) 1 % (0-10); Hematocrit 30.0 % (41.0-53.0); Immature Granulocytes Auto 0.03 Thou/mm3 (0.00-0.00); Lymphocytes # (Auto) 0.5 Thou/mm3 (1.0-4.8); Lymphocytes % (Auto) 5 % (10-50); Mean Corpuscular HGB Conc 29.3 g/dl (31.0-37.0); Mean Corpuscular Hemoglobin 20.2 pg (25.0-35.0); Mean Corpuscular Volume 69 fL (80-100); Monocytes # (Auto) 0.3 Thou/mm3 (0.0-0.8); Monocytes % (Auto) 2 % (0-12); Neutrophils # (Auto) 9.3 Thou/mm3 (1.8-7.7); Neutrophils % (Auto) 91 % (37-80); Nucleated Red Blood Cell # 0.00 Thou/mm3 (0.00-0.00); Nucleated Red Blood Cell % 0 /100 WBC (0); Platelet Count 574 Thou/mm3 (140-440); RDW Standard Deviation 46.6 fL (35.1-43.9); Red Blood Count 4.36 Miln/mm3 (4.50-5.90); White Blood Count 10.3 Thou/mm3 (3.8-10.6)
[2025-07-17 23:14] VITALS: BMI 20.2
[2025-07-17 23:15] VITALS: BP 171/110; PULSE 94; RESP 17; TEMP 36.8; O2SAT 97
[2025-07-17 23:22] LABS: Hemoglobin 8.8 g/dL (13.5-16.0)
[2025-07-17] MEDS: ASPIRIN 81 MG CHEW 162 MG PO (23:24)
[2025-07-17] MEDS: MORPHINE SULF INJ 4 MG/ML VIAL IVP (23:29)
[2025-07-17 23:31] LABS: INR 1.0 (0.9-1.3); Partial Thromboplastin Time 25.6 Seconds (22.0-36.0); Prothrombin Time 10.9 Seconds (9.0-12.2)
[2025-07-17] MEDS: PROCHLORPERAZINE INJ 5 MG/ML VIAL 2 ML IV (23:31)
[2025-07-17 23:32] LABS: Alanine Aminotransferase < 7 U/L (10-49); Albumin, Serum 4.7 gm/dL (3.4-4.8); Albumin/Globulin Ratio 1.8 (1.2-2.2); Alkaline Phosphatase 94 U/L (46-116); Anion Gap 8 (7-16); Aspartate Amino Transferase 14 U/L (0-34); B-Type Natriuretic Peptide 63 pg/mL (0-100); BUN/Creatinine Ratio 13 Ratio (12-20); Bilirubin,Total 0.3 mg/dL (0.3-1.2); Blood Urea Nitrogen 15 mg/dL (9-23); Calcium 10.6 mg/dL (8.3-10.6); Calcium (Corrected) 10.6 mg/dL (8.5-10.1); Carbon Dioxide 31.6 mMol/L (20.0-31.0); Chloride 98 mMol/L (98-107); Creatinine (Component) 1.2 mg/dL (0.6-1.3); Estimated Creatinine Clearance 53.1 mL/min (>60); Globulin 2.6 gm/dL (2.3-3.5); Glucose 147 mg/dL (74-106); Magnesium 2.3 mg/dL (1.6-2.6); Osmolality,Calculated 279 (275-295); Potassium 4.0 mMol/L (3.4-5.1); Sodium 138 mMol/L (136-145); Total Protein 7.3 gm/dL (5.7-8.2); Troponin I < 0.020 ng/mL (0.0-0.045); eGFR > 60 See Note
[2025-07-17] MEDS: ONDANSETRON INJ 2 MG/ML INJ 2 ML 4 MG IVP (23:35)
[2025-07-17 23:37] VITALS: BP 171/110; PULSE 91
[2025-07-17] MEDS: LABETALOL INJ 5 MG/ML VIAL 20 ML IVP (23:37)
[2025-07-18] VITALS (20 sets, daily range): BP systolic 128–169; BP diastolic 65–96; PULSE 65–92; RESP 11–18; TEMP 36.3–37.2; O2SAT 97–100
[2025-07-18 00:45] LABS: Path Review Blood Smear Sent to Pathologist
--- NOTE | 2025-07-18 01:58 | XR_ITS ---
Examination: CTA chest with intravenous contrast 2-D reconstructions 3-D reconstructions, vascular Date and time of exam: July 18, 2025, 0507 hours INDICATIONS: Onset of chest pain shortness of breath today, clinical diagnosis aortic dissection CTDI: vol (mGy) 4.96 DLP: (mGycm) 203 Technique: Multiple axial sections of the thorax have been obtained. 3 mm slice thickness, from below the hemidiaphragms to above the apices of the lungs. Mediastinal and lung density settings have been obtained. 2-D sagittal and coronal reconstructions. 3-D angiographic renderings, 3-D volume renderings, 3D post processing, vascular maximum intensity projections obtained. Contrast administered is 100 cc Isovue 370. Low dose protocols were performed. One or more of the following dose reduction techniques were used; automated exposure control, adjustment of the mA and/or KV according to patient size, use of iterative reconstruction technique. Findings: Multiple thyroid nodules No thoracic aortic aneurysmal dilatation or dissection No pulmonary artery emboli COPD Abnormal esophagus, fluid-filled with marked wall thickening inferiorly especially at the gastroesophageal junction No pneumonia or pulmonary edema No visualized liver or splenic lesion Abundant stool in the partially visualized colon Heavy abdominal aortic calcification No abdominal aortic dissection IMPRESSION: Multiple thyroid nodules, recommend dedicated thyroid sonography No thoracic aortic aneurysmal dilatation or dissection. Negative for pulmonary artery emboli COPD Abnormal esophagus, fluid-filled with significant wall thickening distally especially at the gastroesophageal junction, recommend standard esophagram fluoroscopically-guided follow-up to exclude esophageal carcinoma
[2025-07-18 04:29] LABS: Collection Type, Urine Clean Catch
[2025-07-18 04:44] LABS: Bacteria,Urine Rare; Bilirubin,Urine Negative (Negative); Blood,Urine Trace (Negative); Clarity,Urine Turbid (Clear/Hazy); Color,Urine Yellow (Lt Yel-Yel); Glucose, Urine Negative (Negative); Hyaline Casts,Urine 2 /hpf (0-1); Ketones,Urine Negative (Negative); Leukocyte Esterase,Urine Positive (Negative); Nitrite,Urine Negative (Negative); PH,Urine 6.0 (5.0-7.0); Protein,Urine 1+ (Neg - Trace); RBC,Urine 5 /hpf (0-3); Specific Gravity,Urine 1.028 (1.001-1.035); Squamous Epithelial Cell,Urine < 1 /hpf (0-5); Urobilinogen,Urine 2.0 mg/dL (0.0-1.0); WBC,Urine 41 /hpf (0-5)
[2025-07-18 04:47] LABS: Amphetamine/Methamp Scrn,U Positive (Negative); Barbiturate Screen,Urine Negative (Negative); Benzodiazepines Screen,Urine Negative (Negative); Benzoylecgonine Screen, Ur Negative (Negative); Fentanyl Screen,Urine Negative (Negative); Opiate Screen,Urine Positive (Negative); THC Screen,Urine Negative (Negative)
--- NOTE | 2025-07-18 06:08 | PRELIM_ITS ---
CT angiogram of the chest aorta with intravenous contrast (axial sections with sagittal and coronal reformats) July 18, 2025 0507 hours Clinical History: r/o Aortic dissection Findings: The thyroid is diffusely enlarged with multiple hypodense, rim-calcified nodules within it. The thoracic aorta demonstrates mild atheromatous calcification without evidence of dissection or aneurysm. Coronary artery calcification is noted.The origins of the right brachiocephalic, left common carotid and left subclavian arteries are patent. There is no filling defect within the pulmonary artery divisions to suggest pulmonary thromboembolism. There is right upper tracheal diverticulum ( axial image 16-25/series 21). There is marked distal esophageal wall thickening measuring up to 1.7cm with 6.3cm length with surrounding fat stranding and small lymph nodes. There areright lower lobe ground-glass opacities, likely reactive. There is moderate air-fluid level inthe upper and mid esophagus There is a 8mm subcarinal lymph node.There is a small pericardial effusion. Emphysematous changes are noted in the lungs. Calcified granuloma is seen in the right lower lobe. There are perifissular nodules along the minor fissure on the right, measuring up to 4mm.No evidence of pleural effusion or pneumothorax. Degenerative changes are identified in the spine. The visualized upper abdominal viscera are unremarkable. Impression: No CT evidence of pulmonary thromboembolism or aortic dissection/aneurysm. Marked distal esophageal wall thickening, suspicious for marked esophagitisor neoplastic process with upstream moderate dilatation of the mid and upper esophagus. Recommend further evaluation. Findings consistent with multinodular goiter. Consider thyroid ultrasound for further evaluation, as clinically indicated. Report Electronically Signed By: Mason Lyles 07/18/2025 6:07:58 AM [EST]
[2025-07-18] MEDS: ONDANSETRON INJ 2 MG/ML INJ 2 ML 4 MG IVP (08:08)
[2025-07-18] MEDS: MORPHINE SULF INJ 4 MG/ML VIAL IVP (08:09)
[2025-07-18] MEDS: NICOTINE PATCH 21 MG/24 HR PATCH.TD24 TOP (08:32)
[2025-07-18] MEDS: SODIUM CHLORIDE 0.9% 1000 ML 1,000 ML 999 ML IV (08:33)
[2025-07-18] MEDS: HEPARIN SOD INJ 5000 UNIT/ML VIAL SC ×2 (08:33→13:29)
--- NOTE | 2025-07-18 14:08 | ESHP_ITS ---
<Statement entered by Ridge Pineda MD - 07/18/25 16:30> I saw and examined patient personally and supervised PGY 1 resident, Dr. Velázquez with formulating a management plan. I agree with the documentation with the exceptions as listed below. Patient is a 65-year-old male with a past medical history significant for chronic alcohol dependence?quit 2018 and polysubstance use who presented today with a chief complaint of nausea and progressively worsening dysphagia. Problem list: 1. Esophageal obstruction secondary to distal esophageal wall thickening 2. Dysphagia 3. Acute blood loss anemia secondary to GI bleed for investigation 4. Protein calorie malnutrition 5. Weight loss for investigation 6. History of chronic nicotine dependence 7. History of methamphetamine use. 8. History of chronic alcohol use, quit in 2018 Patient stated?for the past 6 years he has been experiencing dysphagia to solids which have progressively worsened last night having an episode of vomiting extreme retrosternal chest pain. He also had progressive weight loss during that.. On exam patient has bitemporal wasting and severe cachexia. He also appears much older than his stated age. Chest CTA was positive for thickened distal esophagus with air-fluid level and dilatation proximal. Patient was kept n.p.o. and business advisor, Dr. Tyler was consulted. Appreciate recommendations On arrival Hb was 8.8 which downtrended to 6.8. Type and screen was ordered and 1 unit PRBC transfusion. Will follow-up on posttransfusion H&H. Ceftriaxone 1 g IV daily was started for prophylaxis. Also patient started on pantoprazole 80 mg IV x 1 and octreotide for possible esophageal varices. For patient's nicotine dependence, we placed him on nicotine patch 21 mg topical daily. Plan of care discussed with Attending Dr. Ranjith Pineda MD PGY 2 Disclaimer: This note was dictated by speech recognition. Minor errors in electron beam machine welder setter may be present due to voice recognition software. Documentation for date of: 07/18/25 HPI History of Present Illness History of present illness: Alexei Quesada is a [place]ian-speaking 65-year-old male with a PMH of chronic alcohol dependence (quit in 2017) and polysubstance abuse who presented on 07/17 with a chief complaint of nausea and progressively worsening dysphagia. Interview was facilitated via [place] phone certified court interpreter services. Patient states that the above symptoms began last night alongside intense chest pain which lead to him being brought in by ambulance last night. He endorses mild pain and burning with urination. He seemed somewhat somnolent at the time of interview and was not very forthcoming when queried regarding the surrounding circumstances of his hospitalization. Many of his answers were terse and without significant elaboration. PMH: Same thing, got the hiccups 6 years ago PSH: No other disease Medications: Unknown Allergies: NKDA FH: Nothing SH: Lives by himself in a house in [place] for over 20 years, drank an average of 30 beers per day from 1980 to 2017, smoked an average of a pack a day from the age of 17 until now, started using methamphetamine 20 years ago and reports that his most recent use was last night In the ED, vitals showed: BP 171/110 HR 94 RR 17 Temp 98.2 SpO2 97% on room air CBC showed hemoglobin 8.8 (MCV 69, RDW 46.6), platelet count 574. Coagulation panel was WNL. CMP showed HCO3 31.6, creatinine 1.2, corrected calcium 10.6. UA showed turbid, acidic urine with pH 6.0, specific gravity 1.028, 1+ protein, positive leukocyte esterase, RBC 5, WBC 41, rare bacteria, and hyaline casts 2. UDS was positive for opiates and amphetamines/methamphetamines. Serological studies negative for hepatitis A, B, and C. Imagin/26 CXR showed mild prominence of the left ventricle and possible retrocardiac gastric hernia. 07/17 EKG showed normal sinus rhythm of HR 89, incomplete right bundle branch block, left anterior fascicular block, moderate ST depression, and normal QTc 414. 07/18 chest CTA showed multiple thyroid nodules, COPD, and an abnormal esophagus noted to be fluid-filled with significant wall thickening distally especially at the gastroesophageal junction (with recommendations for standard fluoroscopically-guided esophagram to rule out esophageal carcinoma). In the ED, patient was given p.o. aspirin, IV Protonix, IV morphine, IV prochlorperazine edisylate, IV labetalol, IV Zofran, IV octreotide, and 1 L NS bolus. Patient was admitted for the work-up and management of esophageal obstruction concerning for possible malignancy. GI was consulted and is closely following the case. Review of Systems Review of Systems Systems Reviewed: All systems reviewed, normal except as documented Exam Vital Signs Temp Pulse Resp BP Pulse Ox O2 Del Method 97.3 F 74 18 148/88 H 99 Room Air 07/18/25 12:00 07/18/25 12:00 07/18/25 12:00 07/18/25 12:00 07/18/25 12:00 07/18/25 12:00 Narrative Exam General: Cachectic-appearing, somnolent. A/O x3, no acute distress. Skin: Warm, dry, intact, no obvious rash. Head: Normocephalic, atraumatic. Eyes: Slight conjunctival pallor. PERRL, EOMI. Anicteric, vision grossly intact. Ears: No ear pain, no ear discharge, Hearing grossly intact. Nose: No nasal discharge. Mouth/Throat: Poor dentition. Oral mucosa moist. No obvious lesions in oropharynx. Cardiovascular: Slightly tachycardic rate and normal rhythm, no murmur, no JVD or carotid bruits. +S1/S2. Respiratory: Pectus excavatum noted. Prolonged expiratory phase. Bilateral lungs are clear to auscultation, respirations unlabored, no crackles, no wheezing. No accessory muscle use. Gastrointestinal: Mild RUQ tenderness to palpation. Soft, non-distended, no palpable masses. No guarding or rebound tenderness. Peristalsis present. Extremities: Symmetrical, no significant deformities. No edema, no cyanosis, no clubbing. 2+ radial pulse bilaterally, 2+ posterior tibial pulse bilaterally. Neuro: No focal deficits observed. Conversant, moving all extremities. No overt cerebellar signs/incoordination. Psychiatric: Guarded, flat affect. Results: Labs 07/19/25 05:26 07/19/25 05:26 Labs: Short CBC 07/17/25 Range/Units 22:56 WBC 10.3 (3.8-10.6) Thou/mm3 Hgb 8.8 L (13.5-16.0) g/dL Hct 30.0 L (41.0-53.0) % Plt Count 574 H (140-440) Thou/mm3 BMP 07/17/25 22:56 Sodium 138 Potassium 4.0 Chloride 98 Carbon Dioxide 31.6 H BUN 15 Creatinine 1.2 Glucose 147 H Calcium 10.6 Cardiac Enzymes 07/17/25 Range/Units 22:56 Troponin I < 0.020 (0.0-0.045) ng/mL Liver Function 07/17/25 Range/Units 22:56 Total Bilirubin 0.3 (0.3-1.2) mg/dL AST 14 (0-34) U/L ALT < 7 L (10-49) U/L Alkaline Phosphatase 94 (46-116) U/L Albumin 4.7 (3.4-4.8) gm/dL Urine 07/18/25 Range/Units 03:47 Urine Color Yellow (Lt Yel-Yel) Urine Clarity Turbid A (Clear/Hazy) Urine pH 6.0 (5.0-7.0) Ur Specific [place] 1.028 (1.001-1.035) Urine Protein 1+ A (Neg - Trace) Urine Glucose (UA) Negative (Negative) Quality Measures Quality Measures none Medications Home Medications and Allergies Allergies Allergy/AdvReac Type Severity Reaction Status Date / Time No Known Allergies Allergy Verified 07/17/25 23:15 Visit Medications Heparin Sodium (Porcine) (Heparin Sod Inj 5000 Unit/Ml Vial) 5,000 unit SC Q8HR ALAN Stop: 08/01/25 08:14 Last Admin: 07/18/25 13:29 Dose: 5,000 unit Hydromorphone HCl (Hydromorphone Inj 2 Mg/Ml Vial) 1 mg IVP Q6HR PRN PRN Reason: BREAKTHROUGH PAIN (SEVERE)7-10 Stop: 07/23/25 13:24 Ceftriaxone Sodium/Dextrose (Rocephin/D5w 1gm Iv Premix) 1 gm in 50 mls @ 100 mls/hr IV QDAY [facility] Stop: 07/25/25 13:47 Labetalol HCl (Labetalol Inj 5 Mg/Ml Vial 20 Ml) 10 mg IVP Q4HR PRN PRN Reason: Hypertension Stop: 08/17/25 13:23 Morphine Sulfate (Morphine Sulf Inj 4 Mg/Ml Vial) 2 mg IVP Q4HR PRN PRN Reason: PAIN SCALE 7-10 (Severe Stop: 07/23/25 07:57 Nicotine (Nicotine Patch 21 Mg/24 Hr Patch.Td24) 21 mg TOP QDAY [facility] Stop: 08/17/25 08:59 Last Admin: 07/18/25 08:32 Dose: 21 mg Discontinued Medications Aspirin (Aspirin 81 Mg Chew) 324 mg PO X1 ONE Stop: 07/17/25 22:44 Last Admin: 07/17/25 23:19 Dose: Not Given Aspirin (Aspirin 81 Mg Chew) 162 mg PO X1 ONE Stop: 07/17/25 23:18 Last Admin: 07/17/25 23:24 Dose: 162 mg Sodium Chloride (Ns) 1,000 mls @ 999 mls/hr IV .Q1H1M ONE Stop: 07/18/25 09:07 Last Admin: 07/18/25 08:33 Dose: 999 mls/hr Labetalol HCl (Labetalol Inj 5 Mg/Ml Vial 20 Ml) 5 mg IVP X1 ONE Stop: 07/17/25 22:54 Last Admin: 07/17/25 23:37 Dose: 5 mg Morphine Sulfate (Morphine Sulf Inj 4 Mg/Ml Vial) 4 mg IVP X1 ONE Stop: 07/17/25 22:46 Last Admin: 07/17/25 23:29 Dose: 4 mg Morphine Sulfate (Morphine Sulf Inj 4 Mg/Ml Vial) 4 mg IVP X1 ONE Stop: 07/18/25 07:30 Last Admin: 07/18/25 08:09 Dose: 4 mg Ondansetron HCl (Ondansetron Inj 2 Mg/Ml Inj 2 Ml) 4 mg IVP Q1HR PRN PRN Reason: PERSISTENT NAUSEA OR VOMITING Last Admin: 07/18/25 08:08 Dose: 4 mg Pantoprazole Sodium (Pantoprazole Inj 40 Mg Vial) 40 mg IVP X1 ONE Stop: 07/17/25 22:57 Last Admin: 07/17/25 23:26 Dose: 40 mg Prochlorperazine Edisylate (Prochlorperazine Inj 5 Mg/Ml Vial 2 Ml) 5 mg IV X1 ONE; Protocol Stop: 07/17/25 22:45 Last Admin: 07/17/25 23:31 Dose: 5 mg Assessment & Plan Plan Alexei Quesada is a [place]ian-speaking 65-year-old male with a PMH of chronic alcohol dependence (quit in 2018) and polysubstance abuse who presented on 07/17 with a chief complaint of nausea and progressively worsening dysphagia. Patient was admitted for the work-up and management of esophageal obstruction concerning for possible malignancy. GI was consulted and is closely following the case. #Esophageal obstruction 2/2 distal esophageal wall thickening, differentials include malignancy versus esophagitis #Dysphagia Per interview by senior residents, patient reports that for the past 6 years he has been experiencing dysphagia to solids which has progressively worsened Patient endorsed that, yesterday, he experienced extreme retrosternal chest pain with an episode of vomiting On physical exam, bitemporal wasting and severe cachexia were noted 07/18 chest CTA showed an abnormal esophagus noted to be fluid-filled with significant wall thickening distally especially at the gastroesophageal junction In the setting of the above history and findings with patient's significant history of chronic smoking and alcohol use, there is concern for malignancy Dx: -07/18 EGD completed, showed ___ Rx: -IV Protonix 80 mg x 1 -IV octreotide drip for possible esophageal varices -IV ceftriaxone 1 g qD for prophylaxis [07/18--] -Head of bed elevation of 30 degrees -Aspiration precautions -GI consulted, appreciate recommendations #Acute blood loss microcytic anemia 2/2 GI bleed for investigation 07/17 admission hemoglobin 8.8 (MCV 69, RDW 46.6) 07/18 Hgb down-trended from 8.8->6.8 Dx: -Ordered iron panel, showed ___ Rx: -pRBC transfusion x 1 (with post H&H) -Type and screen ordered -Transfuse if Hgb<7 -CTM CBC #Protein calorie malnutrition #Cachexia #Weight loss for investigation Progressive weight loss over a period of 6 years with associated dysphagia Physical exam notable for bitemporal wasting and severe cachexia Dx: -07/18 lipid panel ordered, showed ___ -07/18 hemoglobin A1c ordered, showed ___ -Follow up on EGD findings as above Rx: -Referrals for nutrition, utilities and director of social services #Hx of chronic nicotine dependence #Hx of methamphetamine use #Hx of chronic alcohol use, quit in 2018 Patient reports the following history: drank an average of 30 beers per day from 1980 to 2017, smoked an average of a pack a day from the age of 17 until now, started using methamphetamine 20 years ago and reports that his most recent use was last night Admission UDS (+) for opiates and amphetamines/methamphetamines. Rx: -Topical nicotine patch 21 mg qD -Oral care as needed #Hypertension 07/17 admission BP 171/110 Normotensive now Rx: -IV labetalol 10 mg q4HR prn for SBP>180 or DBP>120 Hospital Management: Disposition: Admitted to Tele for the work-up and management of esophageal obstruction concerning for possible malignancy Diet: NPO GI Prophylaxis: IV Protonix Bowel Prophylaxis: None DVT Prophylaxis: SCDs CODE STATUS: Full Code I have examined the patient and conferred with my attending, Dr. Kasper, and my senior resident, Dr. Pineda, regarding them. Erik Velázquez DO PGY-1 Internal Medicine Attending Provider Attestation/Addendum I or my resident physicians have discussed care with the ED physician and I have made the decision to admit. I have discussed and was present for the essential components of the history, physical examination, diagnosis, and treatment plan with the resident. I agree with the patient's care as documented by the resident and amended herein by me. Tam Kasper DO. Although this document has been carefully reviewed, there may still be some phonetic and other typographical errors. These errors are purely grammatical due to imperfections in the software program and should not be construed in any way to compromise the substance of the patient's medical care during this visit.
[2025-07-18] MEDS: cefTRIAXone/D5w 1gm IV premix 1 GM/50 ML BAG IV (14:09)
[2025-07-18 14:18] LABS: Basophils # (Auto) 0.1 Thou/mm3 (0.0-0.2); Basophils % (Auto) 1 % (0-2.5); Eosinophils # (Auto) 0.2 Thou/mm3 (0.0-0.5); Eosinophils % (Auto) 4 % (0-10); Hematocrit 23.6 % (41.0-53.0); Immature Granulocytes Auto 0.02 Thou/mm3 (0.00-0.00); Lymphocytes # (Auto) 0.6 Thou/mm3 (1.0-4.8); Lymphocytes % (Auto) 10 % (10-50); Mean Corpuscular HGB Conc 28.8 g/dl (31.0-37.0); Mean Corpuscular Hemoglobin 19.9 pg (25.0-35.0); Mean Corpuscular Volume 69 fL (80-100); Monocytes # (Auto) 0.3 Thou/mm3 (0.0-0.8); Monocytes % (Auto) 5 % (0-12); Neutrophils # (Auto) 5.0 Thou/mm3 (1.8-7.7); Neutrophils % (Auto) 81 % (37-80); Nucleated Red Blood Cell # 0.00 Thou/mm3 (0.00-0.00); Nucleated Red Blood Cell % 0 /100 WBC (0); Platelet Count 416 Thou/mm3 (140-440); RDW Standard Deviation 46.5 fL (35.1-43.9); Red Blood Count 3.42 Miln/mm3 (4.50-5.90); White Blood Count 6.2 Thou/mm3 (3.8-10.6)
[2025-07-18 14:39] LABS: Hemoglobin 6.8 g/dL (13.5-16.0)
[2025-07-18 14:48] LABS: Alanine Aminotransferase < 7 U/L (10-49); Albumin, Serum 3.5 gm/dL (3.4-4.8); Albumin/Globulin Ratio 1.7 (1.2-2.2); Alkaline Phosphatase 71 U/L (46-116); Anion Gap 7 (7-16); Aspartate Amino Transferase 11 U/L (0-34); BUN/Creatinine Ratio 21 Ratio (12-20); Bilirubin,Total 0.3 mg/dL (0.3-1.2); Blood Urea Nitrogen 19 mg/dL (9-23); Calcium 9.0 mg/dL (8.3-10.6); Calcium (Corrected) 9.4 mg/dL (8.5-10.1); Carbon Dioxide 30.0 mMol/L (20.0-31.0); Chloride 103 mMol/L (98-107); Creatinine (Component) 0.9 mg/dL (0.6-1.3); Estimated Creatinine Clearance 70.8 mL/min (>60); Globulin 2.1 gm/dL (2.3-3.5); Glucose 93 mg/dL (74-106); Osmolality,Calculated 281 (275-295); Potassium 4.3 mMol/L (3.4-5.1); Sodium 140 mMol/L (136-145); Total Protein 5.6 gm/dL (5.7-8.2); eGFR > 60 See Note
[2025-07-18 15:51] LABS: Hepatitis A Antibody IgM Non Reactive (Non React); Hepatitis B Core Antibody IgM Non Reactive (Non React); Hepatitis B Surface Antigen Non Reactive (Non React); Hepatitis C Antibody Non Reactive (Non React)
[2025-07-18] MEDS: OCTREOTIDE ACET INJ 50 mCg/ML VIAL IV (16:59)
[2025-07-18] MEDS: OCTREOTIDE ACET INJ 1,000 MCG in SODIUM CHLORIDE 0.9% 100 ML 5.1 MCG IV (17:00)
--- NOTE | 2025-07-18 18:50 | ESCONSULT_ITS ---
HPI Data of Consult Requesting Physician: David Kasper DO Admitting Provider: David Kasper DO Attending Provider: David Kasper DO Primary Care Provider: Physician No Primary/Family Consult Narrative Reason for consult: Dysphagia History of present illness: HPI: A 65-year-old male patient known case of Polysubstance use disorder, remote history of alcohol use disorder, presented to the ED due to progressive chest pain. Patient reported that the chest pain located at the epigastric area and also also reported that the pain was radiating to the back. Patient denied any shortness of breath however he reported that over the past 6 years he has been having difficulty swallowing that is worsening over time. During this time he reported that multiple times he feels that the food get into the wrong pipe . He also reported multiple episodes of having clear fluid regurgitation from his nose and his throat. He reported that his dysphagia is for solid and liquid food with no alleviating or worsening symptoms. Patient reported that he has noticed that he has weight loss. Patient denied any constipation, palpitation, shortness of breath, headaches blurry vision or localized weakness. At the ED patient was found to have hypertensive with blood pressure of 171/110, pulse rate of 94, respiratory rate of 17 and temperature and room saturation within normal limits. CBC showed hemoglobin level of 8.8, normal WBCs and platelets. CT angio of the chest showed Multiple thyroid nodules, COPD, and fluid-filled esophagus with significant wall thickening especially at the gastroesophageal junction. It was negative for thoracic aortic aneurysm or dissection and was negative for pulmonary embolism. PMH:as above Social hx: Alcohol:Sober since 2018 Tobacco:15cigarates/day Illicit drugs:Methamphetamin cc:: cc: David Kasper DO Review of Systems Review of Systems Systems Reviewed: All systems reviewed, normal except as documented Exam Vital Signs Temp Pulse Resp BP Pulse Ox O2 Del Method 97.5 F 76 16 128/65 100 Room Air 07/18/25 18:33 07/18/25 18:33 07/18/25 18:33 07/18/25 18:33 07/18/25 18:33 07/18/25 15:48 Narrative Exam GEN: AOx3, somehow lethargic, able to speak full sentences, temporal muscle wasting, metacarpal muscle wasting HEENT: NC/AC, oral mucosa dry, neck supple CVS: RRR, S1-S2 present, no murmurs appreciated RESP: CTAB GI: soft,non distended, non tender, NBS MSK: able to move all 4 limbs, no lower extremity edema SKIN: warm and dry ACID BLEACHER: CN II-XII and Sensation grossly intact. Results Labs 07/18/25 14:00 07/18/25 14:00 Labs: Short CBC 07/17/25 07/18/25 Range/Units 22:56 14:00 WBC 10.3 6.2 (3.8-10.6) Thou/mm3 Hgb 8.8 L 6.8 L* D (13.5-16.0) g/dL Hct 30.0 L 23.6 L (41.0-53.0) % Plt Count 574 H 416 D (140-440) Thou/mm3 BMP 07/17/25 07/18/25 22:56 14:00 Sodium 138 140 Potassium 4.0 4.3 Chloride 98 103 Carbon Dioxide 31.6 H 30.0 BUN 15 19 Creatinine 1.2 0.9 Glucose 147 H 93 D Calcium 10.6 9.0 D Cardiac Enzymes 07/17/25 Range/Units 22:56 Troponin I < 0.020 (0.0-0.045) ng/mL Liver Function 07/17/25 07/18/25 Range/Units 22:56 14:00 Total Bilirubin 0.3 0.3 (0.3-1.2) mg/dL AST 14 11 (0-34) U/L ALT < 7 L < 7 L (10-49) U/L Alkaline Phosphatase 94 71 D (46-116) U/L Albumin 4.7 3.5 D (3.4-4.8) gm/dL Urine 07/18/25 Range/Units 03:47 Urine Color Yellow (Lt Yel-Yel) Urine Clarity Turbid A (Clear/Hazy) Urine pH 6.0 (5.0-7.0) Ur Specific [place] 1.028 (1.001-1.035) Urine Protein 1+ A (Neg - Trace) Urine Glucose (UA) Negative (Negative) Quality Measures Quality Measures none Medications Home Medications and Allergies Home Medications ?Medication ?Instructions ?Recorded ?Confirmed ?Type No Known Home Medications 07/18/2506/23 History Allergies Allergy/AdvReac Type Severity Reaction Status Date / Time No Known Allergies Allergy Verified 07/17/25 23:15 Visit Medications Hydromorphone HCl (Hydromorphone Inj 2 Mg/Ml Vial) 1 mg IVP Q6HR PRN PRN Reason: BREAKTHROUGH PAIN (SEVERE)7-10 Stop: 07/23/25 13:24 Ceftriaxone Sodium/Dextrose (Rocephin/D5w 1gm Iv Premix) 1 gm in 50 mls @ 100 mls/hr IV QDAY [facility] Stop: 07/25/25 13:47 Last Admin: 07/18/25 14:09 Dose: 100 mls/hr Octreotide Acetate 1,000 mcg/ (Sodium Chloride) 102 mls @ 5.1 mls/hr IV .Q20H [facility]; Protocol Stop: 07/23/25 16:22 Last Admin: 07/18/25 17:00 Dose: 50 mcg/hr, 5.1 mls/hr Labetalol HCl (Labetalol Inj 5 Mg/Ml Vial 20 Ml) 10 mg IVP Q4HR PRN PRN Reason: Hypertension Stop: 08/17/25 13:23 Morphine Sulfate (Morphine Sulf Inj 4 Mg/Ml Vial) 2 mg IVP Q4HR PRN PRN Reason: PAIN SCALE 7-10 (Severe Stop: 07/23/25 07:57 Nicotine (Nicotine Patch 21 Mg/24 Hr Patch.Td24) 21 mg TOP QDAY [facility] Stop: 08/17/25 08:59 Last Admin: 07/18/25 08:32 Dose: 21 mg Pantoprazole Sodium (Pantoprazole Inj 40 Mg Vial) 40 mg IVP BID [facility] Stop: 08/18/25 08:59 Discontinued Medications Aspirin (Aspirin 81 Mg Chew) 324 mg PO X1 ONE Stop: 07/17/25 22:44 Last Admin: 07/17/25 23:19 Dose: Not Given Aspirin (Aspirin 81 Mg Chew) 162 mg PO X1 ONE Stop: 07/17/25 23:18 Last Admin: 07/17/25 23:24 Dose: 162 mg Heparin Sodium (Porcine) (Heparin Sod Inj 5000 Unit/Ml Vial) 5,000 unit SC Q8HR [facility] Stop: 08/01/25 08:14 Last Admin: 07/18/25 13:29 Dose: 5,000 unit Sodium Chloride (Ns) 1,000 mls @ 999 mls/hr IV .Q1H1M ONE Stop: 07/18/25 09:07 Last Admin: 07/18/25 08:33 Dose: 999 mls/hr Labetalol HCl (Labetalol Inj 5 Mg/Ml Vial 20 Ml) 5 mg IVP X1 ONE Stop: 07/17/25 22:54 Last Admin: 07/17/25 23:37 Dose: 5 mg Morphine Sulfate (Morphine Sulf Inj 4 Mg/Ml Vial) 4 mg IVP X1 ONE Stop: 07/17/25 22:46 Last Admin: 07/17/25 23:29 Dose: 4 mg Morphine Sulfate (Morphine Sulf Inj 4 Mg/Ml Vial) 4 mg IVP X1 ONE Stop: 07/18/25 07:30 Last Admin: 07/18/25 08:09 Dose: 4 mg Octreotide Acetate (Octreotide Acet Inj 50 Mcg/Ml Vial) 50 mcg IV X1 ONE Stop: 07/18/25 16:22 Last Admin: 07/18/25 16:59 Dose: 50 mcg Ondansetron HCl (Ondansetron Inj 2 Mg/Ml Inj 2 Ml) 4 mg IVP Q1HR PRN PRN Reason: PERSISTENT NAUSEA OR VOMITING Last Admin: 07/18/25 08:08 Dose: 4 mg Pantoprazole Sodium (Pantoprazole Inj 40 Mg Vial) 40 mg IVP X1 ONE Stop: 07/17/25 22:57 Last Admin: 07/17/25 23:26 Dose: 40 mg Pantoprazole Sodium (Pantoprazole Inj 40 Mg Vial) 80 mg IVP X1 ONE Stop: 07/18/25 16:18 Last Admin: 07/18/25 17:01 Dose: 80 mg Prochlorperazine Edisylate (Prochlorperazine Inj 5 Mg/Ml Vial 2 Ml) 5 mg IV X1 ONE; Protocol Stop: 07/17/25 22:45 Last Admin: 07/17/25 23:31 Dose: 5 mg Assessment & Plan Plan Summary:A 65-year-old male patient known case of Polysubstance use disorder, remote history of alcohol use disorder, presented to the ED due to progressive chest pain. Patient reported that the chest pain located at the epigastric area and also also reported that the pain was radiating to the back. Patient denied any shortness of breath however he reported that over the past 6 years he has been having difficulty swallowing that is worsening over time. Patient was admitted due to failure to thrive. #Painful dysphagia #? Esophageal cancer rule out #Failure to thrive Patient reported history of dysphagia for 6 years, recently he became unable to tolerate most of his diet and he has multiple episodes of regurgitation through his mouth and nose. He reported multiple episodes of choking. He came to the ED due to chest pain that is associated with his dysphagia. Patient reported decreased oral intake secondary to his condition. CT scan showed esophageal wall thickening, fluid-filled esophagus, esophageal malignancy cannot be ruled out at this time. Patient noted to have severe muscle wasting especially in the temporal area and intermetacarpal muscles. Patient has multiple risk factors to developed esophageal malignancy including smoking, alcohol use disorder, chronic dysphagia Plan ? IV fluid management ? Keep the patient n.p.o. due to the high risk of aspiration ? Aspiration precautions ? Possible EGD today with possible dilatation and/or biopsy ? Dietitian consultation ? Speech evaluation ? Daily CBC, CMP, magnesium and phosphate monitoring to avoid refeeding syndrome ? Thiamine daily, vitamin B12, Folic acid daily #COPD, radiological finding #Polysubstance use disorder Patient reported smoking for many years. He reported that he took at home using would as he does not have stable housing. Patient reported methamphetamine use disorder. Plan ? Follow primary team recommendations Thank you for your consultation, please do not hesitate to reach out if you have any question or concern - Patient's plan and care discussed with my attending, Dr. Jayson Pardo MD Internal Medicine PGY-3 Attending Provider Attestation/Addendum Patient personally examined by me Laboratory data reviewed as well as the CT scan of the chest reviewed Patient has some abnormality in the distal esophagus will be evaluated via fiberoptic esophagogastroduodenoscopy with possible biopsies possible esophageal dilatation possible other therapeutic intervention and biopsies under intravenous moderate sedation Consent obtained and we will proceed with the procedure Thank you very much for the opportunity to participate in care of this patient
[2025-07-18 22:18] LABS: Hematocrit 25.6 % (41.0-53.0)
[2025-07-18 22:24] LABS: Hemoglobin 7.7 g/dL (13.5-16.0)
[2025-07-19] VITALS (7 sets, daily range): BP systolic 116–140; BP diastolic 63–88; PULSE 69–82; RESP 12–28; TEMP 36.4–36.8; O2SAT 96–100; BMI 20.5; BMI 20.9
[2025-07-19 06:02] LABS: Basophils # (Auto) 0.1 Thou/mm3 (0.0-0.2); Basophils % (Auto) 2 % (0-2.5); Eosinophils # (Auto) 0.3 Thou/mm3 (0.0-0.5); Eosinophils % (Auto) 8 % (0-10); Hematocrit 26.1 % (41.0-53.0); Immature Granulocytes Auto 0.01 Thou/mm3 (0.00-0.00); Lymphocytes # (Auto) 0.8 Thou/mm3 (1.0-4.8); Lymphocytes % (Auto) 18 % (10-50); Mean Corpuscular HGB Conc 29.9 g/dl (31.0-37.0); Mean Corpuscular Hemoglobin 21.0 pg (25.0-35.0); Mean Corpuscular Volume 70 fL (80-100); Monocytes # (Auto) 0.2 Thou/mm3 (0.0-0.8); Monocytes % (Auto) 6 % (0-12); Neutrophils # (Auto) 2.7 Thou/mm3 (1.8-7.7); Neutrophils % (Auto) 66 % (37-80); Nucleated Red Blood Cell # 0.00 Thou/mm3 (0.00-0.00); Nucleated Red Blood Cell % 0 /100 WBC (0); Platelet Count 359 Thou/mm3 (140-440); RDW Standard Deviation 47.8 fL (35.1-43.9); Red Blood Count 3.71 Miln/mm3 (4.50-5.90); White Blood Count 4.1 Thou/mm3 (3.8-10.6)
[2025-07-19 06:05] LABS: Hemoglobin 7.8 g/dL (13.5-16.0)
[2025-07-19 06:19] LABS: Iron 117 mcg/dL (65-175); Percent Iron Saturation 33 % (20-55); Total Iron Binding Capacity 346 mcg/dL (250-425); Unsaturated Iron Binding 229 (225-295)
[2025-07-19 06:35] LABS: Glucose Estimated Average 117 mg/dL (80-131); Hemoglobin A1C 5.7 % Hgb (4.8-6.0)
[2025-07-19 06:37] LABS: Alanine Aminotransferase < 7 U/L (10-49); Albumin, Serum 3.6 gm/dL (3.4-4.8); Albumin/Globulin Ratio 2.1 (1.2-2.2); Alkaline Phosphatase 71 U/L (46-116); Anion Gap 10 (7-16); Aspartate Amino Transferase 12 U/L (0-34); BUN/Creatinine Ratio 18 Ratio (12-20); Bilirubin,Total 0.6 mg/dL (0.3-1.2); Blood Urea Nitrogen 16 mg/dL (9-23); Calcium 9.2 mg/dL (8.3-10.6); Calcium (Corrected) 9.5 mg/dL (8.5-10.1); Carbon Dioxide 28.3 mMol/L (20.0-31.0); Cardiac Risk Estimate 2.6 RATIO (4.0-6.7); Chloride 102 mMol/L (98-107); Cholesterol 102 mg/dL (132-200); Creatinine (Component) 0.9 mg/dL (0.6-1.3); Estimated Creatinine Clearance 71.8 mL/min (>60); Globulin 1.7 gm/dL (2.3-3.5); Glucose 99 mg/dL (74-106); HDL Cholesterol 40 mg/dL (40-60); LDL Cholesterol,Calculated 43 mg/dL (0-130); Magnesium 2.1 mg/dL (1.6-2.6); Osmolality,Calculated 280 (275-295); Phosphorous 3.0 mg/dL (2.4-5.1); Potassium 4.3 mMol/L (3.4-5.1); Sodium 140 mMol/L (136-145); Total Protein 5.3 gm/dL (5.7-8.2); Triglycerides 93 mg/dL (30-150); eGFR > 60 See Note
--- NOTE | 2025-07-19 09:44 | PC.SS ---
Patient Alexei Quesada is a 65 Year old male admitted for Esophageal obstruction, intractable nausea. SS met with patient at bedside to discuss discharge planning and verify demographic information. patient reports he lives alone. Patient Reports he is able to complete all ADL's independently Patient does not utilize any source of DME to assist with ambulation. Patient reports his surrogate decision maker is his friend, Sophie [phone]. Patient reports he does not have PCP. SS provided resources to patient. Team A informed SS that patient would need resources. At time of discharge patient will discharge back home, SS will need to assist with transportation. Discharge plan: Home Next of kin: Friend, Sophie
[2025-07-19 10:26] LABS: HIV (1&2) Antibody Rapid Non-Reactive
--- NOTE | 2025-07-19 10:34 | ESPR_ITS ---
<Statement entered by Ridge Pineda MD - 07/20/25 07:58> I saw and examined patient personally and supervised PGY 1 resident, Dr. Velázquez With formulating a management plan. I agree with the documentation with the exceptions as listed below. Patient underwent EGD which showed esophageal ulcers and esophageal edema in mid to distal esophagus along with gastritis. Biopsies were taken. Patient was started on dysphagia diet. Gastroenterology, Dr. Tyler recommended Reglan 5 mg p.o. twice daily along with close follow-up and [facility] outpatient for biopsy results. Patient will be monitored overnight for signs of refeeding syndrome. Once clinically stable, anticipate discharge within next 24 hours. Plan of care discussed with Attending Dr. Moustapha Pineda MD PGY 2 Disclaimer: This note was dictated by speech recognition. Minor errors in school counsellor may be present due to voice recognition software. Documentation for date of: 07/19/25 Subjective Subjective Interval history: No overnight events. Patient was examined at bedside; they appear A&Ox4 and in NAD. Vitals/labs today significant for Hgb 7.8. Iron panel was WNL. Patient's EGD from yesterday, 07/18, showed esophageal ulcers oozing blood, entire mid and distal esophagus is ulcerated causing edema but no strictures, and gastritis characterized by erythema. Biopsies have been obtained of the lower 1/3 of the esophagus, the gastric cardia, and the gastric antrum. Patient will be continued on IV ceftriaxone for his possible UTI (will be discharged with PO nitrofurantoin once appropriate). Plan Updates: -Discontinued octreotide drip -Ordered HIV panel, results pending Exam Vital Signs Temp Pulse Resp BP Pulse Ox O2 Del Method O2 Flow Rate 97.7 F 72 20 140/82 H 97 Room Air 2 07/19/25 07:54 07/19/25 07:54 07/19/25 07:54 07/19/25 07:54 07/19/25 07:54 07/19/25 07:54 07/18/25 21:06 Narrative Exam General: Cachectic-appearing, somnolent. A/O x3, no acute distress. Skin: Warm, dry, intact, no obvious rash. Head: Normocephalic, atraumatic. Eyes: Slight conjunctival pallor. PERRL, EOMI. Anicteric, vision grossly intact. Ears: No ear pain, no ear discharge, Hearing grossly intact. Nose: No nasal discharge. Mouth/Throat: Poor dentition. Oral mucosa moist. No obvious lesions in oropharynx. Cardiovascular: Slightly tachycardic rate and normal rhythm, no murmur, no JVD or carotid bruits. +S1/S2. Respiratory: Pectus excavatum noted. Prolonged expiratory phase. Bilateral lungs are clear to auscultation, respirations unlabored, no crackles, no wheezing. No accessory muscle use. Gastrointestinal: Mild RUQ tenderness to palpation. Soft, non-distended, no palpable masses. No guarding or rebound tenderness. Peristalsis present. Extremities: Symmetrical, no significant deformities. No edema, no cyanosis, no clubbing. 2+ radial pulse bilaterally, 2+ posterior tibial pulse bilaterally. Neuro: No focal deficits observed. Conversant, moving all extremities. No overt cerebellar signs/incoordination. Psychiatric: Guarded, flat affect. Objective Labs 07/20/25 05:04 07/20/25 05:04 Labs: Laboratory Results - last 24 hr 07/18/25 07/18/25 07/18/25 08:27 14:00 21:29 WBC 6.2 RBC 3.42 L Hgb 6.8 L* D 7.7 L Hct 23.6 L 25.6 L MCV 69 L MCH 19.9 L MCHC 28.8 L RDW Std Deviation 46.5 H Plt Count 416 D Neut % (Auto) 81 H Lymph % (Auto) 10 [place] % (Auto) 5 Eos % (Auto) 4 Baso % (Auto) 1 Neut # (Auto) 5.0 Lymph # (Auto) 0.6 L [place] # (Auto) 0.3 Eos # (Auto) 0.2 Baso # (Auto) 0.1 Immature Gran # (Auto) 0.02 H Absolute Nucleated RBC 0.00 Immature Gran % 0 Nucleated RBC % 0 Sodium 140 Potassium 4.3 Chloride 103 Carbon Dioxide 30.0 Anion Gap 7 BUN 19 Creatinine 0.9 Estim Creat Clear Calc 70.8 eGFR > 60 BUN/Creatinine Ratio [address] Glu mg/dL Hemoglobin A1c Calculated Osmolality 281 Calcium 9.0 D Corrected Calcium 9.4 Phosphorus Magnesium Iron TIBC Iron Saturation Unsat Iron Binding Total Bilirubin 0.3 AST 11 ALT < 7 L Alkaline Phosphatase 71 D Total Protein 5.6 L Albumin 3.5 D Globulin 2.1 L Albumin/Globulin Ratio 1.7 Triglycerides Cholesterol LDL Cholesterol, Calc HDL Cholesterol Cholesterol/HDL Ratio Hepatitis A IgM Ab Non Reactive Hep Bs Antigen Non Reactive Hep B Core IgM Ab Non Reactive Hepatitis C Antibody Non Reactive HIV 1&2 Antibody Rapid Blood Type A Positive Antibody Screen NEGATIVE Crossmatch See Detail Blood Bank Wristband ID Yes 07/19/25 05:26 WBC 4.1 RBC 3.71 L Hgb 7.8 L Hct 26.1 L MCV 70 L MCH 21.0 L MCHC 29.9 L RDW Std Deviation 47.8 H Plt Count 359 D Neut % (Auto) 66 Lymph % (Auto) 18 [place] % (Auto) 6 Eos % (Auto) 8 Baso % (Auto) 2 Neut # (Auto) 2.7 Lymph # (Auto) 0.8 L [place] # (Auto) 0.2 Eos # (Auto) 0.3 Baso # (Auto) 0.1 Immature Gran # (Auto) 0.01 H Absolute Nucleated RBC 0.00 Immature Gran % 0 Nucleated RBC % 0 Sodium 140 Potassium 4.3 Chloride 102 Carbon Dioxide 28.3 Anion Gap 10 BUN 16 Creatinine 0.9 Estim Creat Clear Calc 71.8 eGFR > 60 BUN/Creatinine Ratio [address] Glu mg/dL 117 Hemoglobin A1c 5.7 Calculated Osmolality 280 Calcium 9.2 Corrected Calcium 9.5 Phosphorus 3.0 Magnesium 2.1 Iron 117 TIBC 346 Iron Saturation 33 Unsat Iron Binding 229 Total Bilirubin 0.6 AST 12 ALT < 7 L Alkaline Phosphatase 71 Total Protein 5.3 L Albumin 3.6 Globulin 1.7 L Albumin/Globulin Ratio 2.1 Triglycerides 93 Cholesterol 102 L LDL Cholesterol, Calc 43 HDL Cholesterol 40 Cholesterol/HDL Ratio 2.6 L Hepatitis A IgM Ab Hep Bs Antigen Hep B Core IgM Ab Hepatitis C Antibody HIV 1&2 Antibody Rapid Non-Reactive Blood Type Antibody Screen Crossmatch Blood Bank Wristband ID Quality Measures Quality Measures none Assessment & Plan Assessment Current Active Medications: Generic Name Dose Route Start Last Admin Trade Name Freq PRN Reason Stop Dose Admin Folic Acid 1 mg 07/19/25 09:00 Folic Acid Inj 1 Mg/0.2 Ml IVP 08/18/25 08:59 QDAY ALAN Hydromorphone HCl 1 mg 07/18/25 13:25 Hydromorphone Inj 2 Mg/Ml Vial IVP 07/23/25 13:24 Q6HR PRN BREAKTHROUGH PAIN (SEVERE)7-10 Ceftriaxone Sodium/Dextrose 1 gm in 50 mls @ 100 mls/hr 07/18/25 13:48 07/18/25 14:09 Rocephin/D5w 1gm Iv Premix IV 07/25/25 13:47 100 mls/hr QDAY ALAN Administration Labetalol HCl 10 mg 07/18/25 13:24 Labetalol Inj 5 Mg/Ml Vial 20 Ml IVP 08/17/25 13:23 Q4HR PRN Hypertension Metoclopramide HCl 5 mg 07/19/25 21:00 Metoclopramide 5 Mg Tablet PO 08/18/25 20:59 BID ALAN Morphine Sulfate 2 mg 07/18/25 07:58 Morphine Sulf Inj 4 Mg/Ml Vial IVP 07/23/25 07:57 Q4HR PRN PAIN SCALE 7-10 (Severe Nicotine 21 mg 07/18/25 09:00 07/18/25 08:32 Nicotine Patch 21 Mg/24 Hr Patch.Td24 TOP 08/17/25 08:59 21 mg QDAY ALAN Administration Pantoprazole Sodium 40 mg 07/19/25 09:00 Pantoprazole Inj 40 Mg Vial IVP 08/18/25 08:59 BID ALAN Thiamine HCl 100 mg 07/19/25 09:00 Thiamine Inj 100 Mg/Ml Vial 2 Ml IVP 08/18/25 08:59 QDAY ALAN Ralph Quesada is a Amharic-speaking 65-year-old male with a PMH of chronic alcohol dependence (quit in 2018) and polysubstance abuse who presented on 07/17 with a chief complaint of nausea and progressively worsening dysphagia. Patient was admitted for the work-up and management of esophageal obstruction concerning for possible malignancy. GI was consulted and is closely following the case. #Esophageal obstruction 2/2 distal esophageal wall thickening #Dysphagia Per interview by senior residents, patient reports that for the past 6 years he has been experiencing dysphagia to solids which has progressively worsened Patient endorsed that, yesterday, he experienced extreme retrosternal chest pain with an episode of vomiting On physical exam, bitemporal wasting and severe cachexia were noted 07/18 chest CTA showed an abnormal esophagus noted to be fluid-filled with significant wall thickening distally especially at the gastroesophageal junction In the setting of the above history and findings with patient's significant history of chronic smoking and alcohol use, there is concern for malignancy Dx: -07/18 EGD completed, showed esophageal ulcers oozing blood, entire mid and distal esophagus is ulcerated causing edema but no strictures, and gastritis characterized by erythema. Biopsies have been obtained of the lower 1/3 of the esophagus, the gastric cardia, and the gastric antrum. Rx: -IV ceftriaxone 1 g qD for prophylaxis [07/18--] -Head of bed elevation of 30 degrees -Aspiration precautions -GI consulted, appreciate recommendations #Acute blood loss microcytic anemia 2/2 GI bleed for investigation 07/17 admission hemoglobin 8.8 (MCV 69, RDW 46.6) Type and screen completed Dx: -Ordered iron panel, WNL Rx: -Transfuse if Hgb<7 -CTM CBC #Protein calorie malnutrition #Cachexia #Weight loss for investigation Progressive weight loss over a period of 6 years with associated dysphagia Physical exam notable for bitemporal wasting and severe cachexia Dx: -07/18 lipid panel ordered, WNL -07/18 hemoglobin A1c ordered, 5.7 Rx: -Referrals for nutrition, utilities and social media director #Hx of chronic nicotine dependence #Hx of methamphetamine use #Hx of chronic alcohol use, quit in 2018 Patient reports the following history: drank an average of 30 beers per day from 1980 to 2017, smoked an average of a pack a day from the age of 17 until now, started using methamphetamine 20 years ago and reports that his most recent use was last night Admission UDS (+) for opiates and amphetamines/methamphetamines. Dx: -Ordered HIV panel, showed ___ Rx: -Topical nicotine patch 21 mg qD -Oral care as needed #Hypertension 07/17 admission BP 171/110 Normotensive now Rx: -IV labetalol 10 mg q4HR prn for SBP>180 or DBP>120 Hospital Management: Disposition: Admitted to [facility] for the work-up and management of esophageal obstruction concerning for possible malignancy Diet: Dysphagia 2 - Mechanical Altered GI Prophylaxis: IV Protonix Bowel Prophylaxis: None DVT Prophylaxis: SCDs CODE STATUS: Full Code I have examined the patient and conferred with my attending, Dr. Gerard, and my senior resident, Dr. Pineda, regarding them. Erik Velázquez, DO PGY-1 Internal Medicine Attending Provider Attestation/Addendum I have seen and examined the patient. I was physically present for the vargas portions of the services provided including history, physical exam, diagnosis, treatment plans and orders. I agree with assessment and plan of care as documented by residents. Patient seen and examined at bedside this morning. Appears comfortable and denies any new complaints. Underwent EGD yesterday evening with GI, was found to have esophageal ulcers and edema along with gastritis likely causing the dysphagia. Started on Reglan 5 mg, Continues to be on pantoprazole, thiamine, folate. Has been started on diet, tolerating well. We will monitor him overnight for oral intake, monitor his hemoglobin level closely, and monitor for electrolyte imbalances/refeeding syndrome. If able to tolerate diet and remained stable, we will plan for discharge in next 24 to 48 hours. Even though this this note was carefully revised there may still be minor errors in school counsellor due to voice recognition software. Corinna Gerard MD
[2025-07-19] MEDS: THIAMINE INJ 100 MG/ML VIAL 2 ML IVP (10:43)
[2025-07-19] MEDS: FOLIC ACID INJ 1 MG/0.2 ML IVP (10:44)
[2025-07-19] MEDS: NICOTINE PATCH 21 MG/24 HR PATCH.TD24 TOP (10:44)
[2025-07-19] MEDS: cefTRIAXone/D5w 1gm IV premix 1 GM/50 ML BAG IV (10:46)
[2025-07-19 11:06] LABS: Free T4 (Free Thyroxine) 1.13 ng/dL (0.89-1.76); Thyroid Stimulating Hormone 0.08 uIU/mL (0.55-4.78)
[2025-07-19] MEDS: MULTIVITAMINS TABLET 1 TAB PO (14:59)
--- NOTE | 2025-07-19 20:30 | PD.IMPROG ---
Documentation for date of: 07/19/25 Subjective Subjective Interval history: Patient evaluated Upper endoscopy showed mid and distal esophageal ulcers Exam Vital Signs Temp Pulse Resp BP Pulse Ox O2 Del Method O2 Flow Rate 97.6 F 78 18 130/72 98 Room Air 2 07/19/25 18:39 07/19/25 18:39 07/19/25 18:39 07/19/25 18:39 07/19/25 18:39 07/19/25 18:39 07/18/25 21:06 Objective Labs 07/19/25 05:26 07/19/25 05:26 Labs: Laboratory Results - last 24 hr 07/18/25 07/18/25 07/19/25 08:27 21:29 05:26 WBC 4.1 RBC 3.71 L Hgb 7.7 L 7.8 L Hct 25.6 L 26.1 L MCV 70 L MCH 21.0 L MCHC 29.9 L RDW Std Deviation 47.8 H Plt Count 359 D Neut % (Auto) 66 Lymph % (Auto) 18 [place] % (Auto) 6 Eos % (Auto) 8 Baso % (Auto) 2 Neut # (Auto) 2.7 Lymph # (Auto) 0.8 L [place] # (Auto) 0.2 Eos # (Auto) 0.3 Baso # (Auto) 0.1 Immature Gran # (Auto) 0.01 H Absolute Nucleated RBC 0.00 Immature Gran % 0 Nucleated RBC % 0 Sodium 140 Potassium 4.3 Chloride 102 Carbon Dioxide 28.3 Anion Gap 10 BUN 16 Creatinine 0.9 Estim Creat Clear Calc 71.8 eGFR > 60 BUN/Creatinine Ratio [address] Glu mg/dL 117 Hemoglobin A1c 5.7 Calculated Osmolality 280 Calcium 9.2 Corrected Calcium 9.5 Phosphorus 3.0 Magnesium 2.1 Iron 117 TIBC 346 Iron Saturation 33 Unsat Iron Binding 229 Total Bilirubin 0.6 AST 12 ALT < 7 L Alkaline Phosphatase 71 Total Protein 5.3 L Albumin 3.6 Globulin 1.7 L Albumin/Globulin Ratio 2.1 Triglycerides 93 Cholesterol 102 L LDL Cholesterol, Calc 43 HDL Cholesterol 40 Cholesterol/HDL Ratio 2.6 L TSH 0.08 L* Free T4 1.13 HIV 1&2 Antibody Rapid Non-Reactive Blood Type A Positive Antibody Screen NEGATIVE Crossmatch See Detail Blood Bank Wristband ID Yes Impressions Impression: Mid and distal esophageal ulceration Continue current management Assessment & Plan Time Spent With Patient Time: Total time spent is greater than 50% in coordination of care (as documented) at patient's floor/unit and/or counseling patient:
[2025-07-19] MEDS: METOCLOPRAMIDE 5 MG TABLET PO (20:51)
[2025-07-20] VITALS: BP 138/76; PULSE 69; RESP 18; TEMP 37.1; O2SAT 99
[2025-07-20 04:00] VITALS: BP 138/76; PULSE 69; RESP 18; TEMP 37.1; O2SAT 99
[2025-07-20] MEDS: MORPHINE SULF INJ 4 MG/ML VIAL 2 MG IVP (04:44)
[2025-07-20 05:36] VITALS: BP 133/76; PULSE 75; RESP 19; TEMP 36.6; O2SAT 99
[2025-07-20 05:37] VITALS: BMI 20.9
[2025-07-20 05:44] LABS: Basophils # (Auto) 0.1 Thou/mm3 (0.0-0.2); Basophils % (Auto) 2 % (0-2.5); Eosinophils # (Auto) 0.5 Thou/mm3 (0.0-0.5); Eosinophils % (Auto) 13 % (0-10); Hematocrit 28.1 % (41.0-53.0); Immature Granulocytes Auto 0.01 Thou/mm3 (0.00-0.00); Lymphocytes # (Auto) 0.8 Thou/mm3 (1.0-4.8); Lymphocytes % (Auto) 22 % (10-50); Mean Corpuscular HGB Conc 29.5 g/dl (31.0-37.0); Mean Corpuscular Hemoglobin 21.2 pg (25.0-35.0); Mean Corpuscular Volume 72 fL (80-100); Monocytes # (Auto) 0.2 Thou/mm3 (0.0-0.8); Monocytes % (Auto) 6 % (0-12); Neutrophils # (Auto) 2.1 Thou/mm3 (1.8-7.7); Neutrophils % (Auto) 57 % (37-80); Nucleated Red Blood Cell # 0.00 Thou/mm3 (0.00-0.00); Nucleated Red Blood Cell % 0 /100 WBC (0); Platelet Count 467 Thou/mm3 (140-440); RDW Standard Deviation 49.6 fL (35.1-43.9); Red Blood Count 3.92 Miln/mm3 (4.50-5.90); White Blood Count 3.6 Thou/mm3 (3.8-10.6)
[2025-07-20 05:47] LABS: Hemoglobin 8.3 g/dL (13.5-16.0)
[2025-07-20 06:15] LABS: Alanine Aminotransferase < 7 U/L (10-49); Albumin, Serum 3.9 gm/dL (3.4-4.8); Albumin/Globulin Ratio 2.2 (1.2-2.2); Alkaline Phosphatase 73 U/L (46-116); Anion Gap 9 (7-16); Aspartate Amino Transferase 12 U/L (0-34); BUN/Creatinine Ratio 13 Ratio (12-20); Bilirubin,Total 0.3 mg/dL (0.3-1.2); Blood Urea Nitrogen 13 mg/dL (9-23); Calcium 9.1 mg/dL (8.3-10.6); Calcium (Corrected) 9.2 mg/dL (8.5-10.1); Carbon Dioxide 29.4 mMol/L (20.0-31.0); Chloride 102 mMol/L (98-107); Creatinine (Component) 1.0 mg/dL (0.6-1.3); Estimated Creatinine Clearance 66.2 mL/min (>60); Globulin 1.8 gm/dL (2.3-3.5); Glucose 113 mg/dL (74-106); Magnesium 2.2 mg/dL (1.6-2.6); Osmolality,Calculated 280 (275-295); Phosphorous 2.7 mg/dL (2.4-5.1); Potassium 3.9 mMol/L (3.4-5.1); Sodium 140 mMol/L (136-145); Total Protein 5.7 gm/dL (5.7-8.2); eGFR > 60 See Note
[2025-07-20 07:39] VITALS: BP 136/70; PULSE 67; RESP 14; TEMP 36.2; O2SAT 97
[2025-07-20 07:43] VITALS: PULSE 93; RESP 30; RESP 94
[2025-07-20] MEDS: MULTIVITAMINS TABLET 1 TAB PO (09:28)
[2025-07-20] MEDS: METOCLOPRAMIDE 5 MG TABLET PO (09:28)
[2025-07-20] MEDS: NICOTINE PATCH 21 MG/24 HR PATCH.TD24 TOP (10:29)
[2025-07-20] MEDS: FOLIC ACID INJ 1 MG/0.2 ML IVP (10:41)
[2025-07-20] MEDS: cefTRIAXone/D5w 1gm IV premix 1 GM/50 ML BAG IV (10:41)
[2025-07-20] MEDS: Milk Of Magnesia Susp 30 ML UDC PO (10:42)
[2025-07-20] MEDS: POLYETHYLENE GLYCOL 17 GM PACKET PO (10:42)
[2025-07-20] MEDS: THIAMINE INJ 100 MG/ML VIAL 2 ML IVP (10:42)
--- NOTE | 2025-07-20 11:19 | ESDS_ITS ---
<Statement entered by Ridge Pineda MD - 07/20/25 20:54> I saw and examined patient personally and supervised PGY 1 resident, Dr. Velázquez with formulating a management plan. I agree with the documentation with the exceptions as listed below. Patient was admitted for dysphagia and retrosternal chest pain. EGD showed mid and distal esophageal ulceration with significant edema. Patient now tolerating p.o. diet and started on pantoprazole 40 mg p.o. twice daily along with metoclopramide 5 Mg p.o. twice daily as per GI recommendations. Recommend outpatient follow-up at [facility] for biopsy results and gastroenterology follow-up with Dr. Tyler. All patient's labs are now returning to baseline. Patient now clinically stable and fit for discharge to home. Plan of care discussed with Attending Dr. Moustapha Pineda MD PGY 2 Disclaimer: This note was dictated by speech recognition. Minor errors in psychologist chief may be present due to voice recognition software. Planned Discharge Date 07/20/25 DS: Providers Provider Date of admission: 07/18/25 07:56 Primary care physician: Physician No Primary/Family Admitting Provider: David Kasper DO Attending Provider on Admission: Corinna Gerard MD Consults: 07/18/25 07:53 Consult to Gastroenterology Stat Comment: esophageal obstruction Consulting Provider: Gregorio Tyler 07/18/25 11:29 Health Equity Referral - Nutrition Routine Comment: Positive screening for nutrition needs. Health Equity Referral - Utilities Routine Comment: Positive screening for utility assistance needs. 07/18/25 19:25 Referral Registered Dietitian Routine Comment: Attending Provider on DC: Corinna Gerard MD Discharging Provider: Erik Velázquez DO DS: Diagnosis Problem List Completed Was Problem List Reviewed/Reconciled?: Yes Hospital Course Hospital Course Hospital course: Summary: Alexei Quesada is a Macedonian-speaking 65-year-old male with a PMH of chronic alcohol dependence (quit in 2018) and polysubstance abuse who presented on 07/17 with a chief complaint of nausea and progressively worsening dysphagia. Patient was admitted for the work-up and management of esophageal obstruction concerning for possible malignancy. ER: In the ED, vitals showed: BP 171/110 HR 94 RR 17 Temp 98.2 SpO2 97% on room air CBC showed hemoglobin 8.8 (MCV 69, RDW 46.6), platelet count 574. Coagulation panel was WNL. CMP showed HCO3 31.6, creatinine 1.2, corrected calcium 10.6. UA showed turbid, acidic urine with pH 6.0, specific gravity 1.028, 1+ protein, positive leukocyte esterase, RBC 5, WBC 41, rare bacteria, and hyaline casts 2. UDS was positive for opiates and amphetamines/methamphetamines. Serological studies negative for hepatitis A, B, and C. 07/17 CXR showed mild prominence of the left ventricle and possible retrocardiac gastric hernia. 07/17 EKG showed normal sinus rhythm of HR 89, incomplete right bundle branch block, left anterior fascicular block, moderate ST depression, and normal QTc 414. 07/18 chest CTA showed multiple thyroid nodules, COPD, and an abnormal esophagus noted to be fluid-filled with significant wall thickening distally especially at the gastroesophageal junction (with recommendations for standard fluoroscopically-guided esophagram to rule out esophageal carcinoma). In the ED, patient was given p.o. aspirin, IV Protonix, IV morphine, IV prochlorperazine edisylate, IV labetalol, IV Zofran, IV octreotide, and 1 L NS bolus. Hospital: During patient's hospital course, he was treated with IV Protonix, IV octreotide, IV ceftriaxone and pRBC transfusions for his suspected GI bleed in the setting of esophageal obstruction and microcytic anemia. On 07/18, he underwent upper endoscopy which showed esophageal ulcers oozing blood, ulceration and edema throughout the entire middle and distal portions of the esophagus, and gastritis characterized by erythema. During his admission, he also had referrals made for nutrition, utilities, and hospital social worker. By 07/20, patient was deemed clinically stabilized and discharged home with instructions emphasizing the importance of outpatient follow-up for his condition. Patient is safe to discharge to home. Further discharge instructions below. - Take antibiotics as below for three more days - You have been started on a medication omeprazole for acid - You have been started on metoclopramide to help you digest food - you have been started on nicotine patch. Stop smoking - You have been started on a vitamin. - Repeat a blood test to see your blood count in 1 week. Do a blood test in 6 weeks to check your thyroid - Follow a bland diet. NO salsa or spicy food - Follow up with Dr Tyler in 2 weeks for biopsy results - Follow up with your primary care physician within 1 week of discharge. If you do not have a primary care physician, please follow up with the [facility] Residents clinic ([phone]) ? If you experience any new, worsening or persistent symptoms either call your primary doctor, or dial 911 or present to the emergency department. - Pacific los antibi?ticos indicados a continuaci?n pranay yoshi d?as m?s. - Se le caro recetado omeprazol para la acidez estomacal. - Se le caro recetado metoclopramida para facilitar la digesti?n. - Se le caro recetado un parche de nicotina. Deje de fumar. - Se le caro recetado un complejo vitam?kt. - Repita un an?lisis de farrah para controlar carias recuento sangu?patrick en reuben semana. Real?cese otro an?lisis de farrah en seis semanas para controlar carias tiroides. - Siga reuben dieta blanda. Evite la salsa y las comidas picantes. - Acuda a reuben carrie con el Dr. Tyler en dos semanas para recibir los resultados de la biopsia. - Acuda a reuben carrie con carias m?dico de cabecera en la semana posterior al jaja. Si no tiene un m?dico de cabecera, comun?quese con la cl?som de residentes del [facility] ([phone]). ? Si presenta alg?n s?ntoma nuevo, un empeoramiento o un s?ntoma persistente, llame a carias m?dico de cabecera, al 911 o acuda al servicio de urgencias. #Esophageal obstruction 2/2 distal esophageal wall thickening, differentials include malignancy versus esophagitis #Dysphagia #Acute blood loss microcytic anemia 2/2 GI bleed for investigation #Protein calorie malnutrition #Cachexia #Weight loss for investigation #Hx of chronic nicotine dependence #Hx of methamphetamine use #Hx of chronic alcohol use, quit in 2018 #Hypertension Status at Discharge Cognitive/Behavioral Status at Discharge: stable Functional Status at Discharge: independent ambulation Overall Status at Discharge: patient is back to baseline Patient's care plan was discussed with my attending, Dr. Gerard, and senior resident, Dr. Pineda. Erik Velázquez, DO Internal Medicine, PGY-1 Time Spent with Patient Time attestation: Total time spent providing and/or coordinating discharge services: 39 min Time spent: Greater than 30 minutes Exam Vital Signs Temp Pulse Resp BP Pulse Ox O2 Del Method O2 Flow Rate 97.1 F 93 30 H 136/70 H 97 Room Air 2 07/20/25 07:39 07/20/25 07:43 07/20/25 07:43 07/20/25 07:39 07/20/25 07:39 07/20/25 07:39 07/20/25 05:36 Narrative Exam General: Cachectic-appearing, somnolent. A/O x3, no acute distress. Skin: Warm, dry, intact, no obvious rash. Head: Normocephalic, atraumatic. Eyes: Slight conjunctival pallor. PERRL, EOMI. Anicteric, vision grossly intact. Ears: No ear pain, no ear discharge, Hearing grossly intact. Nose: No nasal discharge. Mouth/Throat: Poor dentition. Oral mucosa moist. No obvious lesions in oropharynx. Cardiovascular: Slightly tachycardic rate and normal rhythm, no murmur, no JVD or carotid bruits. +S1/S2. Respiratory: Pectus excavatum noted. Prolonged expiratory phase. Bilateral lungs are clear to auscultation, respirations unlabored, no crackles, no wheezing. No accessory muscle use. Gastrointestinal: Mild RUQ tenderness to palpation. Soft, non-distended, no palpable masses. No guarding or rebound tenderness. Peristalsis present. Extremities: Symmetrical, no significant deformities. No edema, no cyanosis, no clubbing. 2+ radial pulse bilaterally, 2+ posterior tibial pulse bilaterally. Neuro: No focal deficits observed. Conversant, moving all extremities. No overt cerebellar signs/incoordination. Psychiatric: Guarded, flat affect. Discharge Plan Plan Patient Disposition: HOME (Self Care) Patient condition on transfer: Stable Care Plan Goals: - Take antibiotics as below for three more days - You have been started on a medication omeprazole for acid - You have been started on metoclopramide to help you digest food - you have been started on nicotine patch. Stop smoking - You have been started on a vitamin. - Repeat a blood test to see your blood count in 1 week. Do a blood test in 6 weeks to check your thyroid - Follow a bland diet. NO salsa or spicy food - Follow up with Dr Tyler in 2 weeks for biopsy results - Follow up with your primary care physician within 1 week of discharge. If you do not have a primary care physician, please follow up with the [facility] Residents clinic ([phone]) ? If you experience any new, worsening or persistent symptoms either call your primary doctor, or dial 911 or present to the emergency department. - Pacific los antibi?ticos indicados a continuaci?n pranay ysohi d?as m?s. - Se le caro recetado omeprazol para la acidez estomacal. - Se le caro recetado metoclopramida para facilitar la digesti?n. - Se le caro recetado un parche de nicotina. Deje de fumar. - Se le caro recetado un complejo vitam?kt. - Repita un an?lisis de farrah para controlar carias recuento sangu?patrick en reuben semana. Real?cese otro an?lisis de farrah en seis semanas para controlar carias tir oides. - Siga reuben dieta blanda. Evite la salsa y las comidas picantes. - Acuda a reuben carrie con el Dr. Tyler en dos semanas para recibir los resultados de la biopsia. - Acuda a reuben carrie con carias m?dico de cabecera en la semana posterior al jaja. Si no tiene un m?dico de cabecera, comun?quese con la cl?som de residentes del [facility] ([phone]). ? Si presenta alg?n s?ntoma nuevo, un empeoramiento o un s?ntoma persistente, llame a carias m?dico de cabecera, al 911 o acuda al servicio de urgencias. Prescriptions/Referrals Prescriptions/Med Rec: New metoclopramide HCl 5 mg Tablet 5 mg PO BID 30 Days Qty: 60 1RF nicotine 21 mg/24 hr Patch 24 Hour 21 mg top QDAY 14 Days Qty: 14 0RF omeprazole 40 mg capsule,delayed release(DR/EC) 40 mg PO BID 30 Days Qty: 60 1RF thiamine HCl (vitamin B1) 100 mg capsule 100 mg PO QDAY 5 Days Qty: 5 0RF amoxicillin-pot clavulanate 500-125 mg tablet 1 tab PO BID 3 Days Qty: 6 0RF polyethylene glycol 3350 [Miralax] 17 gram/dose powder 4 g PO QDAY Qty: 119 0RF multivitamin [Daily Multi-Vitamin] Tablet 1 tab PO QAM 30 Days Qty: 30 0RF folic acid 1 mg tablet 1 mg PO QDAY 30 Days Qty: 30 0RF thiamine HCl (vitamin B1) 100 mg capsule 100 mg PO QDAY 30 Days Qty: 30 0RF Referrals: [facility] [Outside] Gregorio Tyler MD [Physician, Gastroenterology] No Primary/Family,Physician [Primary Care Provider] Outpatient Orders (i.e. Home Health, Labs, Imaging): CBC (Routine) Timeframe: 1 Week Location: Determined by Patient Ordered By: Ridge Pineda Free T4 (Free Thyroxine) (Routine) Timeframe: 6 Weeks Location: Determined by Patient Ordered By: Ridge Pineda Thyroid Stimulating Hormone (Routine) Timeframe: 6 Weeks Location: Determined by Patient Ordered By: Ridge Pineda Patient/Caregiver Discharge Instructions Discharge Activity: as per physical therapy Education Materials: Esophageal Ulcer, Upper GI Endoscopy with Biopsy, Discharge Instructions- Eating ..., ED How to Quit Smoking Print Language: Macedonian Stand Alone Forms: Cherelle Award Info., Patient Portal Info Letter Discharge Order Discharge Orders: Discharge (Routine); Ordered 07/20/25 Ordered By: Ridge Pineda Quality Discharge Quality Measures VTE prophylaxis MD Attestestation MD Attestation I have seen and examined the patient. I was physically present for the vargas portions of the services provided including history, physical exam, diagnosis, treatment plans and orders. I agree with assessment and plan of care as documented by residents. Even though this this note was carefully revised there may still be minor errors in psychologist chief due to voice recognition software. Corinna Gerard MD
[2025-07-20 11:32] VITALS: BP 117/67; PULSE 66; RESP 14; TEMP 36.2; O2SAT 99
--- NOTE | 2025-07-20 12:22 | PC.SS ---
SS follow up note; SS contacted the [facility] to schedule patient in appointment, however did not answer X2. SS left Voicemail with contact number. Patient will discharge today.
== END 2025-07-20 14:39 | disposition home or self-care (01) | DRG 242 ==
LOC: SERX 23:18 → SERHOLD 07-18 08:16 → S2NX 07-18 11:08 → S3SX 07-19 18:37
PROVIDERS: Specialist; Student in an Organized Health Care Education/Training Program; Admitting Provider Student in an Organized Health Care Education/Training Program; Emergency Provider Emergency Medicine; Visit Provider Student in an Organized Health Care Education/Training Program
PROC: 0DB48ZX Excision of Esophagogastric Junction, Via Natural or Artificial Opening Endoscopic, Diagnostic (ICD-10-PCS; CPT 43239; principal; 2025-07-18 15:15)
DX: K22.11 Ulcer of esophagus with bleeding (principal); K22.2 Esophageal obstruction; R07.89 Other chest pain; D62 Acute posthemorrhagic anemia; E46 Unspecified protein-calorie malnutrition; Z68.21 Body mass index [BMI] 21.0-21.9, adult; F17.200 Nicotine dependence, unspecified, uncomplicated; F15.90 Other stimulant use, unspecified, uncomplicated; R64 Cachexia; I10 Essential (primary) hypertension; R62.7 Adult failure to thrive; F10.10 Alcohol abuse, uncomplicated; J44.9 Chronic obstructive pulmonary disease, unspecified; F19.10 Other psychoactive substance abuse, uncomplicated; E04.2 Nontoxic multinodular goiter; R13.10 Dysphagia, unspecified; R10.13 Epigastric pain; K29.70 Gastritis, unspecified, without bleeding; I45.2 Bifascicular block
CPT/HCPCS: 36415; 71045; 71275; 80053; 80061; 80074; 80307; 81001; 83036; 83540; 83550; 83735; 83880; 84100; 84439; 84443; 84484; 85014; 85018; 85025; 85610; 85730; 86703; 86850; 86900; 86901; 86923; 87077; 87086; 87186; 93005; 99283; A4649; J0696; J0780; J1200; J1644; J2250; J2270; J2354; J2405; J2470; J3010; J3411; J3420; J3490; J7030; J7050; P9016; Q9967; A9270; J1920

== ENCOUNTER 2025-07-22 21:56 | Emergency (ER) | payer SELFPAY ==
[2025-07-22 21:59] VITALS: O2SAT 98; BMI 25.7
--- NOTE | 2025-07-22 22:04 | EDNOTE_ITS ---
ED Chest Pain RME/HPI General Chief Complaint: Chest Pain Stated Complaint: CHEST PAIN Time Seen by Provider: 07/22/25 22:04 Arrival date/time: 07/22/25 21:56 RME / HPI RME / HPI narrative: DR. GARCÍA MAIN ED EVALUATION: 65 y/o male with Hx of Methamphetamine Abuse BIBA from a convenient store presents with chest pressure and severe epigastric pain x 2 days. Patient admits to recent methamphetamine use. Patient was seen in ED 5 days ago with the and complaint. Patient was administered ASA 162 mg and 1 Nitro SL. Related Data Previous Rx's ?Medication ?Instructions ?Recorded metoclopramide HCl 5 mg tablet 5 mg PO BID 30 days #60 tabs 07/19/25 nicotine 21 mg/24 hr daily 21 mg top QDAY 14 days #14 ea 07/19/25 transdermal patch omeprazole 40 mg capsule,delayed 40 mg PO BID 1 month #60 caps 07/19/25 release thiamine HCl (vitamin B1) 100 mg 100 mg PO QDAY 5 days #5 caps 07/19/25 capsule folic acid 1 mg tablet 1 mg PO QDAY 1 month #30 tab s 07/20/25 multivitamin (Daily Multi-Vitamin 1 tab PO QAM 1 month #30 tabs 07/20/25 tablet) polyethylene glycol 3350 17 4 g PO QDAY #119 grams gram/dose oral powder (Miralax) thiamine HCl (vitamin B1) 100 mg 100 mg PO QDAY 1 ross h #30 caps 07/20/25 capsule Allergies Allergy/AdvReac Type Severity Reaction Status Date / Time No Known Allergies Allergy Verified 07/22/25 21:59 Review of Systems Review of Systems Systems Reviewed: All systems reviewed, normal except as documented Past Medical History Social History SMOKING STATUS: Light (< 1 pack/day) SUBSTANCE USE: methamphetamine ED Exam Narrative Physical exam: Generally patient is alert chronically ill cachectic with very poor hygiene. 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 [employer] Q4H START 00 Care 07/22/25 22:08 Active EKG (ED ONLY) *Do not use* NOW Care 07/22/25 22:05 Completed EKG (ED Only) Stat Exams 07/22/25 22:05 Ordered XR chest 1V portable Stat Exams 07/22/25 22:05 Completed CBC Stat Lab 07/22/25 22:30 Completed CMP [Comprehensive Metabolic Panel] Stat Lab 07/22/25 22:30 Completed Troponin I Stat Lab 07/22/25 22:30 Completed Vital Signs Vital signs: Vital Signs Temperature 98.0 F 07/22/25 22:07 Pulse Rate 98 07/22/25 22:07 Respiratory Rate 26 H 07/22/25 22:07 Blood Pressure 143/113 H 07/22/25 22:07 Pulse Oximetry (%) 99 07/22/25 22:07 Oxygen Delivery Method Room Air 07/22/25 22:07 Chest Pain MDM Narrative MDM Narrative:: Scribe Attestation: I, Sharonda Estrada, am scribing for and in the presence of Dr. García. Provider Notation: Although this document has been carefully reviewed, there may still be some phonetic and other typographical errors. These errors are purely grammatical due to imperfections in the software program and should not be construed in any way to compromise the substance of the patient's medical care during this visit. Patient lasted methamphetamine today. He was just discharged from the hospital 2 days ago where he had an EGD that showed mid to distal esophageal ulceration and edema. He is supposed to be on Protonix. It is uncertain whether or not the patient has been taking his medications. When asked to point to the pain he points to the area of the distal esophagus. This pain has been present since yesterday according to the patient. Chest x-ray is normal without free air. Troponin is not elevated. EKG done at 10:21 PM shows normal sinus rhythm at a rate of [address] segment change. Patient most likely is suffering pain from his distal esophageal edema and ulceration. He also actively abuses methamphetamine. At this time the patient was given prescriptions to his pharmacy as shown on his discharge summary which she is to continue to take if he is taking at all. Patient is stable for discharge at this time. I do not believe the patient's chest pain to be due to cardiac ischemia. It is most likely esophageal in origin. Patient data External records reviewed:: [facility] previous records (Reviewed prior ED records from 07/17/25. Patient was seen for Esophageal obstruction.) and EMS form Clinical information provided by:: patient and EMS Social determinants that could affect healthcare access:: substance use (Methamphetamine) Patient has the following chronic illnesses:: Recreational Drug Use How is presenting disease/condition affected by chronic disease/condition?: exacerbated by Evaluation data The following diagnostics were reviewed and interpreted by me:: lab results, radiology exam(s) and EKG tracing(s) Lab and/or radiology exams considered but not ordered:: None Interpretation Summary: RADIOLOGY Chest X-Ray: FINDINGS: Mild prominence left ventricle Ectatic thoracic aorta. No pneumonia or pulmonary edema 4 mm pulmonary nodule right lower lobe IMPRESSION: No pneumonia or pulmonary edema Medications / Prescriptions Medications or Prescriptions considered but not ordered:: None Medication administrations:: See above if any Consultations Consultation(s) initiated? (list below): No Diagnosis Chest Pain Differential Diagnosis: pneumothorax, stable angina, unstable angina pectoris, atypical chest pain, st elevation myocardial infarction, costo chondritis, chest pain, biliary colic and other (GERD) Most likely diagnosis given after review of the tests above:: None Admission Indicated Admission indicated?: not indicated Admission Request Was there a request for admission?: No Disposition Plan Disposition Plan: Discharge Discharge Attestation Discharge Attestation: The patient and all family members were given an opportunity to ask questions and understood the discharge instructions. Discharge instructions specifically effects, indications for sooner follow up or return to the emergency department, and the expected course of current diagnosis. Patient condition: Stable Discharge Plan Plan Patient Disposition: HOME (Self Care) Prescriptions/Referrals Prescriptions/Med Rec: No Action metoclopramide HCl 5 mg Tablet 5 mg PO BID 30 Days Qty: 60 1RF nicotine 21 mg/24 hr Patch 24 Hour 21 mg top QDAY 14 Days Qty: 14 0RF omeprazole 40 mg capsule,delayed release(DR/EC) 40 mg PO BID 30 Days Qty: 60 1RF thiamine HCl (vitamin B1) 100 mg capsule 100 mg PO QDAY 5 Days Qty: 5 0RF polyethylene glycol 3350 [Miralax] 17 gram/dose powder 4 g PO QDAY Qty: 119 0RF multivitamin [Daily Multi-Vitamin] Tablet 1 tab PO QAM 30 Days Qty: 30 0RF folic acid 1 mg tablet 1 mg PO QDAY 30 Days Qty: 30 0RF thiamine HCl (vitamin B1) 100 mg capsule 100 mg PO QDAY 30 Days Qty: 30 0RF Problem List Clinical Impression: Esophagitis, Methamphetamine abuse Patient/Caregiver Discharge Instructions Education Materials: Esophagitis Additional Instructions: Your pain is from swelling to the esophagus. Take all your medications as prescribed. Avoid methamphetamine. Print Language: Bulgarian Stand Alone Forms: Cherelle Award Info., Patient Portal Info Letter
--- NOTE | 2025-07-22 22:05 | XR_ITS ---
EXAMINATION: AP chest single view Technique one-view portable upright chest single view Date and time: July 22, 2025, 1707 hours Occasional chest pain today. FINDINGS: Mild prominence left ventricle Ectatic thoracic aorta. No pneumonia or pulmonary edema 4 mm pulmonary nodule right lower lobe IMPRESSION: No pneumonia or pulmonary edema
[2025-07-22 22:07] VITALS: BP 143/113; PULSE 98; RESP 26; TEMP 36.7; O2SAT 99
[2025-07-22 22:09] VITALS: PULSE 98
[2025-07-22 22:47] LABS: Basophils # (Auto) 0.1 Thou/mm3 (0.0-0.2); Basophils % (Auto) 1 % (0-2.5); Eosinophils # (Auto) 0.6 Thou/mm3 (0.0-0.5); Eosinophils % (Auto) 7 % (0-10); Hematocrit 30.9 % (41.0-53.0); Hemoglobin 9.3 g/dL (13.5-16.0); Immature Granulocytes Auto 0.02 Thou/mm3 (0.00-0.00); Lymphocytes # (Auto) 0.6 Thou/mm3 (1.0-4.8); Lymphocytes % (Auto) 8 % (10-50); Mean Corpuscular HGB Conc 30.1 g/dl (31.0-37.0); Mean Corpuscular Hemoglobin 21.0 pg (25.0-35.0); Mean Corpuscular Volume 70 fL (80-100); Monocytes # (Auto) 0.3 Thou/mm3 (0.0-0.8); Monocytes % (Auto) 4 % (0-12); Neutrophils # (Auto) 6.5 Thou/mm3 (1.8-7.7); Neutrophils % (Auto) 81 % (37-80); Nucleated Red Blood Cell # 0.00 Thou/mm3 (0.00-0.00); Nucleated Red Blood Cell % 0 /100 WBC (0); Platelet Count 506 Thou/mm3 (140-440); RDW Standard Deviation 50.0 fL (35.1-43.9); Red Blood Count 4.42 Miln/mm3 (4.50-5.90); White Blood Count 8.1 Thou/mm3 (3.8-10.6)
[2025-07-22 22:59] VITALS: BP 141/118; PULSE 88; RESP 20; TEMP 36.8; O2SAT 100
[2025-07-22 23:07] LABS: Alanine Aminotransferase < 7 U/L (10-49); Albumin, Serum 4.6 gm/dL (3.4-4.8); Albumin/Globulin Ratio 2.0 (1.2-2.2); Alkaline Phosphatase 84 U/L (46-116); Anion Gap 7 (7-16); Aspartate Amino Transferase < 8 U/L (0-34); BUN/Creatinine Ratio 10 Ratio (12-20); Bilirubin,Total 0.2 mg/dL (0.3-1.2); Blood Urea Nitrogen 11 mg/dL (9-23); Calcium 10.4 mg/dL (8.3-10.6); Calcium (Corrected) 10.4 mg/dL (8.5-10.1); Carbon Dioxide 26.8 mMol/L (20.0-31.0); Chloride 101 mMol/L (98-107); Creatinine (Component) 1.1 mg/dL (0.6-1.3); Estimated Creatinine Clearance 56.8 mL/min (>60); Globulin 2.3 gm/dL (2.3-3.5); Glucose 129 mg/dL (74-106); Osmolality,Calculated 271 (275-295); Potassium 3.8 mMol/L (3.4-5.1); Sodium 135 mMol/L (136-145); Total Protein 6.9 gm/dL (5.7-8.2); Troponin I < 0.020 ng/mL (0.0-0.045); eGFR > 60 See Note
[2025-07-22 23:31] VITALS: BP 176/105; PULSE 89; RESP 19; TEMP 36.8; O2SAT 100
== END 2025-07-22 23:51 | disposition home or self-care (01) ==
LOC: SERX 07-23 00:08
PROVIDERS: Emergency Provider Emergency Medicine
DX: K20.90 Esophagitis, unspecified without bleeding (principal); F15.10 Other stimulant abuse, uncomplicated
CPT/HCPCS: 36415; 71045; 80053; 84484; 85025; 93005; 99283

== ENCOUNTER 2025-07-26 12:48 | Emergency (ER) | payer MEDICAID, SELFPAY ==
--- NOTE | 2025-07-26 12:53 | EKG_ITS ---
[facility] Test Date: 2025-07-26 Pat Name: ANTHONY VELÁZQUEZ Department: Room: - Gender: Male Client Director: : [id number] Requested By: Bethany Heller Order Number: [id number] Reading MD: Bethany Heller Measurements Intervals [place] Rate: 94 P: 76 MA: 152 QRS: -61 QRSD: 105 T: -1 QT: 357 QTc: 446 Interpretive Statements SINUS RHYTHM LEFT ANTERIOR FASCICULAR BLOCK [QRS AXIS <= -45, QR IN I, RS IN II] MODERATE VOLTAGE CRITERIA FOR LVH, CONSIDER NORMAL VARIANT [MEETS CRITERIA IN ONE OF: R(aVL), S(V1), R(V5), R(V5/V6)+S(V1)] MODERATE ST DEPRESSION [0.05+ mV ST DEPRESSION] Compared to ECG 07/04/2025 07:49:13 Left anterior fascicular block now present Ectopic atrial rhythm no longer present Left-axis deviation no longer present Incomplete right bundle-branch block no longer present ST (T wave) deviation still present /store/S0/[id number].pdf
--- NOTE | 2025-07-26 13:05 | XR_ITS ---
CLINICAL INDICATION: pain TECHNIQUE: XR chest 1V portable COMPARISON: Chest x-ray 07/04/2025. CT chest abdomen pelvis 03/24/2025. FINDINGS: The cardiomediastinal silhouette is within normal limits. No airspace opacities suggestive of pneumonia. Stable very small calcified granuloma in the right lower lobe. No mass detected. No pleural effusion or pneumothorax. No acute osseous abnormality detected. IMPRESSION: No radiographic evidence for acute cardiopulmonary abnormality. No significant interval change since the comparison chest radiographs. - This report was generated utilizing speech recognition software. -
[2025-07-26 13:07] VITALS: BP 188/120; PULSE 89; RESP 20; TEMP 36.6; O2SAT 98
--- NOTE | 2025-07-26 13:10 | EDNOTE_ITS ---
<Statement entered by Bethany Espinoza MD - 07/27/25 09:36> As co-signing physician, I was present and available for consult prn. I concur with the plan and care as documented by the midlevel provider. ED General RME/HPI General Chief complaint: Abdominal Pain Stated complaint: WEAK, ABD PAIN Time Seen by Provider: 07/26/25 13:08 Arrival date/time: 07/26/25 12:48 CC: Grunting, appears in discomfort. HPI unknown onset time patient was visited in his home was By a family member who states the patient uses meth on a regular basis, stating that he typically is out walking around and found him locked up in his room , not willing to come out. Review the medical record show the patient was discharged from this facility in January 2025 for GI bleed. Determined the patient has 2 separate accounts with different birthdates even though is the same patient second account is [id number]. It was determined on a culture from an endoscopy that the patient had H. pylori. Patient has been seen since then in the emergency room but not prescribed any medications for it. Related Data Previous Rx's ?Medication ?Instructions ?Recorded ferrous sulfate 325 mg (65 mg 325 mg PO Q OTHER DAY Ir on 12/30/24 iron) tablet,delayed release Deficiency 30 days #15 ta bs famotidine 20 mg tablet 20 mg PO BID #60 tabs metoclopramide HCl 5 mg tablet 5 mg PO TID #30 tabs (Reglan) pantoprazole 40 mg tablet,delayed 40 mg PO QDAY #30 ta bs 02/27/25 release (Protonix) promethazine 12.5 mg rectal 12.5 mg AL Q6H PRN nausea and 02/27/25 suppository vomiting #12 ea famotidine 40 mg tablet 40 mg PO .bedtime #30 tabs 0 03/05/25 omeprazole 40 mg capsule,delayed 40 mg PO QDAY #30 cap s 03/05/25 release famotidine 40 mg tablet 40 mg PO .bedtime #30 tabs 0 03/24/25 omeprazole 40 mg capsule,delayed 40 mg PO QDAY #30 cap s 03/24/25 release omeprazole 40 mg capsule,delayed 40 mg PO BID #30 caps 07/04/25 release sulfamethoxazole 800 1 tab PO BID #20 tabs mg-trimethoprim 160 mg tablet (Bactrim DS) metoclopramide HCl 5 mg tablet 5 mg PO BID 30 days #60 tabs 07/19/25 nicotine 21 mg/24 hr daily 21 mg top QDAY 14 days #14 ea 07/19/25 transdermal patch omeprazole 40 mg capsule,delayed 40 mg PO BID 1 month #60 caps 07/19/25 release folic acid 1 mg tablet 1 mg PO QDAY 1 month #30 tab s 07/20/25 multivitamin (Daily Multi-Vitamin 1 tab PO QAM 1 month #30 tabs 07/20/25 tablet) polyethylene glycol 3350 17 4 g PO QDAY #119 grams gram/dose oral powder (Miralax) thiamine HCl (vitamin B1) 100 mg 100 mg PO QDAY 1 ross h #30 caps 07/20/25 capsule amoxicillin 500 mg capsule 500 mg PO BID #28 caps 01/14 clarithromycin 500 mg tablet 500 mg PO BID #28 tabs pantoprazole 20 mg tablet,delayed 20 mg PO BID #28 tab s 07/26/25 release (Protonix) Allergies Allergy/AdvReac Type Severity Reaction Status Date / Time No Known Allergies Allergy Verified 07/26/25 14:17 Review of Systems Review of Systems ROS Unobtainable: unobtainable due to mental status Past Medical History Past Medical History NEUROLOGIC: Negative Neurological Disorders or Seizures CARDIAC: Negative Cardiac Disorders or Congestive Heart Failure RESPIRATORY: Negative Chronic Obstructive Pulmonary Disease (COPD) or Asthma GASTROINTESTINAL: Positive Ulcer; Negative Gastrointestinal Disorders GENITOURINARY: Negative Genitourinary Disorders or Renal Disease MUSCULOSKELETAL: Negative Musculoskeletal Disorders ENDOCRINE: Negative Endocrine Disorders, Diabetes Mellitus Type 1 or Diabetes Mellitus Type 2 HEMATOLOGIC: Negative Sickle Cell Disease PSYCHO/SOCIAL: Positive Recreational Drug Use OTHER HISTORY: Negative Blood Transfusions, Blood Transfusion Reaction or Anesthesia Reactions Family History FAMILY HISTORY: Negative Family Cardiac Disorders Social History SMOKING STATUS: Current every day smoker ED Exam Narrative Physical exam: [General: Disheveled, emaciated ill kempt but not in any acute distress Head normocephalic HEENT: Eyes pupils are PERRLA EOMs are intact mouth pink dry membranes uvula is midline swallow symmetrical phonation is normal. Within acceptable limits Neck is supple nontender Chest equal chest rise nontender to palpation Respiratory: Clear to auscultation no wheezes crackles or rubs CV: Rate rhythm is regular no murmurs rubs or clicks Abdomen is soft nontender no masses positive bowel sounds all 4 quadrants Back: No CVA tenderness no spinous process tenderness from cervical spine thoracic and lumbar spine Skin: Intact no petechiae rash induration ulceration or crepitus Extremities: Moving all extremities against resistance cap refill less than 2 seconds neurosensory intact Neuro: Awake alert oriented x3 Glascow coma 15 no focal deficits] Course Course Course Narrative: After consultation with the resident I was determined the patient has 2 accounts, it was determined on the pathology report on the other account that the patient has H. pylori and has not been treated for such. Will discharge the patient with medications for it. Hematocrit has dropped by half a gram in 1 month. The patient remains stable from vital signs I assume the patient continues to use methamphetamines. This was confirmed by the family member at this time the patient's vital signs are stable enough to discharge home with prescriptions for H. pylori. 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 Care 07/26/25 13:05 Active EKG (ED ONLY) *Do not use* NOW Care 07/26/25 12:53 Completed EKG (ED Only) Stat Exams 07/26/25 12:53 Draft XR chest 1V portable Stat Exams 07/26/25 13:05 Completed B-Type Natriuretic Peptide Stat Lab 07/26/25 13:11 Completed CBC Stat Lab 07/26/25 13:11 Completed Comprehensive Metabolic Panel Stat Lab 07/26/25 13:11 Completed Drug Screen,Urine Stat Lab 07/26/25 13:05 Ordered Magnesium Stat Lab 07/26/25 13:11 Completed Partial Thromboplastin Time Stat Lab 07/26/25 13:11 Completed Prothrombin Time with INR Stat Lab 07/26/25 13:11 Completed Troponin I Stat Lab 07/26/25 13:11 Completed Lidocaine 2% Viscous [Xylocaine 2% Viscous] Med 07/26/25 13:38 Discontinued 15 ml PO X1 ONE Prochlorperazine Inj [Compazine Inj] Med 07/26/25 13:38 Discontinued 10 mg IV X1 ONE mg Hyd/Al Hyd/John Susp [Maalox Susp] Med 07/26/25 13:38 Discontinued 30 ml PO X1 ONE Vital Signs Vital signs: Vital Signs Temperature 97.8 F 07/26/25 13:07 Pulse Rate 89 07/26/25 13:07 Respiratory Rate 20 07/26/25 13:07 Blood Pressure 188/120 H 07/26/25 13:07 Pulse Oximetry (%) 98 07/26/25 13:07 Oxygen Delivery Method Room Air 07/26/25 13:07 Discharge Plan Plan Patient Disposition: HOME (Self Care) Patient condition on transfer: Stable Prescriptions/Referrals Prescriptions/Med Rec: New clarithromycin 500 mg tablet 500 mg PO BID Qty: 28 0RF amoxicillin 500 mg capsule 500 mg PO BID Qty: 28 0RF pantoprazole [Protonix] 20 mg tablet,delayed release (DR/EC) 20 mg PO BID Qty: 28 0RF No Action omeprazole 40 mg capsule,delayed release(DR/EC) 40 mg PO BID Qty: 30 0RF sulfamethoxazole-trimethoprim [Bactrim DS] 800-160 mg tablet 1 tab PO BID Qty: 20 0RF ferrous sulfate 325 mg (65 mg iron) tablet,delayed release (DR/EC) 325 mg PO Q OTHER DAY 30 Days Qty: 15 3RF famotidine 20 mg tablet 20 mg PO BID Qty: 60 0RF pantoprazole [Protonix] 40 mg tablet,delayed release (DR/EC) 40 mg PO QDAY Qty: 30 0RF metoclopramide HCl [Reglan] 5 mg tablet 5 mg PO TID Qty: 30 0RF promethazine 12.5 mg suppository 12.5 mg AL Q6H PRN (Reason: nausea and vomiting) Qty: 12 0RF famotidine 40 mg tablet 40 mg PO .bedtime Qty: 30 0RF omeprazole 40 mg capsule,delayed release(DR/EC) 40 mg PO QDAY Qty: 30 0RF famotidine 40 mg tablet 40 mg PO .bedtime Qty: 30 0RF omeprazole 40 mg capsule,delayed release(DR/EC) 40 mg PO QDAY Qty: 30 0RF metoclopramide HCl 5 mg Tablet 5 mg PO BID 30 Days Qty: 60 1RF nicotine 21 mg/24 hr Patch 24 Hour 21 mg top QDAY 14 Days Qty: 14 0RF omeprazole 40 mg capsule,delayed release(DR/EC) 40 mg PO BID 30 Days Qty: 60 1RF polyethylene glycol 3350 [Miralax] 17 gram/dose powder 4 g PO QDAY Qty: 119 0RF multivitamin [Daily Multi-Vitamin] Tablet 1 tab PO QAM 30 Days Qty: 30 0RF folic acid 1 mg tablet 1 mg PO QDAY 30 Days Qty: 30 0RF thiamine HCl (vitamin B1) 100 mg capsule 100 mg PO QDAY 30 Days Qty: 30 0RF Referrals: Dane Quispe MD [Physician, Family Practice] - In 1 week Problem List Clinical Impression: H pylori ulcer Patient/Caregiver Discharge Instructions Other Activity Instructions:: Take all the medications prescribed until completely gone this will help this pain go away. Stop using methamphetamines Education Materials: Bleeding Peptic Ulcer: Treatment Print Language: Burundian Stand Alone Forms: Cherelle Award Info., Patient Portal Info Letter VEL/MICHELA Supervising Physician VEL/MICHELA Supervising Physician: Joshua Hatfield ENP [facility] Clinical Information Provided by: patient and family Medical Records reviewed [facility] Meds/Rx considered, not ordered None Labs/Rad/Tests considered, not ordered None Chronic Illness/Social Conditions which may negatively complicate care or outcome(s)-explain: Homeless Explain: History of GI bleed EKG Interpretation EKG #1: EKG Interpretation: EKG performed at 1300 shows a ventricular rate of 94 AL interval 152 QRS of 105 QTc of [address] segment depressions in the lateral leads Labs Labs: interpreted by nm Lab(s) Interpretation(s): CBC shows no leukocytosis and H&H of 8.6 and 28.7. Platelets are elevated at 597. Coags within acceptable limits CMP shows a glucose of 134 no other electrolyte imbalances or renal impairment transaminitis or T. bili elevation. Troponin is within acceptable limits BNP is 122 Imaging Imaging interpretation: interpreted by nm Imaging Interpretation(s): Chest x-ray shows no acute finding requires emergent or immediate intervention. Medication Administration(s) Medication Administration History Discontinued Medications Al Hydrox/Mg Hydrox/Simethicone (Mg Hyd/Al Hyd/John (Maalox Reg) Susp 30 Ml Udc) 30 ml PO X1 ONE Stop: 07/26/25 13:39 Lidocaine HCl (Lidocaine Viscous 2% 15 Ml Udc) 15 ml PO X1 ONE Stop: 07/26/25 13:39 Prochlorperazine Edisylate (Prochlorperazine Inj 5 Mg/Ml Vial 2 Ml) 10 mg IV X1 ONE; Protocol Stop: 07/26/25 13:39 Last Admin: 07/26/25 14:01 Dose: 10 mg Documented By: ED
[2025-07-26 13:22] LABS: Basophils # (Auto) 0.1 Thou/mm3 (0.0-0.2); Basophils % (Auto) 1 % (0-2.5); Eosinophils # (Auto) 0.2 Thou/mm3 (0.0-0.5); Eosinophils % (Auto) 3 % (0-10); Hematocrit 28.7 % (41.0-53.0); Immature Granulocytes Auto 0.01 Thou/mm3 (0.00-0.00); Lymphocytes # (Auto) 0.8 Thou/mm3 (1.0-4.8); Lymphocytes % (Auto) 14 % (10-50); Mean Corpuscular HGB Conc 30.0 g/dl (31.0-37.0); Mean Corpuscular Hemoglobin 20.9 pg (25.0-35.0); Mean Corpuscular Volume 70 fL (80-100); Monocytes # (Auto) 0.3 Thou/mm3 (0.0-0.8); Monocytes % (Auto) 5 % (0-12); Neutrophils # (Auto) 4.1 Thou/mm3 (1.8-7.7); Neutrophils % (Auto) 77 % (37-80); Nucleated Red Blood Cell # 0.00 Thou/mm3 (0.00-0.00); Nucleated Red Blood Cell % 0 /100 WBC (0); Platelet Count 597 Thou/mm3 (140-440); RDW Standard Deviation 49.5 fL (35.1-43.9); Red Blood Count 4.11 Miln/mm3 (4.50-5.90); White Blood Count 5.3 Thou/mm3 (3.8-10.6)
[2025-07-26 13:23] LABS: Hemoglobin 8.6 g/dL (13.5-16.0)
--- NOTE | 2025-07-26 13:29 | PC.NURSE ---
Pt. brought here by his nephew, pt. not answering questions, pt.vomiting.
--- NOTE | 2025-07-26 13:30 | PC.NURSE ---
Pt. has a medication patch to right upper arm. Pt. is very dirty and unkept.
[2025-07-26 13:36] LABS: B-Type Natriuretic Peptide 122 pg/mL (0-100)
[2025-07-26 13:48] LABS: Alanine Aminotransferase < 7 U/L (10-49); Albumin, Serum 4.7 gm/dL (3.4-4.8); Albumin/Globulin Ratio 2.1 (1.2-2.2); Alkaline Phosphatase 85 U/L (46-116); Anion Gap 9 (7-16); Aspartate Amino Transferase 14 U/L (0-34); BUN/Creatinine Ratio 18 Ratio (12-20); Bilirubin,Total 0.2 mg/dL (0.3-1.2); Blood Urea Nitrogen 18 mg/dL (9-23); Calcium 10.5 mg/dL (8.3-10.6); Calcium (Corrected) 10.5 mg/dL (8.5-10.1); Carbon Dioxide 29.6 mMol/L (20.0-31.0); Chloride 100 mMol/L (98-107); Creatinine (Component) 1.0 mg/dL (0.6-1.3); Globulin 2.2 gm/dL (2.3-3.5); Glucose 134 mg/dL (74-106); Magnesium 2.4 mg/dL (1.6-2.6); Osmolality,Calculated 281 (275-295); Potassium 4.1 mMol/L (3.4-5.1); Sodium 139 mMol/L (136-145); Total Protein 6.9 gm/dL (5.7-8.2); Troponin I < 0.020 ng/mL (0.0-0.045); eGFR > 60 See Note
[2025-07-26 13:52] LABS: INR 1.0 (0.9-1.3); Partial Thromboplastin Time 25.1 Seconds (22.0-36.0); Prothrombin Time 10.6 Seconds (9.0-12.2)
[2025-07-26] MEDS: PROCHLORPERAZINE INJ 5 MG/ML VIAL 2 ML 10 MG IV (14:01)
[2025-07-26] MEDS: LIDOCAINE VISCOUS 2% 15 ML UDC PO (14:27)
[2025-07-26] MEDS: MG HYD/AL HYD/SIME (Maalox Reg) SUSP 30 ML UDC PO (14:28)
[2025-07-26 14:51] VITALS: BP 149/90; PULSE 88; RESP 17; TEMP 36.7; O2SAT 100
== END 2025-07-26 14:51 | disposition home or self-care (01) ==
LOC: SERX 14:18
PROVIDERS: Nurse Practitioner Primary Care; Emergency Provider Emergency Medicine
DX: K27.4 Chronic or unspecified peptic ulcer, site unspecified, with hemorrhage (principal); B96.81 Helicobacter pylori [H. pylori] as the cause of diseases classified elsewhere
CPT/HCPCS: 36415; 71045; 80053; 80307; 83735; 83880; 84484; 85025; 85610; 85730; 93005; 99283; J0780; J3490; A9270

== ENCOUNTER 2025-07-26 21:57 | Emergency (ER) | payer MEDICAID, SELFPAY ==
[2025-07-26 22:59] VITALS: BP 149/98; PULSE 97; RESP 20; TEMP 36.9; O2SAT 96
--- NOTE | 2025-07-26 23:03 | PD.EDRME ---
Rapid Medical Screening Exam RME Arrival date/time: 07/26/25 21:57 Chief Complaint: Abdominal Pain Time Seen by Provider: 07/26/25 22:32 Vital signs: Vital Signs Temperature 98.5 F 07/26/25 22:59 Pulse Rate 97 07/26/25 22:59 Respiratory Rate 20 07/26/25 22:59 Blood Pressure 149/98 H 07/26/25 22:59 Pulse Oximetry (%) 96 07/26/25 22:59 Oxygen Delivery Method Room Air 07/26/25 22:59 RME Narrative: Epigastric pain. Seen in ED this afternoon for same complaint. Exam: Mild epigastric tenderness Clinical Impression: Abdominal pain
--- NOTE | 2025-07-26 23:04 | EKG_ITS ---
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: : 1960 Requested By: Dallin Ordonez Order Number: [id number] Reading MD: Dallin Ordonez Measurements Intervals Helper Rate: 96 P: 74 FL: 112 QRS: -66 QRSD: 110 T: -46 QT: 329 QTc: 418 Interpretive Statements SINUS RHYTHM WITH SHORT FL INTERVAL LEFT AXIS DEVIATION [QRS AXIS < -30] MODERATE VOLTAGE CRITERIA FOR LVH, CONSIDER NORMAL VARIANT [MEETS CRITERIA IN ONE OF: R(aVL), S(V1), R(V5), R(V5/V6)+S(V1)] MODERATE T-WAVE ABNORMALITY, CONSIDER INFERIOR ISCHEMIA [-0.1+ mV T-WAVE IN II/aVF] Compared to ECG 07/26/2025 13:00:38 Short FL interval now present Left-axis deviation now present T-wave abnormality now present Possible ischemia now present Left anterior fascicular block no longer present ST (T wave) deviation no longer present /store/S0/[id number].pdf
[2025-07-26 23:30] LABS: Basophils # (Auto) 0.1 Thou/mm3 (0.0-0.2); Basophils % (Auto) 1 % (0-2.5); Eosinophils # (Auto) 0.1 Thou/mm3 (0.0-0.5); Eosinophils % (Auto) 1 % (0-10); Lymphocytes # (Auto) 0.7 Thou/mm3 (1.0-4.8); Lymphocytes % (Auto) 8 % (10-50); Mean Corpuscular Volume 71 fL (80-100); Monocytes # (Auto) 0.4 Thou/mm3 (0.0-0.8); Monocytes % (Auto) 5 % (0-12); Nucleated Red Blood Cell # 0.00 Thou/mm3 (0.00-0.00); Nucleated Red Blood Cell % 0 /100 WBC (0); White Blood Count 8.2 Thou/mm3 (3.8-10.6)
[2025-07-26 23:32] LABS: Hematocrit 28.5 % (41.0-53.0); Immature Granulocytes Auto 0.02 Thou/mm3 (0.00-0.00); Mean Corpuscular HGB Conc 29.5 g/dl (31.0-37.0); Mean Corpuscular Hemoglobin 20.8 pg (25.0-35.0); Neutrophils # (Auto) 7.1 Thou/mm3 (1.8-7.7); Neutrophils % (Auto) 86 % (37-80); Platelet Count 616 Thou/mm3 (140-440); RDW Standard Deviation 50.0 fL (35.1-43.9); Red Blood Count 4.03 Miln/mm3 (4.50-5.90)
[2025-07-26 23:33] LABS: Hemoglobin 8.4 g/dL (13.5-16.0)
[2025-07-26] MEDS: MG HYD/AL HYD/SIME (Maalox Reg) SUSP 30 ML UDC PO (23:55)
[2025-07-26] MEDS: LIDOCAINE VISCOUS 2% 15 ML UDC PO (23:55)
[2025-07-26] MEDS: ONDANSETRON ODT 4 MG TABRAP PO (23:55)
[2025-07-27] LABS: Alanine Aminotransferase < 7 U/L (10-49); Albumin, Serum 4.7 gm/dL (3.4-4.8); Albumin/Globulin Ratio 2.4 (1.2-2.2); Alkaline Phosphatase 82 U/L (46-116); Anion Gap 11 (7-16); Aspartate Amino Transferase 15 U/L (0-34); BUN/Creatinine Ratio 20 Ratio (12-20); Bilirubin,Total 0.2 mg/dL (0.3-1.2); Blood Urea Nitrogen 20 mg/dL (9-23); Calcium 10.3 mg/dL (8.3-10.6); Calcium (Corrected) 10.3 mg/dL (8.5-10.1); Carbon Dioxide 31.3 mMol/L (20.0-31.0); Chloride 98 mMol/L (98-107); Creatinine (Component) 1.0 mg/dL (0.6-1.3); Globulin 2.0 gm/dL (2.3-3.5); Glucose 139 mg/dL (74-106); Lipase 21 U/L (12-53); Osmolality,Calculated 284 (275-295); Potassium 4.1 mMol/L (3.4-5.1); Sodium 140 mMol/L (136-145); Total Protein 6.7 gm/dL (5.7-8.2); Troponin I < 0.020 ng/mL (0.0-0.045); eGFR > 60 See Note
[2025-07-27] MEDS: METOCLOPRAMIDE INJ 5 MG/ML VIAL 2 ML 10 MG IM (01:06)
[2025-07-27 01:09] VITALS: BP 170/107; PULSE 97; RESP 20; TEMP 36.8; O2SAT 99
[2025-07-27 01:11] VITALS: BP 163/97
--- NOTE | 2025-07-27 03:39 | EDNOTE_ITS ---
ED Abdominal Pain RME/HPI General Chief Complaint: Abdominal Pain Stated complaint: UPPER ABD PAIN SINCE YESTERDAY Time seen by provider: 07/26/25 22:32 Arrival date/time: 07/26/25 21:57 Source: patient, RN notes reviewed and old records reviewed Mode of arrival: wheelchair Limitations: no limitations RME / HPI RME / HPI narrative: 65yom presents to ED for continued epigastric abdominal pain and intermittent nausea/vomiting. Patient had full workup in ED this afternoon for same complaints. He was discharged home with meds for H. Pylori (recent EGD 07/18/25). No sob or cp reported. 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 Related Data Previous Rx's ?Medication ?Instructions ?Recorded ferrous sulfate 325 mg (65 mg 325 mg PO Q OTHER DAY Ir on 12/30/24 iron) tablet,delayed release Deficiency 30 days #15 ta bs famotidine 20 mg tablet 20 mg PO BID #60 tabs metoclopramide HCl 5 mg tablet 5 mg PO TID #30 tabs (Reglan) pantoprazole 40 mg tablet,delayed 40 mg PO QDAY #30 ta bs 02/27/25 release (Protonix) promethazine 12.5 mg rectal 12.5 mg AL Q6H PRN nausea and 02/27/25 suppository vomiting #12 ea famotidine 40 mg tablet 40 mg PO .bedtime #30 tabs 0 03/05/25 omeprazole 40 mg capsule,delayed 40 mg PO QDAY #30 cap s 03/05/25 release famotidine 40 mg tablet 40 mg PO .bedtime #30 tabs 0 03/24/25 omeprazole 40 mg capsule,delayed 40 mg PO QDAY #30 cap s 03/24/25 release omeprazole 40 mg capsule,delayed 40 mg PO BID #30 caps 07/04/25 release sulfamethoxazole 800 1 tab PO BID #20 tabs mg-trimethoprim 160 mg tablet (Bactrim DS) metoclopramide HCl 5 mg tablet 5 mg PO BID 30 days #60 tabs 07/19/25 nicotine 21 mg/24 hr daily 21 mg top QDAY 14 days #14 ea 07/19/25 transdermal patch omeprazole 40 mg capsule,delayed 40 mg PO BID 1 month #60 caps 07/19/25 release folic acid 1 mg tablet 1 mg PO QDAY 1 month #30 tab s 07/20/25 multivitamin (Daily Multi-Vitamin 1 tab PO QAM 1 month #30 tabs 07/20/25 tablet) polyethylene glycol 3350 17 4 g PO QDAY #119 grams gram/dose oral powder (Miralax) thiamine HCl (vitamin B1) 100 mg 100 mg PO QDAY 1 ross h #30 caps 07/20/25 capsule amoxicillin 500 mg capsule 500 mg PO BID #28 caps 01/14 clarithromycin 500 mg tablet 500 mg PO BID #28 tabs pantoprazole 20 mg tablet,delayed 20 mg PO BID #28 tab s 07/26/25 release (Protonix) acetaminophen 500 mg tablet 1,000 mg (2 x 500 mg) PO Q 6H PRN 07/27/25 (Tylenol Extra Strength) pain #30 tabs metoclopramide HCl 10 mg tablet 10 mg PO Q6H PRN nause a and 07/27/25 (Reglan) vomiting #10 tabs sucralfate 1 gram tablet (Carafate) See Rx Instruction s .Route 07/27/25 .COMPLEX #90 tabs Allergies Allergy/AdvReac Type Severity Reaction Status Date / Time No Known Allergies Allergy Verified 07/26/25 21:58 Review of Systems Review of Systems Systems Reviewed: All systems reviewed, normal except as documented Constitutional Constitutional: Denies chills and Denies fever(s) Cardiovascular Cardiovascular: Denies chest pain and Denies dyspnea Respiratory Respiratory: Denies dyspnea Gastrointestinal Gastrointestinal: Reports abdominal pain, Denies diarrhea, Reports nausea and Reports vomiting Genitourinary Genitourinary: Denies flank pain and Denies hematuria Past Medical History Past Medical History GASTROINTESTINAL: Positive Ulcer PSYCHO/SOCIAL: Positive Recreational Drug Use Social History SMOKING STATUS: Current every day smoker SUBSTANCE USE: methamphetamine ED Exam General Limitations: Present no limitations General appearance: Present alert, in no apparent distress and other (Disheveled, poor hygiene) Head Head exam: Present atraumatic and normocephalic Eye Eye exam: Present normal appearance, PERRL and EOMI ENT ENT exam: Present mucous membranes dry (Mild) Neck Neck exam: Present normal inspection and full ROM Chest Chest inspection: Present normal inspection and symmetric chest wall rise Respiratory Respiratory exam: Present normal lung sounds bilaterally; Absent respiratory distress Cardiovascular Cardiovascular exam: Present regular rate and normal rhythm Abdominal Exam Abdominal exam: Present soft and tenderness (Epigastric); Absent distention, guarding or rebound Extremities Exam Extremities exam: Present normal inspection and full ROM Neurological Exam Neurological exam: Present alert and oriented X3 Psychiatric Psychiatric exam: Present normal affect and normal mood Skin Skin exam: Present warm, dry and intact Course Quality Measures none Orders Category Date Time Status EKG (ED ONLY) *Do not use* NOW Care 07/26/25 23:04 Completed EKG (ED Only) Stat Exams 07/26/25 23:04 Draft CBC Stat Lab 07/26/25 23:18 Completed CMP [Comprehensive Metabolic Panel] Stat Lab 07/26/25 23:18 Completed Lipase Stat Lab 07/26/25 23:18 Completed Troponin I Stat Lab 07/26/25 23:18 Completed Acetaminophen Tab [Tylenol ES Tab] Med 07/27/25 03:58 Discontinued 1,000 mg PO X1 ONE Lidocaine 2% Viscous [Xylocaine 2% Viscous] Med 07/26/25 23:04 Discontinued 15 ml PO X1 ONE Metoclopramide Inj [Reglan Inj] Med 07/27/25 00:47 Discontinued 10 mg IM X1 ONE Ondansetron Odt [Zofran Odt] Med 07/26/25 23:04 Discontinued 4 mg PO X1 ONE mg Hyd/Al Hyd/John Susp [Maalox Susp] Med 07/26/25 23:04 Discontinued 30 ml PO X1 ONE Vital Signs Vital signs: Vital Signs Temperature 98.5 F 07/26/25 22:59 Pulse Rate 97 07/26/25 22:59 Respiratory Rate 20 07/26/25 22:59 Blood Pressure 149/98 H 07/26/25 22:59 Pulse Oximetry (%) 96 07/26/25 22:59 Oxygen Delivery Method Room Air 07/26/25 22:59 PROCEDURES: EKG Interpretation #1: Date of EK07/26/25 Rate: 96 Interpretation: Interpreted by me EKG Impression: Normal sinus rhythm and No acute ST-T changes Additional EKG comment: Left axis deviation Short AL 112 Non-specific t wave changes No stemi Abdominal Pain MDM MDM Narrative MDM Narrative:: 65yom presents to ED for continued epigastric abdominal pain and intermittent nausea/vomiting. Patient had full workup in ED this afternoon for same complaints. He was discharged home with meds for H. Pylori (recent EGD 07/18/25). No sob or cp reported. 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 Patient is tolerating po, symptoms improved. Labs reassuring. Encouraged adequate fluids, symptomatic treatment, pain mgmt prn. Recommended close follow- up with GI. Stable for discharge, RTED precautions given. Patient data External records reviewed:: [facility] previous records (ED visit earlier today for abdominal pain) Clinical information provided by:: patient Social determinants that could affect healthcare access:: other (specify) (unemployed, acculturation difficulty) Patient has the following chronic illnesses:: h.pylori, gastritis How is presenting disease/condition affected by chronic disease/condition?: caused by Evaluation data The following diagnostics were reviewed and interpreted by me:: lab results, radiology exam(s) and EKG tracing(s) Lab and/or radiology exams considered but not ordered:: CT abd/pelvis: non-surgical abdomen on exam Interpretation Summary: No leukocytosis Anemia stable LFTs and lipase wnl Medications / Prescriptions Medications or Prescriptions considered but not ordered:: none Medication administrations:: Medication Administration History Discontinued Medications Acetaminophen (Acetaminophen 500 Mg Tablet) 1,000 mg PO X1 ONE Stop: 07/27/25 03:59 Last Admin: 07/27/25 04:08 Dose: 1,000 mg Documented By: ERIN Al Hydrox/Mg Hydrox/Simethicone (Mg Hyd/Al Hyd/John (Maalox Reg) Susp 30 Ml Udc) 30 ml PO X1 ONE Stop: 07/26/25 23:05 Last Admin: 07/26/25 23:55 Dose: 30 ml Documented By: ISHAAN Lidocaine HCl (Lidocaine Viscous 2% 15 Ml Udc) 15 ml PO X1 ONE Stop: 07/26/25 23:05 Last Admin: 07/26/25 23:55 Dose: 15 ml Documented By: ISHAAN Metoclopramide HCl (Metoclopramide Inj 5 Mg/Ml Vial 2 Ml) 10 mg IM X1 ONE; Protocol Stop: 07/27/25 00:48 Last Admin: 07/27/25 01:06 Dose: 10 mg Documented By: ERIN Ondansetron HCl (Ondansetron Odt 4 Mg Tabrap) 4 mg PO X1 ONE; Protocol Stop: 07/26/25 23:05 Last Admin: 07/26/25 23:55 Dose: 4 mg Documented By: ISHAAN Above medications administered in ED Consultations Consultation(s) initiated? (list below): No Diagnosis Differential diagnosis abdominal pain: other (Gastritis, PUD, H. pylori, gastroenteritis, pancreatitis, dehydration, electrolyte imbalance) Most likely diagnosis given after review of the tests above:: Gastritis, H. pylori, epigastric abdominal pain Admission Indicated Admission indicated?: not indicated Admission Request Was there a request for admission?: No Disposition Plan Disposition Plan: Discharge Discharge Attestation Discharge Attestation: The patient and all family members were given an opportunity to ask questions and understood the discharge instructions. Discharge instructions specifically effects, indications for sooner follow up or return to the emergency department, and the expected course of current diagnosis. Patient condition: Stable Discharge Plan Plan Patient Disposition: HOME (Self Care) Patient condition on transfer: Stable Prescriptions/Referrals Prescriptions/Med Rec: New metoclopramide HCl [Reglan] 10 mg tablet 10 mg PO Q6H PRN (Reason: nausea and vomiting) Qty: 10 0RF sucralfate [Carafate] 1 gram tablet See Rx Instructions .ROUTE .COMPLEX Qty: 90 0RF Rx Instructions: 1 g orally prior to meals and before bedtime acetaminophen [Tylenol Extra Strength] 500 mg tablet 1,000 mg PO Q6H PRN (Reason: pain) Qty: 30 0RF No Action omeprazole 40 mg capsule,delayed release(DR/EC) 40 mg PO BID Qty: 30 0RF sulfamethoxazole-trimethoprim [Bactrim DS] 800-160 mg tablet 1 tab PO BID Qty: 20 0RF clarithromycin 500 mg tablet 500 mg PO BID Qty: 28 0RF amoxicillin 500 mg capsule 500 mg PO BID Qty: 28 0RF pantoprazole [Protonix] 20 mg tablet,delayed release (DR/EC) 20 mg PO BID Qty: 28 0RF ferrous sulfate 325 mg (65 mg iron) tablet,delayed release (DR/EC) 325 mg PO Q OTHER DAY 30 Days Qty: 15 3RF famotidine 20 mg tablet 20 mg PO BID Qty: 60 0RF pantoprazole [Protonix] 40 mg tablet,delayed release (DR/EC) 40 mg PO QDAY Qty: 30 0RF metoclopramide HCl [Reglan] 5 mg tablet 5 mg PO TID Qty: 30 0RF promethazine 12.5 mg suppository 12.5 mg AL Q6H PRN (Reason: nausea and vomiting) Qty: 12 0RF famotidine 40 mg tablet 40 mg PO .bedtime Qty: 30 0RF omeprazole 40 mg capsule,delayed release(DR/EC) 40 mg PO QDAY Qty: 30 0RF famotidine 40 mg tablet 40 mg PO .bedtime Qty: 30 0RF omeprazole 40 mg capsule,delayed release(DR/EC) 40 mg PO QDAY Qty: 30 0RF metoclopramide HCl 5 mg Tablet 5 mg PO BID 30 Days Qty: 60 1RF nicotine 21 mg/24 hr Patch 24 Hour 21 mg top QDAY 14 Days Qty: 14 0RF omeprazole 40 mg capsule,delayed release(DR/EC) 40 mg PO BID 30 Days Qty: 60 1RF polyethylene glycol 3350 [Miralax] 17 gram/dose powder 4 g PO QDAY Qty: 119 0RF multivitamin [Daily Multi-Vitamin] Tablet 1 tab PO QAM 30 Days Qty: 30 0RF folic acid 1 mg tablet 1 mg PO QDAY 30 Days Qty: 30 0RF thiamine HCl (vitamin B1) 100 mg capsule 100 mg PO QDAY 30 Days Qty: 30 0RF Referrals: No Primary/Family,Physician [Primary Care Provider] - In 1 week Problem List Clinical Impression: Gastritis Patient/Caregiver Discharge Instructions Education Materials: ED Gastritis (Adult) Print Language: Divehi Stand Alone Forms: Cherelle Award Info., Patient Portal Info Letter 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
[2025-07-27 03:43] VITALS: BP 152/88; PULSE 98; RESP 19; TEMP 37.7; O2SAT 99
--- NOTE | 2025-07-27 03:55 | PC.NURSE ---
VEL BOSWELL INFORMED THAT PATIENT WANTED TO TALK TO PROVIDER. VEL BOSWELL SPEAKING WITH PATIENT AND INFORMED PATIENT OF RESULTS.
[2025-07-27] MEDS: ACETAMINOPHEN 500 MG TABLET 1000 MG PO (04:08)
== END 2025-07-27 04:29 | disposition home or self-care (01) ==
PROVIDERS: Physician Assistant; Emergency Provider Emergency Medicine
DX: K29.70 Gastritis, unspecified, without bleeding (principal); D64.9 Anemia, unspecified; E61.1 Iron deficiency
CPT/HCPCS: 36415; 80053; 83690; 84484; 85025; 93005; 96372; 99283; J2765; J3490; Q0162; A9270

== ENCOUNTER 2025-08-05 10:28 | Emergency (ER) | payer MEDICAID, SELFPAY ==
[2025-08-05] VITALS (16 sets, daily range): BP systolic 118–187; BP diastolic 62–89; PULSE 58–90; RESP 12–20; TEMP 36.5–36.9; O2SAT 93–100; BMI 25.8
--- NOTE | 2025-08-05 10:34 | EKG_ITS ---
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: : 1960 Requested By: Jacinto Gary Order Number: [id number] Reading MD: Jacinto Gary Measurements Intervals [place] Rate: 90 P: [place]: QRS: -62 QRSD: 99 T: -81 QT: 391 QTc: 479 Interpretive Statements SUPRAVENTRICULAR RHYTHM LEFT AXIS DEVIATION [QRS AXIS < -30] ST DEVIATION AND MODERATE T-WAVE ABNORMALITY, CONSIDER INFERIOR ISCHEMIA [-0.1+ mV T-WAVE IN II/aVF] Compared to ECG 07/26/2025 23:12:24 Supraventricular rhythm now present Sinus rhythm no longer present Short [place] interval no longer present T-wave abnormality still present Possible ischemia still present /store/S0/[id number]
--- NOTE | 2025-08-05 10:34 | XR_ITS ---
EXAMINATION: AP chest single view TECHNIQUE: AP portable upright chest single view Date and time: August 05, 2025, 1052 hours Comparison 07/26/2025 INDICATIONS: Chest pain shortness of breath today. FINDINGS: Minimal prominence left ventricle No pneumonia or pulmonary edema Moderate osteopenia IMPRESSION: No active disease
--- NOTE | 2025-08-05 10:34 | XR_ITS ---
Examination: CT abdomen and pelvis without contrast. Coronal 3-D reconstructions. Sagittal 2-D reconstructions. Date and time of exam: August 05, 2024, 11:11 a.m., comparison July 04, 2025 INDICATIONS: Onset epigastric pain today CTDI: vol (mGy): 4.82 DLP: (mGycm): 262 Technique: Axial images of the abdomen have been obtained, 3 mm slice thickness Intravenous contrast material has not been administered. Low dose protocols were performed. One or more of the following dose reduction techniques were used; automated exposure control, adjustment of the mA and/or KV according to patient size, use of iterative reconstruction technique. Findings: Retrocardiac gastric hernia No visualized liver or splenic lesion Gallbladder is not diagnostically visualized No pancreatic mass No renal or ureteral calculi, no hydronephrosis Abundant stool throughout the entire colon No free air No diverticulitis Urinary bladder intact mild wall thickening Transverse prostate dimension 3.8 cm Severe osteopenia Advanced degenerative disc disease L3-L4, L4-L5 IMPRESSION: Limited study without intravenous contrast No renal or ureteral calculi, no hydronephrosis Consider hepatobiliary sonography for diagnostic assessment of the biliary tree Abundant stool throughout the entire colon, no obstruction No pericecal inflammatory change Mild cystitis pattern
[2025-08-05] MEDS: SODIUM CHLORIDE 0.9% 1000 ML 1,000 ML 999 ML IV (10:48)
[2025-08-05] MEDS: ONDANSETRON INJ 2 MG/ML INJ 2 ML 4 MG IVP ×2 (10:50→11:52)
[2025-08-05] MEDS: FAMOTIDINE INJ 10 MG/ML VIAL 2 ML 20 MG IVP (10:50)
[2025-08-05] MEDS: HYDROmorphone INJ 2 MG/ML VIAL 0.5 MG IVP (10:50)
[2025-08-05 11:02] LABS: Basophils # (Auto) 0.1 Thou/mm3 (0.0-0.2); Basophils % (Auto) 1 % (0-2.5); Eosinophils # (Auto) 0.3 Thou/mm3 (0.0-0.5); Eosinophils % (Auto) 4 % (0-10); Hematocrit 21.8 % (41.0-53.0); Immature Granulocytes Auto 0.01 Thou/mm3 (0.00-0.00); Lymphocytes # (Auto) 1.0 Thou/mm3 (1.0-4.8); Lymphocytes % (Auto) 14 % (10-50); Mean Corpuscular HGB Conc 29.8 g/dl (31.0-37.0); Mean Corpuscular Hemoglobin 20.8 pg (25.0-35.0); Mean Corpuscular Volume 70 fL (80-100); Monocytes # (Auto) 0.4 Thou/mm3 (0.0-0.8); Monocytes % (Auto) 5 % (0-12); Neutrophils # (Auto) 5.3 Thou/mm3 (1.8-7.7); Neutrophils % (Auto) 75 % (37-80); Nucleated Red Blood Cell # 0.00 Thou/mm3 (0.00-0.00); Nucleated Red Blood Cell % 0 /100 WBC (0); Platelet Count 821 Thou/mm3 (140-440); RDW Standard Deviation 46.3 fL (35.1-43.9); Red Blood Count 3.13 Miln/mm3 (4.50-5.90); White Blood Count 7.0 Thou/mm3 (3.8-10.6)
[2025-08-05] MEDS: LORazepam 2 MG/ML VIAL 1 MG IVP (11:18)
[2025-08-05 11:19] LABS: Alanine Aminotransferase 10 U/L (10-49); Albumin, Serum 4.5 gm/dL (3.4-4.8); Albumin/Globulin Ratio 2.1 (1.2-2.2); Alkaline Phosphatase 80 U/L (46-116); Anion Gap 10 (7-16); Aspartate Amino Transferase 18 U/L (0-34); BUN/Creatinine Ratio 19 Ratio (12-20); Bilirubin,Total 0.3 mg/dL (0.3-1.2); Blood Urea Nitrogen 19 mg/dL (9-23); Calcium 9.8 mg/dL (8.3-10.6); Calcium (Corrected) 9.8 mg/dL (8.5-10.1); Carbon Dioxide 28.1 mMol/L (20.0-31.0); Chloride 101 mMol/L (98-107); Creatinine (Component) 1.0 mg/dL (0.6-1.3); Estimated Creatinine Clearance 67.3 mL/min (>60); Globulin 2.1 gm/dL (2.3-3.5); Glucose 139 mg/dL (74-106); Osmolality,Calculated 281 (275-295); Potassium 3.9 mMol/L (3.4-5.1); Sodium 139 mMol/L (136-145); Total Protein 6.6 gm/dL (5.7-8.2); Troponin I < 0.020 ng/mL (0.0-0.045); eGFR > 60 See Note
[2025-08-05 11:22] LABS: Hemoglobin 6.5 g/dL (13.5-16.0)
[2025-08-05 11:28] LABS: INR 1.0 (0.9-1.3); Partial Thromboplastin Time 23.8 Seconds (22.0-36.0); Prothrombin Time 10.7 Seconds (9.0-12.2)
[2025-08-05] MEDS: Milk Of Magnesia Susp 30 ML UDC PO (11:52)
[2025-08-05] MEDS: LIDOCAINE VISCOUS 2% 15 ML UDC PO (11:52)
[2025-08-05] MEDS: HYDROmorphone INJ 2 MG/ML VIAL IVP (11:53)
--- NOTE | 2025-08-05 12:08 | PD.EDABDPN ---
ED Abdominal Pain RME/HPI General Chief Complaint: Abdominal Pain Stated complaint: ABDOMINAL PAIN Time seen by provider: 08/05/25 10:34 Arrival date/time: 08/05/25 10:28 Limitations: no limitations RME / HPI RME / HPI narrative: 65 year old male with history of polysubstance use disorder, history of alcohol use disorder, GERD presents to the ED BIBA from home for evaluation of abdominal pain with nausea and nonbloody vomiting beginning 2 days ago. Pain described as aching in sensation that is located most to his upper abdomen, rating 10/10. Patient admits to using meth at 6AM today. Denies fevers, chills, sweats, chest pain, cough, shortness of breath, diarrhea, or urinary symptoms. Related Data Previous Rx's ?Medication ?Instructions ?Recorded ferrous sulfate 325 mg (65 mg 325 mg PO Q OTHER DAY Iron 12/30/24 iron) tablet,delayed release Deficiency 30 days #15 tabs famotidine 20 mg tablet 20 mg PO BID #60 tabs 02/13/25 metoclopramide HCl 5 mg tablet 5 mg PO TID #30 tabs 02/27/25 (Reglan) pantoprazole 40 mg tablet,delayed 40 mg PO QDAY #30 tabs 02/27/25 release (Protonix) promethazine 12.5 mg rectal 12.5 mg AR Q6H PRN nausea and 02/27/25 suppository vomiting #12 ea famotidine 40 mg tablet 40 mg PO .bedtime #30 tabs 03/05/25 omeprazole 40 mg capsule,delayed 40 mg PO QDAY #30 caps 03/05/25 release famotidine 40 mg tablet 40 mg PO .bedtime #30 tabs 03/24/25 omeprazole 40 mg capsule,delayed 40 mg PO QDAY #30 caps 03/24/25 release omeprazole 40 mg capsule,delayed 40 mg PO BID #30 caps 07/04/25 release sulfamethoxazole 800 1 tab PO BID #20 tabs 07/08/25 mg-trimethoprim 160 mg tablet (Bactrim DS) metoclopramide HCl 5 mg tablet 5 mg PO BID 30 days #60 tabs 07/19/25 omeprazole 40 mg capsule,delayed 40 mg PO BID 1 month #60 caps 07/19/25 release folic acid 1 mg tablet 1 mg PO QDAY 1 month #30 tabs 07/20/25 multivitamin (Daily Multi-Vitamin 1 tab PO QAM 1 month #30 tabs 07/20/25 tablet) polyethylene glycol 3350 17 4 g PO QDAY #119 grams 07/20/25 gram/dose oral powder (Miralax) thiamine HCl (vitamin B1) 100 mg 100 mg PO QDAY 1 month #30 caps 07/20/25 capsule amoxicillin 500 mg capsule 500 mg PO BID #28 caps 07/26/25 clarithromycin 500 mg tablet 500 mg PO BID #28 tabs 07/26/25 pantoprazole 20 mg tablet,delayed 20 mg PO BID #28 tabs 07/26/25 release (Protonix) acetaminophen 500 mg tablet 1,000 mg (2 x 500 mg) PO Q6H PRN 07/27/25 (Tylenol Extra Strength) pain #30 tabs metoclopramide HCl 10 mg tablet 10 mg PO Q6H PRN nausea and 07/27/25 (Reglan) vomiting #10 tabs sucralfate 1 gram tablet (Carafate) See Rx Instructions .Route 07/27/25 .COMPLEX #90 tabs Allergies Allergy/AdvReac Type Severity Reaction Status Date / Time No Known Allergies Allergy Verified 07/26/25 21:58 Review of Systems Review of Systems Systems Reviewed: All systems reviewed, normal except as documented Past Medical History Past Medical History GASTROINTESTINAL: Positive Ulcer PSYCHO/SOCIAL: Positive Recreational Drug Use Family History FAMILY HISTORY: Negative Family Cardiac Disorders Social History SMOKING STATUS: Unknown if ever smoked SUBSTANCE USE: methamphetamine ED Exam General Limitations: Present no limitations General appearance: Present alert and other (arrived screaming in pain, writhing on the gurney, thin, appears slightly cachectic) Head Head exam: Present atraumatic, normocephalic and normal inspection Eye Eye exam: Present normal appearance, PERRL and EOMI ENT ENT exam: Present normal exam, normal oropharynx and mucous membranes moist Neck Neck exam: Present normal inspection, full ROM and trachea midline Chest Chest inspection: Present normal inspection and symmetric chest wall rise Respiratory Respiratory exam: Present normal lung sounds bilaterally Cardiovascular Cardiovascular exam: Present normal rhythm, tachycardia and normal heart sounds Abdominal Exam Abdominal exam: Present soft and normal bowel sounds; Absent tenderness, guarding, rebound or rigidity Extremities Exam Extremities exam: Present normal inspection and full ROM Back Exam Back exam: Present normal inspection and full ROM Neurological Exam Neurological exam: Present alert, oriented X3 and CN II-XII intact Psychiatric Psychiatric exam: Present normal affect and normal mood Skin Skin exam: Present warm, dry, intact and normal color Course Quality Measures none Orders Category Date Time Status Explosive Operator Grenade NOW Care 08/05/25 10:34 Active Continuous Pulse Oximetry NOW Care 08/05/25 10:34 Completed EKG (ED ONLY) *Do not use* NOW Care 08/05/25 10:34 Completed Insert IV NOW Care 08/05/25 10:34 Active Transfuse,blood/blood products NOW Care 08/05/25 12:[address] abdomen pelvis wo con Stat Exams 08/05/25 10:34 Completed EKG (ED Only) Stat Exams 08/05/25 10:34 Draft US gall bladder Stat Exams 08/05/25 14:52 Completed XR chest 1V portable Stat Exams 08/05/25 10:34 Completed CBC Stat Lab 08/05/25 10:45 Completed Comprehensive Metabolic Panel Stat Lab 08/05/25 10:45 Completed Partial Thromboplastin Time Stat Lab 08/05/25 10:45 Completed Prothrombin Time with INR Stat Lab 08/05/25 10:45 Completed Troponin I Stat Lab 08/05/25 10:45 Completed Type and Screen Stat Lab 08/05/25 12:36 Results Urinalysis Stat Lab 08/05/25 16:49 Completed prbc [Red Blood Cells] Stat Lab 08/05/25 12:36 Results Famotidine Inj [Pepcid Inj] Med 08/05/25 10:35 Discontinued 20 mg IVP X1 ONE HYDROmorphone INJ [Dilaudid Inj] Med 08/05/25 10:35 Discontinued 0.5 mg IVP X1 ONE HYDROmorphone INJ [Dilaudid Inj] Med 08/05/25 11:45 Discontinued 2 mg IVP X1 ONE LORazepam [Ativan Inj] Med 08/05/25 10:52 Discontinued 1 mg IVP X1 ONE LORazepam [Ativan Inj] Med 08/05/25 11:46 Discontinued 1 mg IVP X1 ONE Lidocaine 2% Viscous [Xylocaine 2% Viscous] Med 08/05/25 11:45 Discontinued 15 ml PO X1 ONE Milk Of Magnesia Susp [Mom Susp] Med 08/05/25 11:45 Discontinued 30 ml PO X1 ONE Ondansetron Inj [Zofran Inj] Med 08/05/25 10:35 Discontinued 4 mg IVP X1 ONE Ondansetron Inj [Zofran Inj] Med 08/05/25 11:45 Discontinued 4 mg IVP X1 ONE Pantoprazole Inj [Protonix Inj] Med 08/05/25 10:52 Discontinued 40 mg IVP X1 ONE Sodium Chloride 0.9% 1000 ml [Ns] 1,000 ml Med 08/05/25 10:34 Discontinued IV 999 mls/hr Oxygen Delivery NOW RT 08/05/25 10:34 Active Vital Signs Vital signs: Vital Signs Temperature 98.0 F 08/05/25 10:30 Pulse Rate 86 08/05/25 10:30 Respiratory Rate 20 08/05/25 10:30 Blood Pressure 187/89 H 08/05/25 10:30 Pulse Oximetry (%) 100 08/05/25 10:30 Oxygen Delivery Method Room Air 08/05/25 10:30 Pulse ox is 100% on room air which is adequate. Abdominal Pain MDM MDM Narrative MDM Narrative:: Shazia Kaur am scribing for and in the presence of Dr. Naidu. Patient data External records reviewed:: [facility] previous records and EMS form Clinical information provided by:: patient and EMS Social determinants that could affect healthcare access:: substance use (methamphetamine ) Patient has the following chronic illnesses:: polysubstance use disorder, history of alcohol use disorder, GERD How is presenting disease/condition affected by chronic disease/condition?: exacerbated by Evaluation data The following diagnostics were reviewed and interpreted by me:: lab results, radiology exam(s) and EKG tracing(s) (EKG @ 12:13h, interpreted by me, normal sinus rhythm, rate 75, incomplete right bundle branch block, left anterior fascicular block, no STEMI. ) Lab and/or radiology exams considered but not ordered:: None Interpretation Summary: Ordering Physician: Jacinto Naidu MD Date of Service: 08/05/25 Procedure(s): CT abdomen pelvis wo con Accession Number(s): [id number] cc: Jacinto Naidu MD; Kevin Villa MD; NO PRIMARY/FAMILY,PHYSICIAN~ Examination: CT abdomen and pelvis without contrast. Coronal 3-D reconstructions. Sagittal 2-D reconstructions. Date and time of exam: August 05, 2024, 11:11 a.m., comparison July 04, 2025 INDICATIONS: Onset epigastric pain today CTDI: vol (mGy): 4.82 DLP: (mGycm): 262 Technique: Axial images of the abdomen have been obtained, 3 mm slice thickness Intravenous contrast material has not been administered. Low dose protocols were performed. One or more of the following dose reduction techniques were used; automated exposure control, adjustment of the mA and/or KV according to patient size, use of iterative reconstruction technique. Findings: Retrocardiac gastric hernia No visualized liver or splenic lesion Gallbladder is not diagnostically visualized No pancreatic mass No renal or ureteral calculi, no hydronephrosis Abundant stool throughout the entire colon No free air No diverticulitis Urinary bladder intact mild wall thickening Transverse prostate dimension 3.8 cm Severe osteopenia Advanced degenerative disc disease L3-L4, L4-L5 IMPRESSION: Limited study without intravenous contrast No renal or ureteral calculi, no hydronephrosis Consider hepatobiliary sonography for diagnostic assessment of the biliary tree Abundant stool throughout the entire colon, no obstruction No pericecal inflammatory change Mild cystitis pattern Dictated By: Kevin Villa MD Signed By: <Electronically signed by Kevin Villa MD in OV> 08/05/25 1157 Ordering Physician: Jacinto Naidu MD Date of Service: 08/05/25 Procedure(s): XR chest 1V portable Accession Number(s): [id number] cc: Jacinto Naidu MD; Kevin Villa MD~ EXAMINATION: AP chest single view TECHNIQUE: AP portable upright chest single view Date and time: August 05, 2025, 1052 hours Comparison 07/26/2025 INDICATIONS: Chest pain shortness of breath today. FINDINGS: Minimal prominence left ventricle No pneumonia or pulmonary edema Moderate osteopenia IMPRESSION: No active disease Dictated By: Kevin Villa MD Signed By: <Electronically signed by Kevin Villa MD in OV> 08/05/25 1110 Ordering Physician: Jacinto Naidu MD Date of Service: 08/05/25 Procedure(s): US gall bladder Accession Number(s): [id number] cc: Jacinto Naidu MD; Kevin Villa MD; NO PRIMARY/FAMILY,PHYSICIAN~ Examination: Abdomen sonogram, Limited Date and time of exam: August 05, 2025, 1610 hours INDICATIONS: Epigastric pain today, CT abdomen pelvis today no diagnostic visualization of the gallbladder Technique: Real-time alberts scale transabdominal sonographic images of the upper abdomen obtained. Findings: Normal gallbladder Common bile duct enlarged 10 mm no stones depicted Pancreatic head 2.5 cm Liver 13.8 cm lobular contour fatty infiltration no focal liver lesions Normal hepatopetal portal venous flow Patent IVC IMPRESSION: Normal gallbladder Common bile duct 10 mm, no common bile duct stones If biliary colic is a clinical consideration, suggest MRCP follow-up Dictated By: Kevin Villa MD Signed By: <Electronically signed by Kevin Villa MD in OV> 08/05/25 1720 Medications / Prescriptions Medications or Prescriptions considered but not ordered:: None Medication administrations:: Medication Administration History Discontinued Medications Famotidine (Famotidine Inj 10 Mg/Ml Vial 2 Ml) 20 mg IVP X1 ONE Stop: 08/05/25 10:36 Last Admin: 08/05/25 10:50 Dose: 20 mg Documented By: VG Hydromorphone HCl (Hydromorphone Inj 2 Mg/Ml Vial) 0.5 mg IVP X1 ONE Stop: 08/05/25 10:36 Last Admin: 08/05/25 10:50 Dose: 0.5 mg Documented By: VG Hydromorphone HCl (Hydromorphone Inj 2 Mg/Ml Vial) 2 mg IVP X1 ONE Stop: 08/05/25 11:46 Last Admin: 08/05/25 11:53 Dose: 2 mg Documented By: DO Sodium Chloride (Ns) 1,000 mls @ 999 mls/hr IV .Q1H1M ONE Stop: 08/05/25 11:34 Last Infusion: 08/05/25 14:00 Dose: Infused Documented By: Admin: 08/05/25 10:48 Dose: 999 mls/hr Documented By: VG Lidocaine HCl (Lidocaine Viscous 2% 15 Ml Udc) 15 ml PO X1 ONE Stop: 08/05/25 11:46 Last Admin: 08/05/25 11:52 Dose: 15 ml Documented By: DO Lorazepam (Lorazepam 2 Mg/Ml Vial) 1 mg IVP X1 ONE Stop: 08/05/25 10:53 Last Admin: 08/05/25 11:18 Dose: 1 mg Documented By: DO Lorazepam (Lorazepam 2 Mg/Ml Vial) 1 mg IVP X1 ONE Stop: 08/05/25 11:47 Last Admin: 08/05/25 11:58 Dose: Not Given Documented By: DO Non-Admin Reason: HOLD Magnesium Hydroxide (Milk Of Magnesia Susp 30 Ml Udc) 30 ml PO X1 ONE; Protocol Stop: 08/05/25 11:46 Last Admin: 08/05/25 11:52 Dose: 30 ml Documented By: DO Ondansetron HCl (Ondansetron Inj 2 Mg/Ml Inj 2 Ml) 4 mg IVP X1 ONE; Protocol Stop: 08/05/25 10:36 Last Admin: 08/05/25 10:50 Dose: 4 mg Documented By: VG Ondansetron HCl (Ondansetron Inj 2 Mg/Ml Inj 2 Ml) 4 mg IVP X1 ONE; Protocol Stop: 08/05/25 11:46 Last Admin: 08/05/25 11:52 Dose: 4 mg Documented By: DO Pantoprazole Sodium (Pantoprazole Inj 40 Mg Vial) 40 mg IVP X1 ONE Stop: 08/05/25 10:53 Last Admin: 08/05/25 11:18 Dose: 40 mg Documented By: DO See above Consultations Consultation(s) initiated? (list below): No Diagnosis Differential diagnosis abdominal pain: abdominal pain, calculus of kidney, gastroenteritis and other (cholelithiasis) Most likely diagnosis given after review of the tests above:: Abdominal pain Methamphetamine abuse Anemia Admission Indicated Admission indicated?: not indicated Admission Request Was there a request for admission?: No Disposition Plan Disposition Plan: Discharge Discharge Attestation Discharge Attestation: The patient and all family members were given an opportunity to ask questions and understood the discharge instructions. Discharge instructions specifically effects, indications for sooner follow up or return to the emergency department, and the expected course of current diagnosis. Patient condition: Stable Discharge Plan Plan Patient Disposition: HOME (Self Care) Prescriptions/Referrals Prescriptions/Med Rec: No Action omeprazole 40 mg capsule,delayed release(DR/EC) 40 mg PO BID Qty: 30 0RF sulfamethoxazole-trimethoprim [Bactrim DS] 800-160 mg tablet 1 tab PO BID Qty: 20 0RF clarithromycin 500 mg tablet 500 mg PO BID Qty: 28 0RF amoxicillin 500 mg capsule 500 mg PO BID Qty: 28 0RF pantoprazole [Protonix] 20 mg tablet,delayed release (DR/EC) 20 mg PO BID Qty: 28 0RF ferrous sulfate 325 mg (65 mg iron) tablet,delayed release (DR/EC) 325 mg PO Q OTHER DAY 30 Days Qty: 15 3RF famotidine 20 mg tablet 20 mg PO BID Qty: 60 0RF pantoprazole [Protonix] 40 mg tablet,delayed release (DR/EC) 40 mg PO QDAY Qty: 30 0RF metoclopramide HCl [Reglan] 5 mg tablet 5 mg PO TID Qty: 30 0RF promethazine 12.5 mg suppository 12.5 mg AR Q6H PRN (Reason: nausea and vomiting) Qty: 12 0RF famotidine 40 mg tablet 40 mg PO .bedtime Qty: 30 0RF omeprazole 40 mg capsule,delayed release(DR/EC) 40 mg PO QDAY Qty: 30 0RF famotidine 40 mg tablet 40 mg PO .bedtime Qty: 30 0RF omeprazole 40 mg capsule,delayed release(DR/EC) 40 mg PO QDAY Qty: 30 0RF metoclopramide HCl 5 mg Tablet 5 mg PO BID 30 Days Qty: 60 1RF omeprazole 40 mg capsule,delayed release(DR/EC) 40 mg PO BID 30 Days Qty: 60 1RF polyethylene glycol 3350 [Miralax] 17 gram/dose powder 4 g PO QDAY Qty: 119 0RF multivitamin [Daily Multi-Vitamin] Tablet 1 tab PO QAM 30 Days Qty: 30 0RF folic acid 1 mg tablet 1 mg PO QDAY 30 Days Qty: 30 0RF thiamine HCl (vitamin B1) 100 mg capsule 100 mg PO QDAY 30 Days Qty: 30 0RF metoclopramide HCl [Reglan] 10 mg tablet 10 mg PO Q6H PRN (Reason: nausea and vomiting) Qty: 10 0RF sucralfate [Carafate] 1 gram tablet See Rx Instructions .ROUTE .COMPLEX Qty: 90 0RF Rx Instructions: 1 g orally prior to meals and before bedtime acetaminophen [Tylenol Extra Strength] 500 mg tablet 1,000 mg PO Q6H PRN (Reason: pain) Qty: 30 0RF Referrals: No Primary/Family,Physician [Primary Care Provider] - In 1 week Problem List Clinical Impression: Abdominal pain, Methamphetamine abuse, Anemia Patient/Caregiver Discharge Instructions Education Materials: Anemia, ED Drug Abuse, ED Pain, Acute, Uncertain Cause Additional Instructions: Follow-up with your primary care doctor in 3 to 5 days for recheck. You can return to the emergency department sooner if symptoms worsen or if you notice any new, concerning issues. Print Language: Greenlandic Stand Alone Forms: [employer] Award Info., Patient Portal Info Letter
--- NOTE | 2025-08-05 14:52 | XR_ITS ---
Examination: Abdomen sonogram, Limited Date and time of exam: August 05, 2025, 1610 hours INDICATIONS: Epigastric pain today, CT abdomen pelvis today no diagnostic visualization of the gallbladder Technique: Real-time alberts scale transabdominal sonographic images of the upper abdomen obtained. Findings: Normal gallbladder Common bile duct enlarged 10 mm no stones depicted Pancreatic head 2.5 cm Liver 13.8 cm lobular contour fatty infiltration no focal liver lesions Normal hepatopetal portal venous flow Patent IVC IMPRESSION: Normal gallbladder Common bile duct 10 mm, no common bile duct stones If biliary colic is a clinical consideration, suggest MRCP follow-up
[2025-08-05 16:58] LABS: Collection Type, Urine Clean Catch
[2025-08-05 17:09] LABS: Bacteria,Urine Rare; Bilirubin,Urine Negative (Negative); Blood,Urine Negative (Negative); Color,Urine Yellow (Lt Yel-Yel); Glucose, Urine Negative (Negative); Hyaline Casts,Urine < 1 /hpf (0-1); Ketones,Urine Negative (Negative); Leukocyte Esterase,Urine Positive (Negative); Nitrite,Urine Positive (Negative); PH,Urine 6.0 (5.0-7.0); Protein,Urine 1+ (Neg - Trace); RBC,Urine 6 /hpf (0-3); Specific Gravity,Urine 1.025 (1.001-1.035); Squamous Epithelial Cell,Urine < 1 /hpf (0-5); Urobilinogen,Urine Negative mg/dL (0.0-1.0); WBC,Urine 41 /hpf (0-5)
[2025-08-05 17:25] LABS: Clarity,Urine Hazy (Clear/Hazy)
== END 2025-08-05 20:53 | disposition home or self-care (01) ==
PROVIDERS: Emergency Provider Family Medicine
DX: R06.02 Shortness of breath (principal); R07.9 Chest pain, unspecified; D64.9 Anemia, unspecified; E61.1 Iron deficiency; F15.10 Other stimulant abuse, uncomplicated
CPT/HCPCS: 36415; 71045; 74176; 76705; 80053; 81001; 84484; 85025; 85610; 85730; 86850; 86900; 86901; 86923; 93005; 96361; 96374; 96375; 96376; 99284; J1171; J2060; J2405; J2470; J3490; J7030; P9016; A9270

== ENCOUNTER 2025-08-15 09:09 | Inpatient (IN) | payer MEDICAID, SELFPAY ==
[2025-08-15] VITALS (7 sets, daily range): BP systolic 121–189; BP diastolic 71–115; PULSE 70–96; RESP 15–23; TEMP 36.3–36.8; O2SAT 96–100; BMI 19.0
--- NOTE | 2025-08-15 09:18 | XR_ITS ---
EXAMINATION: XR chest 1V ORDERING PROVIDER: Ashley Nguyen MD HISTORY: chest pain TECHNIQUE: Two portable AP radiographs of the chest. COMPARISON: 08/05/2025, chest radiographs. 07/18/2025, CT angio chest. FINDINGS: Lines and Tubes: Overlying monitoring leads. Lungs: Hyperinflated. Similar right lower lobe 5 mm calcified granuloma. Pleura: No pneumothorax or pleural effusion. Cardiomediastinal Silhouette: Size. Soft Tissues/Bones: Scoliotic curvature of the thoracolumbar spine. IMPRESSION: No acute pulmonary findings on background emphysematous changes.
--- NOTE | 2025-08-15 09:18 | EKG_ITS ---
[facility] Test Date: 2025-08-15 Pat Name: ANTHONY VELÁZQUEZ Department: Room: - Gender: Male Parer: : 1960 Requested By: Ashley Hayes Order Number: [id number] Reading MD: Ashley Hayes Measurements Intervals [place] Rate: 88 P: 81 [place]: 124 QRS: -67 QRSD: 102 T: 70 QT: 356 QTc: 432 Interpretive Statements SINUS RHYTHM LEFT ANTERIOR FASCICULAR BLOCK [QRS AXIS <= -45, QR IN I, RS IN II] MINIMAL VOLTAGE CRITERIA FOR LVH, CONSIDER NORMAL VARIANT [MEETS CRITERIA IN ONE OF: R(aVL), S(V1), R(V5), R(V5/V6)+S(V1)] MODERATE ST DEPRESSION [0.05+ mV ST DEPRESSION] Compared to ECG 08/05/2025 10:39:09 Left anterior fascicular block now present ST (T wave) deviation now present Supraventricular rhythm no longer present Left-axis deviation no longer present T-wave abnormality no longer present Possible ischemia no longer present /store/S0/[id number]
--- NOTE | 2025-08-15 09:20 | XR_ITS ---
Examination: CT chest with intravenous contrast CT abdomen with intravenous contrast CT pelvis with intravenous contrast 2-D coronal and sagittal reconstructions Time of exam: August 15, 2025, 10:49 a.m., comparison August 05, 2025 INDICATIONS: Vomiting blood today CTDI: vol (mGy) : 4.16 DLP: (mGycm): 318 Technique: Multiple axial images of the chest, abdomen and pelvis with intravenous contrast, 3.0 mm slice thickness. Images obtained post intravenous injection Isovue 370 60 cc. 2-D sagittal and coronal reconstructions. Low dose protocols were performed. One or more of the following dose reduction techniques were used; automated exposure control, adjustment of the mA and/or KV according to patient size, use of iterative reconstruction technique. Findings: Right thyromegaly with multiple thyroid nodules No thoracic aortic aneurysmal dilatation Pulmonary artery segments are not enlarged Pulmonary artery opacification is poor No paratracheal tracheobronchial or bronchopulmonary adenopathy COPD with areas of airspace destruction Small calcified granuloma in the right upper lobe No aspiration pneumonia Retrocardiac gastric hernia No visualized liver or splenic lesion Contracted gallbladder No pancreatic mass No renal or ureteral calculi, no hydronephrosis Gastric mucosa in the antrum is thickened, image 188 Abdominal aortic calcification no aneurysmal dilatation No bowel obstruction Mildly fluid distended small bowel loops Mild prostatomegaly No bladder mass or bladder calculi No pericecal inflammatory change Moderate narrowing hip joints Prominent lumbar spondylosis Advanced degenerative disc disease L3-L4, L4-L5 IMPRESSION: Right thyromegaly with multiple right thyroid nodules, consider dedicated thyroid sonography follow-up No mediastinal lymphadenopathy No pneumonia or pulmonary edema COPD Retrocardiac gastric hernia Suspicious for antral gastritis No renal or ureteral calculi No bowel obstruction Mild small bowel ileus
--- NOTE | 2025-08-15 09:46 | EDNOTE_ITS ---
ED GI Bleed RME/HPI General Chief complaint: GI Bleed Stated complaint: ABD PAIN Time Seen by Provider: 08/15/25 09:18 Arrival date/time: 08/15/25 09:09 Limitations: no limitations RME / HPI RME / HPI Narrative: Patient is a 65-year-old male with medical history notable for esophageal ulcers, H. pylori infection , polysubstance abuse, prior alcohol abuse, last drink many years ago to the emergency department with 3 days of abdominal pain and coffee-ground emesis. Denies fevers, chills, dysuria, hematuria, melena, bloody stools. Patient does endorse abdominal pain. Denies travel sick contacts. Denies history of IV drug use. Related Data Home Medications ?Medication ?Instructions ?Recorded ?Confirmed No Known Home Medications 08/15/2507/24 Allergies Allergy/AdvReac Type Severity Reaction Status Date / Time No Known Allergies Allergy Verified 07/26/25 21:58 Review of Systems Review of Systems Systems Reviewed: All systems reviewed, normal except as documented Past Medical History Past Medical History GASTROINTESTINAL: Positive Ulcer PSYCHO/SOCIAL: Positive Recreational Drug Use Family History FAMILY HISTORY: Negative Family Cardiac Disorders Social History SMOKING STATUS: Current every day smoker SUBSTANCE USE: methamphetamine ED Exam General Limitations: Present no limitations General appearance: Present in distress and other Head Head exam: Present atraumatic and normocephalic ENT ENT exam: Present other (Mostly edentulous, coffee-ground emesis in oropharynx) Neck Neck exam: Present normal inspection Chest Chest inspection: Present normal inspection and symmetric chest wall rise Respiratory Respiratory exam: Absent respiratory distress Cardiovascular Cardiovascular exam: Present regular rate Abdominal Exam Abdominal exam: Present soft and tenderness; Absent guarding, rebound or rigidity Extremities Exam Extremities exam: Present normal inspection Psychiatric Psychiatric exam: Present normal affect Skin Skin exam: Present dry and intact Course Quality Measures none Orders Category Date Time Status Admit to Inpatient Status Routine Admission 08/15/25 14:54 Active Patient Condition Routine Admission 08/15/25 14:54 Ordered Activity as Tolerated Routine Care 08/15/25 14:55 Ordered Aspiration precautions ONCE Care 08/15/25 14:[address] Screening NOW Care 08/15/25 09:20 Completed EKG (ED ONLY) *Do not use* NOW Care 08/15/25 09:18 Completed NPO NOW Care 08/15/25 14:53 Active Notify provider NEEDED Care 08/15/25 14:54 Active Sequential Compression Device QSHIFT Care 08/15/25 14:54 Active Consult to Gastroenterology Stat Cons 08/15/25 12:23 Ordered Diet NPO (NOW) Diet 08/15/25 14:[address] chest abdomen pelvis w Stat Exams 08/15/25 09:20 Completed CXR [XR chest 1V] Stat Exams 08/15/25 09:18 Completed EKG (ED Only) Stat Exams 08/15/25 09:18 Draft BNP [B-Type Natriuretic Peptide] Stat Lab 08/15/25 09:47 Completed CBC AM DRAW Lab 08/16/25 04:19 Completed CBC AM DRAW Lab 08/17/25 05:00 Ordered CBC AM DRAW Lab 08/18/25 05:00 Ordered CBC Stat Lab 08/15/25 09:47 Completed CMP [Comprehensive Metabolic Panel] Stat Lab 08/15/25 09:47 Completed Comprehensive Metabolic Panel AM DRAW Lab 08/16/25 04:19 Completed Comprehensive Metabolic Panel AM DRAW Lab 08/17/25 05:00 Ordered Comprehensive Metabolic Panel AM DRAW Lab 08/18/25 05:00 Ordered Magnesium AM DRAW Lab 08/16/25 04:19 Completed PT [Prothrombin Time with INR] Stat Lab 08/15/25 09:47 Completed Phosphorous AM DRAW Lab 08/16/25 04:19 Completed Phosphorous AM DRAW Lab 08/17/25 05:00 Ordered Phosphorous AM DRAW Lab 08/18/25 05:00 Ordered Troponin I Stat Lab 08/15/25 09:47 Completed Type and Screen Stat Lab 08/15/25 09:47 Completed Acetaminophen Tab [Tylenol Tab] Med 08/15/25 14:54 Active 650 mg PO Q6H PRN Morphine* Inj Med 08/15/25 09:24 Discontinued 2 mg IVP X1 ONE Ondansetron Inj [Zofran Inj] Med 08/15/25 14:54 Active 4 mg IVP Q6H PRN Ondansetron Inj [Zofran Inj] Med 08/15/25 09:18 Discontinued 4 mg IVP X1 ONE Pantoprazole/Ns 80Mg IV Premix [Protonix/NS 80mg IV Med 08/15/25 09:21 Discontinued Premix] 80 mg in 100 ml IV X1 Pantoprazole/Ns 80Mg IV Premix [Protonix/NS 80mg IV Med 08/15/25 10:45 Discontinued Premix] 80 mg in 100 ml IV X1 Ringers Lactated 1000 ml [Lactated Ringers] 1,000 ml Med 08/15/25 14:53 Active IV 100 mls/hr Ringers Lactated 1000 ml [Lactated Ringers] 1,000 ml Med 08/15/25 09:18 Discontinued IV 999 mls/hr Code Status Routine Oth 08/15/25 14:54 Ordered Oxygen Delivery PRN RT 08/15/25 14:54 Active Vital Signs Vital signs: Vital Signs Pulse Rate 91 08/15/25 09:37 Respiratory Rate 23 H 08/15/25 09:37 Blood Pressure 189/108 H 08/15/25 09:37 Pulse Oximetry (%) 99 08/15/25 09:37 Oxygen Delivery Method Room Air 08/15/25 09:37 Pulse ox is 99% on room air which is adequate. GI Bleed MDM Narrative MDM Narrative:: Patient is a 65-year-old male is in the emerged from with concerns for abdominal pain and coffee-ground emesis. Vital signs and exam as listed. Concern for perforated ulcer, gastritis, erosive esophagitis, among others. Ordered labs EKG CT abdomen, Protonix. Patient recently had an endoscopy per chart review did not identify any varices, however did have gastric ulcers. Patient was discharged on omeprazole. Patient states that he continues to use crystal methamphetamine. Labs with evidence of hemoglobin 10.1. Improved from prior. No acute metabolic disturbance, troponin not elevated. Patient blood type is a positive. Does not need emergent blood transfusion at this time. Chest x-ray without any acute abnormalities, CTA of the chest abdomen pelvis with evidence of possible antral gastritis. 1342: I spoke with hospitalist team A for admission. 1345: I spoke with GI Dr. Tyler. Discussed patients PMHx, HPI, ED course, exam findings, labs, and radiology results. He agree with management. Will consult. Agrees with management. Total critical care time: Approximately?45 minutes Due to a high probability of clinically significant, life threatening deterioration, the patient required my highest level of preparedness to intervene emergently and I personally spent this critical care time directly and personally managing the patient. This critical care time included obtaining a history; examining the patient; pulse oximetry; ordering and review of studies; arranging urgent treatment with development of a management plan; evaluation of patient's response to treatment; frequent re assessment; and, discussions with other providers. This critical care time was performed to assess and manage the high probability of imminent, life-threatening deterioration that could result in multi-organ failure. It was exclusive of separately billable procedures and treating other patients and teaching time. Please see MDM section and the rest of the note for further information on patient assessment and treatment. Patient data External records reviewed:: [facility] previous records Clinical information provided by:: patient and EMS Social determinants that could affect healthcare access:: substance use Patient has the following chronic illnesses:: See MDM How is presenting disease/condition affected by chronic disease/condition?: exacerbated by Evaluation data The following diagnostics were reviewed and interpreted by me:: lab results, radiology exam(s) and EKG tracing(s) (EKG @ 09:50, interpreted by me, normal sinus rhythm, rate 88, left anterior fascicular block, no STEMI. ) Lab and/or radiology exams considered but not ordered:: None Interpretation Summary: Ordering Physician: Ashley Nguyen MD Date of Service: 08/15/25 Procedure(s): XR chest 1V Accession Number(s): [id number] cc: Trevor Castillo MD; Ashley Nguyen MD~ EXAMINATION: XR chest 1V ORDERING PROVIDER: Ashley Nguyen MD HISTORY: chest pain TECHNIQUE: Two portable AP radiographs of the chest. COMPARISON: 08/05/2025, chest radiographs. 07/18/2025, CT angio chest. FINDINGS: Lines and Tubes: Overlying monitoring leads. Lungs: Hyperinflated. Similar right lower lobe 5 mm calcified granuloma. Pleura: No pneumothorax or pleural effusion. Cardiomediastinal Silhouette: Size. Soft Tissues/Bones: Scoliotic curvature of the thoracolumbar spine. IMPRESSION: No acute pulmonary findings on background emphysematous changes. Dictated By: Trevor Castillo MD Signed By: <Electronically signed by Trevor Castillo MD in OV> 08/15/25 1009 ========= Ordering Physician: Ashley Nguyen MD Date of Service: 08/15/25 Procedure(s): CT chest abdomen pelvis w Accession Number(s): [id number] cc: Kevin Villa MD; NO PRIMARY/FAMILY,PHYSICIAN; Ashley Nguyen MD~ Examination: CT chest with intravenous contrast CT abdomen with intravenous contrast CT pelvis with intravenous contrast 2-D coronal and sagittal reconstructions Time of exam: August 15, 2025, 10:49 a.m., comparison August 05, 2025 INDICATIONS: Vomiting blood today CTDI: vol (mGy) : 4.16 DLP: (mGycm): 318 Technique: Multiple axial images of the chest, abdomen and pelvis with intravenous contrast, 3.0 mm slice thickness. Images obtained post intravenous injection Isovue 370 60 cc. 2-D sagittal and coronal reconstructions. Low dose protocols were performed. One or more of the following dose reduction techniques were used; automated exposure control, adjustment of the mA and/or KV according to patient size, use of iterative reconstruction technique. Findings: Right thyromegaly with multiple thyroid nodules No thoracic aortic aneurysmal dilatation Pulmonary artery segments are not enlarged Pulmonary artery opacification is poor No paratracheal tracheobronchial or bronchopulmonary adenopathy COPD with areas of airspace destruction Small calcified granuloma in the right upper lobe No aspiration pneumonia Retrocardiac gastric hernia No visualized liver or splenic lesion Contracted gallbladder No pancreatic mass No renal or ureteral calculi, no hydronephrosis Gastric mucosa in the antrum is thickened, image 188 Abdominal aortic calcification no aneurysmal dilatation No bowel obstruction Mildly fluid distended small bowel loops Mild prostatomegaly No bladder mass or bladder calculi No pericecal inflammatory change Moderate narrowing hip joints Prominent lumbar spondylosis Advanced degenerative disc disease L3-L4, L4-L5 IMPRESSION: Right thyromegaly with multiple right thyroid nodules, consider dedicated thyroid sonography follow-up No mediastinal lymphadenopathy No pneumonia or pulmonary edema COPD Retrocardiac gastric hernia Suspicious for antral gastritis No renal or ureteral calculi No bowel obstruction Mild small bowel ileus Dictated By: Kevin Villa MD Signed By: <Electronically signed by Kevin Villa MD in OV> 08/15/25 1136 Medications / Prescriptions Medications or Prescriptions considered but not ordered:: None Medication administrations:: Medication Administration History Acetaminophen (Acetaminophen 325 Mg Tablet) 650 mg PO Q6H PRN PRN Reason: Fever >100.4 or Pain Stop: 09/14/25 14:53 Lactated Ringer's (Lactated Ringers) 1,000 mls @ 100 mls/hr IV .Q10H ALAN Stop: 08/16/25 10:52 Last Admin: 08/16/25 03:22 Dose: 100 mls/hr Documented By: Infusion: 08/16/25 02:52 Dose: Infused Documented By: Admin: 08/15/25 16:52 Dose: 100 mls/hr Documented By: JELENA Pantoprazole Sodium (Protonix/Ns 80mg Iv Premix) 80 mg in 100 mls @ 10 mls/hr IV X1 ONE Stop: 08/16/25 08:08 Ondansetron HCl (Ondansetron Inj 2 Mg/Ml Inj 2 Ml) 4 mg IVP Q6H PRN; Protocol PRN Reason: NAUSEA OR VOMITING Stop: 09/14/25 14:53 Discontinued Medications Lactated Ringer's (Lactated Ringers) 1,000 mls @ 999 mls/hr IV .Q1H1M ONE Stop: 08/15/25 10:18 Last Infusion: 08/15/25 11:53 Dose: Infused Documented By: Admin: 08/15/25 10:02 Dose: 999 mls/hr Documented By: JELENA Pantoprazole Sodium (Protonix/Ns 80mg Iv Premix) 80 mg in 100 mls @ 400 mls/hr IV X1 ONE Stop: 08/15/25 09:35 Last Infusion: 08/15/25 11:53 Dose: Infused Documented By: Admin: 08/15/25 09:48 Dose: 400 mls/hr Documented By: JELENA Pantoprazole Sodium (Protonix/Ns 80mg Iv Premix) 80 mg in 100 mls @ 10 mls/hr IV X1 ONE Stop: 08/15/25 20:44 Last Admin: 08/15/25 11:06 Dose: 10 mls/hr Documented By: JELENA Morphine Sulfate (Morphine Sulf Inj 4 Mg/Ml Vial) 2 mg IVP X1 ONE Stop: 08/15/25 09:25 Last Admin: 08/15/25 09:48 Dose: 2 mg Documented By: JELENA Ondansetron HCl (Ondansetron Inj 2 Mg/Ml Inj 2 Ml) 4 mg IVP X1 ONE; Protocol Stop: 08/15/25 09:19 Last Admin: 08/15/25 09:47 Dose: 4 mg Documented By: JELENA See above Consultations Consultation(s) initiated? (list below): Yes Consultation #1 (Physician, Specialty, Details): See MDM Diagnosis GI bleed differential diagnosis: other Most likely diagnosis given after review of the tests above:: Coffee ground emesis Abdominal pain Admission Indicated Admission indicated?: indicated Admission Request Was there a request for admission?: Yes Admission Attestation Admission request attestation: Discussed case with Hospitalist service regarding admission. Discussed patients ED course, exam findings, labs, and radiology results. The Hospitalist [agrees] to accept the patient for admission. Disposition Plan Disposition Plan: Admit Discharge Plan Plan Patient Disposition: Admit Acute Care w/in Hospital Problem List Clinical Impression: Coffee ground emesis, Abdominal pain
[2025-08-15] MEDS: ONDANSETRON INJ 2 MG/ML INJ 2 ML 4 MG IVP (09:47)
[2025-08-15] MEDS: PANTOPRAZOLE/NS 80MG IV PREMIX 80 MG/100 ML BAG 400 MG IV (09:48)
[2025-08-15] MEDS: MORPHINE SULF INJ 4 MG/ML VIAL 2 MG IVP (09:48)
--- NOTE | 2025-08-15 09:50 | PC.NURSE ---
PT BROUGHT IN BY EMS FOR ABD PAIN AND GI BLEED. ON ASSESSMENT PT DID HAVE A COFFEE GROUND EMESIS THAT CAME BACK POSITIVE FOR BLOOD. PT IS A/OX4 AND IS FAROESE SPEAKING. IV STARTED AND PT CONNECTED TO MONITOR. PT PROVIDED WITH AN EMESIS BAG AND CALL LIGHT IS WITH IN REACH.
[2025-08-15] MEDS: RINGERS LACTATED 1000 ML 1,000 ML 999 ML IV (10:02)
[2025-08-15 10:06] LABS: Basophils # (Auto) 0.0 Thou/mm3 (0.0-0.2); Basophils % (Auto) 0 % (0-2.5); Eosinophils # (Auto) 0.1 Thou/mm3 (0.0-0.5); Eosinophils % (Auto) 1 % (0-10); Hematocrit 33.0 % (41.0-53.0); Hemoglobin 10.1 g/dL (13.5-16.0); Immature Granulocytes Auto 0.03 Thou/mm3 (0.00-0.00); Lymphocytes # (Auto) 0.5 Thou/mm3 (1.0-4.8); Lymphocytes % (Auto) 6 % (10-50); Mean Corpuscular HGB Conc 30.6 g/dl (31.0-37.0); Mean Corpuscular Hemoglobin 22.2 pg (25.0-35.0); Mean Corpuscular Volume 73 fL (80-100); Monocytes # (Auto) 0.4 Thou/mm3 (0.0-0.8); Monocytes % (Auto) 4 % (0-12); Neutrophils # (Auto) 7.9 Thou/mm3 (1.8-7.7); Neutrophils % (Auto) 89 % (37-80); Nucleated Red Blood Cell # 0.00 Thou/mm3 (0.00-0.00); Nucleated Red Blood Cell % 0 /100 WBC (0); Platelet Count 656 Thou/mm3 (140-440); RDW Standard Deviation 48.9 fL (35.1-43.9); Red Blood Count 4.55 Miln/mm3 (4.50-5.90); White Blood Count 8.9 Thou/mm3 (3.8-10.6)
[2025-08-15 10:14] LABS: INR 1.0 (0.9-1.3); Prothrombin Time 10.8 Seconds (9.0-12.2)
[2025-08-15 10:30] LABS: Alanine Aminotransferase 7 U/L (10-49); Albumin, Serum 4.8 gm/dL (3.4-4.8); Albumin/Globulin Ratio 1.9 (1.2-2.2); Alkaline Phosphatase 106 U/L (46-116); Anion Gap 10 (7-16); Aspartate Amino Transferase 14 U/L (0-34); BUN/Creatinine Ratio 16 Ratio (12-20); Bilirubin,Total 0.3 mg/dL (0.3-1.2); Blood Urea Nitrogen 27 mg/dL (9-23); Calcium 10.6 mg/dL (8.3-10.6); Calcium (Corrected) 10.6 mg/dL (8.5-10.1); Carbon Dioxide 31.9 mMol/L (20.0-31.0); Chloride 99 mMol/L (98-107); Creatinine (Component) 1.7 mg/dL (0.6-1.3); Estimated Creatinine Clearance 36.3 mL/min (>60); Globulin 2.5 gm/dL (2.3-3.5); Glucose 174 mg/dL (74-106); Osmolality,Calculated 290 (275-295); Potassium 4.6 mMol/L (3.4-5.1); Sodium 141 mMol/L (136-145); Total Protein 7.3 gm/dL (5.7-8.2); Troponin I < 0.020 ng/mL (0.0-0.045); eGFR 44 See Note
[2025-08-15 10:45] LABS: B-Type Natriuretic Peptide 111 pg/mL (0-100)
[2025-08-15] MEDS: PANTOPRAZOLE/NS 80MG IV PREMIX 80 MG/100 ML BAG 10 MG IV (11:06)
--- NOTE | 2025-08-15 15:15 | ESHP_ITS ---
Documentation for date of: 08/15/25 [facility] History of Present Illness Chief complaint: Epigastric pain, hematemesis x 1 day History of present illness: Patient is a 65-year-old male with past medical history of recently diagnosed H. pylori, esophageal ulcers, polysubstance use who presented to the ED on 08/15/2025 with episodes of coffee ground emesis and epigastric abdominal pain starting last night. Patient had multiple bouts of emesis. Patient states that he has chronic epigastric abdominal pain which intermittently worsens. He has a history of bleeding esophageal ulcers which were seen on last admission and EGD done on 07/18/2025 had biopsies taken which ultimately came back positive for H. pylori. This was noted on ED evaluation on 07/26/2025 when the patient came in for an evaluation of weakness and abdominal pain. He was discharged on triple therapy of clarithromycin, amoxicillin, and pantoprazole. It is unknown whether the patient was compliant with these medications as the patient states he does not take any medications currently. He also endorses smoking crystal meth regularly, last time was last night. ED Course: -Initial vitals were BP 189/108, HR 91, RR 23, Temp 97.7, O2 99% on room air -Labs significant for Hgb 10.1, Hct 33.0, normal coags. CMP showed TWIN with creatinine 1.7 (1.0 baseline), elevated bicarb at 31.9, calcium 10.6, glucose 174, BNP 111 -CXR showed emphysematous changes -CT chest/abdomen/pelvis with contrast showed right thyromegaly with multiple right thyroid nodules, COPD pattern of lungs, retrocardiac gastric hernia, and mild small bowel ileus -In the ED, patient was given Zofran 4 mg IV x1, pantoprazole 80 mg IV x1, morphine 2 mg IV x1, 1L LR bolus, and started on pantoprazole drip -Patient was admitted for acute upper GI bleed Review of Systems Review of systems otherwise negative except what is mentioned above. Past Medical History Past Medical History Comments PMH COMMENT: Past Medical History: Recently diagnosed H. pylori, esophageal ulcers, polysubstance use Family History: Unknown Surgical History: Multiple EGDs Social History: Smokes crystal meth daily, denies current alcohol use but used formerly, lives in a room Current Medications: None (Source: Patient) Allergies: No known drug allergies Exam Vital Signs Temp Pulse Resp BP Pulse Ox O2 Del Method 98.0 F 76 15 164/80 H 100 Room Air 08/15/25 14:52 08/15/25 14:52 08/15/25 14:52 08/15/25 14:52 08/15/25 14:52 08/15/25 14:52 Narrative Exam Physical Exam General: Awake and in no acute distress. Disheveled-appearing. HEENT: Normocephalic, atraumatic, mucous membranes moist. Heart: Regular rate and rhythm, normal S1 and S2, no murmurs. Lungs: Clear to auscultation with no wheezing or crackles. Abdomen: Soft, nondistended, nontender, positive bowel sounds. ?No guarding or rebound tenderness. Neurologic: Alert and oriented x3, no gross neurological deficit, and patient able to move all 4 extremities. Extremities: No edema, dirt around ankles. Skin: No rash or ecchymoses. Results: Labs 08/15/25 09:47 08/15/25 09:47 Labs: Short CBC 08/15/25 Range/Units 09:47 WBC 8.9 (3.8-10.6) Thou/mm3 Hgb 10.1 L (13.5-16.0) g/dL Hct 33.0 L (41.0-53.0) % Plt Count 656 H D (140-440) Thou/mm3 [facility] 08/15/25 09:47 Sodium 141 Potassium 4.6 Chloride 99 Carbon Dioxide 31.9 H BUN 27 H Creatinine 1.7 H Glucose 174 H Calcium 10.6 Cardiac Enzymes 08/15/25 Range/Units 09:47 Troponin I < 0.020 (0.0-0.045) ng/mL Liver Function 08/15/25 Range/Units 09:47 Total Bilirubin 0.3 (0.3-1.2) mg/dL AST 14 (0-34) U/L ALT 7 L (10-49) U/L Alkaline Phosphatase 106 (46-116) U/L Albumin 4.8 (3.4-4.8) gm/dL Quality Measures Quality Measures none Medications Home Medications and Allergies Home Medications ?Medication ?Instructions ?Recorded ?Confirmed ?Type No Known Home Medications 08/15/2507/24 History Allergies Allergy/AdvReac Type Severity Reaction Status Date / Time No Known Allergies Allergy Verified 07/26/25 21:58 Visit Medications Acetaminophen (Acetaminophen 325 Mg Tablet) 650 mg PO Q6H PRN PRN Reason: Fever >100.4 or Pain Stop: 09/14/25 14:53 Pantoprazole Sodium (Protonix/Ns 80mg Iv Premix) 80 mg in 100 mls @ 10 mls/hr IV X1 ONE Stop: 08/15/25 20:44 Last Admin: 08/15/25 11:06 Dose: 10 mls/hr Lactated Ringer's (Lactated Ringers) 1,000 mls @ 100 mls/hr IV .Q10H ALAN Stop: 08/16/25 10:52 Ondansetron HCl (Ondansetron Inj 2 Mg/Ml Inj 2 Ml) 4 mg IVP Q6H PRN; Protocol PRN Reason: NAUSEA OR VOMITING Stop: 09/14/25 14:53 Discontinued Medications Lactated Ringer's (Lactated Ringers) 1,000 mls @ 999 mls/hr IV .Q1H1M ONE Stop: 08/15/25 10:18 Last Infusion: 08/15/25 11:53 Dose: Infused Pantoprazole Sodium (Protonix/Ns 80mg Iv Premix) 80 mg in 100 mls @ 400 mls/hr IV X1 ONE Stop: 08/15/25 09:35 Last Infusion: 08/15/25 11:53 Dose: Infused Morphine Sulfate (Morphine Sulf Inj 4 Mg/Ml Vial) 2 mg IVP X1 ONE Stop: 08/15/25 09:25 Last Admin: 08/15/25 09:48 Dose: 2 mg Ondansetron HCl (Ondansetron Inj 2 Mg/Ml Inj 2 Ml) 4 mg IVP X1 ONE; Protocol Stop: 08/15/25 09:19 Last Admin: 08/15/25 09:47 Dose: 4 mg Assessment & Plan Plan 65-year-old male with past medical history of recently diagnosed H. pylori, esophageal ulcers, polysubstance use who presented to the ED on 08/15/2025 with episodes of coffee ground emesis and epigastric abdominal pain for 1 day. Patient was admitted for acute upper GI bleed. #Acute upper GI bleed #Esophageal ulcers Patient has history of bleeding esophageal ulcers, well known to GI service, on last admission had biopsies taken on EGD 07/18/2025 which showed H. pylori. Was started on triple therapy after an ED visit on 07/26/2025, however unsure if patient was compliant with medication. -GI consulted and following -NPO -Pantoprazole drip -PO meds with sips of water OK -Aspiration precautions #Hypertensive urgency Initial BP on presentation was 189/108. Likely stress in the setting of underlying essential hypertension. -Will hold off on antihypertensives in the setting of GI bleed as repeat BP was 164/80 #History of H. pylori Patient was diagnosed with H. pylori based on biopsies taken on 07/15/2025 EGD. Was prescribed triple therapy from the ED 07/26/2025 however follow up and compliance is unlikely. Likely leading to ulcers and recurrent bleeds. -Consider restarting therapy given unknown compliance #History of polysubstance abuse Patient actively endorses smoking crystal meth daily. Denies alcohol use for years. Previously positive for opiates on [facility] screenings. -Continued counseling DVT prophylaxis: SCDs GI prophylaxis: Pantoprazole drip Diet: NPO Jacobs: None Lines: Peripheral IV Antibiotics: None CODE STATUS: FULL Reason for hospitalization: Upper GI bleed Patient plan of care was discussed with the attending physician, Dr. Kasper. Yola Urena, PGY-3 Attending Provider Attestation/Addendum I or my resident physicians have discussed care with the ED physician and I have made the decision to admit. I have discussed and was present for the essential components of the history, physical examination, diagnosis, and treatment plan with the resident. I agree with the patient's care as documented by the resident and amended herein by me. Tam Kasper DO. Although this document has been carefully reviewed, there may still be some phonetic and other typographical errors. These errors are purely grammatical due to imperfections in the software program and should not be construed in any way to compromise the substance of the patient's medical care during this visit.
[2025-08-15] MEDS: RINGERS LACTATED 1000 ML 1,000 ML 100 ML IV (16:52)
--- NOTE | 2025-08-15 18:22 | PC.NURSE ---
ATTEMPTED TO CALL REPORT, NURSE IS IN AT PT'S ROOM AND WILL CALL THIS NURSE BACK.
--- NOTE | 2025-08-15 18:26 | PC.NURSE ---
CALLED REPORT TO NATHAN MARTINEZ ON MED/SURG. ALL QUESTIONS ANSWERED.
--- NOTE | 2025-08-15 19:58 | PD.IMCONS ---
HPI Data of Consult Requesting Physician: David Kasper DO Primary Care Provider: Physician No Primary/Family Consult Narrative Reason for consult: Coffee-ground emesis History of present illness: 65-year-old male with a history of polysubstance abuse and also alcohol abuse in the past comes in the emergency room with 3-day history of abdominal pain and coffee-ground emesis Current hemoglobin hematocrit 10.1 and 33.0 with a platelet count of 65,000 Patient is not taking any blood thinners or NSAIDs He has stopped drinking alcohol He does have a history of polysubstance abuse with previous toxicology on previous admission was positive for amphetamine No toxicology screen was done today CT scan of the chest abdomen and pelvis with contrast showed right thyromegaly with multiple thyroid nodules retrocardiac gastric hiatal hernia and antral gastritis cc:: cc: David Kasper DO Review of Systems Review of Systems Systems Reviewed: All systems reviewed, normal except as documented Past Medical History Surgical History OTHER SURGICAL HX: As in the history of present illness Meds Home Medications and Allergies Allergies Allergy/AdvReac Type Severity Reaction Status Date / Time No Known Allergies Allergy Verified 07/26/25 21:58 Exam Vital Signs Temp Pulse Resp BP Pulse Ox O2 Del Method 98.0 F 76 15 164/80 H 100 Room Air 08/15/25 14:52 08/15/25 14:52 08/15/25 14:52 08/15/25 14:52 08/15/25 14:52 08/15/25 14:52 Constitutional Comments: Alert oriented Routine Respiratory Exam Comments: Normal to auscultation Routine Abdominal Exam Comments: Soft nontender Results Labs 08/15/25 09:47 08/15/25 09:47 Labs: Short CBC 08/15/25 Range/Units 09:47 WBC 8.9 (3.8-10.6) Thou/mm3 Hgb 10.1 L (13.5-16.0) g/dL Hct 33.0 L (41.0-53.0) % Plt Count 656 H D (140-440) Thou/mm3 BMP 08/15/25 09:47 Sodium 141 Potassium 4.6 Chloride 99 Carbon Dioxide 31.9 H BUN 27 H Creatinine 1.7 H Glucose 174 H Calcium 10.6 Cardiac Enzymes 08/15/25 Range/Units 09:47 Troponin I < 0.020 (0.0-0.045) ng/mL Liver Function 08/15/25 Range/Units 09:47 Total Bilirubin 0.3 (0.3-1.2) mg/dL AST 14 (0-34) U/L ALT 7 L (10-49) U/L Alkaline Phosphatase 106 (46-116) U/L Albumin 4.8 (3.4-4.8) gm/dL Assessment and Plan Additional Assessment & Plan Additional Plan: # Coffee-ground emesis # Pain abdomen # Gastric hiatal hernia Plan N.p.o. midnight tonight Serial CBC IV Protonix Consent obtained for fiberoptic esophagogastroduodenoscopy with possible biopsy possible therapeutic intervention under intravenous moderate sedation Thank you very much for the opportunity to participate in the care of this patient
--- NOTE | 2025-08-15 21:15 | PC.NURSE ---
Dr. Tyler in to see patient, will be clear liquids until 10am than NPO for EGD in the afternoon tomorrow, consent obtained.
[2025-08-16] VITALS (23 sets, daily range): BP systolic 103–199; BP diastolic 55–97; PULSE 53–80; RESP 7–99; TEMP 36.3–37.4; O2SAT 96–100; BMI 18.3
[2025-08-16] MEDS: RINGERS LACTATED 1000 ML 1,000 ML 100 ML IV (03:22)
[2025-08-16 05:46] LABS: Basophils # (Auto) 0.0 Thou/mm3 (0.0-0.2); Basophils % (Auto) 1 % (0-2.5); Eosinophils # (Auto) 0.2 Thou/mm3 (0.0-0.5); Eosinophils % (Auto) 3 % (0-10); Hematocrit 20.8 % (41.0-53.0); Immature Granulocytes Auto 0.01 Thou/mm3 (0.00-0.00); Lymphocytes # (Auto) 0.7 Thou/mm3 (1.0-4.8); Lymphocytes % (Auto) 14 % (10-50); Mean Corpuscular HGB Conc 30.3 g/dl (31.0-37.0); Mean Corpuscular Hemoglobin 21.9 pg (25.0-35.0); Mean Corpuscular Volume 72 fL (80-100); Monocytes # (Auto) 0.3 Thou/mm3 (0.0-0.8); Monocytes % (Auto) 7 % (0-12); Neutrophils # (Auto) 3.8 Thou/mm3 (1.8-7.7); Neutrophils % (Auto) 75 % (37-80); Nucleated Red Blood Cell # 0.00 Thou/mm3 (0.00-0.00); Nucleated Red Blood Cell % 0 /100 WBC (0); Platelet Count 351 Thou/mm3 (140-440); RDW Standard Deviation 49.1 fL (35.1-43.9); Red Blood Count 2.88 Miln/mm3 (4.50-5.90); White Blood Count 5.0 Thou/mm3 (3.8-10.6)
[2025-08-16 06:04] LABS: Hemoglobin 6.3 g/dL (13.5-16.0)
[2025-08-16 06:24] LABS: Alanine Aminotransferase < 7 U/L (10-49); Albumin, Serum 3.3 gm/dL (3.4-4.8); Albumin/Globulin Ratio 1.9 (1.2-2.2); Anion Gap 8 (7-16); Aspartate Amino Transferase < 8 U/L (0-34); BUN/Creatinine Ratio 20 Ratio (12-20); Bilirubin,Total 0.3 mg/dL (0.3-1.2); Blood Urea Nitrogen 20 mg/dL (9-23); Calcium 9.5 mg/dL (8.3-10.6); Calcium (Corrected) 10.1 mg/dL (8.5-10.1); Carbon Dioxide 30.0 mMol/L (20.0-31.0); Chloride 102 mMol/L (98-107); Creatinine (Component) 1.0 mg/dL (0.6-1.3); Estimated Creatinine Clearance 59.4 mL/min (>60); Globulin 1.7 gm/dL (2.3-3.5); Glucose 94 mg/dL (74-106); Magnesium 1.8 mg/dL (1.6-2.6); Osmolality,Calculated 282 (275-295); Phosphorous 2.8 mg/dL (2.4-5.1); Potassium 3.9 mMol/L (3.4-5.1); Sodium 140 mMol/L (136-145); Total Protein 5.0 gm/dL (5.7-8.2); eGFR > 60 See Note
[2025-08-16 06:55] LABS: Alkaline Phosphatase 68 U/L (46-116)
[2025-08-16 08:48] LABS: Immature Reticulocyte Fraction 18.9 % (2.3-13.4); Reticulocyte % (Auto) 1.0 % (0.5-1.5); Reticulocyte Absolute Auto 27.4 Biln/L (25.0-75.0); Reticulocyte Hgb Content 21.0 pg (28.0-35.0)
[2025-08-16 08:58] LABS: Hemoglobin 6.1 g/dL (13.5-16.0)
[2025-08-16 08:59] LABS: Hematocrit 19.9 % (41.0-53.0)
[2025-08-16 09:21] LABS: Ferritin 3 ng/mL (10.5-307.3); Iron 12 mcg/dL (65-175); Percent Iron Saturation 3 % (20-55); Total Iron Binding Capacity 359 mcg/dL (250-425); Unsaturated Iron Binding 347 (225-295)
[2025-08-16 09:40] LABS: Folate 9.55 ng/mL (>5.38); Vitamin B12 329 pg/mL (211-911)
[2025-08-16] MEDS: ONDANSETRON INJ 2 MG/ML INJ 2 ML 4 MG IVP (12:48)
--- NOTE | 2025-08-16 14:31 | ESPR_ITS ---
<Statement entered by Eliseo Hollins MD - 08/16/25 16:48> Patient seen and examined at bedside. I discussed and supervised with the internet technology manager physician who took care of this patient. I personally saw and examined the patient. I agree with most of the assessment and plan. Patient with coffee ground emesis has acute decrease in hemoglobin. 2 units PRBCs ordered. Planning for EGD today. Patient reports improvement in symptoms since admission, still nauseous without emesis. Patient reports inability to complete treatment for H pylori seen on previous biopsy, was unable to get medications. Will initiate quadruple therapy after EGD. Plan of care discussed with attending Dr. Bradley. Eliseo Hollins MD PGY-2 Documentation for date of: 08/16/25 Subjective Subjective Interval history: Patient was seen and examined at bedside. No acute events took place overnight. Patient has not been feeling nauseous or vomited since admission. Previous EGD done on 07/18/2025 had shown esophageal ulcers, and H. pylori infection from biopsies that had been taken. He had been discharged on triple antibiotic with clarithromycin, amoxicillin, and pantoprazole which the patient reports that he has not taken. Furthermore, he complains of right upper quadrant pain worse with deep inspiration. Hemoglobin dropped to 6.3 this morning from 10.1 on admission (MCV 72) and patient was given 2 units of PRBC after type and screen. Pending EGD study today, by Dr. Tyler. Exam Vital Signs Temp Pulse Resp BP Pulse Ox O2 Del Method 98.5 F 65 18 117/76 99 Room Air 08/16/25 12:27 08/16/25 12:27 08/16/25 12:08/16/25 12:08/16/25 12:08/16/25 08:00 Narrative Exam General: Awake and in no acute distress. Disheveled-appearing. HEENT: Normocephalic, atraumatic, mucous membranes moist. Heart: Regular rate and rhythm, normal S1 and S2, no murmurs. Lungs: Clear to auscultation with no wheezing or crackles. Abdomen: Soft, nondistended, nontender, positive bowel sounds. ?No guarding or rebound tenderness. Neurologic: Alert and oriented x3, no gross neurological deficit, and patient able to move all 4 extremities. Extremities: No edema, dirt around ankles. Skin: No rash or ecchymoses. Objective Labs 08/17/25 04:20 08/17/25 04:20 Labs: Laboratory Results - last 24 hr 08/15/25 08/16/25 08/16/25 09:47 04:19 08:19 WBC 5.0 D RBC 2.88 L Hgb 6.3 L* D 6.1 L* Hct 20.8 L* D 19.9 L* MCV 72 L MCH 21.9 L MCHC 30.3 L RDW Std Deviation 49.1 H Plt Count 351 D Neut % (Auto) 75 Lymph % (Auto) 14 Barton % (Auto) 7 Eos % (Auto) 3 Baso % (Auto) 1 Neut # (Auto) 3.8 Lymph # (Auto) 0.7 L Barton # (Auto) 0.3 Eos # (Auto) 0.2 Baso # (Auto) 0.0 Immature Gran # (Auto) 0.01 H Absolute Nucleated RBC 0.00 Immature Gran % 0 Nucleated RBC % 0 Smear Path Review Cancelled Retic Count (auto) 1.0 Absolute Retic 27.4 Immature Retic Fraction 18.9 H Retic Hgb Content CHr 21.0 L Sodium 140 Potassium 3.9 D Chloride 102 Carbon Dioxide 30.0 Anion Gap 8 BUN 20 Creatinine 1.0 D Estim Creat Clear Calc 59.4 L eGFR > 60 BUN/Creatinine Ratio 20 Glucose 94 D Calculated Osmolality 282 Calcium 9.5 Corrected Calcium 10.1 Phosphorus 2.8 Magnesium 1.8 Iron 12 L TIBC 359 Iron Saturation 3 L Unsat Iron Binding 347 H Ferritin 3 L Total Bilirubin 0.3 AST < 8 ALT < 7 L Alkaline Phosphatase 68 D Total Protein 5.0 L Albumin 3.3 L D Globulin 1.7 L Albumin/Globulin Ratio 1.9 Vitamin B12 329 Folate 9.55 Blood Type A Positive Antibody Screen NEGATIVE Crossmatch See Detail Blood Bank Wristband ID Yes Quality Measures Quality Measures none Assessment & Plan Assessment Current Active Medications: Generic Name Dose Route Start Last Admin Trade Name Freq PRN Reason Stop Dose Admin Acetaminophen 650 mg 08/15/25 14:54 Acetaminophen 325 Mg Tablet PO 09/14/25 14:53 Q6H PRN Fever >100.4 or Pain Ondansetron HCl 4 mg 08/15/25 14:54 08/16/25 12:48 Ondansetron Inj 2 Mg/Ml Inj 2 Ml IVP 09/14/25 14:53 4 mg Q6H PRN Administration NAUSEA OR VOMITING Protocol Pantoprazole Sodium 40 mg 08/16/25 09:00 08/16/25 08:33 Pantoprazole Inj 40 Mg Vial IVP 09/15/25 08:59 40 mg BID ALAN Administration Plan 65-year-old male with past medical history of recently diagnosed H. pylori, esophageal ulcers, polysubstance use who presented to the ED on 08/15/2025 with episodes of coffee ground emesis and epigastric abdominal pain for 1 day. Patient was admitted for acute upper GI bleed. #Acute upper GI bleed #Microcytic Anemia #Esophageal ulcers Patient has history of bleeding esophageal ulcers, well known to GI service, on last admission had biopsies taken on EGD 07/18/2025 which showed H. pylori. Was started on triple therapy after an ED visit on 07/26/2025, however, states that he has been unable to take the medication. He has stopped drinking alcohol. Does not take any blood thinners or NSAIDs. Hemoglobin on presentation was 10.1 which dropped to 6.3 overnight. Gastric fluid occult blood positive Plan: -GI, Dr Tyler, consulted; appreciate recommendations. -s/p transfusion w/ 2u pRBC after type & screen. -NPO, pending EGD -Pantoprazole IV 40mg bid -PO meds with sips of water OK -Aspiration precautions #Hypertensive urgency Initial BP on presentation was 189/108. Likely stress in the setting of underlying essential hypertension. -Will hold off on antihypertensives in the setting of GI bleed as repeat BP was 164/80 #History of H. pylori Patient was diagnosed with H. pylori based on biopsies taken on 07/15/2025 EGD. Was prescribed triple therapy from the ED 07/26/2025 however follow up and compliance is unlikely. Likely leading to ulcers and recurrent bleeds. -Will start patient on quadruple therapy post-EGD #History of polysubstance abuse Patient actively endorses smoking crystal meth daily. Denies alcohol use for years. Previously positive for opiates on Utox screenings. -ordered HIV 1&2 Ag/Ab test -Continued counseling DVT prophylaxis: SCDs GI prophylaxis: Pantoprazole drip Diet: NPO Jacobs: None Lines: Peripheral IV Antibiotics: None CODE STATUS: FULL This case was discussed with my attending physician, Dr. Bradley, and senior resident, Dr Hollins. Even though this this note was carefully revised there may still be minor errors in filtration supervisor due to voice recognition software. Brie Chan DO PGY I Attending Provider Attestation/Addendum IShellie DO, attest that I was physically present for the vargas portions of the service and evaluated the patient with the resident and I reviewed and discussed the case with the resident and agree with the resident's findings and plans of care as documented above Patient seen and evaluated this AM. He states that he continues to have epigastric discomfort and nausea. Patient states he is unable to eat due to the persistent pain, nausea and vomiting. Patient had been found to have h.pylori on previous visit and discharged with triple therapy. However, patient admits that he did not take any medications. He is currently receiving 2 units of pRBCs. He reports some deep rib pain in his lower costal cage on the left side, but denies any pressure like chest pain, shortness of breathe, fevers or chills. He is pending EGD this afternoon and repeat H/H. Will restart patient on treatment for H/Pylori following EGD.
[2025-08-16] MEDS: METOCLOPRAMIDE INJ 5 MG/ML VIAL 2 ML IVP (15:46)
[2025-08-16 15:52] LABS: Path Review Blood Smear Sent to Pathologist
--- NOTE | 2025-08-16 16:13 | PC.SS ---
Patient is alert/oriented. Patient resides alone. Patient was admitted for a GI bleed. Patient is Kyrgyz speaking only. Project Leader present. Patient states he resides alone. Patient states he lives on a friends property and has his own space . Patient did not have a tox report but he states he's had hx: of crystal meth. SS attempted to provide resources for drug use. However, patient refused and states he doesn't need them and he can stop on his own. Patient is independent with ADL's. Alt medical decision maker: Jah, friend,
[2025-08-16 21:10] LABS: Hematocrit 30.4 % (41.0-53.0); Hemoglobin 9.3 g/dL (13.5-16.0)
[2025-08-17] VITALS (11 sets, daily range): BP systolic 102–143; BP diastolic 51–78; PULSE 7–88; RESP 16–97; TEMP 36.3–37.2; O2SAT 95–99; BMI 18.3
[2025-08-17 05:44] LABS: Basophils # (Auto) 0.1 Thou/mm3 (0.0-0.2); Basophils % (Auto) 1 % (0-2.5); Eosinophils # (Auto) 0.3 Thou/mm3 (0.0-0.5); Eosinophils % (Auto) 5 % (0-10); Hematocrit 29.4 % (41.0-53.0); Hemoglobin 9.1 g/dL (13.5-16.0); Immature Granulocytes Auto 0.01 Thou/mm3 (0.00-0.00); Lymphocytes # (Auto) 0.8 Thou/mm3 (1.0-4.8); Lymphocytes % (Auto) 13 % (10-50); Mean Corpuscular HGB Conc 31.0 g/dl (31.0-37.0); Mean Corpuscular Hemoglobin 23.4 pg (25.0-35.0); Mean Corpuscular Volume 76 fL (80-100); Monocytes # (Auto) 0.4 Thou/mm3 (0.0-0.8); Monocytes % (Auto) 6 % (0-12); Neutrophils # (Auto) 4.3 Thou/mm3 (1.8-7.7); Neutrophils % (Auto) 75 % (37-80); Nucleated Red Blood Cell # 0.00 Thou/mm3 (0.00-0.00); Nucleated Red Blood Cell % 0 /100 WBC (0); Platelet Count 332 Thou/mm3 (140-440); RDW Standard Deviation 50.9 fL (35.1-43.9); Red Blood Count 3.89 Miln/mm3 (4.50-5.90); White Blood Count 5.8 Thou/mm3 (3.8-10.6)
[2025-08-17 06:07] LABS: HIV (1&2) Antibody Rapid Non-Reactive
[2025-08-17 06:23] LABS: Alanine Aminotransferase < 7 U/L (10-49); Albumin, Serum 3.4 gm/dL (3.4-4.8); Albumin/Globulin Ratio 1.7 (1.2-2.2); Alkaline Phosphatase 73 U/L (46-116); Anion Gap 7 (7-16); Aspartate Amino Transferase 15 U/L (0-34); BUN/Creatinine Ratio 13 Ratio (12-20); Bilirubin,Total 0.4 mg/dL (0.3-1.2); Blood Urea Nitrogen 12 mg/dL (9-23); Calcium 9.0 mg/dL (8.3-10.6); Calcium (Corrected) 9.5 mg/dL (8.5-10.1); Carbon Dioxide 27.8 mMol/L (20.0-31.0); Chloride 104 mMol/L (98-107); Creatinine (Component) 0.9 mg/dL (0.6-1.3); Estimated Creatinine Clearance 66.0 mL/min (>60); Globulin 2.0 gm/dL (2.3-3.5); Glucose 97 mg/dL (74-106); Osmolality,Calculated 277 (275-295); Phosphorous 2.3 mg/dL (2.4-5.1); Potassium 4.2 mMol/L (3.4-5.1); Sodium 139 mMol/L (136-145); Total Protein 5.4 gm/dL (5.7-8.2); eGFR > 60 See Note
[2025-08-17] MEDS: ONDANSETRON INJ 2 MG/ML INJ 2 ML 4 MG IVP (08:25)
[2025-08-17] MEDS: NAPH,KPH MBDB 1 PACKET (1.5 GM) 2 PACKET PO (10:00)
[2025-08-17] MEDS: BISMUTH SUBSALICYL 1 TABLET (Pepto-Bismol) 2 TAB PO ×3 (12:22→22:03)
[2025-08-17] MEDS: METOCLOPRAMIDE INJ 5 MG/ML VIAL 2 ML IVP ×2 (12:23→17:36)
--- NOTE | 2025-08-17 12:53 | PC.SS ---
Follow up note: SS met with pt to confirm physical address for transportation. Patient's address is correct on facesheet.
--- NOTE | 2025-08-17 14:46 | ESPR_ITS ---
<Statement entered by Jared Valenzuela MD - 08/17/25 20:36> Patient was seen and examined at bedside. I agree on the assessment and plan on this note as documented by resident Dr Brie Chan DO PGY1. 65-year-old male admitted for upper GI bleed workup underwent EGD EGD shows esophageal ulcers mainly at the distal esophagus and the GE junction with gastritis. Patient's pathology report from 07/15/2025 positive for H. pylori, patient started on quadruple therapy, will discuss with pharmacy regarding discharging patient on a single pill regimen for improved compliance however today patient complains of nausea unable to tolerate diet well. Will slowly advance diet as tolerated patient started on IV Reglan. Anticipate discharge in the next 24 hours once patient's symptoms improved. H&H stable, hemoglobin 9.1 today Case discussed with attending Dr. Shellie Santana MD PGY-2 Documentation for date of: 08/17/25 Subjective Subjective Interval history: Patient was seen and examined at bedside. No acute events took place overnight. Patient has not been feeling nauseous or vomited since admission. Patient underwent EGD study yesterday. Was unable to tolerate breakfast served this morning. Although was gagging, he was not vomiting any more than spits of clear mucus. He complains of right upper quadrant and epigastric pain and discomfort. patient is +0.6 L in balance of fluid ins and outs, and had liquid BM at 5 AM. Posttransfusion H&H at 9 PM yesterday 9.3, and stayed stable till this morning 9.1. Exam Vital Signs Temp Pulse Resp BP Pulse Ox O2 Del Method O2 Flow Rate 98.9 F 82 16 124/73 95 Room Air 3 08/17/25 11:39 08/17/25 12:00 08/17/25 11:39 08/17/25 11:39 08/17/25 11:39 08/17/25 11:39 08/16/25 18:10 Narrative Exam General: Awake and in no acute distress. Disheveled-appearing. HEENT: Normocephalic, atraumatic, mucous membranes moist. Heart: Regular rate and rhythm, normal S1 and S2, no murmurs. Lungs: Clear to auscultation with no wheezing or crackles. Abdomen: Soft, nondistended, nontender, positive bowel sounds. ?No guarding or rebound tenderness. Neurologic: Alert and oriented x3, no gross neurological deficit, and patient able to move all 4 extremities. Extremities: No edema, dirt around ankles. Skin: No rash or ecchymoses. Objective Labs 08/17/25 04:20 08/17/25 04:20 Labs: Laboratory Results - last 24 hr 08/15/25 08/16/25 08/16/25 09:47 04:19 20:40 WBC RBC Hgb 9.3 L D Hct 30.4 L D MCV MCH MCHC RDW Std Deviation Plt Count Neut % (Auto) Lymph % (Auto) [place] % (Auto) Eos % (Auto) Baso % (Auto) Neut # (Auto) Lymph # (Auto) [place] # (Auto) Eos # (Auto) Baso # (Auto) Immature Gran # (Auto) Absolute Nucleated RBC Immature Gran % Nucleated RBC % Smear Path Review Sent to Pathologist Sodium Potassium Chloride Carbon Dioxide Anion Gap BUN Creatinine Estim Creat Clear Calc eGFR BUN/Creatinine Ratio Glucose Calculated Osmolality Calcium Corrected Calcium Phosphorus Total Bilirubin AST ALT Alkaline Phosphatase Total Protein Albumin Globulin Albumin/Globulin Ratio HIV 1&2 Antibody Rapid Blood Type A Positive Antibody Screen NEGATIVE Crossmatch See Detail Blood Bank Wristband ID Yes 08/17/25 04:20 WBC 5.8 RBC 3.89 L Hgb 9.1 L Hct 29.4 L MCV 76 L MCH 23.4 L MCHC 31.0 RDW Std Deviation 50.9 H Plt Count 332 Neut % (Auto) 75 Lymph % (Auto) 13 [place] % (Auto) 6 Eos % (Auto) 5 Baso % (Auto) 1 Neut # (Auto) 4.3 Lymph # (Auto) 0.8 L [place] # (Auto) 0.4 Eos # (Auto) 0.3 Baso # (Auto) 0.1 Immature Gran # (Auto) 0.01 H Absolute Nucleated RBC 0.00 Immature Gran % 0 Nucleated RBC % 0 Smear Path Review Sodium 139 Potassium 4.2 Chloride 104 Carbon Dioxide 27.8 Anion Gap 7 BUN 12 Creatinine 0.9 Estim Creat Clear Calc 66.0 eGFR > 60 BUN/Creatinine Ratio 13 Glucose 97 Calculated Osmolality 277 Calcium 9.0 Corrected Calcium 9.5 Phosphorus 2.3 L Total Bilirubin 0.4 AST 15 ALT < 7 L Alkaline Phosphatase 73 Total Protein 5.4 L Albumin 3.4 Globulin 2.0 L Albumin/Globulin Ratio 1.7 HIV 1&2 Antibody Rapid Non-Reactive Blood Type Antibody Screen Crossmatch Blood Bank Wristband ID Quality Measures Quality Measures none Assessment & Plan Assessment Current Active Medications: Generic Name Dose Route Start Last Admin Trade Name Freq PRN Reason Stop Dose Admin Acetaminophen 650 mg 08/15/25 14:54 Acetaminophen 325 Mg Tablet PO 09/14/25 14:53 Q6H PRN Fever >100.4 or Pain Bismuth Subsalicylate 2 tab 08/17/25 12:00 08/17/25 12:22 Bismuth Subsalicyl 1 Tablet (Pepto-Bismol) PO 09/16/25 11:59 2 tab QID ALAN Administration Metoclopramide HCl 5 mg 08/17/25 12:00 08/17/25 12:23 Metoclopramide Inj 5 Mg/Ml Vial 2 Ml IVP 09/16/25 11:59 5 mg Q6HR ALAN Administration Protocol Metronidazole 500 mg 08/17/25 09:00 08/17/25 11:26 Metronidazole 250 Mg Tablet PO 08/24/25 08:59 Not Given QID ALAN Ondansetron HCl 4 mg 08/15/25 14:54 08/17/25 08:25 Ondansetron Inj 2 Mg/Ml Inj 2 Ml IVP 09/14/25 14:53 4 mg Q6H PRN Administration NAUSEA OR VOMITING Protocol Pantoprazole Sodium 40 mg 08/16/25 09:00 08/17/25 08:25 Pantoprazole Inj 40 Mg Vial IVP 09/15/25 08:59 40 mg BID ALAN Administration Tetracycline HCl 500 mg 08/17/25 09:00 08/17/25 11:26 Tetracycline 250 Mg Capsule PO 08/24/25 08:59 Not Given QID ALAN Plan 65-year-old male with past medical history of recently diagnosed H. pylori, esophageal ulcers, polysubstance use who presented to the ED on 08/15/2025 with episodes of coffee ground emesis and epigastric abdominal pain for 1 day. Patient was admitted for acute upper GI bleed. #Acute upper GI bleed #Microcytic Anemia #Esophageal ulcers Patient has history of bleeding esophageal ulcers, well known to GI service, on last admission had biopsies taken on EGD 07/18/2025 which showed H. pylori. Was started on triple therapy after an ED visit on 07/26/2025, however, states that he has been unable to take the medication. He has stopped drinking alcohol. Does not take any blood thinners or NSAIDs. Hemoglobin on presentation was 10.1 which dropped to 6.3 overnight. Gastric fluid occult blood positive s/p transfusion w/ 2u pRBC after type & screen. 08/17: EGD demonstrated mainly linear esophageal ulcers at the distal esophagus and GE junction, gastritis characterized by diffuse erythema, and normal duodenum. Plan: -GI, Dr Tyler, consulted; appreciate recommendations. -Patient on GERD/PUD/bland diet -Pantoprazole IV 40mg bid, to be continued for 90 days -Follow up at the [facility] in [place] to see Dr. Tyler in 3 months -Recommend regular follow up at the [facility] clinic for hsi Hgb & Hct -Aspiration precautions #History of H. pylori Patient was diagnosed with H. pylori based on biopsies taken on 07/15/2025 EGD. Was prescribed triple therapy from the ED 07/26/2025 however follow up and compliance is unlikely. Likely leading to ulcers and recurrent bleeds. -Quadruple ABx therapy (08/17 - ) ? Tetracycline p.o. 500 mg 4 times daily ? Metronidazole p.o. 500 mg 4 times daily ? Bismuth subsalicyl PO 2tab QID ? Pantoprazole IVP 40 mg twice daily #History of polysubstance abuse Patient actively endorses smoking crystal meth daily. Denies alcohol use for years. Previously positive for opiates on Utox screenings. -ordered HIV 1&2 Ag/Ab test -Continued counseling #Hypertensive urgency, resolved Initial BP on presentation was 189/108. Likely stress in the setting of underlying essential hypertension. -Will hold off on antihypertensives in the setting of GI bleed as repeat BP was 164/80 08/17 BP 124/73 within normal limits DVT prophylaxis: SCDs GI prophylaxis: Pantoprazole drip Diet: NPO Jacobs: None Lines: Peripheral IV Antibiotics: None CODE STATUS: FULL This case was discussed with my attending physician, Dr. Bradley, and senior resident, Dr Valenzuela. Even though this this note was carefully revised there may still be minor errors in junior linux administrator due to voice recognition software. Brie Chan, PGY I Attending Provider Attestation/Addendum I, Shellie Bradley DO, attest that I was physically present for the vargas portions of the service and evaluated the patient with the resident and I reviewed and discussed the case with the resident and agree with the resident's findings and plans of care as documented above Patient seen and evaluated this AM. He states he is feeling better, but continues to have nausea and epigastric pain. Patient was able to tolerate breakfast otherwise. Will slowly advance diet as tolerated. Will continue to monitor due to patient's persistent nausea and pain. Continue with treatment for H.Pylori
--- NOTE | 2025-08-17 15:44 | PC.SS ---
Follow up note: Pt is not eating and not tolerating diet. Pt will return home upon dc.
--- NOTE | 2025-08-17 17:41 | PD.IMPROG ---
Documentation for date of: 08/17/25 Subjective Subjective Interval history: Patient evaluated Hemoglobin hematocrit 9.1 and 29.4 Upper endoscopy showed multiple ulcer distal esophagus and GE junction Exam Vital Signs Temp Pulse Resp BP Pulse Ox O2 Del Method O2 Flow Rate 98.8 F 79 16 130/67 98 Room Air 3 08/17/25 15:41 08/17/25 16:00 08/17/25 15:41 08/17/25 15:41 08/17/25 15:41 08/17/25 15:41 08/16/25 18:10 Objective Labs 08/17/25 04:20 08/17/25 04:20 Labs: Laboratory Results - last 24 hr 08/15/25 08/16/25 08/17/25 09:47 20:40 04:20 WBC 5.8 RBC 3.89 L Hgb 9.3 L D 9.1 L Hct 30.4 L D 29.4 L MCV 76 L MCH 23.4 L MCHC 31.0 RDW Std Deviation 50.9 H Plt Count 332 Neut % (Auto) 75 Lymph % (Auto) 13 [place] % (Auto) 6 Eos % (Auto) 5 Baso % (Auto) 1 Neut # (Auto) 4.3 Lymph # (Auto) 0.8 L Porter # (Auto) 0.4 Eos # (Auto) 0.3 Baso # (Auto) 0.1 Immature Gran # (Auto) 0.01 H Absolute Nucleated RBC 0.00 Immature Gran % 0 Nucleated RBC % 0 Sodium 139 Potassium 4.2 Chloride 104 Carbon Dioxide 27.8 Anion Gap 7 BUN 12 Creatinine 0.9 Estim Creat Clear Calc 66.0 eGFR > 60 BUN/Creatinine Ratio 13 Glucose 97 Calculated Osmolality 277 Calcium 9.0 Corrected Calcium 9.5 Phosphorus 2.3 L Total Bilirubin 0.4 AST 15 ALT < 7 L Alkaline Phosphatase 73 Total Protein 5.4 L Albumin 3.4 Globulin 2.0 L Albumin/Globulin Ratio 1.7 HIV 1&2 Antibody Rapid Non-Reactive Crossmatch See Detail Impressions Impression: Upper GI bleed to massive ulceration of the distal esophagus and GE junction Continue PPI and high dosage and Reglan twice daily Advance diet as tolerated Assessment & Plan A&P Narrative # Coffee-ground emesis # Pain abdomen # Gastric hiatal hernia Plan N.p.o. midnight tonight Serial CBC IV Protonix Consent obtained for fiberoptic esophagogastroduodenoscopy with possible biopsy possible therapeutic intervention under intravenous moderate sedation Thank you very much for the opportunity to participate in the care of this patient Time Spent With Patient Time: Total time spent is greater than 50% in coordination of care (as documented) at patient's floor/unit and/or counseling patient:
[2025-08-17] MEDS: ACETAMINOPHEN 325 MG TABLET 650 MG PO (22:20)
[2025-08-18] VITALS: BP 110/63; PULSE 71; PULSE 72; RESP 16; TEMP 36.3; O2SAT 95
[2025-08-18] MEDS: METOCLOPRAMIDE INJ 5 MG/ML VIAL 2 ML IVP ×3 (00:13→11:23)
[2025-08-18 04:00] VITALS: BP 113/62; PULSE 66; PULSE 67; RESP 19; TEMP 36.4; O2SAT 99
[2025-08-18] MEDS: BISMUTH SUBSALICYL 1 TABLET (Pepto-Bismol) 2 TAB PO ×2 (05:25→11:22)
[2025-08-18 05:59] LABS: Basophils # (Auto) 0.0 Thou/mm3 (0.0-0.2); Basophils % (Auto) 1 % (0-2.5); Eosinophils # (Auto) 0.2 Thou/mm3 (0.0-0.5); Eosinophils % (Auto) 5 % (0-10); Hematocrit 29.6 % (41.0-53.0); Hemoglobin 9.1 g/dL (13.5-16.0); Immature Granulocytes Auto 0.00 Thou/mm3 (0.00-0.00); Lymphocytes # (Auto) 0.8 Thou/mm3 (1.0-4.8); Lymphocytes % (Auto) 17 % (10-50); Mean Corpuscular HGB Conc 30.7 g/dl (31.0-37.0); Mean Corpuscular Hemoglobin 23.2 pg (25.0-35.0); Mean Corpuscular Volume 75 fL (80-100); Monocytes # (Auto) 0.3 Thou/mm3 (0.0-0.8); Monocytes % (Auto) 6 % (0-12); Neutrophils # (Auto) 3.2 Thou/mm3 (1.8-7.7); Neutrophils % (Auto) 71 % (37-80); Nucleated Red Blood Cell # 0.00 Thou/mm3 (0.00-0.00); Nucleated Red Blood Cell % 0 /100 WBC (0); Platelet Count 348 Thou/mm3 (140-440); RDW Standard Deviation 50.7 fL (35.1-43.9); Red Blood Count 3.93 Miln/mm3 (4.50-5.90); White Blood Count 4.5 Thou/mm3 (3.8-10.6)
[2025-08-18 06:30] LABS: Alanine Aminotransferase < 7 U/L (10-49); Albumin, Serum 3.4 gm/dL (3.4-4.8); Albumin/Globulin Ratio 1.8 (1.2-2.2); Alkaline Phosphatase 69 U/L (46-116); Anion Gap 9 (7-16); Aspartate Amino Transferase 13 U/L (0-34); BUN/Creatinine Ratio 18 Ratio (12-20); Bilirubin,Total 0.2 mg/dL (0.3-1.2); Blood Urea Nitrogen 16 mg/dL (9-23); Calcium 8.9 mg/dL (8.3-10.6); Calcium (Corrected) 9.4 mg/dL (8.5-10.1); Carbon Dioxide 27.2 mMol/L (20.0-31.0); Chloride 106 mMol/L (98-107); Creatinine (Component) 0.9 mg/dL (0.6-1.3); Estimated Creatinine Clearance 66.0 mL/min (>60); Globulin 1.9 gm/dL (2.3-3.5); Glucose 85 mg/dL (74-106); Magnesium 2.0 mg/dL (1.6-2.6); Osmolality,Calculated 283 (275-295); Phosphorous 3.1 mg/dL (2.4-5.1); Potassium 4.4 mMol/L (3.4-5.1); Sodium 142 mMol/L (136-145); Total Protein 5.3 gm/dL (5.7-8.2); eGFR > 60 See Note
[2025-08-18 07:37] VITALS: PULSE 68
[2025-08-18 08:00] VITALS: BP 135/78; PULSE 68; RESP 20; TEMP 36.9; O2SAT 99
[2025-08-18] MEDS: ACETAMINOPHEN 325 MG TABLET 650 MG PO (09:01)
--- NOTE | 2025-08-18 10:45 | ESPR_ITS ---
Documentation for date of: 08/18/25 Subjective Subjective Interval history: Patient evaluated Hemoglobin hematocrit 9.1 and 29.6 Patient can be discharged home on omeprazole 40 mg twice daily it has to be twice daily as the ulcers are not healing Reglan 5 mg p.o. twice daily Follow-up with the primary care physician Schedule an appointment for me for him to be seen at the [facility] in [place] in 4 weeks Exam Vital Signs Temp Pulse Resp BP Pulse Ox O2 Del Method O2 Flow Rate 98.4 F 68 20 135/78 H 99 Room Air 3 08/18/25 08:00 08/18/25 08:00 08/18/25 08:00 08/18/25 08:00 08/18/25 08:00 08/18/25 08:00 08/18/25 00:00 Objective Labs 08/18/25 04:06 08/18/25 04:06 Labs: Laboratory Results - last 24 hr 08/18/25 04:06 WBC 4.5 RBC 3.93 L Hgb 9.1 L Hct 29.6 L MCV 75 L MCH 23.2 L MCHC 30.7 L RDW Std Deviation 50.7 H Plt Count 348 Neut % (Auto) 71 Lymph % (Auto) 17 [place] % (Auto) 6 Eos % (Auto) 5 Baso % (Auto) 1 Neut # (Auto) 3.2 Lymph # (Auto) 0.8 L Cameron # (Auto) 0.3 Eos # (Auto) 0.2 Baso # (Auto) 0.0 Immature Gran # (Auto) 0.00 Absolute Nucleated RBC 0.00 Immature Gran % 0 Nucleated RBC % 0 Sodium 142 Potassium 4.4 Chloride 106 Carbon Dioxide 27.2 Anion Gap 9 BUN 16 Creatinine 0.9 Estim Creat Clear Calc 66.0 eGFR > 60 BUN/Creatinine Ratio 18 Glucose 85 Calculated Osmolality 283 Calcium 8.9 Corrected Calcium 9.4 Phosphorus 3.1 Magnesium 2.0 Total Bilirubin 0.2 L AST 13 ALT < 7 L Alkaline Phosphatase 69 Total Protein 5.3 L Albumin 3.4 Globulin 1.9 L Albumin/Globulin Ratio 1.8 Impressions Impression: Multiple ulcers distal esophagus Plan as an HPI Assessment & Plan A&P Narrative # Coffee-ground emesis # Pain abdomen # Gastric hiatal hernia Plan N.p.o. midnight tonight Serial CBC IV Protonix Consent obtained for fiberoptic esophagogastroduodenoscopy with possible biopsy possible therapeutic intervention under intravenous moderate sedation Thank you very much for the opportunity to participate in the care of this patient Time Spent With Patient Time: Total time spent is greater than 50% in coordination of care (as documented) at patient's floor/unit and/or counseling patient:
[2025-08-18 11:16] VITALS: PULSE 70
[2025-08-18 12:00] VITALS: BP 123/60; PULSE 60; RESP 20; TEMP 36.9; O2SAT 98
--- NOTE | 2025-08-18 13:09 | PC.SS ---
SS met with pt who state he is not homeless and resides on his friend's property. Pt confirmed address. SS provided pt with a shirt and sack lunch (due to not having lunch). Pt refused community resources. Pt required ride home. SS setup [employer] transportation.
--- NOTE | 2025-08-18 15:05 | ESDS_ITS ---
<Statement entered by Shellie Bradley DO - 08/19/25 14:20> I, Shellie Bradley DO, attest that I was physically present for the vargas portions of the service and evaluated the patient with the resident and I reviewed and discussed the case with the resident and agree with the resident's findings and plans of care as documented above Planned Discharge Date 08/18/25 DS: Providers Provider Date of admission: 08/15/25 15:30 Primary care physician: Physician No Primary/Family Admitting Provider: David Kasper DO Attending Provider on Admission: Shellie Bradley DO Consults: 08/15/25 12:23 Consult to Gastroenterology Stat Comment: GI bleed, hx of bleeding esophageal ulcers Consulting Provider: Gregorio Tyler 08/15/25 19:25 Health Equity Referral - Knowledge Deficit Routine Comment: Positive screening for knowledge deficit needs. Health Equity Referral - Nutrition Routine Comment: Positive screening for nutrition needs. Health Equity Referral - Safety Routine Comment: Positive screening for safety needs. Health Equity Referral - Transportation Routine Comment: Positive screening for transportation needs. Health Equity Referral - Utilities Routine Comment: Positive screening for utility assistance needs. 08/15/25 19:26 Referral Registered Dietitian Routine Comment: Attending Provider on DC: Shellie Bradley DO Discharging Provider: Shellie Bradley DO Anticipated date of discharge: 08/18/25 DS: Diagnosis Problem List Completed Was Problem List Reviewed/Reconciled?: Yes Hospital Course Hospital Course Hospital course: Hospital course: Mr. Quesada is a 65-year-old male with past medical history of esophageal ulcers, esophageal candidiasis esophageal biopsy positive for H. pylori and polysubstance use who presented to [facility] emergency department on 08/11/2025 with episodes of coffee-ground emesis and epigastric abdominal pain. Patient was admitted for upper GI bleed workup, patient was given 2 units PRBC, started on Protonix 40 twice daily patient underwent EGD on 08/17 which was positive for anemia esophageal ulcers at distal esophagus and GE junction along with gastritis. Patient was started on quadruple therapy for H. pylori, patient continued to have complaints of nausea post EGD was started on Reglan and patient's symptoms improved, diet was advan maritza. Patient today feels well and is stable for discharge. Patient responded well to hospital treatment. Discharge diagnosis: #Esophageal ulcers at GE junction #Upper GI bleed, hematemesis #H. pylori gastritis #Microcytic anemia, anemia of blood loss. #Polysubstance use #Hypertensive urgency #Protein calorie malnutrition Discharge instructions: - You were admitted to the hospital for upper GI bleed workup, EGD revealed esophageal ulcer, also biopsies from your previous pathology shows H. pylori positive, please take H. pylori treatment Talicia 4 times a day for 14 days to complete treatment. It is very important that you take all the treatment course. - Use Reglan tablets as needed to manage her nausea, we recommend that you obtain a referral for gastroenterology outpatient. - Avoid spicy foods, caffeine we recommend a peptic ulcer disease/bland diet until your symptoms improve - Follow-up with your primary care physician within 1 week if you do not have a PCP you can follow-up with [facility] or Jenifer Howell [facility]. - Call [phone] to make an appointment for [facility] Address: [facility], [facility] [address], [address], [place], [address] - Return to ED if symptoms return or worsen. Case discussed with Attending Physician Dr. Shellie Santana MD Internal Medicine PGY-2 Disclaimer: This note was dictated by speech recognition. Minor errors in brick handler may be present due to voice recognition software. Time Spent with Patient Time attestation: Total time spent providing and/or coordinating discharge services: Greater than 30 minutes Time spent: Greater than 30 minutes Exam Vital Signs Temp Pulse Resp BP Pulse Ox O2 Del Method O2 Flow Rate 98.4 F 60 20 123/60 98 Room Air 3 08/18/25 12:00 08/18/25 12:00 08/18/25 12:00 08/18/25 12:00 08/18/25 12:00 08/18/25 12:00 08/18/25 00:00 Narrative Exam General: Awake and in no acute distress. Disheveled-appearing, thin and cachectic, HEENT: Normocephalic, atraumatic, mucous membranes moist. Heart: Regular rate and rhythm, normal S1 and S2, no murmurs. Lungs: Clear to auscultation with no wheezing or crackles. Abdomen: Soft, nondistended, nontender, positive bowel sounds. ?No guarding or rebound tenderness. Neurologic: Alert and oriented x3, no gross neurological deficit, and patient able to move all 4 extremities. Extremities: No edema, dirt around ankles. Skin: No rash or ecchymoses. Discharge Plan Plan Patient Disposition: HOME (Self Care) Patient condition on transfer: Stable Care Plan Goals: - You were admitted to the hospital for upper GI bleed workup, EGD revealed esophageal ulcer, also biopsies from your previous pathology shows H. pylori positive, please take H. pylori treatment Talicia 4 times a day for 14 days to complete treatment. It is very important that you take all the treatment course. - Use Reglan tablets as needed to manage her nausea, we recommend that you obtain a referral for gastroenterology outpatient. - Avoid spicy foods, caffeine we recommend a peptic ulcer disease/bland diet until your symptoms improve - Follow-up with your primary care physician within 1 week if you do not have a PCP you can follow-up with [facility] or Jenifer Howell [facility]. - Call [phone] to make an appointment for [facility] Address: [facility], [address], [address], [place], [address] - Return to ED if symptoms return or worsen. Please call [facility] in order to have medications delivered to home. You may also call your insurance for medical transport to pharmacy and GI follow up as well. - Ingres? al hospital para un estudio de hemorragia digestiva jaja. La endoscop?a esof?gica revel? reuben ?lcera esof?gica. Adem?s, las biopsias de carias patolog?a previa muestran H. pylori positivo. Por favor, tome el tratamiento contra H. pylori para Talicia 4 veces al d?a pranay 14 d?as para completar el tratamiento. Es muy importante que complete el tratamiento. - Use las tabletas de Reglan seg?n sea necesario para controlar las n?useas. Le recomendamos que obtenga reuben derivaci?n a un centro ambulatorio de gastroenterolog?a. - Evite las comidas picantes y la cafe?na. Recomendamos reuben dieta blanda para la ?lcera p?ptica hasta que jose s?ntomas mejoren. - Consulte con carias m?dico de cabecera dentro de reuben semana. Si no tiene un m?dico de cabecera, puede consultar con la cl?som de luciano acad?deepali o con Jenifer Howell, [facility]. - Llame al [phone] para programar reuben carrie en la cl?som de [place]. Direcci?n: [facility], [address], [address], [place], [address] - Regrese a urgencias si los s?ntomas regresan o empeoran. Llame a la [facility] para recibir jose medicamentos a domicilio. Tambi?n puede llamar a carias seguro para el transporte m?dico a la farmacia y para el seguimiento gastroenterol?gico. [facility]:[phone] Prescriptions/Referrals Prescriptions/Med Rec: New Talicia 10-250-12.5 mg capsule,IR - delay rel,biphase 4 cap PO Q8H 14 Days Qty: 168 0RF Rx Instructions: must administer with a meal/food metoclopramide HCl 10 mg tablet 10 mg PO Q6H PRN (Reason: nausea and vomiting) Qty: 20 0RF Referrals: No Primary/Family,Physician [Primary Care Provider] Jared Valenzuela MD [Resident, Internal Medicine] Patient/Caregiver Discharge Instructions Discharge Activity: activity as tolerated Education Materials: Bleeding Peptic Ulcer: Treatment, Understanding H. pylori and Ulcers, Discharge Instructions- Eating ... Print Language: Indonesian Stand Alone Forms: Cherelle Award Info., Patient Portal Info Letter Discharge Order Discharge Orders: Discharge (Routine); Ordered 08/18/25 Ordered By: Shellie Bradley Quality Discharge Quality Measures none
== END 2025-08-18 12:17 | disposition home or self-care (01) | DRG 242 ==
LOC: SERX 10:44 → SERHOLD 15:31 → S3NX 19:31
PROVIDERS: Specialist; Student in an Organized Health Care Education/Training Program; Admitting Provider Student in an Organized Health Care Education/Training Program; Emergency Provider Emergency Medicine; Visit Provider Internal Medicine
PROC: 0DJ08ZZ Inspection of Upper Intestinal Tract, Via Natural or Artificial Opening Endoscopic (ICD-10-PCS; CPT 43239; principal; 2025-08-16 16:30)
DX: K22.11 Ulcer of esophagus with bleeding (principal); K29.71 Gastritis, unspecified, with bleeding; N17.9 Acute kidney failure, unspecified; I16.0 Hypertensive urgency; F10.10 Alcohol abuse, uncomplicated; K44.9 Diaphragmatic hernia without obstruction or gangrene; E04.2 Nontoxic multinodular goiter; D62 Acute posthemorrhagic anemia; B96.81 Helicobacter pylori [H. pylori] as the cause of diseases classified elsewhere; E46 Unspecified protein-calorie malnutrition; F15.10 Other stimulant abuse, uncomplicated; F17.200 Nicotine dependence, unspecified, uncomplicated; Z87.11 Personal history of peptic ulcer disease; Z87.19 Personal history of other diseases of the digestive system; Z68.1 Body mass index [BMI] 19.9 or less, adult
CPT/HCPCS: 36415; 71045; 71260; 74177; 80053; 82607; 82728; 82746; 83540; 83550; 83735; 83880; 84100; 84484; 85014; 85018; 85025; 85046; 85610; 86703; 86850; 86900; 86901; 86923; 87081; 93005; 93225; 96360; 96361; 96365; 96366; 96375; 96376; 99284; A4649; J1200; J2250; J2270; J2405; J2470; J2765; J3010; J3490; J7120; P9016; Q9967; A9270

== ENCOUNTER 2025-08-22 21:54 | Emergency (ER) | payer MEDICAID, SELFPAY ==
[2025-08-22 21:57] VITALS: BP 176/101; PULSE 93; RESP 20; TEMP 36.7; O2SAT 100
[2025-08-22 22:05] VITALS: PULSE 104; RESP 20
--- NOTE | 2025-08-22 22:45 | XR_ITS ---
Examination: CT abdomen with intravenous contrast CT pelvis with intravenous contrast 2-D coronal reconstructions 2-D sagittal reconstructions Date and time of exam: August 23, 2025, 0025 hours, comparison August 15, 2025 INDICATIONS: Epigastric pain this week, diagnosis gastrointestinal bleeding. CTDI: vol (mGy) 4.93 DLP: (mGycm) 257 Technique: Multiple axial sections of the abdomen and pelvis have been obtained. 64 slice high-resolution scanner used. 3 mm axial sections have been obtained, post intravenous injection 60 cc [id number] 2-D sagittal, coronal reconstructions obtained. Low dose protocols were performed. One or more of the following dose reduction techniques were used; automated exposure control, adjustment of the mA and/or KV according to patient size, use of iterative reconstruction technique. 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
--- NOTE | 2025-08-22 22:45 | EKG_ITS ---
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
--- NOTE | 2025-08-22 22:47 | PD.EDRME ---
Rapid Medical Screening Exam RME Arrival date/time: 08/22/25 21:54 65-year-old male with a history of GI bleed reports with complaints of epigastric and abdominal pain nausea and vomiting Chief Complaint: Chest Pain Time Seen by Provider: 08/22/25 22:19 Vital signs: Vital Signs Temperature 98.0 F 08/22/25 21:57 Pulse Rate 93 08/22/25 21:57 Respiratory Rate 20 08/22/25 21:57 Blood Pressure 176/101 H 08/22/25 21:57 Pulse Oximetry (%) 100 08/22/25 21:57 Oxygen Delivery Method Room Air 08/22/25 21:57 Exam: 0 Clinical Impression: 0
[2025-08-22 23:12] LABS: Basophils # (Auto) 0.1 Thou/mm3 (0.0-0.2); Basophils % (Auto) 1 % (0-2.5); Eosinophils # (Auto) 0.2 Thou/mm3 (0.0-0.5); Eosinophils % (Auto) 2 % (0-10); Hematocrit 36.3 % (41.0-53.0); Hemoglobin 11.2 g/dL (13.5-16.0); Immature Granulocytes Auto 0.02 Thou/mm3 (0.00-0.00); Lymphocytes # (Auto) 0.7 Thou/mm3 (1.0-4.8); Lymphocytes % (Auto) 8 % (10-50); Mean Corpuscular HGB Conc 30.9 g/dl (31.0-37.0); Mean Corpuscular Hemoglobin 23.5 pg (25.0-35.0); Mean Corpuscular Volume 76 fL (80-100); Monocytes # (Auto) 0.4 Thou/mm3 (0.0-0.8); Monocytes % (Auto) 4 % (0-12); Neutrophils # (Auto) 8.1 Thou/mm3 (1.8-7.7); Neutrophils % (Auto) 85 % (37-80); Nucleated Red Blood Cell # 0.00 Thou/mm3 (0.00-0.00); Nucleated Red Blood Cell % 0 /100 WBC (0); Platelet Count 464 Thou/mm3 (140-440); RDW Standard Deviation 54.2 fL (35.1-43.9); Red Blood Count 4.76 Miln/mm3 (4.50-5.90); White Blood Count 9.5 Thou/mm3 (3.8-10.6)
[2025-08-22 23:35] LABS: Alanine Aminotransferase 12 U/L (10-49); Albumin, Serum 4.5 gm/dL (3.4-4.8); Albumin/Globulin Ratio 1.6 (1.2-2.2); Alkaline Phosphatase 84 U/L (46-116); Anion Gap 8 (7-16); Aspartate Amino Transferase < 8 U/L (0-34); BUN/Creatinine Ratio 14 Ratio (12-20); Bilirubin,Total 0.2 mg/dL (0.3-1.2); Blood Urea Nitrogen 13 mg/dL (9-23); Calcium 10.4 mg/dL (8.3-10.6); Calcium (Corrected) 10.4 mg/dL (8.5-10.1); Carbon Dioxide 29.7 mMol/L (20.0-31.0); Chloride 102 mMol/L (98-107); Creatinine (Component) 0.9 mg/dL (0.6-1.3); Globulin 2.9 gm/dL (2.3-3.5); Glucose 130 mg/dL (74-106); Lipase 22 U/L (12-53); Osmolality,Calculated 281 (275-295); Potassium 3.7 mMol/L (3.4-5.1); Sodium 140 mMol/L (136-145); Total Protein 7.4 gm/dL (5.7-8.2); Troponin I < 0.020 ng/mL (0.0-0.045); eGFR > 60 See Note
--- NOTE | 2025-08-23 01:32 | PRELIM_ITS ---
CT scan of the abdomen and pelvis with intravenous contrast (axial sections with sagittal and coronal reformats) August 22, 2025 2346 hours Clinical History: Epigastric pain, history of GI bleed Comparison: Reference is made to the prior preliminary CT abdomen and pelvis report dated December 26, 2024. Findings: The liver, gallbladder, pancreas, spleen and adrenals are unremarkable. There is bilateral renal cortical scarring and subcentimeter too small to characterize hypodensities. There is no ureteric calculus or hydroureteronephrosis. There are fluid filled non-dilated small bowel loops with mural thickening. No evidence of bowel obstruction. A moderate amount of fecal material is present in the colon. The appendix is within normal limits (coronal images 92-102/129). There is no mesenteric or retroperitoneal adenopathy. The abdominal aorta demonstrates atheromatous calcification without evidence of aneurysm. The urinary bladder is partially distended and shows mild wall thickening; possibility of cystitis or bladder outlet obstruction cannot be excluded.There is mild to moderate prostatomegaly indenting the bladder base. There is no free fluid or free air. Osseous degenerative changes are noted. There is mild dextroscoliosis of the lumbar spine. There is a calcified granuloma at the right lung base. There is a moderate sized hiatal hernia containing a portion of stomach with wall thickening, suggestive of gastroesophagitis. Streaky atelectasis is seen at the right lung base adjacent to the hiatal hernia. Please note that evaluation of bowel loops is limited due to absence of oral contrast. Impression: 1. Moderate sized hiatal hernia containing portion of stomach with features suggestive of gastroesophagitis. 2. Fluid filled non-dilated small bowel loops with mural thickening, suspicious for enteritis. No evidence of free air or loculated abscess. 3. Moderate amount of fecal material in the colon, compatible with constipation. 4. Partially distended urinary bladder with mild wall thickening; possibility of cystitis or bladder outlet obstruction cannot be excluded. 5. Other findings as described above. Suggest clinical correlation and follow up accordingly. Report Electronically Signed By: Gilberto Singh 08/23/2025 1:31:53 AM [EST]
[2025-08-23] MEDS: MORPHINE SULF INJ 4 MG/ML VIAL IVP (02:29)
--- NOTE | 2025-08-23 03:31 | PD.EDCHEST ---
ED Chest Pain RME/HPI General Chief Complaint: Chest Pain Stated Complaint: CHEST PAIN AFTER METH Time Seen by Provider: 08/22/25 22:19 Arrival date/time: 08/22/25 21:54 Limitations: no limitations RME / HPI RME / HPI narrative: 08/22/25 21:54 65-year-old male with a history of GI bleed reports with complaints of epigastric and abdominal pain nausea and vomiting Dr. Tyler's Main ED Evaluation: 65yo male presents to the ED for a chief complaint of persistent nausea. Patient endorses using methamphetamines earlier today. Denies any chest pain, shortness of breath, fever, chills, vomiting, diarrhea, abdominal pain, or any other associated symptoms. NKA. Related Data Previous Rx's ?Medication ?Instructions ?Recorded metoclopramide HCl 10 mg tablet 10 mg PO Q6H PRN nausea and 08/18/25 vomiting #20 tabs omeprazole 10 mg-amox 250 4 cap (4 x 10-250-12.5 mg) PO Q8H 08/18/25 mg-rifabutin 12.5 mg capsule 14 days #168 ea immed,delay rel (Talicia) ondansetron 4 mg disintegrating 4 mg PO Q8H PRN nausea and 08/23/25 tablet vomiting #14 tabs Allergies Allergy/AdvReac Type Severity Reaction Status Date / Time No Known Allergies Allergy Verified 07/26/25 21:58 Review of Systems Review of Systems Systems Reviewed: All systems reviewed, normal except as documented ED Exam General Limitations: Present no limitations General appearance: Present alert and in no apparent distress Head Head exam: Present atraumatic Eye Eye exam: Present normal appearance, PERRL and EOMI ENT ENT exam: Present normal exam, normal oropharynx and mucous membranes moist Neck Neck exam: Present normal inspection, full ROM and trachea midline Chest Chest inspection: Present normal inspection and symmetric chest wall rise Respiratory Respiratory exam: Present normal lung sounds bilaterally Cardiovascular Cardiovascular exam: Present regular rate, normal rhythm and normal heart sounds Abdominal Exam Abdominal exam: Present soft and normal bowel sounds Extremities Exam Extremities exam: Present normal inspection and full ROM Back Exam Back exam: Present normal inspection and full ROM Neurological Exam Neurological exam: Present alert, oriented X3 and CN II-XII intact Psychiatric Psychiatric exam: Present normal affect and normal mood Skin Skin exam: Present warm, dry, intact and normal color Course Quality Measures none Orders Category Date Time Status CT Screening NOW Care 08/22/25 22:47 Active EKG (ED ONLY) *Do not use* NOW Care 08/22/25 22:46 Completed Miscellaneous Nursing Order X1 Care 08/23/25 03:[address] abdomen pelvis w con Stat Exams 08/22/25 22:45 Taken EKG (ED Only) Stat Exams 08/22/25 22:45 Draft CBC Stat Lab 08/22/25 22:55 Completed CMP [Comprehensive Metabolic Panel] Stat Lab 08/22/25 22:55 Completed Lipase Stat Lab 08/22/25 22:55 Completed Troponin I Stat Lab 08/22/25 22:55 Completed Morphine* Inj Med 08/23/25 02:17 Discontinued 4 mg IVP X1 ONE Vital Signs Vital signs: Vital Signs Temperature 98.0 F 08/22/25 21:57 Pulse Rate 93 08/22/25 21:57 Respiratory Rate 20 08/22/25 21:57 Blood Pressure 176/101 H 08/22/25 21:57 Pulse Oximetry (%) 100 08/22/25 21:57 Oxygen Delivery Method Room Air 08/22/25 21:57 Chest Pain MDM Narrative MDM Narrative:: Scribe Attestation: 08/23/25 Omaira Segura am scribing for and in the presence of Dr. Tyler. Patient data External records reviewed:: [facility] previous records (Per chart review, patient was admitted here on 08/15/25 for abdominal pain.) Clinical information provided by:: patient Social determinants that could affect healthcare access:: substance use Patient has the following chronic illnesses:: esophageal ulcers, esophageal candidiasis esophageal biopsy positive for H. pylori How is presenting disease/condition affected by chronic disease/condition?: uneffected by Evaluation data The following diagnostics were reviewed and interpreted by me:: lab results, radiology exam(s) and EKG tracing(s) Lab and/or radiology exams considered but not ordered:: none Interpretation Summary: WBC normal, HnH 11.2/36.3, CMP normal, troponin normal, lipase normal. EKG done at 2311, sinus rhythm, rate of 92, nonspecific ST-T changes, no STEMI, OR interval: 145, QTc: 433, according to my interpretation. Telerad Preliminary Report Draft Patient: ANTHONY VELÁZQUEZ Record#: [id number] Birthdate: 1960 Age/Sex: 65 / M Location: [facility] Attending Dr: Ordering Physician: Date of Service: Procedure(s): Accession Number(s): cc: ~ CT scan of the abdomen and pelvis with intravenous contrast (axial sections with sagittal and coronal reformats) August 22, 2025 2346 hours Clinical History: Epigastric pain, history of GI bleed Comparison: Reference is made to the prior preliminary CT abdomen and pelvis report dated December 26, 2024. Findings: The liver, gallbladder, pancreas, spleen and adrenals are unremarkable. There is bilateral renal cortical scarring and subcentimeter too small to characterize hypodensities. There is no ureteric calculus or hydroureteronephrosis. There are fluid filled non-dilated small bowel loops with mural thickening. No evidence of bowel obstruction. A moderate amount of fecal material is present in the colon. The appendix is within normal limits (coronal images 92-102/129). There is no mesenteric or retroperitoneal adenopathy. The abdominal aorta demonstrates atheromatous calcification without evidence of aneurysm. The urinary bladder is partially distended and shows mild wall thickening; possibility of cystitis or bladder outlet obstruction cannot be excluded.There is mild to moderate prostatomegaly indenting the bladder base. There is no free fluid or free air. Osseous degenerative changes are noted. There is mild dextroscoliosis of the lumbar spine. There is a calcified granuloma at the right lung base. There is a moderate sized hiatal hernia containing a portion of stomach with wall thickening, suggestive of gastroesophagitis. Streaky atelectasis is seen at the right lung base adjacent to the hiatal hernia. Please note that evaluation of bowel loops is limited due to absence of oral contrast. Impression: 1. Moderate sized hiatal hernia containing portion of stomach with features suggestive of gastroesophagitis. 2. Fluid filled non-dilated small bowel loops with mural thickening, suspicious for enteritis. No evidence of free air or loculated abscess. 3. Moderate amount of fecal material in the colon, compatible with constipation. 4. Partially distended urinary bladder with mild wall thickening; possibility of cystitis or bladder outlet obstruction cannot be excluded. 5. Other findings as described above. Suggest clinical correlation and follow up accordingly. Report Electronically Signed By: Gilberto Singh 08/23/2025 1:31:53 Medications / Prescriptions Medications or Prescriptions considered but not ordered:: none Medication administrations:: Medication Administration History Discontinued Medications Morphine Sulfate (Morphine Sulf Inj 4 Mg/Ml Vial) 4 mg IVP X1 ONE Stop: 08/23/25 02:18 Last Admin: 08/23/25 02:29 Dose: 4 mg Documented By: HARRIET see above Consultations Consultation(s) initiated? (list below): No Diagnosis Chest Pain Differential Diagnosis: other (gastritis, GERD, nausea) Most likely diagnosis given after review of the tests above:: see clinical impression below Admission Indicated Admission indicated?: not indicated Admission Request Was there a request for admission?: No Disposition Plan Disposition Plan: Discharge Discharge Attestation Discharge Attestation: The patient and all family members were given an opportunity to ask questions and understood the discharge instructions. Discharge instructions specifically effects, indications for sooner follow up or return to the emergency department, and the expected course of current diagnosis. Patient condition: Stable Discharge Plan Plan Patient Disposition: HOME (Self Care) Patient condition on transfer: Stable Prescriptions/Referrals Prescriptions/Med Rec: New ondansetron 4 mg tablet,disintegrating 4 mg PO Q8H PRN (Reason: nausea and vomiting) Qty: 14 0RF No Action Talicia 10-250-12.5 mg capsule,IR - delay rel,biphase 4 cap PO Q8H 14 Days Qty: 168 0RF Rx Instructions: must administer with a meal/food metoclopramide HCl 10 mg tablet 10 mg PO Q6H PRN (Reason: nausea and vomiting) Qty: 20 0RF Referrals: No Primary/Family,Physician [Primary Care Provider] - In 1 week Problem List Clinical Impression: Nausea Patient/Caregiver Discharge Instructions Diet Instructions: Please avoid greasy or fatty foods. Print Language: Macedonian Stand Alone Forms: Cherelle Award Info., Patient Portal Info Letter
[2025-08-23 04:01] VITALS: BP 168/102; PULSE 89; RESP 18; TEMP 37.1; O2SAT 98
[2025-08-23] MEDS: LIDOCAINE VISCOUS 2% 15 ML UDC PO (04:50)
[2025-08-23] MEDS: MG HYD/AL HYD/SIME (Maalox Reg) SUSP 30 ML UDC PO (04:50)
== END 2025-08-23 06:35 | disposition home or self-care (01) ==
PROVIDERS: Physician Assistant; Emergency Provider Emergency Medicine
DX: I44.4 Left anterior fascicular block (principal); K44.9 Diaphragmatic hernia without obstruction or gangrene; N32.89 Other specified disorders of bladder; K59.00 Constipation, unspecified
CPT/HCPCS: 36415; 74177; 80053; 83690; 84484; 85025; 93005; 96374; 99284; A4649; J2270; J3490; Q9967; A9270

== ENCOUNTER 2025-08-27 14:40 | Inpatient (IN) | payer MEDICAID, SELFPAY ==
[2025-08-27 14:46] VITALS: PULSE 90; RESP 17; O2SAT 99
[2025-08-27 14:56] VITALS: BP 134/87; PULSE 107; RESP 19; TEMP 37; O2SAT 100; BMI 22.8
--- NOTE | 2025-08-27 15:15 | PD.EDRME ---
Rapid Medical Screening Exam RME Arrival date/time: 08/27/25 14:40 Chief Complaint: Abdominal Pain Time Seen by Provider: 08/27/25 15:10 Vital signs: Vital Signs Temperature 98.6 F 08/27/25 14:56 Pulse Rate 107 H 08/27/25 14:56 Respiratory Rate 19 08/27/25 14:56 Blood Pressure 134/87 H 08/27/25 14:56 Pulse Oximetry (%) 100 08/27/25 14:56 Oxygen Delivery Method Room Air 08/27/25 14:56 RME Narrative: 65-year-old male with Hx of GI bleed presenting to the emergency department c/o abdominal pain. hx of chronic hiccups and epigastric pain. Shouting he needs pain meds. EGD 01/14 showed esophageal ulcer with 4 x 3 blood vessel. Also was diagnosed with esophagitis, esophageal ulcer and candidiasis. Not cooperative for interview. Exam: spitting into emesis bag Clinical Impression: chronic hiccups chronic abdominal pain
[2025-08-27 15:52] LABS: Basophils # (Auto) 0.1 Thou/mm3 (0.0-0.2); Basophils % (Auto) 1 % (0-2.5); Eosinophils # (Auto) 0.2 Thou/mm3 (0.0-0.5); Eosinophils % (Auto) 2 % (0-10); Hematocrit 28.6 % (41.0-53.0); Immature Granulocytes Auto 0.02 Thou/mm3 (0.00-0.00); Lymphocytes # (Auto) 0.7 Thou/mm3 (1.0-4.8); Lymphocytes % (Auto) 8 % (10-50); Mean Corpuscular HGB Conc 30.4 g/dl (31.0-37.0); Mean Corpuscular Hemoglobin 23.3 pg (25.0-35.0); Mean Corpuscular Volume 77 fL (80-100); Monocytes # (Auto) 0.4 Thou/mm3 (0.0-0.8); Monocytes % (Auto) 4 % (0-12); Neutrophils # (Auto) 8.2 Thou/mm3 (1.8-7.7); Neutrophils % (Auto) 85 % (37-80); Nucleated Red Blood Cell # 0.00 Thou/mm3 (0.00-0.00); Nucleated Red Blood Cell % 0 /100 WBC (0); Platelet Count 655 Thou/mm3 (140-440); RDW Standard Deviation 55.4 fL (35.1-43.9); Red Blood Count 3.73 Miln/mm3 (4.50-5.90); White Blood Count 9.6 Thou/mm3 (3.8-10.6)
[2025-08-27 15:55] LABS: Hemoglobin 8.7 g/dL (13.5-16.0)
[2025-08-27] MEDS: PANTOPRAZOLE 40 MG TABLET PO (15:55)
[2025-08-27] MEDS: HYDROcodone/APAP 5/325 TABLET 1 TAB PO (15:55)
[2025-08-27 16:25] LABS: Alanine Aminotransferase 10 U/L (10-49); Albumin, Serum 4.3 gm/dL (3.4-4.8); Albumin/Globulin Ratio 1.8 (1.2-2.2); Alkaline Phosphatase 75 U/L (46-116); Anion Gap 9 (7-16); Aspartate Amino Transferase 17 U/L (0-34); BUN/Creatinine Ratio 15 Ratio (12-20); Bilirubin,Total < 0.2 mg/dL (0.3-1.2); Blood Urea Nitrogen 21 mg/dL (9-23); Calcium 9.7 mg/dL (8.3-10.6); Calcium (Corrected) 9.7 mg/dL (8.5-10.1); Carbon Dioxide 29.9 mMol/L (20.0-31.0); Chloride 102 mMol/L (98-107); Creatinine (Component) 1.4 mg/dL (0.6-1.3); Estimated Creatinine Clearance 51.3 mL/min (>60); Globulin 2.4 gm/dL (2.3-3.5); Glucose 155 mg/dL (74-106); Lipase 23 U/L (12-53); Osmolality,Calculated 287 (275-295); Potassium 3.9 mMol/L (3.4-5.1); Sodium 141 mMol/L (136-145); Total Protein 6.7 gm/dL (5.7-8.2); eGFR 56 See Note
--- NOTE | 2025-08-27 18:26 | PD.EDABDPN ---
ED Abdominal Pain RME/HPI General Chief Complaint: Abdominal Pain Stated complaint: ABDOMINAL PAIN Time seen by provider: 08/27/25 15:10 Arrival date/time: 08/27/25 14:40 RME / HPI RME / HPI narrative: 65-year-old male with Hx of GI bleed presenting to the emergency department c/o abdominal pain. hx of chronic hiccups and epigastric pain. Shouting he needs pain meds. EGD 01/14 showed esophageal ulcer with 4 x 3 blood vessel. Also was diagnosed with esophagitis, esophageal ulcer and candidiasis. Not cooperative for interview. DR. MCNEAL MAIN ED EVALUATION: Patient is a debilitated 65 y/o male with Hx of Polysubstance abuse recently discharged from [facility] after presenting with hematemesis and patient required 2 units of RBC's, was placed on PPI, EGD demonstrated esophageal ulcer and gastritis for which patient was started on quadruple therapy, and biopsies positive for H. pylori. Patient is now presenting with recurrent epigastric abdominal pain ? recurrent hematemesis, reports no bowel movement for 1-2 weeks. No reported fever or chills. Given patient's degree of distress, he is a poor historian. PMH: Recently Dx of H. Pylori, Multisubstance abuse, Bliss's Esophagus, Ulcer PSH: Multiple EGD's Allergies: NKDA Social: Crystal meth daily, denies alcoholism Exam: spitting into emesis bag Impression: chronic hiccups chronic abdominal pain Related Data Previous Rx's ?Medication ?Instructions ?Recorded metoclopramide HCl 10 mg tablet 10 mg PO Q6H PRN nausea and 08/18/25 vomiting #20 tabs omeprazole 10 mg-amox 250 4 cap (4 x 10-250-12.5 mg) PO Q8H 08/18/25 mg-rifabutin 12.5 mg capsule 14 days #168 ea immed,delay rel (Talicia) ondansetron 4 mg disintegrating 4 mg PO Q8H PRN nausea and 08/23/25 tablet vomiting #14 tabs Allergies Allergy/AdvReac Type Severity Reaction Status Date / Time No Known Allergies Allergy Verified 08/27/25 14:52 Review of Systems Review of Systems Systems Reviewed: All systems reviewed, normal except as documented Past Medical History Past Medical History GASTROINTESTINAL: Positive Bliss's Esophagus and Ulcer PSYCHO/SOCIAL: Positive Recreational Drug Use Social History SMOKING STATUS: Current every day smoker SUBSTANCE USE: methamphetamine ED Exam Narrative Physical exam: GEN. APPEARANCE: The patient is alert awake oriented X-3 debilitated, appears chronically ill, unkempt, c/o epigastric abdominal pain. Patient has good eye contact. Patient is cooperative. VITALS: All vitals were reviewed and the pulse ox is 100%, which is normal according to my interpretation HEENT: Normocephalic, atraumatic and nontender. Pupils are equal and reactive. Oral mucosa is moist. NECK: Supple, nontender, no meningismus, no JVD. There is no thyromegaly and no lymphadenopathy. CHEST: Nontender on palpation no deformity and no crepitus. CARDIOVASCULAR: Heart regular rhythm, no murmur or gallop rub or extra beats. LUNGS: Clear to auscultation bilaterally with symmetrical chest rise. No laboring tachypnea or wheezing. No intercostal subcostal retraction. No rales and no rhonchi. ABDOMEN: Soft, mildly distended, point tenderness to high epigastrium, slight guarding, no gross peritoneal findings. There are no abnormal masses palpated. No pulsatile masses or bruits. Active and normal bowel sounds. EXTREMITIES: Normal inspection and palpation. No edema. No cyanosis. Patient is able to move all 4 extremities well SKIN: Warm and dry, no rashes noted. MUSCULOSKELETAL: No lumbar or midline bony tenderness. There is no CVA tenderness. No paraspinal muscle spasm or tenderness. NEURO: Cranial nerves II through XII grossly intact. There are no focal neurologic deficits noted. GCS is 15 PSYCHIATRIC: Patient is in normal mood and affect, cooperative. LYMPHATICS: No major lymphadenopathy noted. Course Quality Measures none Orders Category Date Time Status CBC Stat Lab 08/27/25 15:31 Completed CBC [CBC] Stat Lab 08/27/25 19:12 Completed CMP [Comprehensive Metabolic Panel] Stat Lab 08/27/25 15:31 Completed Drug Screen,Urine Stat Lab 08/27/25 21:29 Completed Lipase Stat Lab 08/27/25 15:31 Completed Urinalysis, C/S if Indicated Stat Lab 08/27/25 21:29 Completed Urine Culture Stat Lab 08/27/25 21:29 Received Famotidine Inj [Pepcid Inj] Med 08/27/25 18:35 Discontinued 40 mg IVP X1 ONE HYDROcodone*/APAP 5/325 [Culdesac 5/325] Med 08/27/25 15:16 Discontinued 1 tab PO X1 ONE Labetalol* IV [Trandate* IV] Med 08/27/25 22:38 Discontinued 10 mg IVP X1 ONE Metoclopramide Inj [Reglan Inj] Med 08/27/25 18:35 Discontinued 10 mg IVP X1 ONE Metoclopramide Inj [Reglan Inj] Med 08/27/25 23:15 Ordered 5 mg IVP Q8HR Morphine* Inj Med 08/27/25 18:41 Discontinued 4 mg IVP X1 ONE Pantoprazole Inj [Protonix Inj] Med 08/27/25 21:24 Discontinued 80 mg IVP X1 ONE Pantoprazole [Protonix] Med 08/27/25 15:16 Discontinued 40 mg PO X1 ONE Pantoprazole/Ns 80Mg IV Premix [Protonix/NS 80mg IV Med 08/27/25 21:24 Active Premix] 80 mg in 100 ml IV Q10H Ringers Lactated 1000 ml [Lactated Ringers] 1,000 ml Med 08/27/25 23:09 Active IV 999 mls/hr Sodium Chloride 0.9% 1000 ml [Ns] 1,000 ml Med 08/27/25 18:35 Discontinued IV 999 mls/hr cefTRIAXone/D5w 1gm IV premix [Rocephin/D5w 1gm IV Med 08/27/25 21:21 Discontinued premix] 1 gm in 50 ml IV X1 Vital Signs Vital signs: Vital Signs Temperature 98.6 F 08/27/25 14:56 Pulse Rate 107 H 08/27/25 14:56 Respiratory Rate 19 08/27/25 14:56 Blood Pressure 134/87 H 08/27/25 14:56 Pulse Oximetry (%) 100 08/27/25 14:56 Oxygen Delivery Method Room Air 08/27/25 14:56 Abdominal Pain MDM MDM Narrative MDM Narrative:: Scribe Attestation: ISharonda am scribing for and in the presence of Dr. Quintanilla. Provider Notation: Although this document has been carefully reviewed, there may still be some phonetic and other typographical errors. These errors are purely grammatical due to imperfections in the software program and should not be construed in any way to compromise the substance of the patient's medical care during this visit. Patient is a debilitated 65 y/o male with Hx of Polysubstance abuse recently discharged from [facility] after presenting with hematemesis and patient required 2 units of RBC's, was placed on PPI, EGD demonstrated esophageal ulcer and gastritis for which patient was started on quadruple therapy, and biopsies positive for H. pylori. Patient is now presenting with recurrent epigastric abdominal pain ? recurrent hematemesis, reports no bowel movement for 1-2 weeks. Please see PE findings. Laboratory findings, including CBC and serum chemistries, demonstrated WBC of 9.8 hemoglobin stable at 9.1, and relative thrombocytosis with platelet count of 621. No left shift or bandemia. Serum chemistries acute renal insufficiency with increasing baseline creatinine. Serum potassium low at 3.9, and LFT's unremarkable. Troponin I is undetected. UA currently pending. Patient placed on monitored bed, IV established, administered PPI, anti-emetics, low-dose narcotic analgesics with mild symptomatic improvement, however several bouts of gross coffee ground emesis shortly after being placed on monitored bed. Protonix infusion and maintenance fluid hydration administered. Hospitalist service consulted as likely will require observation and repeat endoscopy. Final diagnoses include acute upper GI bleed and Hx of Esophageal Ulcer/Gastritis. Patient data External records reviewed:: [facility] previous records (Reviewed prior ED records from 08/23/25. Patient was seen for Nausea.) Clinical information provided by:: patient Social determinants that could affect healthcare access:: substance use (Methamphetamine) Patient has the following chronic illnesses:: Bliss's Esophagus, Ulcer, Recreational Drug Abuse How is presenting disease/condition affected by chronic disease/condition?: exacerbated by Evaluation data The following diagnostics were reviewed and interpreted by me:: lab results Lab and/or radiology exams considered but not ordered:: None Interpretation Summary: See MDM above Medications / Prescriptions Medications or Prescriptions considered but not ordered:: None Medication administrations:: Medication Administration History Pantoprazole Sodium (Protonix/Ns 80mg Iv Premix) 80 mg in 100 mls @ 10 mls/hr IV Q10H ALAN Stop: 08/30/25 19:23 Last Admin: 08/27/25 21:44 Dose: 10 mls/hr Documented By: EB Lactated Ringer's (Lactated Ringers) 1,000 mls @ 999 mls/hr IV .Q1H1M ONE Stop: 08/28/25 00:09 Metoclopramide HCl (Metoclopramide Inj 5 Mg/Ml Vial 2 Ml) 5 mg IVP Q8HR ALAN; Protocol Stop: 09/26/25 23:14 Discontinued Medications Hydrocodone Bitart/Acetaminophen (Hydrocodone/Apap 5/325 Tablet) 1 tab PO X1 ONE Stop: 08/27/25 15:17 Last Admin: 08/27/25 15:55 Dose: 1 tab Documented By: HARDEEP Famotidine (Famotidine Inj 10 Mg/Ml Vial 2 Ml) 40 mg IVP X1 ONE Stop: 08/27/25 18:36 Last Admin: 08/27/25 19:26 Dose: 40 mg Documented By: EB Sodium Chloride (Ns) 1,000 mls @ 999 mls/hr IV .Q1H1M ONE Stop: 08/27/25 19:35 Last Infusion: 08/27/25 21:41 Dose: Infused Documented By: Admin: 08/27/25 20:00 Dose: 999 mls/hr Documented By: EB Ceftriaxone Sodium/Dextrose (Rocephin/D5w 1gm Iv Premix) 1 gm in 50 mls @ 100 mls/hr IV X1 ONE Stop: 08/27/25 21:50 Last Infusion: 08/27/25 22:10 Dose: Infused Documented By: Admin: 08/27/25 21:44 Dose: 100 mls/hr Documented By: EB Labetalol HCl (Labetalol Inj 5 Mg/Ml Vial 4 Ml) 10 mg IVP X1 ONE Stop: 08/27/25 22:39 Last Admin: 08/27/25 23:00 Dose: 10 mg Documented By: EB Comments: 2ml Metoclopramide HCl (Metoclopramide Inj 5 Mg/Ml Vial 2 Ml) 10 mg IVP X1 ONE; Protocol Stop: 08/27/25 18:36 Last Admin: 08/27/25 19:27 Dose: 10 mg Documented By: EB Morphine Sulfate (Morphine Sulf Inj 4 Mg/Ml Vial) 4 mg IVP X1 ONE Stop: 08/27/25 18:42 Last Admin: 08/27/25 19:27 Dose: 4 mg Documented By: EB Pantoprazole Sodium (Pantoprazole 40 Mg Tablet) 40 mg PO X1 ONE Stop: 08/27/25 15:17 Last Admin: 08/27/25 15:55 Dose: 40 mg Documented By: HARDEEP Pantoprazole Sodium (Pantoprazole Inj 40 Mg Vial) 80 mg IVP X1 ONE Stop: 08/27/25 21:25 Last Admin: 08/27/25 21:44 Dose: 80 mg Documented By: EB See above if any Consultations Consultation(s) initiated? (list below): Yes Consultation #1 (Physician, Specialty, Details): Discussed with hospitalist's resident physician for admission. Reviewed the patient?s HPI, PMHx, lab and/or radiology results. Discussed treatment plan. Will consult an admission to the hospitalist. Time: 22:40 Diagnosis Differential diagnosis abdominal pain: abdominal pain, pancreatitis and other (Gastritis, Peptic Ulcer, Anemia, Bliss's Esophagus) Most likely diagnosis given after review of the tests above:: Acute Upper GI Bleed and Hx of Esophageal Ulcer/Gastritis Admission Indicated Admission indicated?: indicated Explain why admission is indicated or not indicated:: Acute Upper GI Bleed and Hx of Esophageal Ulcer/Gastritis Admission Request Was there a request for admission?: Yes Admission Attestation Admission request attestation: Discussed case with [] from Hospitalist service regarding admission. Discussed patients ED course, exam findings, labs, and radiology results. The Hospitalist [agrees,declines] to accept the patient for admission. Disposition Plan Disposition Plan: Admit Critical Care Time Critical Care Time Critical Care Time: Yes Total Critical Care Time (min.): 35 Attestation: The high probability of sudden, clinically significant deterioration in the patient?s condition required the highest level of my preparedness to intervene urgently. The services I provided to this patient were to treat and/or prevent clinically significant deterioration. Services included the following: chart data review, reviewing nursing notes and/or old charts, documentation time, makeup sales consultant collaboration regarding findings and treatment options, medication orders and management, direct patient care, vital sign assessments and ordering, interpreting and reviewing diagnostic studies and lab tests. Aggregate critical care time includes only time during which I was engaged in work directly related to the patient?s care, as described above, whether at bedside or elsewhere in the Emergency Department. It did not include time spent performing other reported procedures or the services of residents, students, nurses or physician assistants. Discharge Plan Plan Patient Disposition: Admit Acute Care w/in Hospital Prescriptions/Referrals Prescriptions/Med Rec: No Action Talicia 10-250-12.5 mg capsule,IR - delay rel,biphase 4 cap PO Q8H 14 Days Qty: 168 0RF Rx Instructions: must administer with a meal/food metoclopramide HCl 10 mg tablet 10 mg PO Q6H PRN (Reason: nausea and vomiting) Qty: 20 0RF ondansetron 4 mg tablet,disintegrating 4 mg PO Q8H PRN (Reason: nausea and vomiting) Qty: 14 0RF Referrals: No Primary/Family,Physician [Primary Care Provider] - In 1 week Problem List Clinical Impression: Acute upper GI bleed, History of esophageal varices, Hx of esophageal ulcer, Helicobacter pylori antibody positive Patient/Caregiver Discharge Instructions Print Language: Macedonian Stand Alone Forms: Cherelle Award Info., Patient Portal Info Letter
[2025-08-27 19:20] VITALS: BP 198/95; PULSE 86; RESP 18; TEMP 37.1; O2SAT 99
[2025-08-27] MEDS: FAMOTIDINE INJ 10 MG/ML VIAL 2 ML 40 MG IVP (19:26)
[2025-08-27] MEDS: METOCLOPRAMIDE INJ 5 MG/ML VIAL 2 ML 10 MG IVP (19:27)
[2025-08-27] MEDS: MORPHINE SULF INJ 4 MG/ML VIAL IVP (19:27)
[2025-08-27 19:29] LABS: Basophils # (Auto) 0.1 Thou/mm3 (0.0-0.2); Basophils % (Auto) 1 % (0-2.5); Eosinophils # (Auto) 0.0 Thou/mm3 (0.0-0.5); Eosinophils % (Auto) 0 % (0-10); Hematocrit 30.3 % (41.0-53.0); Hemoglobin 9.1 g/dL (13.5-16.0); Immature Granulocytes Auto 0.03 Thou/mm3 (0.00-0.00); Lymphocytes # (Auto) 0.5 Thou/mm3 (1.0-4.8); Lymphocytes % (Auto) 5 % (10-50); Mean Corpuscular HGB Conc 30.0 g/dl (31.0-37.0); Mean Corpuscular Hemoglobin 23.4 pg (25.0-35.0); Mean Corpuscular Volume 78 fL (80-100); Monocytes # (Auto) 0.4 Thou/mm3 (0.0-0.8); Monocytes % (Auto) 4 % (0-12); Neutrophils # (Auto) 8.7 Thou/mm3 (1.8-7.7); Neutrophils % (Auto) 90 % (37-80); Nucleated Red Blood Cell # 0.00 Thou/mm3 (0.00-0.00); Nucleated Red Blood Cell % 0 /100 WBC (0); Platelet Count 621 Thou/mm3 (140-440); RDW Standard Deviation 56.8 fL (35.1-43.9); Red Blood Count 3.89 Miln/mm3 (4.50-5.90); White Blood Count 9.8 Thou/mm3 (3.8-10.6)
[2025-08-27] MEDS: SODIUM CHLORIDE 0.9% 1000 ML 1,000 ML 999 ML IV (20:00)
[2025-08-27 21:37] LABS: Collection Type, Urine Clean Catch
[2025-08-27 21:41] LABS: Bilirubin,Urine Negative (Negative); Blood,Urine Negative (Negative); Clarity,Urine Turbid (Clear/Hazy); Color,Urine Yellow (Lt Yel-Yel); Glucose, Urine Trace (Negative); Hyaline Casts,Urine < 1 /hpf (0-1); Ketones,Urine Negative (Negative); Leukocyte Esterase,Urine Positive (Negative); Nitrite,Urine Negative (Negative); PH,Urine 6.0 (5.0-7.0); Protein,Urine 1+ (Neg - Trace); RBC,Urine 35 /hpf (0-3); Specific Gravity,Urine 1.027 (1.001-1.035); Squamous Epithelial Cell,Urine 1 /hpf (0-5); Urobilinogen,Urine 2.0 mg/dL (0.0-1.0); WBC,Urine 29 /hpf (0-5)
[2025-08-27 21:44] LABS: Culture Indicated,Urine Yes
[2025-08-27] MEDS: cefTRIAXone/D5w 1gm IV premix 1 GM/50 ML BAG IV (21:44)
[2025-08-27] MEDS: PANTOPRAZOLE/NS 80MG IV PREMIX 80 MG/100 ML BAG 10 MG IV (21:44)
[2025-08-27 21:48] LABS: Amphetamine/Methamp Scrn,U Positive (Negative); Barbiturate Screen,Urine Negative (Negative); Benzodiazepines Screen,Urine Negative (Negative); Benzoylecgonine Screen, Ur Negative (Negative); Fentanyl Screen,Urine Negative (Negative); Opiate Screen,Urine Positive (Negative); THC Screen,Urine Negative (Negative)
[2025-08-27 21:54] VITALS: BP 197/108; PULSE 78; RESP 19; TEMP 36.8; O2SAT 100
[2025-08-27 23:21] VITALS: BP 125/91; PULSE 72; RESP 16; TEMP 36.6; O2SAT 97
--- NOTE | 2025-08-27 23:22 | ECHO_ITS ---
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 Division: [facility] [place] Ordering Physician: Leon Sloan Study Info Indications Meth use - Primary Location: [id number] Left Ventricular Outflow Tract Name Value Normal LVOT 2D LVOT Diameter 2.3 cm LVOT Doppler LVOT Peak Velocity 95 cm/s LVOT Mean Gradient 1 mmHg LVOT VTI 18 cm LVOT VTI/AV VTI Ratio 0.6 LVOT Stroke Volume 73 ml Pulmonic Valve Name Value Normal PV Doppler PV Peak Velocity 77 cm/s Mitral Valve Name Value Normal MV Doppler MV Decel [place] 349 cm/s2 MV PHT 55 ms MV Area (PHT) 4.0 cm2 4.0-5.0 MV Diastolic Function MV E Peak Velocity 67 cm/s MV A Peak Velocity 75 cm/s MV E/A 0.9 MV Annular TDI MV Septal e' Velocity 5.9 cm/s MV E/e' (Septal) 11.3 MV Lateral e' Velocity 11.0 cm/s MV E/e' (Lateral) 6.0 MV e' Average 8.44 cm/s MV E/e' (Average) 8.7 Tricuspid Valve Name Value Normal TV Regurgitation Doppler TR Peak Velocity 132 cm/s Estimated PAP/RSVP RA Pressure 3 mmHg <=5 PA Systolic Pressure 10 mmHg <36 RV Systolic Pressure 10 mmHg <36 TV Annular TDI TV Lateral Allyn s' Velocity 20.2 cm/s >=9.5 Aortic Valve Name Value Normal AV 2D/MM AV Cusp Sep (MM) 2.2 cm AV Doppler AV Peak Velocity 151 cm/s AV Mean Gradient 5 mmHg AV VTI 29 cm AV Area (Cont Eq VTI) 2.5 cm2 >=3.0 AV Area (Cont Eq Claudio) 2.6 cm2 AV DI (Claudio) 0.63 AV Regurgitation 2D LVOT Area 4.2 cm2 Ventricles Name Value Normal LV Dimensions 2D/MM IVS Diastolic Thickness (2D) 1.3 cm 0.6-1.0 LVID Diastole (2D) 5.1 cm 4.2-5.8 LVIW Diastolic Thickness (2D) 1.2 cm 0.6-1.0 LVID Systole (2D) 4.3 cm 2.5-4.0 LVOT Diameter 2.3 cm LV Mass (2D Cubed) 255.46 g 88.00-224.00 LV Mass Index (2D Cubed) 141 g/m2 49-115 Relative Wall Thickness (2D) 0.47 <=0.42 IVS/LVIW Diastolic Thickness (2D) 1.08 0.00-1.50 LV Fractional Shortening/Ejection Fraction 2D/MM LV Fractional Shortening (2D) 20 % 25-43 LV EF (2D Teichholz) 33 % RV Dimensions 2D/MM TV Lateral Allyn s' Velocity 20.2 cm/s >=9.5 Atria Name Value Normal LA Dimensions LA Volume (4C A-L) 31 ml LA Volume (BP A-L) 38 ml Left Ventricle Left ventricular chamber dimension is normal. Left ventricular systolic function is normal with visually estimated ejection fraction of 55-60%. There is mild concentric hypertrophy noted in the left ventricle. Left ventricular segmental wall motion is normal. There is grade I diastolic dysfunction in the left ventricle. Right Ventricle Right ventricular chamber dimension is normal. Right ventricular systolic function is normal. Left Atrium Left atrial chamber dimension is mildly enlarged. Right Atrium Right atrial chamber dimension is normal. Aortic Valve The aortic valve is trileaflet. There is no aortic valve sclerosis. There is no aortic valve stenosis with a peak velocity of 151 cm/s, mean gradient of 5 mmHg, and aortic valve area of 2.5 cm2. There is trace aortic valve regurgitation. Pulmonic Valve The pulmonic valve is normal. There is no pulmonic valve stenosis. There is no pulmonic regurgitation. Mitral Valve The mitral valve has normal leaflets. There is no mitral valve stenosis. There is mild mitral valve regurgitation. Tricuspid Valve The tricuspid valve leaflets are normal. There is no tricuspid valve stenosis. There is trace tricuspid valve regurgitation. No pulmonary hypertension, estimated pulmonary arterial systolic pressure is 10 mmHg and systemic blood pressure of 147 mmHg in systole. Pericardium/Pleural The pericardium appears normal. There is trivial pericardial effusion with no tamponade. No pleural effusion visualized. Inferior Vena Cava Normal inferior vena cava with >50% collapse upon inspiration consistent with normal right atrial pressure, 3 mmHg. Aorta The aortic measurements are indexed to age and body surface area. The aortic root at the sinus of Valsalva is not well visualized. The prox ascending aorta is not well visualized. Summary 1. Left ventricle size is normal and systolic function is normal. Estimated ejection fraction is 55-60%. There is grade I diastolic dysfunction. There is mild concentric hypertrophy noted. 2. Right ventricle chamber size is normal and systolic function is normal. Estimated RVSP is 10 mmHg. 3. There is trace aortic valve regurgitation. 4. There is mild mitral valve regurgitation. 5. There is trace tricuspid valve regurgitation. 6. The left atrium is mildly enlarged. The right atrium is normal. 7. Normal IVC with estimated RA pressure 3 mmHg. Report Signatures Finalized by Grady Lockett on 08/28/2025 07:57 PM
[2025-08-27] MEDS: metroNIDAZOLE/NS 500 MG IVPB 500 MG/100 ML BAG 200 MG IV (23:57)
[2025-08-27] MEDS: RINGERS LACTATED 500 ML 500 ML 125 ML IV (23:59)
[2025-08-28] VITALS (11 sets, daily range): BP systolic 98–147; BP diastolic 53–91; PULSE 66–109; RESP 12–20; TEMP 36.5–37.6; O2SAT 94–99; BMI 18.6
--- NOTE | 2025-08-28 03:47 | PD.RESHP ---
Documentation for date of: 08/27/25 HPI History of Present Illness Chief complaint: Hematemesis and abdominal pain History of present illness: Patient is [place]-speaking and poor historian A 65-year-old male with significant past medical history of recently diagnosed H. pylori, esophageal ulcers, chronic meth abuse, recently discharged from hospital on 08/18/2025 presented to the hospital with chief complaints of hematemesis and abdominal pain. Reported that after getting discharged from the hospital, he continued to have hematemesis and abdominal pain. Did not take any medications after getting discharged from hospital. Cannot give correct information about the frequency of hematemesis and reported that his food intake is decreased because of the abdominal pain. Reported that he noted mild burning while urination and also decreased urination. Continue to use methamphetamine. Last use was on the day of admission. ED course: - Vitals at the time of admission are significant for blood pressure 134/87 mmHg, pulse rate 107 bpm - Labs at the time of admission are significant for hemoglobin 9.1, platelets 621, creatinine 1.4 - Urinalysis showed 1+ proteinuria, 35 RBC, 29 WBC - Urine toxicology tested positive for opiates, methamphetamine - Patient is admitted for observation in view of ongoing hematemesis due to esophageal ulcer, secondary to H. pylori infection Past medical history: H. pylori, esophageal ulcers Past surgical history: Not significant Social history: Chronic meth abuse, smokes 1-2 times in a day Allergies: NKDA Exam Vital Signs Temp Pulse Resp BP Pulse Ox O2 Del Method 98.3 F 69 20 125/91 H 99 Room Air 08/28/25 02:06 08/28/25 02:06 08/28/25 02:06 08/28/25 02:06 08/28/25 02:06 08/28/25 02:06 Results: Labs 08/28/25 11:40 08/28/25 07:29 Labs: Short CBC 08/27/25 08/27/25 Range/Units 15:31 19:12 WBC 9.6 9.8 (3.8-10.6) Thou/mm3 Hgb 8.7 L D 9.1 L (13.5-16.0) g/dL Hct 28.6 L 30.3 L (41.0-53.0) % Plt Count 655 H D 621 H D (140-440) Thou/mm3 BMP 08/27/25 15:31 Sodium 141 Potassium 3.9 Chloride 102 Carbon Dioxide 29.9 BUN 21 Creatinine 1.4 H D Glucose 155 H Calcium 9.7 Liver Function 08/27/25 Range/Units 15:31 Total Bilirubin < 0.2 L (0.3-1.2) mg/dL AST 17 (0-34) U/L ALT 10 (10-49) U/L Alkaline Phosphatase 75 (46-116) U/L Albumin 4.3 (3.4-4.8) gm/dL Urine 08/27/25 Range/Units 21:29 Urine Color Yellow (Lt Yel-Yel) Urine Clarity Turbid A (Clear/Hazy) Urine pH 6.0 (5.0-7.0) Ur Specific [place] 1.027 (1.001-1.035) Urine Protein 1+ A (Neg - Trace) Urine Glucose (UA) Trace (Negative) Quality Measures Quality Measures VTE prophylaxis Medications Home Medications and Allergies Allergies Allergy/AdvReac Type Severity Reaction Status Date / Time No Known Allergies Allergy Verified 08/27/25 14:52 Visit Medications Acetaminophen (Acetaminophen 325 Mg Tablet) 650 mg PO Q6H PRN PRN Reason: Fever >101.5 Stop: 09/26/25 23:09 Bismuth Subsalicylate (Bismuth Subsalicyl 1 Ml) 30 ml PO QID [facility] Stop: 09/26/25 23:29 Pantoprazole Sodium (Protonix/Ns 80mg Iv Premix) 80 mg in 100 mls @ 10 mls/hr IV Q10H [facility] Stop: 08/30/25 19:23 Last Admin: 08/27/25 21:44 Dose: 10 mls/hr Metronidazole (Flagyl 500 Mg Iv) 500 mg in 100 mls @ 200 mls/hr IV Q8HR [facility] Stop: 09/03/25 23:16 Last Infusion: 08/28/25 00:44 Dose: Infused Metoclopramide HCl (Metoclopramide Inj 5 Mg/Ml Vial 2 Ml) 5 mg IVP Q8HR PRN; Protocol PRN Reason: NAUSEA OR VOMITING Stop: 09/26/25 23:14 Ondansetron HCl (Ondansetron Inj 2 Mg/Ml Inj 2 Ml) 4 mg IVP Q6H PRN; Protocol PRN Reason: NAUSEA OR VOMITING Stop: 09/26/25 23:09 Sennosides (Senna Tablet) 1 tab PO QDAY PRN; Protocol PRN Reason: constipation Stop: 09/26/25 23:09 Tetracycline HCl (Tetracycline 250 Mg Capsule) 500 mg PO QID ALAN Stop: 09/03/25 23:29 Discontinued Medications Hydrocodone Bitart/Acetaminophen (Hydrocodone/Apap 5/325 Tablet) 1 tab PO X1 ONE Stop: 08/27/25 15:17 Last Admin: 08/27/25 15:55 Dose: 1 tab Famotidine (Famotidine Inj 10 Mg/Ml Vial 2 Ml) 40 mg IVP X1 ONE Stop: 08/27/25 18:36 Last Admin: 08/27/25 19:26 Dose: 40 mg Sodium Chloride (Ns) 1,000 mls @ 999 mls/hr IV .Q1H1M ONE Stop: 08/27/25 19:35 Last Infusion: 08/27/25 21:41 Dose: Infused Ceftriaxone Sodium/Dextrose (Rocephin/D5w 1gm Iv Premix) 1 gm in 50 mls @ 100 mls/hr IV X1 ONE Stop: 08/27/25 21:50 Last Infusion: 08/27/25 22:10 Dose: Infused Lactated Ringer's (Lactated Ringers) 1,000 mls @ 999 mls/hr IV .Q1H1M ONE Stop: 08/28/25 00:09 Last Admin: 08/28/25 03:40 Dose: Not Given Lactated Ringer's (Lactated Ringers) 500 mls @ 125 mls/hr IV .Q4H ONE Stop: 08/28/25 03:20 Last Infusion: 08/28/25 03:40 Dose: Infused Labetalol HCl (Labetalol Inj 5 Mg/Ml Vial 4 Ml) 10 mg IVP X1 ONE Stop: 08/27/25 22:39 Last Admin: 08/27/25 23:00 Dose: 10 mg Metoclopramide HCl (Metoclopramide Inj 5 Mg/Ml Vial 2 Ml) 10 mg IVP X1 ONE; Protocol Stop: 08/27/25 18:36 Last Admin: 08/27/25 19:27 Dose: 10 mg Morphine Sulfate (Morphine Sulf Inj 4 Mg/Ml Vial) 4 mg IVP X1 ONE Stop: 08/27/25 18:42 Last Admin: 08/27/25 19:27 Dose: 4 mg Pantoprazole Sodium (Pantoprazole 40 Mg Tablet) 40 mg PO X1 ONE Stop: 08/27/25 15:17 Last Admin: 08/27/25 15:55 Dose: 40 mg Pantoprazole Sodium (Pantoprazole Inj 40 Mg Vial) 80 mg IVP X1 ONE Stop: 08/27/25 21:25 Last Admin: 08/27/25 21:44 Dose: 80 mg Assessment & Plan Plan A 65-year-old male with significant past medical history of recently diagnosed H. pylori, esophageal ulcers, chronic meth abuse, recently discharged from hospital on 08/18/2025 presented to the hospital with chief complaints of hematemesis and abdominal pain and admitted for UGI Bleed # Upper GI bleed # Hematemesis # Acute on chronic anemia # Esophageal ulcer secondary to H. pylori infection # Underlying drug in compliance - Presented to the ED with chief complaints of abdominal pain and hematemesis since discharge from the hospital on 08/18/2025 - Reported that he noted to have decreased food intake secondary to the pain - Did not take any medication after discharge from the hospital - Vitals at the time of admission are significant for blood pressure 134/87 mmHg, pulse rate 107 bpm - Labs at the time of admission are significant for hemoglobin 9.1, platelets 621, creatinine 1.4 Plan - Was given 1.5 L of bolus in the ED - Started on NS at 80 mL/h - Started on pantoprazole drip-8 mg/h - Started H. pylori treatment, quadruple therapy - N.p.o. except for meds - Consult GI per day team # TWIN, likely prerenal - Noted to have decreased food intake secondary to abdominal pain - Creatinine at the time of presentation is 1.4, baseline creatinine is 0.9 Plan - Received 1.5 L bolus in the ED - Started on NS at 80 mL/h - Strict I&O's - Avoid nephrotoxic medication and renally dose medications # Methamphetamine intoxication # Chronic methamphetamine abuse - Last methamphetamine abuse is on the day of admission Plan - Ordered echocardiogram in view of chronic meth abuse Hospital Maintenance: Dispo: Tele DVT ppx: SCD GI ppx:Protonix Diet: NPO IV lines: Peripheral Code status: FULL Patient plan of care was discussed with the attending physician, Dr. Alhalaibeh Leon Aremanda, PGY2 Attending Provider Attestation/Addendum After examination of the patient and review of the clinical data I feel that this patient needs admission to the hospital for further treatment/evaluation. Plan of care discussed with patient and is in agreement. I Huber Baez MD, attest that I was physically present for vargas portions of evaluation, and examined patient, labs and imagings and plan of care were discussed with IM residents team, and I agree with the findings and plans documented above.
--- NOTE | 2025-08-28 05:01 | PC.NURSE ---
re med rec- Pt don't remember home meds and that he hasn't gotten the prescription meds from pharmacy because he has no ride to go to pharmacy.
[2025-08-28] MEDS: SODIUM CHLORIDE 0.9% 1000 ML 1,000 ML 80 ML IV (05:43)
[2025-08-28] MEDS: metroNIDAZOLE/NS 500 MG IVPB 500 MG/100 ML BAG 200 MG IV ×3 (06:00→21:41)
[2025-08-28 08:05] LABS: Basophils # (Auto) 0.1 Thou/mm3 (0.0-0.2); Basophils % (Auto) 1 % (0-2.5); Eosinophils # (Auto) 0.1 Thou/mm3 (0.0-0.5); Eosinophils % (Auto) 1 % (0-10); Hematocrit 23.1 % (41.0-53.0); Immature Granulocytes Auto 0.04 Thou/mm3 (0.00-0.00); Lymphocytes # (Auto) 0.5 Thou/mm3 (1.0-4.8); Lymphocytes % (Auto) 6 % (10-50); Mean Corpuscular HGB Conc 30.3 g/dl (31.0-37.0); Mean Corpuscular Hemoglobin 23.6 pg (25.0-35.0); Mean Corpuscular Volume 78 fL (80-100); Monocytes # (Auto) 0.4 Thou/mm3 (0.0-0.8); Monocytes % (Auto) 6 % (0-12); Neutrophils # (Auto) 6.7 Thou/mm3 (1.8-7.7); Neutrophils % (Auto) 86 % (37-80); Nucleated Red Blood Cell # 0.00 Thou/mm3 (0.00-0.00); Nucleated Red Blood Cell % 0 /100 WBC (0); Platelet Count 408 Thou/mm3 (140-440); RDW Standard Deviation 57.1 fL (35.1-43.9); Red Blood Count 2.97 Miln/mm3 (4.50-5.90); White Blood Count 7.8 Thou/mm3 (3.8-10.6)
[2025-08-28] MEDS: PANTOPRAZOLE/NS 80MG IV PREMIX 80 MG/100 ML BAG 10 MG IV ×2 (08:12→17:58)
[2025-08-28 08:17] LABS: Hemoglobin 7.0 g/dL (13.5-16.0)
[2025-08-28 08:31] LABS: Albumin, Serum 3.2 gm/dL (3.4-4.8); Albumin/Globulin Ratio 1.5 (1.2-2.2); Alkaline Phosphatase 61 U/L (46-116); Anion Gap 8 (7-16); Aspartate Amino Transferase 13 U/L (0-34); BUN/Creatinine Ratio 19 Ratio (12-20); Bilirubin,Total < 0.2 mg/dL (0.3-1.2); Blood Urea Nitrogen 21 mg/dL (9-23); Calcium 8.8 mg/dL (8.3-10.6); Calcium (Corrected) 9.4 mg/dL (8.5-10.1); Carbon Dioxide 28.3 mMol/L (20.0-31.0); Chloride 105 mMol/L (98-107); Creatinine (Component) 1.1 mg/dL (0.6-1.3); Estimated Creatinine Clearance 53.2 mL/min (>60); Globulin 2.1 gm/dL (2.3-3.5); Glucose 109 mg/dL (74-106); Magnesium 1.8 mg/dL (1.6-2.6); Osmolality,Calculated 285 (275-295); Potassium 4.0 mMol/L (3.4-5.1); Sodium 141 mMol/L (136-145); Total Protein 5.3 gm/dL (5.7-8.2); eGFR > 60 See Note
[2025-08-28 08:41] LABS: Alanine Aminotransferase 8 U/L (10-49)
[2025-08-28 11:54] LABS: Hematocrit 21.2 % (41.0-53.0)
[2025-08-28 12:13] LABS: Hemoglobin 6.4 g/dL (13.5-16.0)
[2025-08-28] MEDS: BISMUTH SUBSALICYL 1 ML 30 ML PO (12:43)
[2025-08-28] MEDS: ACETAMINOPHEN 325 MG TABLET 650 MG PO (12:51)
[2025-08-28] MEDS: FUROSEMIDE INJ 10 MG/ML VIAL 2 ML 40 MG IVP (12:51)
[2025-08-28] MEDS: ONDANSETRON INJ 2 MG/ML INJ 2 ML 4 MG IVP (14:26)
--- NOTE | 2025-08-28 15:26 | ESPR_ITS ---
<Statement entered by Sourav Arndt MD - 09/10/25 09:22> I reviewed above note and agree with findings and plans. I have also personally examined the patient with medicine team and went over assessment and plan with medical team including internal audit consultant and resident physician. Documentation for date of: 08/28/25 Subjective Subjective Interval history: No acute overnight events. Seen and examined at bedside. Reported no new or worsening symptoms. Remains n.p.o. for GI evaluation later possible EGD. Hemoglobin 6.8 transfuse 1 PRBC. TWIN resolving with fluids. Exam Vital Signs Temp Pulse Resp BP Pulse Ox O2 Del Method 99 F 73 13 102/77 98 Room Air 08/28/25 12:00 08/28/25 12:51 08/28/25 12:00 08/28/25 12:51 08/28/25 12:00 08/28/25 12:00 Narrative Exam GENERAL * Cachectic, disheveled male, NAD, on room air satting well. HEENT * NCAT.?EBONY. Oral mucosa is moist. Patent Nares NECK * Supple, nontender, no JVD. CHEST * RRR, no m/g/r * CTAB, no w/r/r, symmetrical expansion. ABDOMEN * Soft, flat, nontender. No guarding/rebound tenderness/masses. * Bowel sounds presents EXTREMITIES * No edema/cyanosis.? SKIN * Warm and dry, no jaundice/rashes. NEUROMUSCULAR * No focal neurologic deficits. PSYCHIATRY * Normal mood and affect, cooperative, no SI or HI or hallucinations. Objective Labs 08/28/25 11:40 08/28/25 07:29 Labs: Laboratory Results - last 24 hr 08/27/25 08/27/25 08/27/25 15:31 19:12 21:29 WBC 9.6 9.8 RBC 3.73 L 3.89 L Hgb 8.7 L D 9.1 L Hct 28.6 L 30.3 L MCV 77 L 78 L MCH 23.3 L 23.4 L MCHC 30.4 L 30.0 L RDW Std Deviation 55.4 H 56.8 H Plt Count 655 H D 621 H D Neut % (Auto) 85 H 90 H Lymph % (Auto) 8 L 5 L [place] % (Auto) 4 4 Eos % (Auto) 2 0 Baso % (Auto) 1 1 Neut # (Auto) 8.2 H 8.7 H Lymph # (Auto) 0.7 L 0.5 L [place] # (Auto) 0.4 0.4 Eos # (Auto) 0.2 0.0 Baso # (Auto) 0.1 0.1 Immature Gran # (Auto) 0.02 H 0.03 H Absolute Nucleated RBC 0.00 0.00 Immature Gran % 0 0 Nucleated RBC % 0 0 Sodium 141 Potassium 3.9 Chloride 102 Carbon Dioxide 29.9 Anion Gap 9 BUN 21 Creatinine 1.4 H D Estim Creat Clear Calc 51.3 L eGFR 56 L BUN/Creatinine Ratio 15 Glucose 155 H Calculated Osmolality 287 Calcium 9.7 Corrected Calcium 9.7 Magnesium Total Bilirubin < 0.2 L AST 17 ALT 10 Alkaline Phosphatase 75 Total Protein 6.7 Albumin 4.3 Globulin 2.4 Albumin/Globulin Ratio 1.8 Lipase 23 Ur Collection Type Clean Catch Urine Color Yellow Urine Clarity Turbid A Urine pH 6.0 Ur Specific [employer] [place] 1.027 Urine Protein 1+ A Urine Glucose (UA) Trace Urine Ketones Negative Urine Blood Negative Urine Nitrite Negative Urine Bilirubin Negative Urine Urobilinogen (Auto) 2.0 Ur Leukocyte Esterase Positive Urine RBC 35 H Urine WBC 29 H Ur Squamous Epith Cells 1 Urine Bacteria None Hyaline Casts < 1 Ur Culture Indicated? Yes Urine Opiates Screen Positive A Urine Fentanyl Screen Negative Ur Barbiturates Screen Negative U Amphetamin/Meth Scrn Positive A U Benzodiazepines Scrn Negative U Cocaine Metab Screen Negative U Marijuana (THC) Screen Negative Blood Type Antibody Screen Crossmatch Blood Bank Wristband ID 08/28/25 08/28/25 07:29 11:40 WBC 7.8 RBC 2.97 L Hgb 7.0 L D 6.4 L* Hct 23.1 L 21.2 L* MCV 78 L MCH 23.6 L MCHC 30.3 L RDW Std Deviation 57.1 H Plt Count 408 D Neut % (Auto) 86 H Lymph % (Auto) 6 L [place] % (Auto) 6 Eos % (Auto) 1 Baso % (Auto) 1 Neut # (Auto) 6.7 Lymph # (Auto) 0.5 L [place] # (Auto) 0.4 Eos # (Auto) 0.1 Baso # (Auto) 0.1 Immature Gran # (Auto) 0.04 H Absolute Nucleated RBC 0.00 Immature Gran % 1 H Nucleated RBC % 0 Sodium 141 Potassium 4.0 Chloride 105 Carbon Dioxide 28.3 Anion Gap 8 BUN 21 Creatinine 1.1 Estim Creat Clear Calc 53.2 L eGFR > 60 BUN/Creatinine Ratio 19 Glucose 109 H Calculated Osmolality 285 Calcium 8.8 Corrected Calcium 9.4 Magnesium 1.8 Total Bilirubin < 0.2 L AST 13 ALT 8 L Alkaline Phosphatase 61 Total Protein 5.3 L Albumin 3.2 L D Globulin 2.1 L Albumin/Globulin Ratio 1.5 Lipase Ur Collection Type Urine Color Urine Clarity Urine pH Ur Specific [employer] [place] Urine Protein Urine Glucose (UA) Urine Ketones Urine Blood Urine Nitrite Urine Bilirubin Urine Urobilinogen (Auto) Ur Leukocyte Esterase Urine RBC Urine WBC Ur Squamous Epith Cells Urine Bacteria Hyaline Casts Ur Culture Indicated? Urine Opiates Screen Urine Fentanyl Screen Ur Barbiturates Screen U Amphetamin/Meth Scrn U Benzodiazepines Scrn U Cocaine Metab Screen U Marijuana (THC) Screen Blood Type A Positive Antibody Screen NEGATIVE Crossmatch See Detail Blood Bank Wristband ID Yes Quality Measures Quality Measures none Assessment & Plan Assessment Current Active Medications: Generic Name Dose Route Start Last Admin Trade Name Freq PRN Reason Stop Dose Admin Acetaminophen 650 mg 08/28/25 12:44 Acetaminophen 325 Mg Tablet PO 09/26/25 23:09 Q6H PRN Fever >100.4 Bismuth Subsalicylate 30 ml 08/27/25 23:30 08/28/25 12:43 Bismuth Subsalicyl 1 Ml PO 09/26/25 23:29 30 ml QID ALAN Administration Pantoprazole Sodium 80 mg in 100 mls @ 10 mls/hr 08/27/25 21:24 08/28/25 08:12 Protonix/Ns 80mg Iv Premix IV 08/30/25 19:23 10 mls/hr Q10H ALAN Administration Metronidazole 500 mg in 100 mls @ 200 mls/hr 08/27/25 23:17 08/28/25 13:41 Flagyl 500 Mg Iv IV 09/03/25 23:16 200 mls/hr Q8HR ALAN Administration Sodium Chloride 1,000 mls @ 80 mls/hr 08/28/25 03:49 08/28/25 05:43 Ns IV 08/28/25 16:18 80 mls/hr .[id number] ONE Administration Metoclopramide HCl 5 mg 08/27/25 23:15 Metoclopramide Inj 5 Mg/Ml Vial 2 Ml IVP 09/26/25 23:14 Q8HR PRN NAUSEA OR VOMITING Protocol Ondansetron HCl 4 mg 08/27/25 23:10 08/28/25 14:26 Ondansetron Inj 2 Mg/Ml Inj 2 Ml IVP 09/26/25 23:09 4 mg Q6H PRN Administration NAUSEA OR VOMITING Protocol Sennosides 1 tab 08/27/25 23:10 08/28/25 14:26 Senna Tablet PO 09/26/25 23:09 1 tab QDAY PRN Administration constipation Protocol Tetracycline HCl 500 mg 08/27/25 23:30 08/28/25 12:43 Tetracycline 250 Mg Capsule PO 09/03/25 23:29 500 mg QID ALAN Administration Plan A 65-year-old male with significant past medical history of recently diagnosed H. pylori, esophageal ulcers, chronic meth abuse, recently discharged from hospital on 08/18/2025 presented to the hospital with chief complaints of hematemesis and abdominal pain and admitted for UGI Bleed # Upper GI bleed # Hematemesis # Esophageal ulcer secondary to H. pylori infection # Underlying drug in compliance - Presented to the ED with chief complaints of abdominal pain and hematemesis since discharge from the hospital on 08/18/2025 - Reported that he noted to have decreased food intake secondary to the pain - Did not take any medication after discharge from the hospital - Vitals at the time of admission are significant for blood pressure 134/87 mmHg, pulse rate 107 bpm - Labs at the time of admission are significant for hemoglobin 9.1, platelets 621, creatinine 1.4 Plan - Was given 1.5 L of bolus in the ED - Continue NS at 80 mL/h - Continue Pantoprazole drip-8 mg/h - Continue H. pylori treatment, quadruple therapy - N.p.o. except for meds - Pending GI recommendations ? Transfuse 1 unit PRBC, follow-up H&H ? Transfuse if Hgb less than 7 # TWIN, likely prerenal (resolved) - Noted to have decreased food intake secondary to abdominal pain - Creatinine at the time of presentation is 1.4, baseline creatinine is 0.9 Plan - Received 1.5 L bolus in the ED - Started on NS at 80 mL/h - Strict I&O's - Avoid nephrotoxic medication and renally dose medications # Chronic methamphetamine abuse - Last methamphetamine abuse is on the day of admission Plan - Ordered echocardiogram in view of chronic meth abuse Hospital Maintenance: Dispo: Tele DVT ppx: SCD GI ppx:Protonix Diet: NPO IV lines: Peripheral Code status: FULL Case was discussed with attending physician. Kori Jon, DO PGY II This document was transcribed using voice recognition technology. Minor inaccuracies may be present.
--- NOTE | 2025-08-28 17:49 | ESCONSULT_ITS ---
HPI Data of Consult Requesting Physician: Huber Baez MD Primary Care Provider: Physician No Primary/Family Consult Narrative Reason for consult: Hematemesis History of present illness: 65 years old male presented the hospital with hematemesis hiccups and chest pain Hemoglobin hematocrit on 08/27/2025 was 8.7 and 25.6 it has gone down to 6.4 and 21.4 Patient does have a history of polysubstance abuse H. pylori gastritis as well as a previous endoscopy done on 08/16/2025 showed ulceration of the distal esophagus at the GE junction Patient was discharged on omeprazole 40 mg p.o. twice daily I am not sure he is taking the medication or not I have been consulted cc:: cc: Huber Baez MD Review of Systems Review of Systems Systems Reviewed: All systems reviewed, normal except as documented Meds Home Medications and Allergies Allergies Allergy/AdvReac Type Severity Reaction Status Date / Time No Known Allergies Allergy Verified 08/27/25 14:52 Exam Vital Signs Temp Pulse Resp BP Pulse Ox O2 Del Method 99.4 F 69 16 103/55 L 97 Room Air 08/28/25 17:39 08/28/25 17:39 08/28/25 17:39 08/28/25 17:39 08/28/25 17:39 08/28/25 16:00 Constitutional Comments: Chronically ill-appearing Routine Respiratory Exam Comments: Normal to auscultation Routine Abdominal Exam Comments: Soft nontender and benign Results Labs 08/28/25 11:40 08/28/25 07:29 Labs: Short CBC 08/27/25 08/28/25 08/28/25 Range/Units 19:12 07:29 11:40 WBC 9.8 7.8 (3.8-10.6) Thou/mm3 Hgb 9.1 L 7.0 L D 6.4 L* (13.5-16.0) g/dL Hct 30.3 L 23.1 L 21.2 L* (41.0-53.0) % Plt Count 621 H D 408 D (140-440) Thou/mm3 BMP 08/28/25 07:29 Sodium 141 Potassium 4.0 Chloride 105 Carbon Dioxide 28.3 BUN 21 Creatinine 1.1 Glucose 109 H Calcium 8.8 Liver Function 08/28/25 Range/Units 07:29 Total Bilirubin < 0.2 L (0.3-1.2) mg/dL AST 13 (0-34) U/L ALT 8 L (10-49) U/L Alkaline Phosphatase 61 (46-116) U/L Albumin 3.2 L D (3.4-4.8) gm/dL Urine 08/27/25 Range/Units 21:29 Urine Color Yellow (Lt Yel-Yel) Urine Clarity Turbid A (Clear/Hazy) Urine pH 6.0 (5.0-7.0) Ur Specific [place] 1.027 (1.001-1.035) Urine Protein 1+ A (Neg - Trace) Urine Glucose (UA) Trace (Negative) Assessment and Plan Additional Assessment & Plan Additional Plan: Hematemesis secondary to most likely esophageal ulceration could be due to Stacy-Xiao tear as well Anemia blood loss Polysubstance abuse Plan Keep the patient n.p.o. lets see how he does over the next 24 hours I am not too keen on doing the endoscopy at the moment High-dose PPI Protonix 80 mg IV push every 12 Will follow the patient Serial CBC
[2025-08-28] MEDS: METOCLOPRAMIDE INJ 5 MG/ML VIAL 2 ML IVP (18:21)
[2025-08-28] MEDS: BISMUTH SUBSALICYL 1 TABLET (Pepto-Bismol) 2 TAB PO ×2 (18:21→21:38)
[2025-08-28 23:08] LABS: Hematocrit 22.1 % (41.0-53.0)
[2025-08-28 23:14] LABS: Hemoglobin 6.9 g/dL (13.5-16.0)
[2025-08-29] VITALS (10 sets, daily range): BP systolic 108–133; BP diastolic 54–73; PULSE 63–98; RESP 16–20; TEMP 36.4–37.3; O2SAT 95–99
[2025-08-29 02:19] LABS: Path Review Blood Smear Sent to Pathologist
[2025-08-29] MEDS: BISMUTH SUBSALICYL 1 TABLET (Pepto-Bismol) 2 TAB PO ×4 (05:35→21:27)
[2025-08-29] MEDS: metroNIDAZOLE/NS 500 MG IVPB 500 MG/100 ML BAG 200 MG IV ×3 (05:35→21:27)
[2025-08-29 06:41] LABS: Basophils # (Auto) 0.0 Thou/mm3 (0.0-0.2); Basophils % (Auto) 1 % (0-2.5); Eosinophils # (Auto) 0.3 Thou/mm3 (0.0-0.5); Eosinophils % (Auto) 5 % (0-10); Hematocrit 25.2 % (41.0-53.0); Immature Granulocytes Auto 0.02 Thou/mm3 (0.00-0.00); Lymphocytes # (Auto) 0.6 Thou/mm3 (1.0-4.8); Lymphocytes % (Auto) 10 % (10-50); Mean Corpuscular HGB Conc 31.7 g/dl (31.0-37.0); Mean Corpuscular Hemoglobin 24.8 pg (25.0-35.0); Mean Corpuscular Volume 78 fL (80-100); Monocytes # (Auto) 0.3 Thou/mm3 (0.0-0.8); Monocytes % (Auto) 5 % (0-12); Neutrophils # (Auto) 4.2 Thou/mm3 (1.8-7.7); Neutrophils % (Auto) 79 % (37-80); Nucleated Red Blood Cell # 0.00 Thou/mm3 (0.00-0.00); Nucleated Red Blood Cell % 0 /100 WBC (0); Platelet Count 354 Thou/mm3 (140-440); RDW Standard Deviation 53.1 fL (35.1-43.9); Red Blood Count 3.23 Miln/mm3 (4.50-5.90); White Blood Count 5.4 Thou/mm3 (3.8-10.6)
[2025-08-29] MEDS: PANTOPRAZOLE/NS 80MG IV PREMIX 80 MG/100 ML BAG 10 MG IV ×2 (07:10→14:53)
[2025-08-29 07:14] LABS: Hemoglobin 8.0 g/dL (13.5-16.0)
[2025-08-29 07:26] LABS: Alanine Aminotransferase < 7 U/L (10-49); Albumin, Serum 2.9 gm/dL (3.4-4.8); Albumin/Globulin Ratio 1.5 (1.2-2.2); Alkaline Phosphatase 56 U/L (46-116); Anion Gap 8 (7-16); Aspartate Amino Transferase 14 U/L (0-34); BUN/Creatinine Ratio 20 Ratio (12-20); Bilirubin,Total 0.5 mg/dL (0.3-1.2); Blood Urea Nitrogen 20 mg/dL (9-23); Calcium 8.6 mg/dL (8.3-10.6); Calcium (Corrected) 9.5 mg/dL (8.5-10.1); Carbon Dioxide 28.1 mMol/L (20.0-31.0); Chloride 105 mMol/L (98-107); Creatinine (Component) 1.0 mg/dL (0.6-1.3); Estimated Creatinine Clearance 58.5 mL/min (>60); Globulin 2.0 gm/dL (2.3-3.5); Glucose 82 mg/dL (74-106); Magnesium 1.7 mg/dL (1.6-2.6); Osmolality,Calculated 282 (275-295); Potassium 3.6 mMol/L (3.4-5.1); Sodium 141 mMol/L (136-145); Total Protein 4.9 gm/dL (5.7-8.2); eGFR > 60 See Note
--- NOTE | 2025-08-29 12:10 | ESPR_ITS ---
<Statement entered by Sourav Arndt MD - 09/15/25 08:24> I reviewed above note and agree with findings and plans. I have also personally examined the patient with medicine team and went over assessment and plan with medical team including manufacturing intern and resident physician. <Statement entered by Kori Jon MD - 08/30/25 14:36> In summary: Admitted fro acute GI bleed anemia requiring transfusion. He has a history of chronic H. pylori and medication non-compliance. S/p 2 units pRBC, Hgb appears stable and will continue to monitor. No intervention from GI is recommended at this time. Continued with quad therapy for H. pylori. I?ve reviewed the note and agree with this assessment and plan, with the exceptions outlined above. I personally went over the labs, imaging, home medications, and prior records, and examined the patient. The case was also reviewed with the attending physician. Please note: this document was transcribed using voice recognition technology; minor inaccuracies may be present. Kori Jon DO PGY II Documentation for date of: 08/29/25 Subjective Subjective Interval history: No overnight events. Evaluated at bedside. Hgb 8.0 this morning, s/p 2pRBC. GI was consulted, recommended high-dose PPI Protonix 80 mg IV push every 12H. No plan for endoscopy at this point given recent endoscopy. NPO for now, pending GI recs. Exam Vital Signs Temp Pulse Resp BP Pulse Ox O2 Del Method 98.4 F 76 18 115/58 L 96 Room Air 08/29/25 08:00 08/29/25 08:00 08/29/25 08:00 08/29/25 08:00 08/29/25 08:00 08/29/25 08:00 Narrative Exam General: Belarusian speaking. Awake and in no acute distress. HEENT: Normocephalic, atraumatic Heart: Regular rate and rhythm Lungs: No audible wheezing. Equal chest rise. Abdomen: Nondistended, nontender. Neurologic: No gross neurological deficit, and patient able to move all 4 extremities. Objective Labs 08/29/25 06:12 08/29/25 06:12 Labs: Laboratory Results - last 24 hr 08/28/25 08/28/25 08/29/25 11:40 22:43 06:12 WBC 5.4 RBC 3.23 L Hgb 6.4 L* 6.9 L* 8.0 L Hct 21.2 L* 22.1 L 25.2 L MCV 78 L MCH 24.8 L MCHC 31.7 RDW Std Deviation 53.1 H Plt Count 354 D Neut % (Auto) 79 Lymph % (Auto) 10 [place] % (Auto) 5 Eos % (Auto) 5 Baso % (Auto) 1 Neut # (Auto) 4.2 Lymph # (Auto) 0.6 L [place] # (Auto) 0.3 Eos # (Auto) 0.3 Baso # (Auto) 0.0 Immature Gran # (Auto) 0.02 H Absolute Nucleated RBC 0.00 Immature Gran % 0 Nucleated RBC % 0 Smear Path Review Sent to Pathologist Sodium 141 Potassium 3.6 Chloride 105 Carbon Dioxide 28.1 Anion Gap 8 BUN 20 Creatinine 1.0 Estim Creat Clear Calc 58.5 L eGFR > 60 BUN/Creatinine Ratio 20 Glucose 82 Calculated Osmolality 282 Calcium 8.6 Corrected Calcium 9.5 Magnesium 1.7 Total Bilirubin 0.5 AST 14 ALT < 7 L Alkaline Phosphatase 56 Total Protein 4.9 L Albumin 2.9 L Globulin 2.0 L Albumin/Globulin Ratio 1.5 Blood Type A Positive Antibody Screen NEGATIVE Crossmatch See Detail Blood Bank Wristband ID Yes Quality Measures Quality Measures VTE prophylaxis Assessment & Plan Assessment Current Active Medications: Generic Name Dose Route Start Last Admin Trade Name Freq PRN Reason Stop Dose Admin Acetaminophen 650 mg 08/28/25 12:44 Acetaminophen 325 Mg Tablet PO 09/26/25 23:09 Q6H PRN Fever >100.4 Bismuth Subsalicylate 2 tab 08/28/25 18:15 08/29/25 11:56 Bismuth Subsalicyl 1 Tablet (Pepto-Bismol) PO 09/27/25 18:14 2 tab QID ALAN Administration Pantoprazole Sodium 80 mg in 100 mls @ 10 mls/hr 08/27/25 21:24 08/29/25 07:10 Protonix/Ns 80mg Iv Premix IV 08/30/25 19:23 10 mls/hr Q10H ALAN Administration Metronidazole 500 mg in 100 mls @ 200 mls/hr 08/27/25 23:17 08/29/25 05:35 Flagyl 500 Mg Iv IV 09/03/25 23:16 200 mls/hr Q8HR ALAN Administration Metoclopramide HCl 5 mg 08/27/25 23:15 08/28/25 18:21 Metoclopramide Inj 5 Mg/Ml Vial 2 Ml IVP 09/26/25 23:14 5 mg Q8HR PRN Administration NAUSEA OR VOMITING Protocol Ondansetron HCl 4 mg 08/27/25 23:10 08/28/25 14:26 Ondansetron Inj 2 Mg/Ml Inj 2 Ml IVP 09/26/25 23:09 4 mg Q6H PRN Administration NAUSEA OR VOMITING Protocol Sennosides 1 tab 08/27/25 23:10 08/28/25 14:26 Senna Tablet PO 09/26/25 23:09 1 tab QDAY PRN Administration constipation Protocol Tetracycline HCl 500 mg 08/27/25 23:30 08/29/25 11:56 Tetracycline 250 Mg Capsule PO 09/03/25 23:29 500 mg QID ALAN Administration Plan A 65-year-old male with significant past medical history of recently diagnosed H. pylori, esophageal ulcers, chronic meth abuse, recently discharged from hospital on 08/18/2025 presented to the hospital with chief complaints of hematemesis and abdominal pain and admitted for UGI Bleed. # Upper GI bleed # Hematemesis # Esophageal ulcer secondary to H. pylori infection # Underlying drug in compliance - Presented to the ED with chief complaints of abdominal pain and hematemesis since discharge from the hospital on 08/18/2025 - Reported that he noted to have decreased food intake secondary to the pain - Did not take any medication after discharge from the hospital - Vitals at the time of admission are significant for blood pressure 134/87 mmHg, pulse rate 107 bpm - Labs at the time of admission are significant for hemoglobin 9.1, platelets 621, creatinine 1.4 Plan - Was given 1.5 L of bolus in the ED - D/C NS at 80 mL/h - Continue Pantoprazole drip-8 mg/h - Continue H. pylori treatment, quadruple therapy - N.p.o. except for meds - Pending GI recommendations, no plan for endoscopy at this point. ? Transfuse 1 unit PRBC, follow-up H&H ? Transfuse if Hgb less than 7 # TWIN, likely prerenal (resolved) - Noted to have decreased food intake secondary to abdominal pain - Creatinine at the time of presentation is 1.4, baseline creatinine is 0.9 Plan - Received 1.5 L bolus in the ED - D/C NS at 80 mL/h - Strict I&O's - Avoid nephrotoxic medication and renally dose medications # Chronic methamphetamine abuse - Last methamphetamine abuse is on the day of admission Plan - Echocardiogram in view of chronic meth abuse, negative for vegetation, LVEF 55-60%. Health maintenance Dispo: Pending GI recs. DVT prophylaxis: SCD GI prophylaxis: Protonix 80mg BID. Antibiotics: Quadruple therapy for H. pylori. Bowel Regimen: Senna Diet: NPO except for meds Lines: Peripheral IV Code status: Full code Case discussed with my senior resident Dr. Jon Case discussed with my attending Dr. Yris Keita, PGY 1
--- NOTE | 2025-08-29 15:02 | PC.SS ---
Rounding: Pending GI Reccs, DC plan community
--- NOTE | 2025-08-29 21:39 | ESPR_ITS ---
Documentation for date of: 08/29/25 Subjective Subjective Interval history: Hemoglobin hematocrit continues to drop all the way down to 6.9 and 23.1 requiring blood transfusion Patient has a significant drop in hemoglobin hematocrit requiring blood transfusion My initial thought was not to do an endoscopy as patient has previously diagnosed distal esophageal ulceration Based on the drop in hemoglobin hematocrit endoscopy scheduled for tomorrow Exam Vital Signs Temp Pulse Resp BP Pulse Ox O2 Del Method 97.6 F 64 17 133/69 H 99 Room Air 08/29/25 20:00 08/29/25 20:00 08/29/25 20:00 08/29/25 20:00 08/29/25 20:00 08/29/25 20:00 Objective Labs 08/29/25 06:12 08/29/25 06:12 Labs: Laboratory Results - last 24 hr 08/28/25 08/28/25 08/29/25 11:40 22:43 06:12 WBC 5.4 RBC 3.23 L Hgb 6.9 L* 8.0 L Hct 22.1 L 25.2 L MCV 78 L MCH 24.8 L MCHC 31.7 RDW Std Deviation 53.1 H Plt Count 354 D Neut % (Auto) 79 Lymph % (Auto) 10 [place] % (Auto) 5 Eos % (Auto) 5 Baso % (Auto) 1 Neut # (Auto) 4.2 Lymph # (Auto) 0.6 L [place] # (Auto) 0.3 Eos # (Auto) 0.3 Baso # (Auto) 0.0 Immature Gran # (Auto) 0.02 H Absolute Nucleated RBC 0.00 Immature Gran % 0 Nucleated RBC % 0 Smear Path Review Sent to Pathologist Sodium 141 Potassium 3.6 Chloride 105 Carbon Dioxide 28.1 Anion Gap 8 BUN 20 Creatinine 1.0 Estim Creat Clear Calc 58.5 L eGFR > 60 BUN/Creatinine Ratio 20 Glucose 82 Calculated Osmolality 282 Calcium 8.6 Corrected Calcium 9.5 Magnesium 1.7 Total Bilirubin 0.5 AST 14 ALT < 7 L Alkaline Phosphatase 56 Total Protein 4.9 L Albumin 2.9 L Globulin 2.0 L Albumin/Globulin Ratio 1.5 Blood Type A Positive Antibody Screen NEGATIVE Crossmatch See Detail Blood Bank Wristband ID Yes Impressions Impression: Multiple ulcers distal esophagus Endoscopy a.m. Clear liquid diet till at 11 AM tomorrow Assessment & Plan A&P Narrative Hematemesis secondary to most likely esophageal ulceration could be due to Stacy-Xiao tear as well Anemia blood loss Polysubstance abuse Plan Keep the patient n.p.o. lets see how he does over the next 24 hours I am not too keen on doing the endoscopy at the moment High-dose PPI Protonix 80 mg IV push every 12 Will follow the patient Serial CBC Time Spent With Patient Time: Total time spent is greater than 50% in coordination of care (as documented) at patient's floor/unit and/or counseling patient:
[2025-08-30] VITALS (15 sets, daily range): BP systolic 122–174; BP diastolic 64–97; PULSE 53–99; RESP 12–99; TEMP 36.2–37.1; O2SAT 94–100
[2025-08-30] MEDS: PANTOPRAZOLE/NS 80MG IV PREMIX 80 MG/100 ML BAG 10 MG IV ×2 (02:07→11:20)
[2025-08-30] MEDS: BISMUTH SUBSALICYL 1 TABLET (Pepto-Bismol) 2 TAB PO ×3 (05:37→23:02)
[2025-08-30] MEDS: metroNIDAZOLE/NS 500 MG IVPB 500 MG/100 ML BAG 200 MG IV ×3 (05:37→23:03)
[2025-08-30 06:04] LABS: Basophils # (Auto) 0.0 Thou/mm3 (0.0-0.2); Basophils % (Auto) 1 % (0-2.5); Eosinophils # (Auto) 0.3 Thou/mm3 (0.0-0.5); Eosinophils % (Auto) 6 % (0-10); Hematocrit 27.0 % (41.0-53.0); Immature Granulocytes Auto 0.01 Thou/mm3 (0.00-0.00); Lymphocytes # (Auto) 0.5 Thou/mm3 (1.0-4.8); Lymphocytes % (Auto) 10 % (10-50); Mean Corpuscular HGB Conc 32.2 g/dl (31.0-37.0); Mean Corpuscular Hemoglobin 25.0 pg (25.0-35.0); Mean Corpuscular Volume 78 fL (80-100); Monocytes # (Auto) 0.3 Thou/mm3 (0.0-0.8); Monocytes % (Auto) 7 % (0-12); Neutrophils # (Auto) 3.5 Thou/mm3 (1.8-7.7); Neutrophils % (Auto) 76 % (37-80); Nucleated Red Blood Cell # 0.00 Thou/mm3 (0.00-0.00); Nucleated Red Blood Cell % 0 /100 WBC (0); Platelet Count 435 Thou/mm3 (140-440); RDW Standard Deviation 53.1 fL (35.1-43.9); Red Blood Count 3.48 Miln/mm3 (4.50-5.90); White Blood Count 4.6 Thou/mm3 (3.8-10.6)
[2025-08-30 06:12] LABS: Hemoglobin 8.7 g/dL (13.5-16.0)
[2025-08-30 06:45] LABS: Alanine Aminotransferase < 7 U/L (10-49); Albumin, Serum 3.0 gm/dL (3.4-4.8); Albumin/Globulin Ratio 1.4 (1.2-2.2); Alkaline Phosphatase 58 U/L (46-116); Anion Gap 9 (7-16); Aspartate Amino Transferase 14 U/L (0-34); BUN/Creatinine Ratio 25 Ratio (12-20); Bilirubin,Total 0.3 mg/dL (0.3-1.2); Blood Urea Nitrogen 20 mg/dL (9-23); Calcium 8.6 mg/dL (8.3-10.6); Calcium (Corrected) 9.4 mg/dL (8.5-10.1); Carbon Dioxide 24.5 mMol/L (20.0-31.0); Chloride 109 mMol/L (98-107); Creatinine (Component) 0.8 mg/dL (0.6-1.3); Estimated Creatinine Clearance 73.1 mL/min (>60); Globulin 2.1 gm/dL (2.3-3.5); Glucose 81 mg/dL (74-106); Magnesium 1.8 mg/dL (1.6-2.6); Osmolality,Calculated 284 (275-295); Phosphorous 3.1 mg/dL (2.4-5.1); Potassium 3.7 mMol/L (3.4-5.1); Sodium 142 mMol/L (136-145); Total Protein 5.1 gm/dL (5.7-8.2); eGFR > 60 See Note
--- NOTE | 2025-08-30 10:26 | EKG_ITS ---
[facility] Test Date: 2025-08-31 Pat Name: ANTHONY VELÁZQUEZ [facility] Right Of Way Supervisor: ECOBN1 : 1960 Requested By: Carolyne Gutierrez Order Number: [id number] Reading MD: Carolyne Gutierrez Measurements Intervals [place] Rate: 63 P: 65 MS: 134 QRS: -63 QRSD: 102 T: -73 QT: 388 QTc: 400 Interpretive Statements SINUS RHYTHM LEFT ANTERIOR FASCICULAR BLOCK ST DEVIATION AND MODERATE T-WAVE ABNORMALITY, CONSIDER ANTERIOR ISCHEMIA ST DEVIATION AND MODERATE T-WAVE ABNORMALITY, CONSIDER INFERIOR ISCHEMIA Compared to ECG 08/22/2025 23:11:40 T-wave abnormality now present Possible ischemia now present ST (T wave) deviation no longer present /store/S0/[id number]
--- NOTE | 2025-08-30 10:27 | XR_ITS ---
Examination: Abdomen AP single view Technique: AP portable supine abdomen, single view Exam date and time: August 30, 2025, 10:41 a.m., comparison February 10, 2025 INDICATIONS: Epigastric pain today. FINDINGS: Large amounts of stool throughout the entire colon No obstruction No free air Moderate bilateral hip osteoarthritis IMPRESSION: Large amounts of stool throughout the entire colon
--- NOTE | 2025-08-30 10:28 | XR_ITS ---
Portable upright AP chest film on 08/30/2025 at 10:39 a.m. Comparison study 08/15/2025 CLINICAL INDICATION: Chest pain FINDINGS: There is mild cardiomegaly felt to be present. The mediastinum and hilar regions and pulmonary arteries appear radiographically normal. Both right and left lungs are adequately expanded, they appear clear normal and there is no pleural fluid on either side And the visible skeleton, there is prominent degenerative disc space narrowing with surrounding osteophyte formation at T11-T12 with mild right convex scoliosis. Regarding the previous diagnosis of mild emphysema in the lungs on the previous chest film, the lungs have a perfectly normal radiographic appearance. To help confirm this, I have reviewed a recent CT exam on 08/23/2025, there is beautiful visualization of the lower third of both lungs which appear perfectly normal. That previous abdominal CT has shown a very large gastric hiatal hernia which is not visible on the chest films. IMPRESSION: 1. Mild cardiomegaly. 2. As noted and described above, the lungs are clear and there is no pulmonary emphysema. 3. See above regarding some other minor finding
--- NOTE | 2025-08-30 10:29 | PD.RESEVENT ---
Documentation for date of: 08/30/25 Event Note Event Note: Rapid Response Time: 10:25AM Reason for Call: epigastric pain radiating to the back after diet. Patient presentation: - Appears uncomfortable, laying left lateral recumbent position in bed on initial encounter. - Vitals: BP164/97, O2 sat 99% on room air, HR 66, BG 132. - Complains of epigastric pain that is identical to chief complaint - Denies n/v, SOB, jaw pain, arm pain. Assessment: - Abd soft, not distended, no guarding or rigidity, no crepitus appreciated. - Low suspicion for perforation/rupture, however, CXR and KUB ordered. - EKG reviewed, no acute ST abnormalities, low concern for acute KS. - Prior CT revealed hiatal hernia, which may contribute to patient's acute complaint. New orders: - Troponins - EKG - CXR - KUB - CBC - Maalox syrup --- Attending, Dr. Gerard and senior resident, Dr. Snow and Dr. Love present at bedside. Celestino Keita, PGY-1
[2025-08-30] MEDS: MG HYD/AL HYD/SIME (Maalox Reg) SUSP 30 ML UDC PO (10:36)
[2025-08-30] MEDS: MORPHINE SULF INJ 4 MG/ML VIAL 1 MG IVP (10:44)
--- NOTE | 2025-08-30 10:48 | PD.RESPRO ---
Documentation for date of: 08/30/25 Subjective Subjective Interval history: Mr. Quesada is a Hungarian speaking, 65-year-old male with significant past medical history of recently diagnosed H. pylori, esophageal ulcers, chronic meth abuse, recently discharged from hospital on 08/18/2025 presented to the hospital with chief complaints of hematemesis and abdominal pain and admitted for UGI Bleed. Endoscopy on 08/16/25 revealed esophageal ulcers and extensive ulceration of the distal esophagus and GE junction. He was discharged home with omeprazole 40mg BID, but was not compliant with his medications since he thought those medications would be delivered to his home address. 08/29/25: No overnight events. Evaluated at bedside. Hgb 8.0 this morning, s/p 2pRBC. GI was consulted, recommended high-dose PPI Protonix 80 mg IV push every 12H. No plan for endoscopy at this point given recent endoscopy. NPO for now, pending GI recs. 08/30/25: Rapid response called at 10:27 for epigastric pain. Please see event note for further details. Upon reassessment, patient no longer complained of chest pain or abdominal pain, and was resting comfortably in bed. EKG reviewed at bedside, no acute ST abnormalities noted. Troponin level returned negative. Hgb stable at 8.4. Low concern for rupture/perforation given unremarkable CXR and KUB. Plan for endoscopy later today with Dr. Tyler. No reported BM yet. Denied hematemesis or melena. Exam Vital Signs Temp Pulse Resp BP Pulse Ox O2 Del Method 97.8 F 56 L 15 138/82 H 99 Room Air 08/30/25 08:00 08/30/25 08:00 08/30/25 08:00 08/30/25 08:00 08/30/25 08:00 08/30/25 08:00 Narrative Exam General: Hungarian speaking, Awake and in no acute distress. HEENT: Normocephalic, atraumatic. Heart: Regular rate and rhythm Lungs: Clear to auscultation with no wheezing or crackles. Abdomen: Soft, nondistended, nontender. No guarding or rebound tenderness. Neurologic: Alert and oriented x3, no gross neurological deficit Extremities: Able to move all 4 extremities. Skin: Dry, clean, and intact. No ecchymoses. Objective Labs 08/31/25 04:30 08/31/25 04:30 Labs: Laboratory Results - last 24 hr 08/30/25 04:54 WBC 4.6 RBC 3.48 L Hgb 8.7 L Hct 27.0 L MCV 78 L MCH 25.0 MCHC 32.2 RDW Std Deviation 53.1 H Plt Count 435 D Neut % (Auto) 76 Lymph % (Auto) 10 [place] % (Auto) 7 Eos % (Auto) 6 Baso % (Auto) 1 Neut # (Auto) 3.5 Lymph # (Auto) 0.5 L [place] # (Auto) 0.3 Eos # (Auto) 0.3 Baso # (Auto) 0.0 Immature Gran # (Auto) 0.01 H Absolute Nucleated RBC 0.00 Immature Gran % 0 Nucleated RBC % 0 Sodium 142 Potassium 3.7 Chloride 109 H Carbon Dioxide 24.5 Anion Gap 9 BUN 20 Creatinine 0.8 Estim Creat Clear Calc 73.1 eGFR > 60 BUN/Creatinine Ratio 25 H Glucose 81 Calculated Osmolality 284 Calcium 8.6 Corrected Calcium 9.4 Phosphorus 3.1 Magnesium 1.8 Total Bilirubin 0.3 AST 14 ALT < 7 L Alkaline Phosphatase 58 Total Protein 5.1 L Albumin 3.0 L Globulin 2.1 L Albumin/Globulin Ratio 1.4 Quality Measures Quality Measures VTE prophylaxis Assessment & Plan Assessment Current Active Medications: Generic Name Dose Route Start Last Admin Trade Name Freq PRN Reason Stop Dose Admin Acetaminophen 650 mg 08/28/25 12:44 Acetaminophen 325 Mg Tablet PO 09/26/25 23:09 Q6H PRN Fever >100.4 Bismuth Subsalicylate 2 tab 08/28/25 18:15 08/30/25 05:37 Bismuth Subsalicyl 1 Tablet (Pepto-Bismol) PO 09/27/25 18:14 2 tab QID ALAN Administration Pantoprazole Sodium 80 mg in 100 mls @ 10 mls/hr 08/27/25 21:24 08/30/25 02:07 Protonix/Ns 80mg Iv Premix IV 08/30/25 19:23 10 mls/hr Q10H ALAN Administration Metronidazole 500 mg in 100 mls @ 200 mls/hr 08/27/25 23:17 08/30/25 05:37 Flagyl 500 Mg Iv IV 09/03/25 23:16 200 mls/hr Q8HR ALAN Administration Metoclopramide HCl 5 mg 08/27/25 23:15 08/28/25 18:21 Metoclopramide Inj 5 Mg/Ml Vial 2 Ml IVP 09/26/25 23:14 5 mg Q8HR PRN Administration NAUSEA OR VOMITING Protocol Ondansetron HCl 4 mg 08/27/25 23:10 08/28/25 14:26 Ondansetron Inj 2 Mg/Ml Inj 2 Ml IVP 09/26/25 23:09 4 mg Q6H PRN Administration NAUSEA OR VOMITING Protocol Sennosides 1 tab 08/27/25 23:10 08/28/25 14:26 Senna Tablet PO 09/26/25 23:09 1 tab QDAY PRN Administration constipation Protocol Tetracycline HCl 500 mg 08/27/25 23:30 08/30/25 05:36 Tetracycline 250 Mg Capsule PO 09/03/25 23:29 500 mg QID ALAN Administration Plan A 65-year-old male with significant past medical history of recently diagnosed H. pylori, esophageal ulcers, chronic meth abuse, recently discharged from hospital on 08/18/2025 presented to the hospital with chief complaints of hematemesis and abdominal pain and admitted for UGI Bleed. # Upper GI bleed # Hematemesis # Esophageal ulcer secondary to H. pylori infection # Underlying drug noncompliance # Hiatal hernia - Presented to the ED with chief complaints of abdominal pain and hematemesis since discharge from the hospital on 08/18/2025 - Reported that he noted to have decreased food intake secondary to the pain - Did not take any medication after discharge from the hospital - Abdomen CT scan from 08/22/25 revealed herniation of a major portion of the stomach into the hemithorax. - Vitals at the time of admission are significant for blood pressure 134/87 mmHg, pulse rate 107 bpm - Labs at the time of admission are significant for hemoglobin 9.1, platelets 621, creatinine 1.4 Plan - Was given 1.5 L of bolus in the ED - D/C maintenance NS at 80 mL/h - Continue Pantoprazole 80mg IVP BID per GI recs. - Continue H. pylori treatment, quadruple therapy - N.p.o. except for meds - Pending GI recommendations, plan for endoscopy later today 08/30/25. ? 2pRBC transfused. (08/28, 12/8) ? Transfuse if Hgb less than 7 # TWIN, likely prerenal (resolved) - Noted to have decreased food intake secondary to abdominal pain - Creatinine at the time of presentation is 1.4, baseline creatinine is 0.9 Plan - Received 1.5 L bolus in the ED - D/C NS at 80 mL/h - Strict I&O's - Avoid nephrotoxic medication and renally dose medications # Chronic methamphetamine abuse - Last methamphetamine abuse is on the day of admission Plan - Echocardiogram in view of chronic meth abuse, negative for vegetation, LVEF 55-60%. Health maintenance Dispo: Pending GI recs. DVT prophylaxis: SCDs GI prophylaxis: Protonix 80mg BID. Antibiotics: Quadruple therapy for H. pylori. Bowel Regimen: Senna Diet: NPO except for meds Lines: Peripheral IV Code status: Full code Case discussed with my senior resident Dr. Love Case discussed with my attending Dr. Moustapha Keita, PGY 1 Attending Provider Attestation/Addendum I have seen and examined the patient. I was physically present for the vargas portions of the services provided including history, physical exam, diagnosis, treatment plans and orders. I agree with assessment and plan of care as documented by residents. Even though this this note was carefully revised there may still be minor errors in truck supervisor due to voice recognition software. Corinna Gerard MD
[2025-08-30 10:52] LABS: Basophils # (Auto) 0.0 Thou/mm3 (0.0-0.2); Basophils % (Auto) 0 % (0-2.5); Eosinophils # (Auto) 0.2 Thou/mm3 (0.0-0.5); Eosinophils % (Auto) 4 % (0-10); Hematocrit 26.1 % (41.0-53.0); Hemoglobin 8.4 g/dL (13.5-16.0); Immature Granulocytes Auto 0.01 Thou/mm3 (0.00-0.00); Lymphocytes # (Auto) 0.4 Thou/mm3 (1.0-4.8); Lymphocytes % (Auto) 9 % (10-50); Mean Corpuscular HGB Conc 32.2 g/dl (31.0-37.0); Mean Corpuscular Hemoglobin 24.8 pg (25.0-35.0); Mean Corpuscular Volume 77 fL (80-100); Monocytes # (Auto) 0.3 Thou/mm3 (0.0-0.8); Monocytes % (Auto) 7 % (0-12); Neutrophils # (Auto) 4.0 Thou/mm3 (1.8-7.7); Neutrophils % (Auto) 80 % (37-80); Nucleated Red Blood Cell # 0.00 Thou/mm3 (0.00-0.00); Nucleated Red Blood Cell % 0 /100 WBC (0); Platelet Count 502 Thou/mm3 (140-440); RDW Standard Deviation 53.1 fL (35.1-43.9); Red Blood Count 3.39 Miln/mm3 (4.50-5.90); White Blood Count 5.0 Thou/mm3 (3.8-10.6)
[2025-08-30 11:13] LABS: Troponin I < 0.020 ng/mL (0.0-0.045)
[2025-08-30] MEDS: ONDANSETRON INJ 2 MG/ML INJ 2 ML 4 MG IVP (11:15)
--- NOTE | 2025-08-30 12:09 | PC.SS ---
Alexei Quesada is a 65-year-old male admitted to [place] for GI Bleed and TWIN. SS met with pt at bedside to complete initial assessment and discuss DC planning. SS utilized [facility] Plumber Supervisor Adelaida Cox. Role and reason explained to pt. Pt stated he already spoke to a foster care social worker, no documentation noted of any conversation with another SW. SS inquired on an emergency contact, per pt he has no one. SS inquired on his living situation, pt stated he is homeless and that he has a friend who helps him from a restorationism. SS inquired on which restorationism, pt did not want to disclose information. Pt does not possess a PCP. Pt will DC back to the community. No further needs identified. DC plan: Transient DM: Self
[2025-08-30] MEDS: METOCLOPRAMIDE INJ 5 MG/ML VIAL 2 ML IVP (12:57)
--- NOTE | 2025-08-30 18:54 | SUR.PHASEI ---
1854: Pt. wakes to name then drifts back to sleep, vitals stable, breathing unlabored, no complaint of pain or nausea, no dressing in place, no active bleed noted, report received from Jen MARTINEZ.
--- NOTE | 2025-08-30 19:21 | SUR.PHASEI ---
1921: Pt. AAOx4, vitals stable, breathing unlabored, no complaint of pain or nausea, no dressing in place, no active bleed noted, report given to Kamilah MARTINEZ prior to transfer to room 381.
--- NOTE | 2025-08-30 20:21 | PC.NURSE ---
called RT- notified re ekg ordered this morning.
[2025-08-31] VITALS (8 sets, daily range): BP systolic 125–151; BP diastolic 67–76; PULSE 59–79; RESP 12–19; TEMP 36.4–37.1; O2SAT 94–99
--- NOTE | 2025-08-31 01:29 | PC.RT ---
spoke to DR ESCOBEDO about the EKG ordered 06/30 at 10;26 am EKG done at 0019:[address] ESCOBEDO due to RT busy elsewhere.
[2025-08-31 05:20] LABS: Basophils # (Auto) 0.0 Thou/mm3 (0.0-0.2); Basophils % (Auto) 0 % (0-2.5); Eosinophils # (Auto) 0.2 Thou/mm3 (0.0-0.5); Eosinophils % (Auto) 4 % (0-10); Hematocrit 28.7 % (41.0-53.0); Hemoglobin 9.0 g/dL (13.5-16.0); Immature Granulocytes Auto 0.02 Thou/mm3 (0.00-0.00); Lymphocytes # (Auto) 0.4 Thou/mm3 (1.0-4.8); Lymphocytes % (Auto) 9 % (10-50); Mean Corpuscular HGB Conc 31.4 g/dl (31.0-37.0); Mean Corpuscular Hemoglobin 24.7 pg (25.0-35.0); Mean Corpuscular Volume 79 fL (80-100); Monocytes # (Auto) 0.3 Thou/mm3 (0.0-0.8); Monocytes % (Auto) 7 % (0-12); Neutrophils # (Auto) 4.1 Thou/mm3 (1.8-7.7); Neutrophils % (Auto) 80 % (37-80); Nucleated Red Blood Cell # 0.00 Thou/mm3 (0.00-0.00); Nucleated Red Blood Cell % 0 /100 WBC (0); Platelet Count 470 Thou/mm3 (140-440); RDW Standard Deviation 55.1 fL (35.1-43.9); Red Blood Count 3.65 Miln/mm3 (4.50-5.90); White Blood Count 5.1 Thou/mm3 (3.8-10.6)
[2025-08-31] MEDS: metroNIDAZOLE/NS 500 MG IVPB 500 MG/100 ML BAG 200 MG IV ×3 (05:27→21:47)
[2025-08-31] MEDS: BISMUTH SUBSALICYL 1 TABLET (Pepto-Bismol) 2 TAB PO ×2 (05:27→21:46)
[2025-08-31 05:58] LABS: Alanine Aminotransferase < 7 U/L (10-49); Albumin, Serum 3.0 gm/dL (3.4-4.8); Albumin/Globulin Ratio 1.5 (1.2-2.2); Alkaline Phosphatase 56 U/L (46-116); Anion Gap 6 (7-16); Aspartate Amino Transferase 13 U/L (0-34); BUN/Creatinine Ratio 18 Ratio (12-20); Bilirubin,Total < 0.2 mg/dL (0.3-1.2); Blood Urea Nitrogen 16 mg/dL (9-23); Calcium 8.6 mg/dL (8.3-10.6); Calcium (Corrected) 9.4 mg/dL (8.5-10.1); Carbon Dioxide 25.6 mMol/L (20.0-31.0); Chloride 108 mMol/L (98-107); Creatinine (Component) 0.9 mg/dL (0.6-1.3); Estimated Creatinine Clearance 65.0 mL/min (>60); Globulin 2.0 gm/dL (2.3-3.5); Glucose 127 mg/dL (74-106); Magnesium 1.8 mg/dL (1.6-2.6); Osmolality,Calculated 282 (275-295); Phosphorous 2.8 mg/dL (2.4-5.1); Potassium 4.4 mMol/L (3.4-5.1); Sodium 140 mMol/L (136-145); Total Protein 5.0 gm/dL (5.7-8.2); eGFR > 60 See Note
[2025-08-31] MEDS: Magnesium Sulfate 4 GM Ivpb 4 GM/50 ML BAG IV (09:06)
--- NOTE | 2025-08-31 09:31 | EKG_ITS ---
[facility] Test Date: 2025-08-31 Pat Name: ANTHONY VELÁZQUEZ Department: Room: S381A Gender: Male Mechanical Lead: NIRMALA : 1960 Requested By: Corinna Gerard Order Number: [id number] Reading MD: Corinna Gerard Measurements Intervals [place] Rate: 62 P: 136 DC: 142 QRS: -30 QRSD: 104 T: -56 QT: 403 QTc: 410 Interpretive Statements SINUS RHYTHM LEFT VENTRICULAR HYPERTROPHY AND ST-T CHANGE POSSIBLE LATERAL MYOCARDIAL INFARCTION , OF INDETERMINATE AGE Compared to ECG 08/31/2025 00:19:39 Left ventricular hypertrophy now present ST (T wave) deviation now present Myocardial infarct finding now present Left anterior fascicular block no longer present T-wave abnormality no longer present Possible ischemia no longer present /store/S0/[id number]
--- NOTE | 2025-08-31 10:36 | ESDS_ITS ---
<Statement entered by Kori Jon MD - 09/01/25 13:57> In summary: 65-year-old British-speaking male with a history of H. pylori, esophageal ulcers, and chronic methamphetamine use, presented with hematemesis and abdominal pain due to an upper GI bleed. He was started on IV PROTONIX and pressors which have been initiated. EGD was completed with GI who recommended discharge on OMEPRAZOLE, REGLAN, and treatment for H. pylori. 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 Clear instructions were provided on use and adherence to regimen. I?ve reviewed the note and agree with this assessment and plan, with the exceptions outlined above. I personally went over the labs, imaging, home medications, and prior records, and examined the patient. The case was also reviewed with the attending physician. Please note: this document was transcribed using voice recognition technology; minor inaccuracies may be present. Kori Jon DO PGY II Planned Discharge Date 08/31/25 DS: Providers Provider Date of admission: 08/29/25 08:22 Primary care physician: Physician No Primary/Family Admitting Provider: Huber Baez MD Attending Provider on Admission: Huber Baez MD Consults: 08/28/25 05:23 Referral Smoking Cessation Counseling Routine Comment: Smoking Cessation Education Needed Health Equity Referral - Knowledge Deficit Routine Comment: Positive screening for knowledge deficit needs. Health Equity Referral - Nutrition Routine Comment: Positive screening for nutrition needs. Health Equity Referral - Safety Routine Comment: Positive screening for safety needs. Health Equity Referral - Transportation Routine Comment: Positive screening for transportation needs. Health Equity Referral - Utilities Routine Comment: Positive screening for utility assistance needs. 08/28/25 10:54 Consult to Gastroenterology Routine Comment: GI bleed Consulting Provider: Gregorio Tyler Attending Provider on DC: Corinna Gerard MD Discharging Provider: Celestino Keita DO Anticipated date of discharge: 08/31/25 DS: Diagnosis Problem List Completed Was Problem List Reviewed/Reconciled?: Yes Hospital Course Hospital Course Hospital course: Mr. Quesada is a British speaking, 65-year-old male with significant past medical history of recently diagnosed H. pylori, esophageal ulcers, chronic meth abuse, recently discharged from hospital on 08/18/2025 presented to the hospital on 08/27/25 with chief complaints of hematemesis and abdominal pain and admitted for UGI Bleed. Endoscopy on 08/16/25 revealed esophageal ulcers and extensive ulceration of the distal esophagus and GE junction. He was discharged home with omeprazole 40mg BID, but was not compliant with his medications since he thought those medications would be delivered to his home address. During this admission, patient required 2 units of pRBC transfusion on 08/28 and 08/29 due to low Hgb (below 7). GI was consulted, recommended high-dose PPI Protonix 80 mg IV push every 12H and endoscopy was performed on 08/30/25 due to significant drop in hemoglobin hematocrit requiring blood transfusions. Please see operative report for further details. On 08/30/25, a rapid response was called at approximately 10:27 for epigastric pain likely due to patient's pre-existing hiatal hernia. EKG was reviewed at bedside and no acute ST abnormalities noted. Troponin level returned negative. Upon reassessment the same day, patient no longer complained of chest pain or abdominal pain. Given patient's history of gastritis and upper GI bleed, CXR and KUB were ordered to rule out perforation, both image studies were unremarkable. Since patient's hemoglobin level has been stable for the last few days of this admission, patient was deemed appropriate for discharge home with omeprazole 40mg BID and Reglan 5mg BID along with quadruple therapy for H. pylori infection. These medications were given to patient at bedside prior to his departure from the hospital. At this time, patient is medically and physically stable for discharge for home. All questions and concerns addressed, plan of care discussed with patient, return precautions given. retail service representative service was used during each patient encounter in this hospital admission. Diagnosis: # Upper GI bleed # Hematemesis # Esophageal ulcer secondary to H. pylori infection # Underlying drug noncompliance # Hiatal hernia # TWIN, likely prerenal # Chronic methamphetamine abuse Discharge Plan: Follow up with primary care physician within 1 week of discharge Instructions have been explained to the patient with regards to their medications and how to take them. Patient was able to explain back to physician and nursing staff how to take their medications. Patient expressed understanding with instructions. Continue to take the rest of your medications as prescribed by your primary care physician. Follow-up with PCP within 1-2 weeks of discharge. * It's important to finish your regimen for H. pylori treatment to prevent worsening of your gastric ulcer disease and/or progression to gastric cancer. * Continue taking OMPERAZOLE 40 mg twice daily for 90 days. * Continue taking REGLAN 5 mg twice daily for 90 days. * Continue taking AMOXICILLIN 1000 mg twice daily for 9 more days. * Continue taking CLARITHROMYCIN 500 mg twice daily for 9 more days. * Continue taking medications as prescribed below. * Return to Emergency Room if symptoms persist, worsen, or new symptoms develop Patient has been explained that should any symptoms recur or worsen patient is instructed to return to the Emergency Department. Case discussed with my senior resident Dr. Jon Case discussed with my attending Dr. Moustapha Keita DO PGY 1 Time Spent with Patient Time attestation: Total time spent providing and/or coordinating discharge services: 42 minutes Time spent: Greater than 30 minutes Exam Vital Signs Temp Pulse Resp BP Pulse Ox O2 Del Method O2 Flow Rate 98.3 F 60 16 126/76 94 L Room Air 3 08/31/25 08:00 08/31/25 08:00 08/31/25 08:00 08/31/25 08:00 08/31/25 08:00 08/31/25 08:00 08/30/25 18:50 Narrative Exam General: British speaking, conversational. Awake and in no acute distress. HEENT: Normocephalic, atraumatic. Heart: Regular rate and rhythm. Lungs: Clear to auscultation with no wheezing or crackles. Equal chest rise. Abdomen: Soft, nondistended, nontender. No guarding or rebound tenderness, or rigidity. Neurologic: Alert and oriented x3, no gross neurological deficit. Extremities: Able to move all 4 extremities. Skin: Dry, clean, and intact. No ecchymoses. Discharge Plan Plan Patient Disposition: HOME (Self Care) Care Plan Goals: * Follow-up with PCP within 1-2 weeks of discharge. * It's important to finish your regimen for H. pylori treatment to prevent worsening of your gastric ulcer disease and/or progression to gastric cancer. * Continue taking OMPERAZOLE 40 mg twice daily for 90 days. * Continue taking REGLAN 5 mg twice daily for 90 days. * Continue taking AMOXICILLIN 1000 mg twice daily for 9 more days. * Continue taking CLARITHROMYCIN 500 mg twice daily for 9 more days. * Continue taking medications as prescribed below. * Return to Emergency Room if symptoms persist, worsen, or new symptoms develop * * .? Seguimiento con carias m?dico de atenci?n primaria dentro de 1 a 2 semanas despu?s del jaja. * Es importante completar carias tratamiento contra el H. pylori para prevenir el empeoramiento de carias ?lcera g?strica o la progresi?n a c?ncer g?strico.? Contin?e tomando OMPERAZOL 40 mg dos veces al d?a pranay 90 d?as. * Contin?e tomando REGLAN 5 mg dos veces al d?a pranay 90 d?as * Contin?e tomando AMOXICILINA 1000 mg dos veces al d?a pranay 9 d?as m?s * Contin?e tomando CLARITROMICINA 500 mg dos veces al d?a pranay 9 d?as m?s * Contin?e tomando los medicamentos seg?n lo prescrito a continuaci?n * Regrese a urgencias si los s?ntomas persisten, empeoran o aparecen nuevos Prescriptions/Referrals Prescriptions/Med Rec: New metoclopramide HCl [Reglan] 5 mg tablet 5 mg PO BID 90 Days Qty: 180 0RF amoxicillin 500 mg capsule 1,000 mg PO BID 9 Days Qty: 36 0RF clarithromycin 500 mg tablet 500 mg PO BID 9 Days Qty: 18 0RF omeprazole 40 mg capsule,delayed release(DR/EC) 40 mg PO BID 90 Days Qty: 180 0RF Discontinued Talicia 10-250-12.5 mg capsule,IR - delay rel,biphase 4 cap PO Q8H 14 Days Qty: 168 0RF Rx Instructions: must administer with a meal/food metoclopramide HCl 10 mg tablet 10 mg PO Q6H PRN (Reason: nausea and vomiting) Qty: 20 0RF ondansetron 4 mg tablet,disintegrating 4 mg PO Q8H PRN (Reason: nausea and vomiting) Qty: 14 0RF Referrals: No Primary/Family,Physician [Primary Care Provider] Patient/Caregiver Discharge Instructions Education Materials: Anemia, Upper GI Endoscopy, Understanding Gastric Ulcers Print Language: British Stand Alone Forms: Cherelle Award Info., Patient Portal Info Letter Discharge Order Discharge Orders: Discharge (Routine); Ordered 08/31/25 Ordered By: Kori Jon Quality Discharge Quality Measures none MD Attestestation MD Attestation I have seen and examined the patient. I was physically present for the vargas portions of the services provided including history, physical exam, diagnosis, treatment plans and orders. I agree with assessment and plan of care as documented by residents. Even though this this note was carefully revised there may still be minor errors in motion picture scene builder due to voice recognition software. Corinna Gerard MD
[2025-08-31 11:15] LABS: Troponin I < 0.020 ng/mL (0.0-0.045)
--- NOTE | 2025-08-31 14:40 | PC.SS ---
Rounding: Pending [facility] hern[facility]dez DC plan community. Pt may need a ride, was unable to get address for where pt wishes to go.
--- NOTE | 2025-08-31 21:01 | ESPR_ITS ---
Documentation for date of: 08/31/25 Subjective Subjective Interval history: Patient evaluated case discussed with the internal medicine team Prior to discharge patient must be handed over the following medication for 90 days as he is not taking the medication once he is discharged and keeps getting readmitted Suggestions include the following Omeprazole 40 mg twice daily for 90 days and 1 refill Reglan 5 mg twice daily for 90 days and 1 refill Once that is established patient can go home and have asked the internal medicine team to work with the mental health case manager Exam Vital Signs Temp Pulse Resp BP Pulse Ox O2 Del Method O2 Flow Rate 98.8 F 63 17 143/74 H 94 L Room Air 3 08/31/25 16:00 08/31/25 16:00 08/31/25 16:00 08/31/25 16:00 08/31/25 16:00 08/31/25 16:00 08/31/25 16:00 Objective Labs 08/31/25 04:30 08/31/25 04:30 Labs: Laboratory Results - last 24 hr 08/28/25 08/31/25 08/31/25 11:40 04:30 04:30 WBC 5.1 RBC 3.65 L Hgb 9.0 L Hct 28.7 L MCV 79 L MCH 24.7 L MCHC 31.4 RDW Std Deviation 55.1 H Plt Count 470 H D Neut % (Auto) 80 Lymph % (Auto) 9 L [place] % (Auto) 7 Eos % (Auto) 4 Baso % (Auto) 0 Neut # (Auto) 4.1 Lymph # (Auto) 0.4 L [place] # (Auto) 0.3 Eos # (Auto) 0.2 Baso # (Auto) 0.0 Immature Gran # (Auto) 0.02 H Absolute Nucleated RBC 0.00 Immature Gran % 0 Nucleated RBC % 0 Sodium 140 Potassium 4.4 D Chloride 108 H Carbon Dioxide 25.6 Anion Gap 6 L BUN 16 Creatinine 0.9 Estim Creat Clear Calc 65.0 eGFR > 60 BUN/Creatinine Ratio 18 Glucose 127 H D Calculated Osmolality 282 Calcium 8.6 Corrected Calcium 9.4 Phosphorus 2.8 Magnesium 1.8 Total Bilirubin < 0.2 L AST 13 ALT < 7 L Alkaline Phosphatase 56 Troponin I Cancelled < 0.020 Total Protein 5.0 L Albumin 3.0 L Globulin 2.0 L Albumin/Globulin Ratio 1.5 Crossmatch See Detail Impressions Impression: Multiple ulcers mid and distal esophagus As under HPI Assessment & Plan A&P Narrative Hematemesis secondary to most likely esophageal ulceration could be due to Stacy-Xiao tear as well Anemia blood loss Polysubstance abuse Plan Keep the patient n.p.o. lets see how he does over the next 24 hours I am not too keen on doing the endoscopy at the moment High-dose PPI Protonix 80 mg IV push every 12 Will follow the patient Serial CBC Time Spent With Patient Time: Total time spent is greater than 50% in coordination of care (as documented) at patient's floor/unit and/or counseling patient:
[2025-09-01] VITALS: BP 123/56; PULSE 63; RESP 16; TEMP 37.2; O2SAT 98
[2025-09-01 04:00] VITALS: BP 123/68; PULSE 58; PULSE 69; RESP 16; TEMP 36.6; O2SAT 93
[2025-09-01 06:01] LABS: Basophils # (Auto) 0.0 Thou/mm3 (0.0-0.2); Basophils % (Auto) 1 % (0-2.5); Eosinophils # (Auto) 0.3 Thou/mm3 (0.0-0.5); Eosinophils % (Auto) 6 % (0-10); Hematocrit 28.0 % (41.0-53.0); Hemoglobin 8.9 g/dL (13.5-16.0); Immature Granulocytes Auto 0.01 Thou/mm3 (0.00-0.00); Lymphocytes # (Auto) 0.7 Thou/mm3 (1.0-4.8); Lymphocytes % (Auto) 12 % (10-50); Mean Corpuscular HGB Conc 31.8 g/dl (31.0-37.0); Mean Corpuscular Hemoglobin 24.9 pg (25.0-35.0); Mean Corpuscular Volume 78 fL (80-100); Monocytes # (Auto) 0.3 Thou/mm3 (0.0-0.8); Monocytes % (Auto) 5 % (0-12); Neutrophils # (Auto) 4.0 Thou/mm3 (1.8-7.7); Neutrophils % (Auto) 75 % (37-80); Nucleated Red Blood Cell # 0.00 Thou/mm3 (0.00-0.00); Nucleated Red Blood Cell % 0 /100 WBC (0); Platelet Count 471 Thou/mm3 (140-440); RDW Standard Deviation 54.7 fL (35.1-43.9); Red Blood Count 3.57 Miln/mm3 (4.50-5.90); White Blood Count 5.4 Thou/mm3 (3.8-10.6)
[2025-09-01] MEDS: metroNIDAZOLE/NS 500 MG IVPB 500 MG/100 ML BAG 200 MG IV (06:07)
[2025-09-01] MEDS: BISMUTH SUBSALICYL 1 TABLET (Pepto-Bismol) 2 TAB PO (06:08)
[2025-09-01] MEDS: SENNA/DOCUSATE SOD 1 TAB TABLET PO (06:08)
[2025-09-01 06:42] LABS: Alanine Aminotransferase < 7 U/L (10-49); Albumin, Serum 3.1 gm/dL (3.4-4.8); Albumin/Globulin Ratio 1.6 (1.2-2.2); Alkaline Phosphatase 54 U/L (46-116); Anion Gap 9 (7-16); Aspartate Amino Transferase 14 U/L (0-34); BUN/Creatinine Ratio 19 Ratio (12-20); Bilirubin,Total 0.2 mg/dL (0.3-1.2); Blood Urea Nitrogen 13 mg/dL (9-23); Calcium 8.5 mg/dL (8.3-10.6); Calcium (Corrected) 9.2 mg/dL (8.5-10.1); Carbon Dioxide 24.0 mMol/L (20.0-31.0); Chloride 106 mMol/L (98-107); Creatinine (Component) 0.7 mg/dL (0.6-1.3); Estimated Creatinine Clearance 83.6 mL/min (>60); Globulin 2.0 gm/dL (2.3-3.5); Glucose 124 mg/dL (74-106); Magnesium 1.8 mg/dL (1.6-2.6); Osmolality,Calculated 278 (275-295); Phosphorous 3.1 mg/dL (2.4-5.1); Potassium 4.4 mMol/L (3.4-5.1); Sodium 139 mMol/L (136-145); Total Protein 5.1 gm/dL (5.7-8.2); eGFR > 60 See Note
[2025-09-01 08:10] VITALS: BP 124/62; PULSE 72; RESP 16; TEMP 37.3; O2SAT 98
[2025-09-01 08:17] VITALS: PULSE 75
--- NOTE | 2025-09-01 08:45 | PC.NURSE ---
Spent from [phone] with patient, RN, Mara fitness and wellness instructor, and Lisa CRAWLEY. pt. offered resources such as homeless [facility] and transportation. Pt. denies homeless [facility]. Pt. states Take me to the [facility], people there give me money. Per fitness and wellness instructor Mara. Pt. offered to be taken to location closer to [facility] for when it [place] 2000 and pt. denied help. Pt. educated to return to ER if needed and pt. educated by RN on how to take medication and importance of completing medication to get rid of H Pylori infection. Pt. verbalizes understanding.
[2025-09-01 09:20] VITALS: BP 126/65; PULSE 75; RESP 16; TEMP 36.2; O2SAT 98
--- NOTE | 2025-09-01 09:33 | ESDS_ITS ---
<Statement entered by Kori Jon MD - 09/01/25 13:57> In summary: 65-year-old Polish-speaking male with a history of H. pylori, esophageal ulcers, and chronic methamphetamine use, presented with hematemesis and abdominal pain due to an upper GI bleed. He was started on IV PROTONIX and pressors which have been initiated. EGD was completed with GI who recommended discharge on OMEPRAZOLE, REGLAN, and treatment for H. pylori. 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 Clear instructions were provided on use and adherence to regimen. I?ve reviewed the note and agree with this assessment and plan, with the exceptions outlined above. I personally went over the labs, imaging, home medications, and prior records, and examined the patient. The case was also reviewed with the attending physician. Please note: this document was transcribed using voice recognition technology; minor inaccuracies may be present. Kori Jon DO PGY II Planned Discharge Date 08/31/25 DS: Providers Provider Date of admission: 08/29/25 08:22 Primary care physician: Physician No Primary/Family Admitting Provider: Huber Baez MD Attending Provider on Admission: Huber Baez MD Consults: 08/28/25 05:23 Referral Smoking Cessation Counseling Routine Comment: Smoking Cessation Education Needed Health Equity Referral - Knowledge Deficit Routine Comment: Positive screening for knowledge deficit needs. Health Equity Referral - Nutrition Routine Comment: Positive screening for nutrition needs. Health Equity Referral - Safety Routine Comment: Positive screening for safety needs. Health Equity Referral - Transportation Routine Comment: Positive screening for transportation needs. Health Equity Referral - Utilities Routine Comment: Positive screening for utility assistance needs. 08/28/25 10:54 Consult to Gastroenterology Routine Comment: GI bleed Consulting Provider: Gregorio Tyler Attending Provider on DC: Corinna Gerard MD Discharging Provider: Celestino Keita DO Anticipated date of discharge: 08/31/25 DS: Diagnosis Problem List Completed Was Problem List Reviewed/Reconciled?: Yes Hospital Course Hospital Course Hospital course: Patient was discharged on 08/31/25 PM, but was cold and dark by the time patient was ready to leave the hospital. Patient to be departed from hospital with help of Case Management this AM with medications at bedside. Mr. Quesada is a Polish speaking, 65-year-old male with significant past medical history of recently diagnosed H. pylori, esophageal ulcers, chronic meth abuse, recently discharged from hospital on 08/18/2025 presented to the hospital on 08/27/25 with chief complaints of hematemesis and abdominal pain and admitted for UGI Bleed. Endoscopy on 08/16/25 revealed esophageal ulcers and extensive ulceration of the distal esophagus and GE junction. He was discharged home with omeprazole 40mg BID, but was not compliant with his medications since he thought those medications would be delivered to his home address. During this admission, patient required 2 units of pRBC transfusion on 08/28 and 08/29 due to low Hgb (below 7). GI was consulted, recommended high-dose PPI Protonix 80 mg IV push every 12H and endoscopy was performed on 08/30/25 due to significant drop in hemoglobin hematocrit requiring blood transfusions. Please see operative report for further details. On 08/30/25, a rapid response was called at approximately 1 0:27 for epigastric pain likely due to patient's pre-existing hiatal hernia. EKG was reviewed at bedside and no acute ST abnormalities noted. Troponin level returned negative. Upon reassessment the same day, patient no longer complained of chest pain or abdominal pain. Given patient's history of gastritis and upper GI bleed, CXR and KUB were ordered to rule out perforation, both image studies were unremarkable. Since patient's hemoglobin level has been stable for the last few days of this admission, patient was deemed appropriate for discharge home with omeprazole 40mg BID and Reglan 5mg BID along with quadruple therapy for H. pylori infection. These medications were given to patient at bedside prior to his departure from the hospital. At this time, patient is medically and physically stable for discharge for home. All questions and concerns addressed, plan of care discussed with patient, return precautions given. seismic interpreter service was used during each patient encounter in this hospital admission. Diagnosis: # Upper GI bleed # Hematemesis # Esophageal ulcer secondary to H. pylori infection # Underlying drug noncompliance # Hiatal hernia # TWIN, likely prerenal # Chronic methamphetamine abuse Discharge Plan: Follow up with primary care physician within 1 week of discharge Instructions have been explained to the patient with regards to their medications and how to take them. Patient was able to explain back to physician and nursing staff how to take their medications. Patient expressed understanding with instructions. Continue to take the rest of your medications as prescribed by your primary care physician. Follow-up with PCP within 1-2 weeks of discharge. * It's important to finish your regimen for H. pylori treatment to prevent worsening of your gastric ulcer disease and/or progression to gastric cancer. * Continue taking OMPERAZOLE 40 mg twice daily for 90 days. * Continue taking REGLAN 5 mg twice daily for 90 days. * Continue taking AMOXICILLIN 1000 mg twice daily for 9 more days. * Continue taking CLARITHROMYCIN 500 mg twice daily for 9 more days. * Continue taking medications as prescribed below. * Return to Emergency Room if symptoms persist, worsen, or new symptoms develop Patient has been explained that should any symptoms recur or worsen patient is instructed to return to the Emergency Department. Case discussed with my senior resident Dr. Jon Case discussed with my attending Dr. Moustapha Keita DO PGY 1 Time Spent with Patient Time attestation: Total time spent providing and/or coordinating discharge services: 36 minutes Time spent: Greater than 30 minutes Exam Vital Signs Temp Pulse Resp BP Pulse Ox O2 Del Method O2 Flow Rate 99.1 F 75 16 124/62 98 Room Air 3 09/01/25 08:10 09/01/25 08:17 09/01/25 08:10 09/01/25 08:10 09/01/25 08:10 09/01/25 08:10 08/31/25 16:00 Narrative Exam General: Polish speaking, conversational. Awake and in no acute distress. HEENT: Normocephalic, atraumatic. Heart: Regular rate and rhythm. Lungs: Clear to auscultation with no wheezing or crackles. Equal chest rise. Abdomen: Soft, nondistended, nontender. No guarding or rebound tenderness, or rigidity. Neurologic: Alert and oriented x3, no gross neurological deficit. Extremities: Able to move all 4 extremities. Skin: Dry, clean, and intact. No ecchymoses. Discharge Plan Plan Patient Disposition: HOME (Self Care) Care Plan Goals: * Follow-up with PCP within 1-2 weeks of discharge. * It's important to finish your regimen for H. pylori treatment to prevent worsening of your gastric ulcer disease and/or progression to gastric cancer. * Continue taking OMPERAZOLE 40 mg twice daily for 90 days. * Continue taking REGLAN 5 mg twice daily for 90 days. * Continue taking AMOXICILLIN 1000 mg twice daily for 9 more days. * Continue taking CLARITHROMYCIN 500 mg twice daily for 9 more days. * Continue taking medications as prescribed below. * Return to Emergency Room if symptoms persist, worsen, or new symptoms develop * * Seguimiento con carias m?dico de atenci?n primaria dentro de 1 a 2 semanas despu?s del jaja. * Es importante completar carias tratamiento contra el H. pylori para prevenir el empeoramiento de carias ?lcera g?strica o la progresi?n a c?ncer g?strico.? Contin?e tomando OMPERAZOL 40 mg dos veces al d?a pranay 90 d?as. * Contin?e tomando REGLAN 5 mg dos veces al d?a pranay 90 d?as * Contin?e tomando AMOXICILINA 1000 mg dos veces al d?a pranay 9 d?as m?s * Contin?e tomando CLARITROMICINA 500 mg dos veces al d?a pranay 9 d?as m?s * Contin?e tomando los medicamentos seg?n lo prescrito a continuaci?n * Regrese a urgencias si los s?ntomas persisten, empeoran o aparecen nuevos Prescriptions/Referrals Prescriptions/Med Rec: New metoclopramide HCl [Reglan] 5 mg tablet 5 mg PO BID 90 Days Qty: 180 0RF amoxicillin 500 mg capsule 1,000 mg PO BID 9 Days Qty: 36 0RF clarithromycin 500 mg tablet 500 mg PO BID 9 Days Qty: 18 0RF omeprazole 40 mg capsule,delayed release(DR/EC) 40 mg PO BID 90 Days Qty: 180 0RF Discontinued Talicia 10-250-12.5 mg capsule,IR - delay rel,biphase 4 cap PO Q8H 14 Days Qty: 168 0RF Rx Instructions: must administer with a meal/food metoclopramide HCl 10 mg tablet 10 mg PO Q6H PRN (Reason: nausea and vomiting) Qty: 20 0RF ondansetron 4 mg tablet,disintegrating 4 mg PO Q8H PRN (Reason: nausea and vomiting) Qty: 14 0RF Referrals: No Primary/Family,Physician [Primary Care Provider] Patient/Caregiver Discharge Instructions Education Materials: Anemia, Upper GI Endoscopy, Understanding Gastric Ulcers Print Language: Polish Stand Alone Forms: Cherelle Award Info., Patient Portal Info Letter Discharge Order Discharge Orders: Discharge (Routine); Ordered 09/01/25 Ordered By: Kori Jon Quality Discharge Quality Measures none MD Attestestation MD Attestation I have seen and examined the patient. I was physically present for the vargas portions of the services provided including history, physical exam, diagnosis, treatment plans and orders. I agree with assessment and plan of care as documented by residents. Even though this this note was carefully revised there may still be minor errors in identification and records commander due to voice recognition software. Corinna Gerard MD
== END 2025-09-01 09:20 | disposition home or self-care (01) | DRG 242 ==
LOC: SERX 21:25 → SERHOLD 23:42 → S3SX 08-29 06:29
PROVIDERS: Physician Assistant; Specialist; Admitting Provider Student in an Organized Health Care Education/Training Program; Emergency Provider Emergency Medicine; Visit Provider Student in an Organized Health Care Education/Training Program
PROC: (CPT 43239; principal; 2025-08-30 18:30)
DX: K22.11 Ulcer of esophagus with bleeding (principal); B96.81 Helicobacter pylori [H. pylori] as the cause of diseases classified elsewhere; K44.9 Diaphragmatic hernia without obstruction or gangrene; N17.9 Acute kidney failure, unspecified; B37.81 Candidal esophagitis; D62 Acute posthemorrhagic anemia; F15.129 Other stimulant abuse with intoxication, unspecified; K22.70 Barrett's esophagus without dysplasia; F17.200 Nicotine dependence, unspecified, uncomplicated; K29.71 Gastritis, unspecified, with bleeding; Z91.148 Patient's other noncompliance with medication regimen for other reason; Z60.3 Acculturation difficulty
CPT/HCPCS: 36415; 71045; 74018; 80053; 80307; 81001; 83690; 83735; 84100; 84484; 85014; 85018; 85025; 86850; 86900; 86901; 86923; 87077; 87081; 87086; 87186; 93005; 93225; 93306; 96361; 96365; 96375; 99283; A4649; G0378; J0696; J1200; J1920; J1938; J2250; J2270; J2405; J2470; J2765; J3010; J3475; J3490; J7030; J7120; P9016; A9270; J1836